=== PATIENT | female | born 1935 | race Caucasian/White ===

== ENCOUNTER 2016-12-21 12:09 | Emergency (ER) | payer MEDICARE, BC ==
[2016-12-21] MEDS ORDERED: NS 0.9% 1000 ML* 1,000 ML IV ONE (13:36)
[2016-12-21 14:02] LABS: Hematocrit 31 % (35-47); Hemoglobin 10.5 g/dl (12.0-16.0); Mean Corpuscular HGB Conc 34 g/dl (31-36); Mean Corpuscular Hemoglobin 32 pg (27-31); Mean Corpuscular Volume 94 fL (80-97); Mean Platelet Volume 10 um3 (7.4-10.4); Red Blood Count 3.32 10^6/ul (4.0-5.4); Red Cell Distribution Width 17 % (10.5-15); White Blood Count 6.6 10^3/ul (3.5-10.8)
[2016-12-21 14:18] LABS: ALT 69 U/L (7-52); Albumin 4.1 g/dL (3.2-5.2); Alkaline Phosphatase 53 U/L (34-104); BUN/Creatinine Ratio 23.2 (8-20); Blood Urea Nitrogen 23 mg/dL (6-24); CO2 Carbon Dioxide 27 mmol/L (22-32); Calcium 9.5 mg/dL (8.6-10.3); Chloride 108 mmol/L (101-111); EGFR African American 69.1 (>60); EGFR Non-African American 53.7 (>60); Globulin 2.6 g/dL (2-4); Glucose 79 mg/dL (70-100); Sodium 140 mmol/L (133-145); Total Protein 6.7 g/dL (6.4-8.9)
[2016-12-21] MEDS ORDERED: Iodixanol* (CONTRAST) 320 MG/ML 100 ML SDV IV ONE (14:25)
[2016-12-21 14:44] VITALS: BP 168/60
[2016-12-21 14:52] LABS: Anion Gap 5 mmol/L (2-11)
[2016-12-21 15:26] LABS: Erythrocyte Sed Rate 43 mm/Hr (0-40)
--- NOTE | 2016-12-21 15:40 | RAD ---
HISTORY: Headache, left-sided neck pain COMPARISONS: March 02, 2011 TECHNIQUE: Multiple contiguous axial CT scans were obtained of the head without intravenous contrast. FINDINGS: HEMORRHAGE/INFARCT: There is no hemorrhage or acute infarct. MASSES/SHIFT: There is no mass or shift. EXTRA-AXIAL SPACES: There are no extra-axial fluid collections. SULCI AND VENTRICLES: The sulci and ventricles are normal in size and position for the patient's stated age. CEREBRUM: There is hypoattenuation of the periventricular and subcortical white matter. BRAINSTEM: There are no focal parenchymal abnormalities. CEREBELLUM: There are no focal parenchymal abnormalities. VESSELS: The vessels are grossly normal. PARANASAL SINUSES: The paranasal sinuses are clear. ORBITS: The orbits are unremarkable. BONES AND SOFT TISSUE: No bone or soft tissue abnormalities are noted. OTHER: None IMPRESSION: NO ACUTE INTRACRANIAL PATHOLOGY. CHRONIC SMALL VESSEL ISCHEMIC CHANGE
--- NOTE | 2016-12-21 16:08 | RAD ---
HISTORY: Headache, left-sided neck pain COMPARISONS: MRA of the head dated March 23, 2005 TECHNIQUE: Multiple contiguous axial CT scans were obtained of the head and neck After the administration of nonionic intravenous contrast timed to the systemic arterial phase of contrast enhancement. Coronal and sagittal multiplanar reformations are submitted for review. Multiple 3-D maximum intensity projection reconstructions are also submitted for review. FINDINGS: CTA NECK: AORTIC ARCH: There is a normal three-vessel branching pattern of the aortic arch. There is no ostial or proximal stenosis of the cephalic great vessels. RIGHT VERTEBRAL ARTERY: The right vertebral artery terminates in the right posterior inferior cerebral artery LEFT VERTEBRAL ARTERY: The left vertebral artery is patent along its course, without stenosis. DOMINANCE: The left vertebral artery is dominant. RIGHT COMMON CAROTID ARTERY: The right common carotid artery is patent. The right carotid bifurcation occurs at C4-C5 RIGHT INTERNAL CAROTID ARTERY: There is atheromatous disease of the right carotid bifurcation, without right internal carotid artery stenosis by NASCET criteria. RIGHT EXTERNAL CAROTID ARTERY: The right external carotid artery is unremarkable. LEFT COMMON CAROTID ARTERY: The left common carotid artery is patent. The left carotid bifurcation occurs at C4-C5 LEFT INTERNAL CAROTID ARTERY: There is no left internal carotid artery stenosis by NASCET criteria. LEFT EXTERNAL CAROTID ARTERY: The left external carotid artery is unremarkable. VENOUS CIRCULATION: The venous system is unremarkable. SALIVARY GLANDS: The parotid glands, submandibular glands, sublingual glands are normal. NASAL CAVITY/NASOPHARYNX: The nasal cavity and nasopharynx are normal. ORAL CAVITY/OROPHARYNX: The oral cavity is obscured by streak artifact from dental amalgam. The visualized oral cavity and oropharynx are unremarkable. LARYNGEAL APPARATUS/HYPOPHARYNX: The laryngeal apparatus and hypopharynx are normal. UPPER AIRWAY/UPPER ESOPHAGUS: The visualized upper airway and esophagus are normal. LUNG APICES: The lung apices are clear. THYROID GLAND: The thyroid is heterogeneous with multiple nodules. LYMPH NODES: There is no lymphadenopathy by size criteria. BONES AND SOFT TISSUES: Degenerative changes noted of the spine CTA HEAD: INTRACRANIAL CIRCULATION: There is no aneurysm, vascular malformation, occlusion, or stenosis of the visualized intracranial circulation. The anterior communicating artery complex is clear. The posterior communicating arteries are diminutive, if present. VENOUS CIRCULATION: The venous system is unremarkable. PERFUSION: There is no obvious parenchymal perfusion deficit. HEMORRHAGE/INFARCT: There is no hemorrhage or acute infarct. MASSES/SHIFT: There is no mass or shift. EXTRA-AXIAL SPACES: There are no extra-axial fluid collections. SULCI AND VENTRICLES: The sulci and ventricles are normal in size and position for the patient's stated age. CEREBRUM: There is hypoattenuation of the periventricular and subcortical white matter. BRAINSTEM: There are no focal parenchymal abnormalities. CEREBELLUM: There are no focal parenchymal abnormalities. PARANASAL SINUSES: The paranasal sinuses are clear. ORBITS: The orbits are unremarkable. The superior orbital veins are normal and symmetric in size. BONES AND SOFT TISSUE: No bone or soft tissue abnormalities are noted. OTHER: There is no abnormal enhancement. IMPRESSION: 1. NO INTERNAL CAROTID ARTERY STENOSIS BY NASCET CRITERIA. THERE IS NO INTIMAL FLAP OR PSEUDOANEURYSM FORMATION TO SUGGEST CAROTID DISSECTION 2. NO ANEURYSM, VASCULAR MALFORMATION, OCCLUSION, OR STENOSIS OF THE VISUALIZED INTRACRANIAL CIRCULATION.. 3. THE THYROID IS HETEROGENEOUS WITH MULTIPLE NODULES. RECOMMEND CONSIDERATION OF CORRELATION WITH DEDICATED IMAGING OF THE THYROID IN THE NONACUTE SETTING. CPT II Codes: 3100F
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
== END 2016-12-21 17:13 | disposition home or self-care (01) ==
LOC: ED 12:09
DX: R51 Headache (principal); I25.119 Atherosclerotic heart disease of native coronary artery with unspecified angina pectoris; I10 Essential (primary) hypertension; Z86.718 Personal history of other venous thrombosis and embolism; Z88.1 Allergy status to other antibiotic agents; Z88.5 Allergy status to narcotic agent
CPT/HCPCS: 36415; 70450; 70496; 70498; 80053; 82375; 85025; 85652; 96360; 99282; Q9967

== ENCOUNTER 2017-07-06 10:06 | Emergency (ER) | payer MEDICARE, BC ==
[2017-07-06 10:32] VITALS: BP 116/67
--- NOTE | 2017-07-06 11:25 | UC ---
Migue Andrea Nikita, scribed for Timothy Douglass MD on 07/06/17 at 1048 . Complaint Female HPI - HPI Summary HPI Summary: This patient is an 82 year old F presenting to [facility] with a chief complaint of black tarry stool since a couple days ago. The patient rates the pain 0/10 in severity. Symptoms aggravated by nothing. Symptoms alleviated by nothing. Patient reports intermittent BECKFORD (1.5 weeks ago, taking Ibuprofen) and mouth sores (tends to bite herself when she is eating). Patient denies abdominal pain , CP, and SOB. The patient reports she is taking eliquis for afib. - History Of Current Complaint Stated Complaint: SWOLLEN FACE, DISCOLORED STOOL Time Seen by Provider: 07/06/17 10:17 Hx Obtained From: Patient Onset/Duration: Sudden Onset, Lasting Days, Still Present Timing: Constant, Lasting Days Severity Currently: None Pain Intensity: 0 Pain Scale Used: 0-10 Numeric Aggravating Factor(s): Nothing Alleviating Factor(s): Nothing - Allergies/Home Medications Allergies/Adverse Reactions: Allergies Allergy/AdvReac Type Severity Reaction Status Date / Time codeine Allergy Unknown Verified 07/06/17 10:24 Reaction Details erythromycin base Allergy Unknown Verified 07/06/17 10:24 [From Erythrocin] Reaction Details gabapentin [From Neurontin] Allergy Unknown Verified 07/06/17 10:24 Reaction Details Home Medications: Home Medications Diclofenac 1% GEL (NF) [Voltaren 1% GEL (NF)] 1 applic TOPICAL 07/06/17 [History ] Methotrexate TAB* 2.5 mg PO Q7D 07/06/17 [History Confirmed 07/06/17] Nadolol TAB* [Corgard TAB*] 40 mg PO DAILY 07/06/17 [History Confirmed 07/06/17] Potassium Chlor TAB* [Klor Con ER TAB*] 20 meq PO DAILY 07/06/17 [History Confirmed 07/06/17] Sertraline* [Zoloft*] 100 mg PO DAILY 07/06/17 [History Confirmed 07/06/17] Simvastatin (NF) [Zocor (NF)] 40 mg PO DAILY 07/06/17 [History Confirmed ] Triamcinolone 0.1% Oint (NF) [Triamcinolone Acetonide] 0 % 07/06/17 [History] PMH/Surg Hx/FS Hx/Imm Hx Cardiovascular History: Cardiac Disease, Hypertension, Atrial Fibrillation Neurological History: Other Other Neurological History: BECKFORD - Surgical History Surgical History: Yes Surgery Procedure, Year, and Place: CYST/TUMOR DRAINERD FROM RIGHT HIP X 25 YRS AGO - Family History Known Family History: Positive: Other - Negative autoimmune disease - Social History Alcohol Use: None Substance Use Type: None Smoking Status (MU): Never Smoked Tobacco - Immunization History Most Recent Influenza Vaccination: november 2012 Most Recent Tetanus Shot: 2011 Most Recent Pneumonia Vaccination: had in the past, not sure when Review of Systems Eyes: Other - mouth sores Respiratory: Other - deneis SOB Cardiovascular: Other - denies CP Gastrointestinal: Other - black tarry stool; denies abdominal pain Neurological: Headache - intermittent since 1.5 weeks ago All Other Systems Reviewed And Are Negative: Yes Physical Exam - Summary Physical Exam Summary: VITAL SIGNS: Reviewed. GENERAL: ~Patient is a well-developed and nourished FEMALE who is lying comfortable in the stretcher. ~Patient is not in any acute respiratory distress. HEAD AND FACE: Normocephalic EYES: PERRLA, EOMI x 2. sclera is pale. EARS: Hearing grossly intact. MOUTH: Oral mucosa is dry. small multiple sores. NECK: Supple, trachea is midline, no adenopathy, no JVD, no carotid bruit. CHEST: Symmetric, no tenderness at palpation LUNGS: Clear to auscultation bilaterally. No wheezing or crackles. CVS: Regular rate and rhythm, S1 and S2 present, no murmurs or gallops appreciated. ABDOMEN: Soft, non-tender. Bowel sounds are normal. No abdominal abnormal pulsations. EXTREMITIES: Full ROM in all major joints, no edema, no cyanosis or clubbing. NEURO: Alert and oriented x 3. No acute neurological deficits. Speech is normal and follows commands. SKIN: Dry and warm. Pale skin. Rectal: External hemorrhoids, no gross blood, no black stools. Triage Information Reviewed: Yes Vital Signs: Initial Vital Signs Temp 98.2 F 07/06/17 10:30 Pulse 75 07/06/17 10:30 Resp 16 07/06/17 10:30 BP 116/67 07/06/17 10:30 Pulse Ox 100 07/06/17 10:30 Vital Signs Reviewed: Yes Complaint Female Dx - Course Course Of Treatment: This patient is an 82 year old F presenting to [facility] with a chief complaint of black tarry stool since a couple days ago. The pt is hemodynamically stable, alert and oriented x3. I discussed all the findings and test results with the patient. Plan of care was discussed with the patient. Patient will be referred to the ED since patient is c/o black tarry stools and she has possitive occult blood. Vital signs stable. Declined ambulance transport. The patient decided to go to the ED by car with his son. All questions were answered to patient satisfaction. There were no further complaints or concerns. - Differential Dx/Diagnosis Provider Diagnoses: GI bleed secondary to Eloquis and NSAIDS Discharge - Sign-Out/Discharge Documenting (check all that apply): Discharge/Admit/Transfer - Discharge Plan Condition: Stable Disposition: HOME Patient Education Materials: Rectal Bleeding (ED) Referrals: David Elizabeth MD [Primary Care Provider] - Additional Instructions: Patient will be discharged to the ED. Declined ambulance transport - Billing Disposition and Condition Condition: STABLE Disposition: HOME The documentation as recorded by the Migue myers Nikita accurately reflects the service I personally performed and the decisions made by , Timothy Douglass MD.
== END 2017-07-06 10:55 | disposition home or self-care (01) ==
LOC: UCEAST 10:06
DX: K92.2 Gastrointestinal hemorrhage, unspecified (principal); K64.4 Residual hemorrhoidal skin tags; K13.79 Other lesions of oral mucosa; R51 Headache; I11.9 Hypertensive heart disease without heart failure; I48.91 Unspecified atrial fibrillation; Z79.01 Long term (current) use of anticoagulants; Z88.1 Allergy status to other antibiotic agents; Z88.5 Allergy status to narcotic agent; Z88.8 Allergy status to other drugs, medicaments and biological substances
CPT/HCPCS: 82270; 99212; G0463

== ENCOUNTER 2017-07-06 11:12 | Observation (INO) | payer MEDICARE, BC ==
[2017-07-06 12:02] LABS: Hematocrit 26 % (35-47); Mean Corpuscular HGB Conc 34 g/dl (31-36); Mean Corpuscular Hemoglobin 32 pg (27-31); Mean Corpuscular Volume 93 fL (80-97); Red Blood Count 2.82 10^6/ul (4.0-5.4); Red Cell Distribution Width 16 % (10.5-15); White Blood Count 2.4 10^3/ul (3.5-10.8)
[2017-07-06 12:04] LABS: INR 2.02 (0.77-1.02)
[2017-07-06 12:16] LABS: EGFR Non-African American 38.1 (>60)
[2017-07-06] MEDS ORDERED: Pantoprazole IV* 40 MG IV ONE (12:30)
[2017-07-06 12:34] LABS: ABS Basophils 0 10^3/ul (0-0.2); ABS Eosinophils 0.1 10^3/ul (0-0.6); ABS Lymphocytes 0.7 10^3/ul (1.0-4.8); ABS Monocytes 0 10^3/ul (0-0.8); ABS Neutrophils 1.7 10^3/ul (1.5-7.7); ABS Nucleated RBC 0 10^3/ul; Eosinophil % 3.3 % (0-6); Lymphocyte % 27.6 % (25-47); Mean Platelet Volume 9.7 um3 (7.4-10.4); Nucleated Red Blood Cells % 0.1; Platelet Count 73 10^3/ul (150-450)
[2017-07-06] MEDS: Pantoprazole IV* 80 MG in NS 0.9% 250 ML* 250 ML IV SCH ×2 (13:32→23:30)
--- NOTE | 2017-07-06 14:24 | ADMNOTE ---
Subjective Date of Service: 07/06/17 Interval History: ADMISSION HISTORY AND PHYSICAL EXAM: Allergies Allergy/AdvReac Type Severity Reaction Status Date / Time codeine Allergy Unknown Verified 07/06/17 10:24 Reaction Details erythromycin base Allergy Unknown Verified 07/06/17 10:24 [From Erythrocin] Reaction Details gabapentin [From Neurontin] Allergy Unknown Verified 07/06/17 10:24 Reaction Details Home Medications Medication Instructions Recorded Confirmed Type Furosemide TAB* [Lasix TAB*] 20 mg PO QAM 04/27/12 07/06/17 History Apixaban* [Eliquis(TAB)] 5 mg PO BID #60 tab 04/10/15 07/06/17 Rx Digoxin TAB* [Lanoxin TAB*] 0.125 mg PO DAILY 04/10/15 07/06/17 History amLODIPine TAB* [Norvasc TAB*] 10 mg PO DAILY 04/10/15 07/06/17 History Diclofenac 1% GEL (NF) [Voltaren 1 applic TOPICAL TID PRN 07/06/17 07/06/17 History 1% GEL (NF)] Hydrocortisone Butyrate [Locoid] 0.1 % TOPICAL BID 07/06/17 07/06/17 History Lisinopril TAB* [Prinivil TAB*] 40 mg PO DAILY 07/06/17 07/06/17 History Methotrexate TAB* 2.5 mg PO Q7D 07/06/17 07/06/17 History Nadolol TAB* [Corgard TAB*] 40 mg PO DAILY 07/06/17 07/06/17 History Potassium Chlor TAB* [Klor Con ER 20 meq PO DAILY 07/06/17 07/06/17 History TAB*] Sertraline* [Zoloft*] 100 mg PO DAILY 07/06/17 07/06/17 History Simvastatin (NF) [Zocor (NF)] 40 mg PO DAILY 07/06/17 07/06/17 History Triamcinolone DENTAL PASTE(NF) 1 applic PO TID 07/06/17 07/06/17 History HPI: The patient saw Dr. Hanley 07/03 for sores in her mouth. She had a blood test. She was told to stop taking MTX. She took it MTS, always takes it on Mondays. She has been taking ibuprofen for headache and sore mouth. Yesterday and today she had a black BM. No pain or emesis. Family History: Findings - Mother of pancreatic cancer. Both parents had heart disease. Social History: Findings - Lives with her , who is her SDM. No alcohol or tobacco use. Past Medical History: Findings - Dementia, progressive for about a year. Cholecystectomy, hysterectomy, colon resection for diverticulitis, multiple skin cancers. Review of Systems - Measurements Intake and Output: Intake and Output Last 24 Hours 07/04/17 07/05/17 07/06/17 07/07/17 06:59 06:59 06:59 06:59 Weight 155 lb - Review of Systems Dermatology: Positive: Skin Lesions, Cancer HEENT: Positive: Normal Eyes: Positive: Normal Thyroid: Positive: Normal Pulmonary: Positive: Normal Cardiology: Positive: Normal Gastroenterology: Positive: Melena Musculoskeletal: Positive: Arthritis Endocrinology: Positive: Normal Hematologic/Lymphatic: Positive: Anemia Neurology: Positive: Change in Memory Psychiatry: Positive: Normal Objective Active Medications: Pantoprazole Sodium 80 mg/ (Sodium Chloride) 250 mls @ 25 mls/hr IV Q10H ROSALVA Last Admin: 07/06/17 13:32 Dose: 25 mls/hr Vital Signs - 8 hr 07/06/17 07/06/17 07/06/17 11:12 11:33 11:34 Temperature 97.8 F Pulse Rate 68 69 69 Respiratory 16 16 Rate Blood Pressure 119/46 145/64 (mmHg) O2 Sat by Pulse 100 91 77 Oximetry 07/06/17 07/06/17 07/06/17 12:00 12:03 12:33 Temperature Pulse Rate 70 64 Respiratory 20 15 15 Rate Blood Pressure 124/56 114/90 (mmHg) O2 Sat by Pulse 93 92 Oximetry 07/06/17 07/06/17 13:00 13:03 Temperature Pulse Rate 64 69 Respiratory 12 23 Rate Blood Pressure 119/59 (mmHg) O2 Sat by Pulse 98 99 Oximetry Oxygen Devices in Use Now: None Appearance: Alert, partly up on ED stretcher. Neutral affect or perhaps apprehensive. Looks otherwise comfortable. Eyes: No Scleral Icterus Respiratory: Symmetrical Chest Expansion and Respiratory Effort, Clear to Auscultation, Clear to Percussion Cardiovascular: NL Sounds; No Murmurs; No JVD, RRR, No Edema, - Abdominal: NL Sounds; No Tenderness; No Distention, No Hepatosplenomegaly, - Extremities: No Edema, No Clubbing, Cyanosis, - Skin: No Rash or Ulcers, No Nodules or Sclerosis, - Neurological: NL Sensation - Knows her age and present month, not oriented to place. No tremor. Sparse speech, passive. Result Diagrams: 07/06/17 11:47 07/06/17 11:47 Assess/Plan/Problems-Billing Assessment: - Patient Problems (1) UGI bleed Current Visit: Yes Status: Acute Code(s): K92.2 - GASTROINTESTINAL HEMORRHAGE, UNSPECIFIED SNOMED Code(s): 43425145 Comment: Hx melena, high BUN/creat ratio. Possibly related to ibuprofen use. Hold apixaban. EGD in progress. Pt and son instructed to never use NSAID 's. ? PPI per results of EGD. (2) Pancytopenia Current Visit: Yes Status: Acute Code(s): D61.818 - OTHER PANCYTOPENIA SNOMED Code(s): 017262107 Comment: Likely due to MTX. CBC 07/07. (3) Dementia Current Visit: Yes Status: Acute Code(s): F03.90 - UNSPECIFIED DEMENTIA WITHOUT BEHAVIORAL DISTURBANCE SNOMED Code(s): 09094642 Comment: No behavior disturbance reported. Reduce sertraline dose, consider tapering to zero. (4) HTN (hypertension) Current Visit: Yes Status: Acute Code(s): I10 - ESSENTIAL (PRIMARY) HYPERTENSION SNOMED Code(s): 69976760 Comment: Hold lisinopril, amlodipine. Continue nadolol.
[2017-07-06] MEDS ORDERED: Midazolam* 1 MG/ML 10 ML VIAL (10 MG) ONE (14:28)
[2017-07-06] MEDS ORDERED: fentaNYL* 50 MCG/ML 2 ML VIAL (100 MCG VIAL) ONE (14:28)
[2017-07-06] MEDS ORDERED: Lidocaine 2% JELLY* 6 ML JELLY TOPICAL ONE (14:34)
[2017-07-06] MEDS ORDERED: Lidocaine 2% JELLY* 6 ML JELLY TOPICAL PRN (18:15)
[2017-07-06 19:09] LABS: ABS Basophils 0 10^3/ul (0-0.2); ABS Eosinophils 0.1 10^3/ul (0-0.6); ABS Lymphocytes 0.6 10^3/ul (1.0-4.8); ABS Monocytes 0 10^3/ul (0-0.8); ABS Neutrophils 1.1 10^3/ul (1.5-7.7); ABS Nucleated RBC 0 10^3/ul; Eosinophil % 4.6 % (0-6); Hematocrit 25 % (35-47); Hemoglobin 8.4 g/dl (12.0-16.0); Lymphocyte % 31.9 % (25-47); Mean Corpuscular HGB Conc 34 g/dl (31-36); Mean Corpuscular Hemoglobin 32 pg (27-31); Mean Corpuscular Volume 94 fL (80-97); Mean Platelet Volume 9.4 um3 (7.4-10.4); Nucleated Red Blood Cells % 0; Platelet Count 59 10^3/ul (150-450); Red Blood Count 2.64 10^6/ul (4.0-5.4); Red Cell Distribution Width 15 % (10.5-15); White Blood Count 1.8 10^3/ul (3.5-10.8)
--- NOTE | 2017-07-06 21:03 | CONS ---
CC: David Elizabeth MD * GASTROENTEROLOGY CONSULTATION: DATE OF CONSULT: 07/06/17 REFERRING PHYSICIAN: David Elizabeth MD HISTORY OF PRESENT ILLNESS: Thank you for asking me to see Ms. Patterson. As you know, she is a pleasant 82-year-old female who presented to urgent care today with complaint of black tarry stools over the past 2 days. She has been having according to her son, headache since Monday and has been taking Advil. The patient also has some mouth sores, which are unclear in etiology. The patient is on Eliquis for atrial fibrillation. She has no history of GI bleeding. She lives at home with her . She denies any nausea, vomiting, or abdominal pain. She has never had an ulcer. The patient has had no chest pain or shortness of breath. Her vital signs are stable. Her presenting hemoglobin is 8.3. There has been no stool output since arrival to the emergency room where she was transferred from urgent care. PAST MEDICAL HISTORY: Significant for: 1. Atrial fibrillation. 2. Hypertension. 3. Coronary artery disease. MEDICATIONS: At home include: 1. Methotrexate. 2. Nadolol. 3. Potassium. 4. Sertraline. 5. Simvastatin. 6. Ibuprofen. 7. Eliquis. ALLERGIES: To CODEINE, ERYTHROMYCIN, GABAPENTIN. FAMILY HISTORY: Noncontributory. SOCIAL HISTORY: The patient lives at home with her . There is no tobacco or alcohol abuse. REVIEW OF SYSTEMS: Ten-point review of systems is performed and is otherwise negative. PHYSICAL EXAM: Ms. Patterson is a well-appearing 82-year-old female. She is afebrile, heart rate is 70, blood pressure 119/59, O2 sat is 99% on room air. HEENT Exam: There is no scleral icterus. The patient does have multiple small mouth sores. Neck is supple. Heart is irregular rate and rhythm. Lungs are clear. Abdomen is soft. There is no tenderness. Bowel sounds are present. There is no distention. Skin is warm and dry. Neuro exam is grossly intact. Alert and oriented x3. LABORATORY DATA: Pertinent laboratory studies include a hemoglobin 9.0, hematocrit 26, MCV 93. INR 2.0. BUN 36, creatinine 1.3. Liver function tests are normal. IMPRESSION: Ms. Patterson presents with 2 days of black tarry stools, none today. There has been no nausea or vomiting. She is on Eliquis for history of atrial fibrillation. She has been taking Advil recently. Suspect upper gastrointestinal bleed. Vital signs stable. RECOMMENDATIONS: The patient will be brought up to endoscopy for urgent endoscopy. The patient has been commenced on IV pantoprazole drip 8 mg an hour. Further recommendations will be made based on results of endoscopy. [id number]/[facility] #: [id number] [facility]SIDE HOSPITALGretel
--- NOTE | 2017-07-07 06:06 | PRO ---
CC: Dr. David Elizabeth * GASTROENTEROLOGY PROCEDURE NOTE: DATE OF PROCEDURE: 07/06/17 - ROOM #[id number] REFERRING PHYSICIAN: Dr. David Elizabeth. PROCEDURE: EGD. PREOPERATIVE DIAGNOSES: Suspected upper GI bleed in this 82-year-old female who is on Eliquis for atrial fibrillation, who presented with black tarry stools over the past 2 days. She has been taking Advil recently for headaches. She has been commenced on a pantoprazole drip 8 mg per hour. There has been no stool output here in the emergency room. Admission hemoglobin is 9. POSTOPERATIVE DIAGNOSES: 1. Normal esophagus. 2. Mild erosive gastritis of the antrum with no signs of active bleeding, no old or new blood present within the stomach. 3. Multiple small ulcerations of the duodenal bulb with no stigmata of recent bleeding, no active bleeding, and no old blood noted. Photographs obtained. Normal descending duodenum. PROCEDURE MEDICATIONS: 1. Versed 2 mg IV. 2. Fentanyl 25 mcg IV. INSTRUMENT: GF-190 Olympus high-definition gastroscope. DESCRIPTION OF PROCEDURE: Informed consent was obtained prior to performing this procedure. The instrument was introduced into the mouth and passed through cervical esophagus under direct visualization. The instrument was then advanced down the esophagus. The esophagus was normal in its entirety. The scope was passed into the gastric cardia, fundus, body, and antrum. There were few small erosions within the antrum. No active bleeding noted. No old or new blood present within the stomach. The scope was passed through the pylorus and duodenal bulb and descending duodenum. Within the bulb, there were multiple superficial ulcers. No stigmata of recent bleeding. No active bleeding. No old blood present. No old blood or abnormality of the descending duodenum. The instrument was withdrawn from the patient. The patient tolerated the procedure well and there were no complications. RECOMMENDATIONS: I suspect the patient bled from one of these ulcers in the bulb. There is no stigmata of recent bleeding. No active bleeding. So, no therapy was performed. Continue IV pantoprazole drip at 8 mg per hour and clear liquid diet. Monitor hematocrit as the patient may with IV hydration. I would hold her Eliquis this evening and possibly tomorrow morning and see how her stool output is and follow up hematocrit. [id number]/[facility] #: [id number] [facility]
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
[2017-07-07] MEDS ORDERED: Nadolol TAB* 40 MG PO SCH (09:00)
[2017-07-07] MEDS ORDERED: Sertraline* 50 MG TAB PO SCH (09:00)
[2017-07-07] MEDS ORDERED: Digoxin TAB* 0.125 MG PO SCH (09:00)
[2017-07-07] MEDS: Pantoprazole IV* 80 MG in NS 0.9% 250 ML* 250 ML IV SCH (10:34)
[2017-07-07 11:56] VITALS: BP 120/55
--- NOTE | 2017-07-07 12:34 | PN ---
Progress Note - Progress Note Date of Service: 07/07/17 Note: G
--- NOTE | 2017-07-07 13:08 | PN ---
Subjective Date of Service: 07/07/17 Family History: Findings - Mother of pancreatic cancer. Both parents had heart disease. Social History: Findings - Lives with her , who is her SDM. No alcohol or tobacco use. Past Medical History: Findings - Dementia, progressive for about a year. Cholecystectomy, hysterectomy, colon resection for diverticulitis, multiple skin cancers. Objective Active Medications: Digoxin (Lanoxin Tab*) 0.125 mg PO DAILY ON LICENSE OF [facility] Last Admin: 07/07/17 10:03 Dose: 0.125 mg Pantoprazole Sodium 80 mg/ (Sodium Chloride) 250 mls @ 25 mls/hr IV Q10H ON LICENSE OF [facility] Last Admin: 07/07/17 10:34 Dose: 25 mls/hr Lidocaine HCl (Lidocaine 2% Jelly*) 1 applic TOPICAL ONCE PRN PRN Reason: BEDSIDE USE Last Admin: 07/07/17 10:09 Dose: 1 applic Nadolol (Corgard Tab*) 40 mg PO DAILY ON LICENSE OF [facility] Last Admin: 07/07/17 10:03 Dose: 40 mg Sertraline HCl (Zoloft*) 50 mg PO DAILY ON LICENSE OF [facility] Last Admin: 07/07/17 10:03 Dose: 50 mg Vital Signs - 8 hr 07/07/17 07/07/17 07/07/17 07:22 08:01 11:09 Temperature 98.3 F 98.4 F Pulse Rate 81 68 Respiratory 20 18 20 Rate Blood Pressure 129/53 120/55 (mmHg) O2 Sat by Pulse 95 100 Oximetry Oxygen Devices in Use Now: None Result Diagrams: 07/06/17 18:54 07/06/17 11:47 Additional Lab and Data: Lab Results 07/06/17 07/06/17 07/06/17 Range/Units 11:47 11:47 11:47 WBC 2.4 L (3.5-10.8) 10^3/ul RBC 2.82 L (4.0-5.4) 10^6/ul Hgb 9.0 L (12.0-16.0) g/dl Hct 26 L (35-47) % MCV 93 (80-97) fL MCH 32 H (27-31) pg MCHC 34 (31-36) g/dl RDW 16 H (10.5-15) % Plt Count Pending MPV Pending Neut % (Auto) Pending Lymph % (Auto) Pending [place] % (Auto) Pending Eos % (Auto) Pending Baso % (Auto) Pending Absolute Neuts (auto) Pending Absolute Lymphs (auto) Pending Absolute Monos (auto) Pending Absolute Eos (auto) Pending Absolute Basos (auto) Pending Absolute Nucleated RBC Pending Nucleated RBC % Pending INR (Anticoag Therapy) 2.02 H (0.77-1.02) APTT 33.2 (26.0-36.3) seconds Sodium 139 (139-145) mmol/L Potassium 4.0 (3.5-5.0) mmol/L Chloride 108 (101-111) mmol/L Carbon Dioxide 21 L (22-32) mmol/L Anion Gap 10 (2-11) mmol/L BUN 36 H (6-24) mg/dL Creatinine 1.33 H (0.51-0.95) mg/dL Est GFR ( Amer) 49.0 (>60) Est GFR (Non-Af Amer) 38.1 (>60) BUN/Creatinine Ratio 27.1 H (8-20) Glucose 97 (70-100) mg/dL Calcium 9.3 (8.6-10.3) mg/dL Total Bilirubin 0.80 (0.2-1.0) mg/dL AST 20 (13-39) U/L ALT 21 (7-52) U/L Alkaline Phosphatase 47 (34-104) U/L Troponin I 0.00 (<0.04) ng/mL Total Protein 6.5 (6.4-8.9) g/dL Albumin 3.8 (3.2-5.2) g/dL Globulin 2.7 (2-4) g/dL Albumin/Globulin Ratio 1.4 (1-3) Blood Type Antibody Screen 07/06/17 Range/Units 11:47 WBC (3.5-10.8) 10^3/ul RBC (4.0-5.4) 10^6/ul Hgb (12.0-16.0) g/dl Hct (35-47) % MCV (80-97) fL MCH (27-31) pg MCHC (31-36) g/dl RDW (10.5-15) % Plt Count MPV Neut % (Auto) Lymph % (Auto) [place] % (Auto) Eos % (Auto) Baso % (Auto) Absolute Neuts (auto) Absolute Lymphs (auto) Absolute Monos (auto) Absolute Eos (auto) Absolute Basos (auto) Absolute Nucleated RBC Nucleated RBC % INR (Anticoag Therapy) (0.77-1.02) APTT (26.0-36.3) seconds Sodium (139-145) mmol/L Potassium (3.5-5.0) mmol/L Chloride (101-111) mmol/L Carbon Dioxide (22-32) mmol/L Anion Gap (2-11) mmol/L BUN (6-24) mg/dL Creatinine (0.51-0.95) mg/dL Est GFR ( Amer) (>60) Est GFR (Non-Af Amer) (>60) BUN/Creatinine Ratio (8-20) Glucose (70-100) mg/dL Calcium (8.6-10.3) mg/dL Total Bilirubin (0.2-1.0) mg/dL AST (13-39) U/L ALT (7-52) U/L Alkaline Phosphatase (34-104) U/L Troponin I (<0.04) ng/mL Total Protein (6.4-8.9) g/dL Albumin (3.2-5.2) g/dL Globulin (2-4) g/dL Albumin/Globulin Ratio (1-3) Blood Type A Positive Antibody Screen Negative Assess/Plan/Problems-Billing Assessment: - Patient Problems (1) UGI bleed Current Visit: Yes Status: Acute Code(s): K92.2 - GASTROINTESTINAL HEMORRHAGE, UNSPECIFIED SNOMED Code(s): 21815967 Comment: Hx melena, high BUN/creat ratio. Possibly related to ibuprofen use. Hold apixaban. EGD in progress. Pt and son instructed to never use NSAID 's. ? PPI per results of EGD. (2) Pancytopenia Current Visit: Yes Status: Acute Code(s): D61.818 - OTHER PANCYTOPENIA SNOMED Code(s): 396899866 Comment: Likely due to MTX. CBC 07/07. (3) Dementia Current Visit: Yes Status: Acute Code(s): F03.90 - UNSPECIFIED DEMENTIA WITHOUT BEHAVIORAL DISTURBANCE SNOMED Code(s): 39227602 Comment: No behavior disturbance reported. Reduce sertraline dose, consider tapering to zero. (4) HTN (hypertension) Current Visit: Yes Status: Acute Code(s): I10 - ESSENTIAL (PRIMARY) HYPERTENSION SNOMED Code(s): 50053056 Comment: Hold lisinopril, amlodipine. Continue nadolol.
[2017-07-07] MEDS ORDERED: Omeprazole CAP* 20 MG PO SCH (13:30)
[2017-07-07] MEDS ORDERED: Folic Acid TAB* 1 MG PO SCH (14:00)
--- NOTE | 2017-07-08 06:41 | DS ---
CC: Dr. Hanley * DISCHARGE SUMMARY: DATE OF ADMISSION: 07/06/17 DATE OF DISCHARGE: 07/07/17 HISTORY OF PRESENT ILLNESS: This 82-year-old woman presented with sore mouth, headache, black bowel movement 2 days in a row. She was taking significant amounts of Advil on her 's recommendation for her headache. She had seen Dr. Hanley on 07/03/17 for sores in the mouth and was told not to stop her methotrexate. She had taken her methotrexate 7.5 mg weekly that day. The rest of history is detailed in the admission note. The patient underwent endoscopy. This showed mild erosive gastritis of the antrum with no signs of active bleeding. There was no old or new blood. The esophagus was normal. There were multiple small ulcerations of duodenal bulb with no active bleeding and no old blood noted. The patient did well in the hospital. She did not require any transfusions. She did not have any bowel movements in the hospital. Hematocrit fell from 26 to 25 overnight, her white count fell from 2.4 to 1.8, her platelets fell from 73 to 59. I note her creatinine was 1.33, which was, I think, slightly better than it was back in Dr. Hanley's office. BUN was 36 and the BUN-creatinine ratio was elevated at 27.1. I discussed the case on the phone with Dr. Cannon. He felt this was most likely methotrexate toxicity. The gastritis and duodenal ulcerations are likely related to her ibuprofen use. She should continue taking her folate with the methotrexate. Whether or not to reintroduce it at a lower dose in the future is a clinical question I will leave up to Dr. Hanley. I would recommend that she not take her Eliquis for a week or so. She will have a CBC on 07/10/17. Certainly, would not want to start the Apixaban until her hemoglobin and hematocrit are stable and her platelet count has risen perhaps to 100,000. This is also a judgment I will leave up to Dr. Hanley. I see no reason though why the Apixaban could not be restarted within the next couple of weeks if not sooner. FINAL DIAGNOSES: 1. Upper gastrointestinal bleed related to ibuprofen use with gastritis and small duodenal ulcerations. 2. Pancytopenia likely due to methotrexate. 3. Dementia. 4. Hypertension. 5. Undefined rheumatic disorder, on methotrexate in the past. DISCHARGE MEDICATIONS: 1. Folic acid 1 mg daily. 2. Omeprazole 20 mg b.i.d. 3. Sertraline 50 mg daily. 4. Furosemide 20 mg daily. 5. Digoxin 0.125 mg daily. 6. Simvastatin 40 mg daily. 7. Potassium chloride 20 mEq daily. 8. Nadolol 40 mg daily. 9. Diclofenac 1% gel t.i.d. p.r.n. 10. Lisinopril 40 mg daily. 11. Hydrocortisone 0.1% topical b.i.d. as directed. 12. Triamcinolone dental paste as directed. 1. Sertraline dose has been decreased from 100 to 50 mg daily. 2. Methotrexate has been discontinued. 3. Amlodipine has been discontinued. 4. Apixaban has also been temporarily discontinued. [id number]/[facility] #: [id number] [facility]
== END 2017-07-07 14:30 | disposition home or self-care (01) ==
LOC: ED 11:12 → INTOOBSV 13:23 → MEDTELE 13:23
PROVIDERS: ADMIT Internal Medicine; ATTEND Internal Medicine
PROC: 0DJ08ZZ Inspection of Upper Intestinal Tract, Via Natural or Artificial Opening Endoscopic (ICD-10-PCS; principal; 2017-07-06)
DX: K29.01 Acute gastritis with bleeding (principal); K26.9 Duodenal ulcer, unspecified as acute or chronic, without hemorrhage or perforation; D61.818 Other pancytopenia; F03.90 Unspecified dementia, unspecified severity, without behavioral disturbance, psychotic disturbance, mood disturbance, and anxiety; I10 Essential (primary) hypertension; I09.0 Rheumatic myocarditis; I48.91 Unspecified atrial fibrillation; I25.10 Atherosclerotic heart disease of native coronary artery without angina pectoris
CPT/HCPCS: 36415; 80053; 80162; 82270; 84484; 85025; 85060; 85610; 85730; 86850; 86900; 86901; 93005; 96374; 99156; 99157; 99212; 99284; A9270-GY; G0378; G0463; J2250; J3010

== ENCOUNTER 2017-07-09 18:25 | Inpatient (IN) | payer MEDICARE, BC ==
[2017-07-09] MEDS ORDERED: Iodixanol* (CONTRAST) 320 MG/ML 100 ML SDV IV ONE (19:10)
[2017-07-09 19:24] LABS: ABS Basophils 0 10^3/ul (0-0.2); ABS Eosinophils 0.1 10^3/ul (0-0.6); ABS Lymphocytes 0.4 10^3/ul (1.0-4.8); ABS Monocytes 0 10^3/ul (0-0.8); ABS Neutrophils 0.4 10^3/ul (1.5-7.7); ABS Nucleated RBC 0 10^3/ul; Eosinophil % 12.7 % (0-6); Hematocrit 23 % (35-47); Hemoglobin 8.1 g/dl (12.0-16.0); Lymphocyte % 42.9 % (25-47); Mean Corpuscular HGB Conc 35 g/dl (31-36); Mean Corpuscular Hemoglobin 32 pg (27-31); Mean Corpuscular Volume 93 fL (80-97); Mean Platelet Volume 10.4 um3 (7.4-10.4); Nucleated Red Blood Cells % 0.4; Platelet Count 26 10^3/ul (150-450); Red Blood Count 2.51 10^6/ul (4.0-5.4); Red Cell Distribution Width 15 % (10.5-15)
[2017-07-09 19:26] LABS: INR 1.17 (0.77-1.02)
[2017-07-09 19:38] LABS: EGFR Non-African American 44.2 (>60)
--- NOTE | 2017-07-09 19:54 | RAD ---
Indication: Abdominal pain. Contrast: Administered 88.0 ml of VISAPAQUE 320 mg/ml CT of the abdomen and pelvis was performed after IV contrast administration. Coronal and sagittal reconstructed images were obtained. Comparison is made to previous exam dated August 01, 2011. The lung bases demonstrate no pleural fluid, nodules or masses. Heart is of normal size without evidence of pericardial effusion. The liver is normal in size. No focal lesions or intrahepatic ductal dilatation is noted. The common duct is mildly enlarged may be due to postcholecystectomy state of the patient. This measures approximately 13 mm. Pancreas demonstrates no mass effect or ductal dictation. The spleen is normal in size. The spleen demonstrates low density lesion in the lower pole of the spleen measuring up to 15 mm. This has increased in size since previous exam. The pancreas demonstrates no mass or pancreatic ductal dilatation. No adrenal lesions are noted. The kidneys demonstrate several cortical cysts in the right kidney. Small nodule is noted in the upper pole of the right kidney which is unchanged since 2012. Cortical cyst in the right kidney anteriorly is slightly larger now measuring 13 mm. Small cortical cyst in the right kidney as well as in the posterior cortex of the right kidney is unchanged. The left kidney demonstrates suggestion of a solid nodule in the lateral cortex of left kidney measuring 13 mm. There is a cyst in the lower pole of the right kidney measuring 20 mm. These are new since previous exam. The possibility of a small solid renal mass in left kidney is not excluded. Atherosclerotic aorta is noted. No aneurysmal dilatation is noted. No dilated loops of bowel are noted. There is diverticulosis without definite evidence of diverticulitis of the sigmoid colon. Small bowel demonstrates moderate distention in a nonspecific pattern. No free fluid is identified in the pelvis. Patient status post hysterectomy. The appendix is not definitively identified. IMPRESSION: No abnormal masses or fluid collection is noted with diverticulosis of the colon without definite evidence of diverticulitis. Cortical cysts are noted in both kidneys however there appears to be an exophytic 13 mm solid appearing nodule arising from the lateral cortex of left kidney. Renal neoplasm is not excluded. Follow-up exam is suggested. Small cortical cysts are noted. Nonspecific distention of small bowel is present. Patient is status post cholecystectomy.
--- NOTE | 2017-07-09 20:08 | RAD ---
Indication: Right upper quadrant pain. 2 views of the chest demonstrates no mediastinal shift. Heart is of normal size and configuration. Lung luong demonstrate no pleural fluid, pneumonia or pneumothorax. IMPRESSION: No active cardiopulmonary disease is noted.
[2017-07-09] MEDS ORDERED: Piperacillin/Tazobac ADVAN(*) 3.375 GM in NS 0.9% 100 ML* 100 ML IVPB ONE (20:20)
[2017-07-09] MEDS ORDERED: Potassium Chloride LIQUID* 20 MEQ PACKET PO ONE (20:36)
[2017-07-09] MEDS ORDERED: Magnesium Sulfate 2 GM IV* 2 GM/50 ML BAG IVPB ONE (20:36)
[2017-07-09] MEDS: Omeprazole CAP* 20 MG PO SCH (22:50)
[2017-07-09] MEDS: Lidocaine 2% VISCOUS* 15 ML UDC PO PRN (23:03)
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
--- NOTE | 2017-07-10 00:14 | HP ---
HISTORY AND PHYSICAL: DATE OF ADMISSION: 07/09/17 ADMITTING PROVIDER: Asher Ayala MD. PRIMARY CARE PROVIDER: Dr. Hanley. OUTPATIENT TROUBLE TRACER: Leida Ness NP CHIEF COMPLAINT: Throat and cheek pain; inability to swallow food; continued dark tarry bowel movements. HISTORY OF PRESENT ILLNESS: Viola Patterson is a 82-year-old female with a past medical history of hypertension, dementia, atrial fibrillation, skin cancer, who for the last 10 days has not been able to tolerate any solid food intake. She was recently admitted 07/06/17 to 07/07/17 with these complaints, had upper endoscopy with Dr. Kovacs, was found to have some mild erosive gastritis. No active bleeding. She had pancytopenia at that time. She was discharged with recommendation to stop her Eliquis. Hemoglobin at that time had been 8.4 and hematocrit 25 on discharge, with platelets of 59,000, white blood cells of 1.8 and ANC of 11,000. She returns with similar complaints, still unable to tolerate p.o. intake. She was noted to have a fever above 101 temporally and worsening pancytopenia on ED labs with white count 1.0, ANC of 400, hemoglobin 8.1, hematocrit 23, platelets of 26,000. She was referred to hospitalist service for pancytopenia and neutropenic fever. Of note, she has been on methotrexate for about 6 months for a rheumatological disorder she cannot otherwise specify (ADDENDUM: Per Leida Ness's outpatient notes this is for Rheumatoid Arthritis). 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 She attests to some right hip stiffness, but cannot otherwise characterize her rheumatological disorder. She denies any sensation of fevers, chills, shortness of breath, chest pain, cough, difficulty with urination or pain with urination. She does still have some black tarry bowel movements, her last one was this morning. She denies any lightheadedness or dizziness. Her main complaint is inability to tolerate p.o. intake. She thinks she has bit her inner cheeks, has sores on both sides that are painful. She was given some triamcinolone dental paste by Dr. Hanley, but there was some mix-up at the pharmacy. It is not clear that she has been actually taking that. PAST MEDICAL HISTORY: Hypertension, dementia, rheumatological disorder that is not known at this time(ADDENDUM: Per Leida Ness's outpatient notes this is for Rheumatoid Arthritis), atrial fibrillation, skin cancer?, basal cell cancer ? for which she was scheduled to see a support specialist who she cannot remember the name, to have back excisions in the coming weeks. PAST SURGICAL HISTORY: Cholecystectomy, bowel resection for diverticulitis, hysterectomy. HOME MEDICATIONS: Include: 1. Simvastatin 40 mg p.o. q.h.s. 2. Lisinopril 20 mg p.o. b.i.d. 3. Triamcinolone dental paste p.o. t.i.d. 4. Sertraline 50 mg daily. 5. Potassium chloride 20 mEq p.o. daily (has run out). 6. Omeprazole 20 mg p.o. b.i.d. (relatively new on last discharge) 7. Nadolol 40 mg p.o. daily (has run out). 8. Hydrocortisone butyrate 0.1% topical b.i.d. 9. Lasix 20 mg p.o. q.a.m. (has run out). 10. Folic acid 1 mg p.o. daily. 11. Digoxin 0.125 mg p.o. daily. 12. Voltaren 1% topical t.i.d. p.r.n. previously had been on methotrexate 7.5mg weekly, last 07/03. ALLERGIES: CODEINE, ERYTHROMYCIN, GABAPENTIN. FAMILY HISTORY: She cannot recall. Mother of a condition that starts with the letter T. SOCIAL HISTORY: The patient lives with her in [place], [place]. Lita Patterson is his name. She is accompanied by her son and medical proxy, Oumar Patterson. She wishes to be a full code. 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 Never a smoker. No other drug use. REVIEW OF SYSTEMS: A complete 14-point review of systems negative except as per HPI. She is noted to be a very poor historian, though oriented to time, but not place. PHYSICAL EXAMINATION GENERAL APPEARANCE: No acute distress, sitting in the hospital bed. VITAL SIGNS: Temperature initially 99.3, next 101.0. Blood pressure 110/66, oxygen sat 98%, pulse rate 69, respiratory rate 20. HEENT: Normocephalic, atraumatic. Pupils are equal, round and reactive to light. Extraocular motions intact. No scleral icterus. Oropharynx with lesions in the bilateral cheeks with slight erythema surrounding, also slight erythema in the posterior oropharynx. Some tenderness to palpation of the neck. NECK: Supple. RESPIRATORY: Clear to auscultation bilaterally with no wheezing, rales, or rhonchi. CARDIOVASCULAR: Regular rate and rhythm. No murmurs, rubs or gallops. ABDOMEN: Soft, slightly tender in the left lower quadrant. No rebound or guarding. EXTREMITIES: Warm and well perfused. No peripheral edema. NEUROLOGIC: Cranial nerves II through XII intact. Hip flexion, dorsi and plantarflexion 5/5 bilaterally. Deputy County Clerk strength 5/5. Sensation is intact. The patient is oriented to year and situation, but has trouble describing where she is and she is in general a very poor historian. LABORATORY DATA: White count 1.0, hemoglobin 8.1, hematocrit 23, platelets 26, 000, eosinophils 12.7, absolute neutrophil 400. INR 1.17. Sodium 138, potassium 3.4, chloride 108, carbon dioxide 21, BUN 27, creatinine 1.17, glucose 142, lactic acid 1.1. Magnesium 1.8, total bili 0.8, AST 21, ALT 20, alk phos 41. Troponin 0.01. CRP 126. Total protein 5.9. Albumin 3.3, amylase 33, lipase 35. IMAGING: Chest x-ray with no significant cardiopulmonary disease. CT abdomen and pelvis with IV contrast demonstrated no abnormal masses or fluid collections. There is diverticulosis without definitive evidence of diverticulitis. There are cortical cysts noted in both kidneys with exophytic 13 mm solid appearing nodule arising from the lateral cortex of the left kidney. Renal neoplasm is not excluded. Followup exam is suggested. Small cortical cysts are noted. Nonspecific distention of the small bowel is present. EKG demonstrates normal sinus rhythm; Q waves in 3; ST depressions in V3, V4, V5 , V6 similar to appearance of March 2015, although more prominent in V3. These are 1 mm. No T wave inversions. Normal axis. QTC 410. ASSESSMENT AND PLAN: Viola Patterson is an 82-year-old female with recent dysphagia for 10 days to solids in the setting of developing pancytopenias in the setting of methotrexate use for what she attests is at least the last 6 months for undetermined rheumatological condition(-->Rheumatoid Arthritis). Her Eliquis has been stopped 3 days ago on prior discharge. She is going to be placed on neutropenic precautions given her fever, with starting empiric antibiotics, followup blood cultures, need to cover for Pseudomonas. She has getting 1 dose of Zosyn in the ED and will be switched to cefepime 2 g q.12 hours for renal function. Follow up with urinalysis and urine culture. No evidence of infection on her chest x-ray or CT abdomen and pelvis. Another concern is that she is developing a mucositis in the setting of these pancytopenias, would favor getting oncology consult in the morning. We will get CBCs daily. We are repleting her electrolytes to get potassium above 4, magnesium above 2 in the setting of atrial fibrillation. We will continue digoxin, check a level in the morning. We will continue her beta jorge l or switch to metoprolol if we do not have in formulary (nadolol). She can eat a full liquid diet for now. I will trial her on lidocaine swish and spit every 4 hours. Consideration for Magic Mouthwash if this fails. I will give her 1 L of LR overnight, 100 cc an hour for 10 hours and then stop. She is going to be placed on neutropenic precautions. Continue her sertraline. She notably has not been having access to all of her medications as an outpatient per son Oumar' s report and he says that it is very possible that she could have taken more than prescribed amount of methotrexate at some point given her dementia, though she denies this. We will continue her folic acid, hold her Lasix 20 mg daily. She is a full code. She is being admitted to inpatient status. Medical surrogate is her son, Oumar Patterson. [id number]/[facility] #: [id number] MTDD
[2017-07-10] MEDS: Cefepime 2 GM in Dextrose(*) 2 GM/50 ML BAG IV SCH ×2 (04:22→16:04)
[2017-07-10 06:35] LABS: Hematocrit 20 % (35-47); Mean Corpuscular HGB Conc 36 g/dl (31-36); Mean Corpuscular Hemoglobin 32 pg (27-31); Mean Corpuscular Volume 91 fL (80-97); Mean Platelet Volume 9.2 um3 (7.4-10.4); Platelet Count 20 10^3/ul (150-450); Red Blood Count 2.18 10^6/ul (4.0-5.4); Red Cell Distribution Width 15 % (10.5-15); White Blood Count 0.6 10^3/ul (3.5-10.8)
[2017-07-10 06:46] LABS: EGFR Non-African American 50.6 (>60)
[2017-07-10] MEDS: Lidocaine 2% VISCOUS* 15 ML UDC PO PRN ×2 (06:47→20:28)
[2017-07-10 07:17] LABS: ABS Basophils 0 10^3/ul (0-0.2); ABS Eosinophils 0.1 10^3/ul (0-0.6); ABS Lymphocytes 0.3 10^3/ul (1.0-4.8); ABS Monocytes 0 10^3/ul (0-0.8); ABS Neutrophils 0.2 10^3/ul (1.5-7.7); ABS Nucleated RBC 0 10^3/ul; Eosinophil % 17.9 % (0-6); Lymphocyte % 48.8 % (25-47); Nucleated Red Blood Cells % 0
--- NOTE | 2017-07-10 07:48 | PN ---
Subjective Date of Service: 07/10/17 Interval History: No new c/o. She denies hunger, ? unsure if she has pain, ? oral pain. No BM since admission. Objective Active Medications: Atorvastatin Calcium (Lipitor*) 20 mg PO 1700 [facility] Digoxin (Lanoxin Tab*) 0.125 mg PO DAILY [facility] Folic Acid (Folvite Tab*) 1 mg PO DAILY [facility] Cefepime HCl (Maxipime 2 Gm In Dextrose Duplex (*)) 2 gm in 50 mls @ 100 mls/ hr IV Q12H [facility] Last Admin: 07/10/17 04:22 Dose: 100 mls/hr Lidocaine (Xylocaine 2% Viscous*) 15 ml PO Q4H PRN PRN Reason: PAIN Last Admin: 07/10/17 06:47 Dose: 15 ml Nadolol (Corgard Tab*) 40 mg PO DAILY [facility] Omeprazole (Prilosec Cap*) 20 mg PO BID [facility] Last Admin: 07/09/17 22:50 Dose: 20 mg Sertraline HCl (Zoloft*) 50 mg PO DAILY [facility] [place] Vital Signs - 8 hr 07/10/17 03:31 Temperature 99.4 F Pulse Rate 72 Respiratory 18 Rate Blood Pressure 153/59 (mmHg) O2 Sat by Pulse 98 Oximetry Oxygen Devices in Use Now: None Appearance: Alert, partly up in bed. Neutral affect. Looks comfortable. Result Diagrams: 07/10/17 05:58 07/10/17 05:58 Additional Lab and Data: Lab Results 07/09/17 07/09/17 07/09/17 Range/Units 19:03 19:03 19:03 WBC 1.0 L (3.5-10.8) 10^3/ul RBC 2.51 L (4.0-5.4) 10^6/ul Hgb 8.1 L (12.0-16.0) g/dl Hct 23 L (35-47) % MCV 93 (80-97) fL MCH 32 H (27-31) pg MCHC 35 (31-36) g/dl RDW 15 (10.5-15) % Plt Count 26 L D (150-450) 10^3/ul MPV 10.4 (7.4-10.4) um3 Neut % (Auto) 43.2 (38-83) % Lymph % (Auto) 42.9 (25-47) % [place] % (Auto) 0.8 (0-7) % Eos % (Auto) 12.7 H (0-6) % Baso % (Auto) 0.4 (0-2) % Absolute Neuts (auto) 0.4 L* (1.5-7.7) 10^3/ul Absolute Lymphs (auto) 0.4 L (1.0-4.8) 10^3/ul Absolute Monos (auto) 0 (0-0.8) 10^3/ul Absolute Eos (auto) 0.1 (0-0.6) 10^3/ul Absolute Basos (auto) 0 (0-0.2) 10^3/ul Absolute Nucleated RBC 0 10^3/ul Nucleated RBC % 0.4 Hem Pathologist Commnt Pending INR (Anticoag Therapy) 1.17 H (0.77-1.02) APTT 25.3 L (26.0-36.3) seconds Sodium 138 L (139-145) mmol/L Potassium 3.4 L (3.5-5.0) mmol/L Chloride 108 (101-111) mmol/L Carbon Dioxide 21 L (22-32) mmol/L Anion Gap 9 (2-11) mmol/L BUN 27 H (6-24) mg/dL Creatinine 1.17 H (0.51-0.95) mg/dL Est GFR ( Amer) 56.8 (>60) Est GFR (Non-Af Amer) 44.2 (>60) BUN/Creatinine Ratio 23.1 H (8-20) Glucose 142 H (70-100) mg/dL Lactic Acid (0.5-2.0) mmol/L Calcium 8.3 L (8.6-10.3) mg/dL Magnesium 1.8 L (1.9-2.7) mg/dL Total Bilirubin 0.80 (0.2-1.0) mg/dL AST 21 (13-39) U/L ALT 20 (7-52) U/L Alkaline Phosphatase 41 (34-104) U/L Total Creatine Kinase 76 (10-223) U/L Troponin I 0.01 (<0.04) ng/mL C-Reactive Protein 126.41 H (< 5.00) mg/L Total Protein 5.9 L (6.4-8.9) g/dL Albumin 3.3 (3.2-5.2) g/dL Globulin 2.6 (2-4) g/dL Albumin/Globulin Ratio 1.3 (1-3) Amylase 33 (29-103) U/L Lipase 35 (11.0-82.0) U/L Blood Type Antibody Screen 07/09/17 07/09/17 Range/Units 19:03 19:06 WBC (3.5-10.8) 10^3/ul RBC (4.0-5.4) 10^6/ul Hgb (12.0-16.0) g/dl Hct (35-47) % MCV (80-97) fL MCH (27-31) pg MCHC (31-36) g/dl RDW (10.5-15) % Plt Count (150-450) 10^3/ul MPV (7.4-10.4) um3 Neut % (Auto) (38-83) % Lymph % (Auto) (25-47) % [place] % (Auto) (0-7) % Eos % (Auto) (0-6) % Baso % (Auto) (0-2) % Absolute Neuts (auto) (1.5-7.7) 10^3/ul Absolute Lymphs (auto) (1.0-4.8) 10^3/ul Absolute Monos (auto) (0-0.8) 10^3/ul Absolute Eos (auto) (0-0.6) 10^3/ul Absolute Basos (auto) (0-0.2) 10^3/ul Absolute Nucleated RBC 10^3/ul Nucleated RBC % Hem Pathologist Commnt INR (Anticoag Therapy) (0.77-1.02) APTT (26.0-36.3) seconds Sodium (139-145) mmol/L Potassium (3.5-5.0) mmol/L Chloride (101-111) mmol/L Carbon Dioxide (22-32) mmol/L Anion Gap (2-11) mmol/L BUN (6-24) mg/dL Creatinine (0.51-0.95) mg/dL Est GFR ( Amer) (>60) Est GFR (Non-Af Amer) (>60) BUN/Creatinine Ratio (8-20) Glucose (70-100) mg/dL Lactic Acid 1.1 (0.5-2.0) mmol/L Calcium (8.6-10.3) mg/dL Magnesium (1.9-2.7) mg/dL Total Bilirubin (0.2-1.0) mg/dL AST (13-39) U/L ALT (7-52) U/L Alkaline Phosphatase (34-104) U/L Total Creatine Kinase (10-223) U/L Troponin I (<0.04) ng/mL C-Reactive Protein (< 5.00) mg/L Total Protein (6.4-8.9) g/dL Albumin (3.2-5.2) g/dL Globulin (2-4) g/dL Albumin/Globulin Ratio (1-3) Amylase (29-103) U/L Lipase (11.0-82.0) U/L Blood Type A Positive Antibody Screen Pending Microbiology and Other Data: Microbiology 07/09/17 21:41 Influenza Types A,B Antigen (SUBHASH) - Final Nasopharyngeal Specimen received for Influenza A/B Molecular testing Assess/Plan/Problems-Billing Assessment: - Patient Problems (1) Atrial fibrillation Current Visit: Yes Status: Acute Code(s): I48.91 - UNSPECIFIED ATRIAL FIBRILLATION SNOMED Code(s): 04267403 Comment: PAF, Apixaban on hold. Continue nadolol, digoxin. Dig level 0.7 . (2) Pancytopenia Current Visit: No Status: Acute Code(s): D61.818 - OTHER PANCYTOPENIA SNOMED Code(s): 387138817 Comment: Likely due to MTX. CBC 07/11. Dr. Dunlap to consult. Continue cefepime for neutropenic fever. (3) Dysphagia Current Visit: Yes Status: Acute Code(s): R13.10 - DYSPHAGIA, UNSPECIFIED SNOMED Code(s): 56333267 Comment: Add sucralfate. Ensure ordered. Follow BMP, I&O's. (4) Dementia Current Visit: No Status: Acute Code(s): F03.90 - UNSPECIFIED DEMENTIA WITHOUT BEHAVIORAL DISTURBANCE SNOMED Code(s): 54978881 Comment: No behavior disturbance reported. Reduce sertraline dose 07/10 to 25 mg, consider d/c in near future. (5) HTN (hypertension) Current Visit: No Status: Acute Code(s): I10 - ESSENTIAL (PRIMARY) HYPERTENSION SNOMED Code(s): 02179763 Comment: Hold lisinopril, amlodipine. Continue nadolol.
[2017-07-10] MEDS ORDERED: Sertraline* 50 MG TAB PO SCH (09:00)
[2017-07-10] MEDS: Sucralfate SUSP 1 GM/10 ml 10 ML UDC PO SCH ×4 (09:30→20:27)
[2017-07-10] MEDS: Nadolol TAB* 40 MG PO SCH (09:30)
[2017-07-10] MEDS: Digoxin TAB* 0.125 MG PO SCH (09:31)
[2017-07-10] MEDS: Sertraline* 25 MG TAB PO SCH (09:32)
[2017-07-10] MEDS: Omeprazole CAP* 20 MG PO SCH ×2 (09:32→20:23)
[2017-07-10] MEDS: Folic Acid TAB* 1 MG PO SCH (09:32)
[2017-07-10] MEDS ORDERED: Loperamide CAP* 2 MG PO PRN (10:19)
[2017-07-10] MEDS: FILGRASTIM-SNDZ* 300 MCG/0.5 ML SYRINGE SUBCUT SCH (12:24)
[2017-07-10] MEDS: metroNIDAZOLE TAB* 250 MG PO SCH ×3 (12:25→20:24)
--- NOTE | 2017-07-10 14:16 | CONS ---
CONSULTATION REPORT: DATE OF CONSULT: 07/10/17 REFERRING PHYSICIAN: Hospitalist group. PRIMARY CARE PHYSICIAN: Dr. Hanley. PILOT CAPTAIN: Leida Hernandez NP. REASON FOR CONSULT: Pancytopenia, neutropenic fever. IDENTIFICATION: An 82-year-old female with longstanding rheumatoid arthritis, treated with methotrexate. HISTORY OF PRESENT ILLNESS: History is largely from the and her son. Ms. Patterson is pleasant, but has memory difficulty. She has been seen for rheumatoid arthritis since 2010. She has been on methotrexate since that time. Over the past several years, she has oscillated between 7.5 and 10 mg weekly with the last dose change being on 04/16/17 to 7.5 mg weekly. She generally tolerated it reasonably well. She started feeling poorly approximately 1 month ago. reports she went downhill pretty quickly. Started with weakness and decreasing appetite. Over the past 1-1/2 to 2 weeks, she has had difficulty walking. She developed diarrhea several weeks ago and she was admitted to the hospital last week with potential GI bleed. She had an EGD that was negative on 07/06/17 and was able to go home after that. On that admission, she was noted to have a modest leukopenia with a white count of 2.4, then 1.8 and a neutrophil count of 1.1. She had seen Dr. Hanley just prior to that who had already instructed to hold her methotrexate. The last dose of methotrexate was taken on 07/03/17. She went home over the weekend, but continued to have diarrhea and feel weak. Last night, she developed a fever and presented to the emergency room. She has had a temperature of 100.1. Repeat blood count shows a white count of 0.6 and an ANC of 200. She also has a drop in her hemoglobin from baseline of 10 to 11 down to 8.4 last week and 7 today and a decrease in platelets from baseline of 183 to 73 last week and 26, and 20 today. She has an MCV of 91, which is stable and MPV of 9. Her other blood counts are relatively stable and she has an albumin of 3.3, normal LFTs, and a creatinine of 1.04 indicating minor renal insufficiency. No skin rashes. No shortness of breath, no chest pain. She is incontinent, but does not report specific urinary symptoms. PAST MEDICAL HISTORY: 1. Rheumatoid arthritis. Followed since 2010 and managed by Leida Hernandez. Generally has been stable. 2. Dementia. 3. Hypertension. 4. Chronic renal insufficiency. 5. Superficial skin cancer. 6. Diverticulitis. 7. Atrial fibrillation. PAST SURGICAL HISTORY: Cholecystectomy, bowel resection for diverticulitis, and hysterectomy. CURRENT MEDICATIONS: She is gettin. Cefepime 2 g IV q. 12. 2. Digoxin 0.125. 3. Folic acid 1 mg a day. 4. Imodium 2 mg q. 3 p.r.n. 5. Nadolol 40 mg daily. ALLERGIES: CODEINE, ERYTHROMYCIN, GABAPENTIN. FAMILY HISTORY: Unable to obtain at this time. SOCIAL HISTORY: She lives with her . He is her primary support. Her son and his live very close to them and he helps out as well. 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 She never smoked and does not drink alcohol. REVIEW OF SYSTEMS: General: Fatigue, weakness, fevers at home. HEENT: No throat pain, mouth pain, difficulty swallowing. No sinus symptoms. No change in hearing or vision. Pulmonary: Negative. Cardiac: History of atrial fibrillation. No complaints. GI: Perpetual diarrhea and decreased appetite. Not having abdominal pain. : She says is negative. Musculoskeletal: Chronic arthritis, but joint pain has been controlled. Skin: No rashes. No bruising. Neurologic: She has dementia, but she is responsive to questions. Generalized weakness. PHYSICAL EXAM: Temperature 99.7 with T-max since admission of 101, pulse 65, respirations 16, BP 117/65, O2 sat 96%. HEENT: Mucosa moist. No lesions. Conjunctivae pale. No cervical or supraclavicular lymphadenopathy. Lungs are clear to auscultation. Heart appears regular on exam right now. Slight systolic murmur. S1, S2. No rubs or gallops. Abdomen: No splenomegaly. Nontender, nondistended. Good bowel sounds. Nodes: No peripheral lymphadenopathy. Extremities: Warm to the touch and good pulses. No clubbing, cyanosis, or edema. Neurologic: Conversive. Grossly nonfocal. Exam otherwise deferred. Lying in bed. DIAGNOSTIC STUDIES/LAB DATA: CBC is as noted above. Labs as noted above, otherwise unremarkable. Normal coagulation studies. She had a CT scan done on 07/09 that shows no splenomegaly, no lymphadenopathy, essentially normal. ASSESSMENT/PLAN: An 82-year-old female with a longstanding history of rheumatoid arthritis, who has been on methotrexate since 2010. She has had a rapid decrease in blood counts over the past week associated with diarrhea. Differential diagnosis includes methotrexate toxicity, though I am not sure what triggered the precipitous change, B12 deficiency, dysplasia or immunologic disease associated with lymphoma are possible, could have primary infection and consumption of platelets and white cells with decreased marrow capacity to respond because of methotrexate. 1. I agree with cefepime.Consider sending additional stool studies. 2. Given severity of neutropenia and methotrexate to stop, we will give her a trial of Neupogen 300 mcg subcu daily. 3. Send serum protein electrophoresis, LDH, B12 and uric acid now. We will review manual blood film. 4. If she has a normal B12, we will likely plan bone marrow biopsy 5. Reasonable to give 1 unit of packed cells, transfuse platelets for a platelet count under 10 in the absence of bleeding. [id number]/[facility] #: [id number] [facility]
[2017-07-10] MEDS: Atorvastatin* 20 MG TAB PO SCH (16:04)
[2017-07-11] MEDS: Cefepime 2 GM in Dextrose(*) 2 GM/50 ML BAG IV SCH ×2 (03:47→16:41)
[2017-07-11 07:24] LABS: Hematocrit 20 % (35-47); Mean Corpuscular HGB Conc 36 g/dl (31-36); Mean Corpuscular Hemoglobin 33 pg (27-31); Mean Corpuscular Volume 92 fL (80-97); Mean Platelet Volume 10.6 um3 (7.4-10.4); Platelet Count 24 10^3/ul (150-450); Red Blood Count 2.16 10^6/ul (4.0-5.4); Red Cell Distribution Width 15 % (10.5-15); White Blood Count 1.1 10^3/ul (3.5-10.8)
[2017-07-11 07:54] LABS: ABS Basophils 0 10^3/ul (0-0.2); ABS Eosinophils 0.2 10^3/ul (0-0.6); ABS Lymphocytes 0.5 10^3/ul (1.0-4.8); ABS Monocytes 0 10^3/ul (0-0.8); ABS Neutrophils 0.4 10^3/ul (1.5-7.7)
[2017-07-11 08:09] LABS: Monocytes % 1 % (0-7)
[2017-07-11] MEDS: FILGRASTIM-SNDZ* 300 MCG/0.5 ML SYRINGE SUBCUT SCH (09:19)
[2017-07-11] MEDS: Folic Acid TAB* 1 MG PO SCH (09:23)
[2017-07-11] MEDS: metroNIDAZOLE TAB* 250 MG PO SCH ×3 (09:23→20:08)
[2017-07-11] MEDS: Omeprazole CAP* 20 MG PO SCH ×2 (09:23→20:07)
[2017-07-11] MEDS: Sertraline* 25 MG TAB PO SCH (09:23)
[2017-07-11] MEDS: Sucralfate SUSP 1 GM/10 ml 10 ML UDC PO SCH ×4 (09:23→20:12)
[2017-07-11] MEDS: Nadolol TAB* 40 MG PO SCH (09:24)
[2017-07-11] MEDS: Digoxin TAB* 0.125 MG PO SCH (09:24)
[2017-07-11] MEDS: Potassium Chlor TAB* 10 MEQ TAB.ER PO SCH ×3 (10:56→20:08)
--- NOTE | 2017-07-11 11:41 | PN ---
Progress Note - Progress Note Date of Service: 07/11/17 SOAP: Subjective: []FU consultation for febrile neutropenia in setting of methotrexate. Work-up thus far negative with normal B12, slight improvement in counts since yesterday. Pt. remains very confused and tearful worried that she was in an accident. Unable to discuss current condition and unaware of situation. Denies pain. Medications: Atorvastatin Calcium (Lipitor*) 20 mg PO 1700 [facility] Last Admin: 07/10/17 16:04 Dose: 20 mg Digoxin (Lanoxin Tab*) 0.125 mg PO DAILY [facility] Last Admin: 07/11/17 09:24 Dose: Not Given Filgrastim-Sndz (Zarxio*) 300 mcg SUBCUT DAILY [facility] Stop: 07/15/17 23:59 Last Admin: 07/11/17 09:19 Dose: 300 mcg Folic Acid (Folvite Tab*) 1 mg PO DAILY [facility] Last Admin: 07/11/17 09:23 Dose: 1 mg Cefepime HCl (Maxipime 2 Gm In Dextrose Duplex (*)) 2 gm in 50 mls @ 100 mls/ hr IV Q12H [facility] Last Admin: 07/11/17 03:47 Dose: 100 mls/hr Lidocaine (Xylocaine 2% Viscous*) 15 ml PO Q4H PRN PRN Reason: PAIN Last Admin: 07/10/17 20:28 Dose: 15 ml Loperamide HCl (Imodium Cap*) 2 mg PO Q3H PRN PRN Reason: LOOSE STOOLS Last Admin: 07/10/17 10:55 Dose: 2 mg Metronidazole (Flagyl Tab*) 500 mg PO TID [facility] Last Admin: 07/11/17 09:23 Dose: 500 mg Nadolol (Corgard Tab*) 40 mg PO DAILY [facility] Last Admin: 07/11/17 09:24 Dose: Not Given Omeprazole (Prilosec Cap*) 20 mg PO BID [facility] Last Admin: 07/11/17 09:23 Dose: 20 mg Potassium Chloride (Klor Con Er Tab*) 10 meq PO TID [facility] Last Admin: 07/11/17 10:56 Dose: 10 meq Sertraline HCl (Zoloft*) 25 mg PO DAILY [facility] Last Admin: 07/11/17 09:23 Dose: 25 mg Sucralfate (Sucralfate Susp) 1 gm PO QID [facility] Last Admin: 07/11/17 09:23 Dose: 1 gm Objective: [] Vital Signs Temp Pulse Resp BP Pulse Ox 98.3 F 56 18 114/46 95 07/11/17 07:33 07/11/17 09:24 07/11/17 10:25 07/11/17 07:33 07/11/17 07:33 Alert, demented. Able to state name and year, however unable to state birthday or situation. Knows where she is. HRR, S1S2 LS clear +BS, abd. soft and mildly tender to epigastric region Laboratory Results - last 24 hr 07/09/17 07/11/17 07/11/17 19:03 07:09 07:09 WBC 1.1 L RBC 2.16 L Hgb 7.0 L Hct 20 L MCV 92 MCH 33 H MCHC 36 RDW 15 Plt Count 24 L MPV 10.6 H Neut % (Auto) Not Reportable Lymph % (Auto) Not Reportable [place] % (Auto) Not Reportable Eos % (Auto) Not Reportable Baso % (Auto) Not Reportable Absolute Neuts (auto) 0.4 L* Absolute Lymphs (auto) 0.5 L Absolute Monos (auto) 0 Absolute Eos (auto) 0.2 Absolute Basos (auto) 0 Absolute Nucleated RBC Not Reportable Neutrophils % 28 L Lymphocytes % 47 Monocytes % 1 Eosinophils % 24 H Basophils % 0 Nucleated RBC % Not Reportable Abs Neuts (Manual) 0.3 L* Abs Lymphs (Manual) 0.5 L Abs Monocytes (Manual) 0 Absolute Eos (Manual) 0.3 Abs Basophils (Manual) 0 Normal RBC Morphology Not Reportable Anisocytosis 1+ Hem Pathologist Commnt Sodium 139 Potassium 3.4 L Chloride 110 Carbon Dioxide 22 Anion Gap 7 BUN 23 Creatinine 1.07 H Est GFR ( Amer) 63.0 Est GFR (Non-Af Amer) 49.0 BUN/Creatinine Ratio 21.5 H Glucose 98 Calcium 8.1 L Magnesium 2.1 Assessment: []Pleasantly demented 82 yo female with panctyopenia in setting of methotrexate and question if she took inappropriate dose. Consideration for bone marrow biopsy, however she is unable to consent. Discussed with attending hospitalist and slight improvement in counts over last 24 hours, therefore we will hold off on this for now. Plan: []As per hospitalist, hem/onc to cont. to follow and will re-eval. bone marrow biopsy over next several days Reviewed with attending, Dr. Grier
--- NOTE | 2017-07-11 14:24 | PN ---
Subjective Date of Service: 07/11/17 Interval History: C/O sore mouth, diarrhea. Objective Active Medications: Atorvastatin Calcium (Lipitor*) 20 mg PO 1700 [facility] Last Admin: 07/10/17 16:04 Dose: 20 mg Digoxin (Lanoxin Tab*) 0.125 mg PO DAILY [facility] Last Admin: 07/11/17 09:24 Dose: Not Given Filgrastim-Sndz (Zarxio*) 300 mcg SUBCUT DAILY [facility] Stop: 07/15/17 23:59 Last Admin: 07/11/17 09:19 Dose: 300 mcg Folic Acid (Folvite Tab*) 1 mg PO DAILY [facility] Last Admin: 07/11/17 09:23 Dose: 1 mg Cefepime HCl (Maxipime 2 Gm In Dextrose Duplex (*)) 2 gm in 50 mls @ 100 mls/ hr IV Q12H [facility] Last Admin: 07/11/17 03:47 Dose: 100 mls/hr Lidocaine (Xylocaine 2% Viscous*) 15 ml PO Q4H PRN PRN Reason: PAIN Last Admin: 07/10/17 20:28 Dose: 15 ml Loperamide HCl (Imodium Cap*) 2 mg PO Q3H PRN PRN Reason: LOOSE STOOLS Last Admin: 07/10/17 10:55 Dose: 2 mg Metronidazole (Flagyl Tab*) 500 mg PO TID [facility] Last Admin: 07/11/17 09:23 Dose: 500 mg Multi-Ingredient Mouthwash/Gargle (Magic M W2 Kamlesh/Maal/Nyst/Lido*) 5 ml SWISH SPIT QID [facility] Nadolol (Corgard Tab*) 40 mg PO DAILY [facility] Last Admin: 07/11/17 09:24 Dose: Not Given Omeprazole (Prilosec Cap*) 20 mg PO BID [facility] Last Admin: 07/11/17 09:23 Dose: 20 mg Potassium Chloride (Klor Con Er Tab*) 10 meq PO TID [facility] Last Admin: 07/11/17 10:56 Dose: 10 meq Sertraline HCl (Zoloft*) 25 mg PO DAILY [facility] Last Admin: 07/11/17 09:23 Dose: 25 mg Sucralfate (Sucralfate Susp) 1 gm PO QID [facility] Last Admin: 07/11/17 09:23 Dose: 1 gm Vital Signs - 8 hr 07/11/17 07/11/17 07/11/17 07:33 09:24 10:25 Temperature 98.3 F Pulse Rate 54 56 Respiratory 16 18 Rate Blood Pressure 114/46 (mmHg) O2 Sat by Pulse 95 Oximetry Oxygen Devices in Use Now: None Appearance: Alert, somewhat discouraged. Up in bed. Looks comfortabole. Result Diagrams: 07/11/17 07:09 07/11/17 07:09 Additional Lab and Data: Lab Results 07/09/17 07/09/17 07/09/17 Range/Units 19:03 19:03 19:03 WBC 1.0 L (3.5-10.8) 10^3/ul RBC 2.51 L (4.0-5.4) 10^6/ul Hgb 8.1 L (12.0-16.0) g/dl Hct 23 L (35-47) % MCV 93 (80-97) fL MCH 32 H (27-31) pg MCHC 35 (31-36) g/dl RDW 15 (10.5-15) % Plt Count 26 L D (150-450) 10^3/ul MPV 10.4 (7.4-10.4) um3 Neut % (Auto) 43.2 (38-83) % Lymph % (Auto) 42.9 (25-47) % Long % (Auto) 0.8 (0-7) % Eos % (Auto) 12.7 H (0-6) % Baso % (Auto) 0.4 (0-2) % Absolute Neuts (auto) 0.4 L* (1.5-7.7) 10^3/ul Absolute Lymphs (auto) 0.4 L (1.0-4.8) 10^3/ul Absolute Monos (auto) 0 (0-0.8) 10^3/ul Absolute Eos (auto) 0.1 (0-0.6) 10^3/ul Absolute Basos (auto) 0 (0-0.2) 10^3/ul Absolute Nucleated RBC 0 10^3/ul Nucleated RBC % 0.4 Hem Pathologist Commnt Pending INR (Anticoag Therapy) 1.17 H (0.77-1.02) APTT 25.3 L (26.0-36.3) seconds Sodium 138 L (139-145) mmol/L Potassium 3.4 L (3.5-5.0) mmol/L Chloride 108 (101-111) mmol/L Carbon Dioxide 21 L (22-32) mmol/L Anion Gap 9 (2-11) mmol/L BUN 27 H (6-24) mg/dL Creatinine 1.17 H (0.51-0.95) mg/dL Est GFR ( Amer) 56.8 (>60) Est GFR (Non-Af Amer) 44.2 (>60) BUN/Creatinine Ratio 23.1 H (8-20) Glucose 142 H (70-100) mg/dL Lactic Acid (0.5-2.0) mmol/L Calcium 8.3 L (8.6-10.3) mg/dL Magnesium 1.8 L (1.9-2.7) mg/dL Total Bilirubin 0.80 (0.2-1.0) mg/dL AST 21 (13-39) U/L ALT 20 (7-52) U/L Alkaline Phosphatase 41 (34-104) U/L Total Creatine Kinase 76 (10-223) U/L Troponin I 0.01 (<0.04) ng/mL C-Reactive Protein 126.41 H (< 5.00) mg/L Total Protein 5.9 L (6.4-8.9) g/dL Albumin 3.3 (3.2-5.2) g/dL Globulin 2.6 (2-4) g/dL Albumin/Globulin Ratio 1.3 (1-3) Amylase 33 (29-103) U/L Lipase 35 (11.0-82.0) U/L Blood Type Antibody Screen 07/09/17 07/09/17 Range/Units 19:03 19:06 WBC (3.5-10.8) 10^3/ul RBC (4.0-5.4) 10^6/ul Hgb (12.0-16.0) g/dl Hct (35-47) % MCV (80-97) fL MCH (27-31) pg MCHC (31-36) g/dl RDW (10.5-15) % Plt Count (150-450) 10^3/ul MPV (7.4-10.4) um3 Neut % (Auto) (38-83) % Lymph % (Auto) (25-47) % Long % (Auto) (0-7) % Eos % (Auto) (0-6) % Baso % (Auto) (0-2) % Absolute Neuts (auto) (1.5-7.7) 10^3/ul Absolute Lymphs (auto) (1.0-4.8) 10^3/ul Absolute Monos (auto) (0-0.8) 10^3/ul Absolute Eos (auto) (0-0.6) 10^3/ul Absolute Basos (auto) (0-0.2) 10^3/ul Absolute Nucleated RBC 10^3/ul Nucleated RBC % Hem Pathologist Commnt INR (Anticoag Therapy) (0.77-1.02) APTT (26.0-36.3) seconds Sodium (139-145) mmol/L Potassium (3.5-5.0) mmol/L Chloride (101-111) mmol/L Carbon Dioxide (22-32) mmol/L Anion Gap (2-11) mmol/L BUN (6-24) mg/dL Creatinine (0.51-0.95) mg/dL Est GFR ( Amer) (>60) Est GFR (Non-Af Amer) (>60) BUN/Creatinine Ratio (8-20) Glucose (70-100) mg/dL Lactic Acid 1.1 (0.5-2.0) mmol/L Calcium (8.6-10.3) mg/dL Magnesium (1.9-2.7) mg/dL Total Bilirubin (0.2-1.0) mg/dL AST (13-39) U/L ALT (7-52) U/L Alkaline Phosphatase (34-104) U/L Total Creatine Kinase (10-223) U/L Troponin I (<0.04) ng/mL C-Reactive Protein (< 5.00) mg/L Total Protein (6.4-8.9) g/dL Albumin (3.2-5.2) g/dL Globulin (2-4) g/dL Albumin/Globulin Ratio (1-3) Amylase (29-103) U/L Lipase (11.0-82.0) U/L Blood Type A Positive Antibody Screen Pending Microbiology and Other Data: Microbiology 07/09/17 21:41 Influenza Types A,B Antigen (SUBHASH) - Final Nasopharyngeal Specimen received for Influenza A/B Molecular testing Assess/Plan/Problems-Billing Assessment: - Patient Problems (1) Atrial fibrillation Current Visit: Yes Status: Acute Code(s): I48.91 - UNSPECIFIED ATRIAL FIBRILLATION SNOMED Code(s): 93984694 Comment: PAF, Apixaban on hold. Continue nadolol, digoxin. Dig level 0.7 . (2) Pancytopenia Current Visit: No Status: Acute Code(s): D61.818 - OTHER PANCYTOPENIA SNOMED Code(s): 435734468 Comment: Likely due to MTX. Platelets and WBC both higher on 07/11. Continue cefepime for neutropenic fever while ANC <1000. (3) Dysphagia Current Visit: Yes Status: Acute Code(s): R13.10 - DYSPHAGIA, UNSPECIFIED SNOMED Code(s): 07271711 Comment: Add sucralfate. Ensure ordered. Follow BMP, I&O's. BUN 23 on 07/11 , recorded 110 ml po 07/10. BMP 07/12. (4) Dementia Current Visit: No Status: Acute Code(s): F03.90 - UNSPECIFIED DEMENTIA WITHOUT BEHAVIORAL DISTURBANCE SNOMED Code(s): 80258587 Comment: No behavior disturbance reported. Reduce sertraline dose 07/10 to 25 mg, last dose 07/12. (5) HTN (hypertension) Current Visit: No Status: Acute Code(s): I10 - ESSENTIAL (PRIMARY) HYPERTENSION SNOMED Code(s): 22283728 Comment: Hold lisinopril, amlodipine. Continue nadolol.
[2017-07-11] MEDS: D5W 1/2 NS KCl 20 Meq 1000 ML* 1,000 ML IV SCH (14:56)
[2017-07-11] MEDS: Atorvastatin* 20 MG TAB PO SCH (16:40)
[2017-07-11] MEDS: Magic M W2 Ben/Maal/Nyst/Lido* 240 ML MOUTHWASH (alt formulation) SWISH SPIT SCH ×2 (16:42→20:13)
[2017-07-11] MEDS: Lidocaine 2% VISCOUS* 15 ML UDC PO PRN (22:24)
[2017-07-12] MEDS: Cefepime 2 GM in Dextrose(*) 2 GM/50 ML BAG IV SCH ×2 (03:42→16:05)
[2017-07-12 06:07] LABS: Hematocrit 19 % (35-47); Hemoglobin 6.8 g/dl (12.0-16.0); Mean Corpuscular HGB Conc 35 g/dl (31-36); Mean Corpuscular Hemoglobin 32 pg (27-31); Mean Corpuscular Volume 92 fL (80-97); Mean Platelet Volume 11.2 um3 (7.4-10.4); Platelet Count 31 10^3/ul (150-450); Red Blood Count 2.09 10^6/ul (4.0-5.4); Red Cell Distribution Width 15 % (10.5-15); White Blood Count 1.4 10^3/ul (3.5-10.8)
[2017-07-12 06:08] LABS: ABS Basophils 0 10^3/ul (0-0.2); ABS Eosinophils 0.2 10^3/ul (0-0.6); ABS Lymphocytes 0.6 10^3/ul (1.0-4.8); ABS Monocytes 0.1 10^3/ul (0-0.8); ABS Nucleated RBC 0 10^3/ul; Eosinophil % 14.8 % (0-6); Nucleated Red Blood Cells % 0.2
[2017-07-12 06:10] LABS: ABS Neutrophils 0.5 10^3/ul (1.5-7.7)
[2017-07-12 06:18] LABS: EGFR Non-African American 53.6 (>60)
[2017-07-12 06:40] LABS: Monocytes % 4 % (0-7)
[2017-07-12] MEDS: D5W 1/2 NS KCl 20 Meq 1000 ML* 1,000 ML IV SCH ×2 (08:27→14:21)
[2017-07-12] MEDS: Folic Acid TAB* 1 MG PO SCH (08:28)
[2017-07-12] MEDS: FILGRASTIM-SNDZ* 300 MCG/0.5 ML SYRINGE SUBCUT SCH (08:28)
[2017-07-12] MEDS: Sertraline* 25 MG TAB PO SCH (08:28)
[2017-07-12] MEDS: Omeprazole CAP* 20 MG PO SCH ×2 (08:28→21:43)
[2017-07-12] MEDS: Sucralfate SUSP 1 GM/10 ml 10 ML UDC PO SCH ×4 (08:28→21:43)
[2017-07-12] MEDS: Potassium Chlor TAB* 10 MEQ TAB.ER PO SCH ×2 (08:28→21:40)
[2017-07-12] MEDS: metroNIDAZOLE TAB* 250 MG PO SCH ×3 (08:28→21:42)
[2017-07-12] MEDS: Magic M W2 Ben/Maal/Nyst/Lido* 240 ML MOUTHWASH (alt formulation) SWISH SPIT SCH ×4 (08:28→21:41)
[2017-07-12] MEDS: Digoxin TAB* 0.125 MG PO SCH (08:30)
[2017-07-12] MEDS: Nadolol TAB* 40 MG PO SCH (08:30)
--- NOTE | 2017-07-12 10:07 | PN ---
Subjective Date of Service: 07/12/17 Interval History: Mouth less sore, starting to eat. She requested a muffin for breakfast, did not wnat th ecream of rice on her trya. She reports only 1 BM so far today. Objective Active Medications: Atorvastatin Calcium (Lipitor*) 20 mg PO 1700 [facility] Last Admin: 07/11/17 16:40 Dose: 20 mg Filgrastim-Sndz (Zarxio*) 300 mcg SUBCUT DAILY [facility] Stop: 07/15/17 23:59 Last Admin: 07/12/17 08:28 Dose: 300 mcg Folic Acid (Folvite Tab*) 1 mg PO DAILY [facility] Last Admin: 07/12/17 08:28 Dose: 1 mg Cefepime HCl (Maxipime 2 Gm In Dextrose Duplex (*)) 2 gm in 50 mls @ 100 mls/ hr IV Q12H [facility] Last Admin: 07/12/17 03:42 Dose: 100 mls/hr Lidocaine (Xylocaine 2% Viscous*) 15 ml PO Q4H PRN PRN Reason: PAIN Last Admin: 07/11/17 22:24 Dose: 15 ml Loperamide HCl (Imodium Cap*) 2 mg PO Q3H PRN PRN Reason: LOOSE STOOLS Last Admin: 07/10/17 10:55 Dose: 2 mg Metronidazole (Flagyl Tab*) 500 mg PO TID [facility] Last Admin: 07/12/17 08:28 Dose: 500 mg Multi-Ingredient Mouthwash/Gargle (Magic M W2 Kamlesh/Maal/Nyst/Lido*) 5 ml SWISH SPIT QID [facility] Last Admin: 07/12/17 08:28 Dose: 5 ml Omeprazole (Prilosec Cap*) 20 mg PO BID [facility] Last Admin: 07/12/17 08:28 Dose: 20 mg Sertraline HCl (Zoloft*) 25 mg PO DAILY [facility] Stop: 07/12/17 23:00 Last Admin: 07/12/17 08:28 Dose: 25 mg Sucralfate (Sucralfate Susp) 1 gm PO QID [facility] Last Admin: 07/12/17 08:28 Dose: 1 gm Vital Signs - 8 hr 07/12/17 07/12/17 07/12/17 02:38 07:24 08:30 Temperature 98.1 F 98.9 F Pulse Rate 63 58 57 Respiratory 18 16 Rate Blood Pressure 118/42 119/49 (mmHg) O2 Sat by Pulse 94 98 Oximetry 07/12/17 09:25 Temperature Pulse Rate Respiratory 16 Rate Blood Pressure (mmHg) O2 Sat by Pulse Oximetry Oxygen Devices in Use Now: None Appearance: Alert, sitting up in bed. Flat affect. Looks comfortable. Eyes: No Scleral Icterus Respiratory: Symmetrical Chest Expansion and Respiratory Effort, Clear to Auscultation, Clear to Percussion Cardiovascular: NL Sounds; No Murmurs; No JVD, RRR, No Edema, - Extremities: No Edema, No Clubbing, Cyanosis, - Skin: No Nodules or Sclerosis, - - many seborrheic keratoses on trunk Neurological: NL Sensation - Passive but cooperative. Diminished memory. Result Diagrams: 07/12/17 05:27 07/12/17 05:27 Additional Lab and Data: Lab Results 07/09/17 07/09/17 07/09/17 Range/Units 19:03 19:03 19:03 WBC 1.0 L (3.5-10.8) 10^3/ul RBC 2.51 L (4.0-5.4) 10^6/ul Hgb 8.1 L (12.0-16.0) g/dl Hct 23 L (35-47) % MCV 93 (80-97) fL MCH 32 H (27-31) pg MCHC 35 (31-36) g/dl RDW 15 (10.5-15) % Plt Count 26 L D (150-450) 10^3/ul MPV 10.4 (7.4-10.4) um3 Neut % (Auto) 43.2 (38-83) % Lymph % (Auto) 42.9 (25-47) % [place] % (Auto) 0.8 (0-7) % Eos % (Auto) 12.7 H (0-6) % Baso % (Auto) 0.4 (0-2) % Absolute Neuts (auto) 0.4 L* (1.5-7.7) 10^3/ul Absolute Lymphs (auto) 0.4 L (1.0-4.8) 10^3/ul Absolute Monos (auto) 0 (0-0.8) 10^3/ul Absolute Eos (auto) 0.1 (0-0.6) 10^3/ul Absolute Basos (auto) 0 (0-0.2) 10^3/ul Absolute Nucleated RBC 0 10^3/ul Nucleated RBC % 0.4 Hem Pathologist Commnt Pending INR (Anticoag Therapy) 1.17 H (0.77-1.02) APTT 25.3 L (26.0-36.3) seconds Sodium 138 L (139-145) mmol/L Potassium 3.4 L (3.5-5.0) mmol/L Chloride 108 (101-111) mmol/L Carbon Dioxide 21 L (22-32) mmol/L Anion Gap 9 (2-11) mmol/L BUN 27 H (6-24) mg/dL Creatinine 1.17 H (0.51-0.95) mg/dL Est GFR ( Amer) 56.8 (>60) Est GFR (Non-Af Amer) 44.2 (>60) BUN/Creatinine Ratio 23.1 H (8-20) Glucose 142 H (70-100) mg/dL Lactic Acid (0.5-2.0) mmol/L Calcium 8.3 L (8.6-10.3) mg/dL Magnesium 1.8 L (1.9-2.7) mg/dL Total Bilirubin 0.80 (0.2-1.0) mg/dL AST 21 (13-39) U/L ALT 20 (7-52) U/L Alkaline Phosphatase 41 (34-104) U/L Total Creatine Kinase 76 (10-223) U/L Troponin I 0.01 (<0.04) ng/mL C-Reactive Protein 126.41 H (< 5.00) mg/L Total Protein 5.9 L (6.4-8.9) g/dL Albumin 3.3 (3.2-5.2) g/dL Globulin 2.6 (2-4) g/dL Albumin/Globulin Ratio 1.3 (1-3) Amylase 33 (29-103) U/L Lipase 35 (11.0-82.0) U/L Blood Type Antibody Screen 07/09/17 07/09/17 Range/Units 19:03 19:06 WBC (3.5-10.8) 10^3/ul RBC (4.0-5.4) 10^6/ul Hgb (12.0-16.0) g/dl Hct (35-47) % MCV (80-97) fL MCH (27-31) pg MCHC (31-36) g/dl RDW (10.5-15) % Plt Count (150-450) 10^3/ul MPV (7.4-10.4) um3 Neut % (Auto) (38-83) % Lymph % (Auto) (25-47) % [place] % (Auto) (0-7) % Eos % (Auto) (0-6) % Baso % (Auto) (0-2) % Absolute Neuts (auto) (1.5-7.7) 10^3/ul Absolute Lymphs (auto) (1.0-4.8) 10^3/ul Absolute Monos (auto) (0-0.8) 10^3/ul Absolute Eos (auto) (0-0.6) 10^3/ul Absolute Basos (auto) (0-0.2) 10^3/ul Absolute Nucleated RBC 10^3/ul Nucleated RBC % Hem Pathologist Commnt INR (Anticoag Therapy) (0.77-1.02) APTT (26.0-36.3) seconds Sodium (139-145) mmol/L Potassium (3.5-5.0) mmol/L Chloride (101-111) mmol/L Carbon Dioxide (22-32) mmol/L Anion Gap (2-11) mmol/L BUN (6-24) mg/dL Creatinine (0.51-0.95) mg/dL Est GFR ( Amer) (>60) Est GFR (Non-Af Amer) (>60) BUN/Creatinine Ratio (8-20) Glucose (70-100) mg/dL Lactic Acid 1.1 (0.5-2.0) mmol/L Calcium (8.6-10.3) mg/dL Magnesium (1.9-2.7) mg/dL Total Bilirubin (0.2-1.0) mg/dL AST (13-39) U/L ALT (7-52) U/L Alkaline Phosphatase (34-104) U/L Total Creatine Kinase (10-223) U/L Troponin I (<0.04) ng/mL C-Reactive Protein (< 5.00) mg/L Total Protein (6.4-8.9) g/dL Albumin (3.2-5.2) g/dL Globulin (2-4) g/dL Albumin/Globulin Ratio (1-3) Amylase (29-103) U/L Lipase (11.0-82.0) U/L Blood Type A Positive Antibody Screen Pending Microbiology and Other Data: Microbiology 07/09/17 21:41 Influenza Types A,B Antigen (SUBHASH) - Final Nasopharyngeal Specimen received for Influenza A/B Molecular testing Assess/Plan/Problems-Billing Assessment: - Patient Problems (1) Atrial fibrillation Current Visit: Yes Status: Acute Code(s): I48.91 - UNSPECIFIED ATRIAL FIBRILLATION SNOMED Code(s): 77937611 Comment: PAF, Apixaban on hold. D/C nadolol, digoxin as HR in 50's & 60's 48 hrs after last dose nadolol. In NSR since admission. (2) Pancytopenia Current Visit: No Status: Acute Code(s): D61.818 - OTHER PANCYTOPENIA SNOMED Code(s): 884711472 Comment: Likely due to MTX. I suspect the patient took multiple doses of her MTX due to her dementia. Her told me he gives her all her meds except the MTX. Every Monday he tells her to take her MTX and she takes her MTX directly from the prescription bottle. Platelets and WBC both higher on 07/12. Continue cefepime for neutropenic fever while ANC <1000. (3) Dysphagia Current Visit: Yes Status: Acute Code(s): R13.10 - DYSPHAGIA, UNSPECIFIED SNOMED Code(s): 40686493 Comment: Continue sucralfate. Oral intake improved by 07/11. Reduce IV to 50 ml/hr 07/12. Strict I&O's ordered. (4) Dementia Current Visit: No Status: Acute Code(s): F03.90 - UNSPECIFIED DEMENTIA WITHOUT BEHAVIORAL DISTURBANCE SNOMED Code(s): 30333196 Comment: No behavior disturbance reported. Sertraline tapered off, last dose 07/12. PT, OT ordered to help determine level of care. (5) HTN (hypertension) Current Visit: No Status: Acute Code(s): I10 - ESSENTIAL (PRIMARY) HYPERTENSION SNOMED Code(s): 38482635 Comment: Hold lisinopril, amlodipine. Nadolol d/c'd 07/12, was not given either.
[2017-07-12] MEDS: Acetaminophen TAB* 325 MG PO PRN ×2 (16:04→21:42)
[2017-07-12] MEDS: Atorvastatin* 20 MG TAB PO SCH (16:05)
[2017-07-12] MEDS: Lidocaine 2% VISCOUS* 15 ML UDC PO PRN (21:36)
[2017-07-13] MEDS: Cefepime 2 GM in Dextrose(*) 2 GM/50 ML BAG IV SCH ×2 (04:00→16:40)
[2017-07-13] MEDS: Acetaminophen TAB* 325 MG PO PRN ×2 (05:09→14:43)
[2017-07-13 06:18] LABS: ABS Basophils 0 10^3/ul (0-0.2); ABS Eosinophils 0.3 10^3/ul (0-0.6); ABS Lymphocytes 0.9 10^3/ul (1.0-4.8); ABS Monocytes 0.3 10^3/ul (0-0.8); ABS Neutrophils 1.7 10^3/ul (1.5-7.7); ABS Nucleated RBC 0 10^3/ul; Hematocrit 24 % (35-47); Hemoglobin 8.3 g/dl (12.0-16.0); Mean Corpuscular HGB Conc 35 g/dl (31-36); Mean Corpuscular Hemoglobin 32 pg (27-31); Mean Corpuscular Volume 91 fL (80-97); Mean Platelet Volume 11.4 um3 (7.4-10.4); Platelet Count 48 10^3/ul (150-450); Red Blood Count 2.61 10^6/ul (4.0-5.4); Red Cell Distribution Width 15 % (10.5-15); White Blood Count 3.2 10^3/ul (3.5-10.8)
[2017-07-13 06:58] LABS: Monocytes % 5 % (0-7)
[2017-07-13] MEDS: Lidocaine 2% VISCOUS* 15 ML UDC PO PRN ×3 (10:30→21:03)
[2017-07-13] MEDS: Magic M W2 Ben/Maal/Nyst/Lido* 240 ML MOUTHWASH (alt formulation) SWISH SPIT SCH ×4 (10:32→22:50)
[2017-07-13] MEDS: D5W 1/2 NS KCl 20 Meq 1000 ML* 1,000 ML IV SCH (10:33)
[2017-07-13] MEDS: Sucralfate SUSP 1 GM/10 ml 10 ML UDC PO SCH ×4 (10:41→22:50)
[2017-07-13] MEDS: FILGRASTIM-SNDZ* 300 MCG/0.5 ML SYRINGE SUBCUT SCH (10:42)
[2017-07-13] MEDS: Omeprazole CAP* 20 MG PO SCH ×3 (10:42→21:50)
[2017-07-13] MEDS: Potassium Chlor TAB* 10 MEQ TAB.ER PO SCH ×3 (10:42→21:51)
[2017-07-13] MEDS: metroNIDAZOLE TAB* 250 MG PO SCH ×4 (10:42→21:47)
[2017-07-13] MEDS: Folic Acid TAB* 1 MG PO SCH ×2 (10:42→10:57)
--- NOTE | 2017-07-13 17:16 | PN ---
Hospitalist Progress Note Date of Service: 07/13/17 Pt seen and examined. Meds and labs reviewed. Pt mentioned that she is depressed and wanted to commit suicide. Unclear plan. ROS: SI, depressed; mentions that he cant swallow. Denied BECKFORD/dizziness, F/C, N/V, CP, SOB, increased cough, sputum production, abd pain, diarrhea, constipation, dysuria, myalgias, arthralgias, throat pain, and new skin lesions. The rest of the 14 point ROS are unremarkable. PHYSICAL EXAM: GEN APPEARANCE: Awake, not in acute distress HEENT: NC/AT, PERRLA, moist oral mucosa, (-) throat erythema NECK: Soft, supple, (-) cervical LAD, (-)JVD HEART: S1S2 WNL, RRR, No MRG CHEST: CTA, BL, GAE, No W/R/R ABD: Soft, ND/NT, NABS 4x Q EXT: No C/C/E SKIN: Warm to touch PSYCH: No active psychosis, hallucinations, SI(+), pt was crying and depressed ASSESSMENT AND PLAN: #Suicidal ideation: -Pt is a poor historian in regards to plan -Pt placed with 1:1 sitter until pt can be evaluated by psych -Left a message with Dr. Lee #Pancytopenia: -Likely due to MTX -Spoke with Dr. Cannon who mentions that if ANC is stable or continues to increase may D/C in especially >500 #C. diff: -Continue Flagyl D#05/10 #Atrial fibrillation -PAF, Apixaban on hold. #Dysphagia: -Continue sucralfate, omeprazole, and lidocaine solutions -Continue watchful waiting #Dementia -No behavior disturbance reported. Reduce sertraline dose 07/10 to 25 mg, last dose 07/12. #HTN (hypertension) -Hold lisinopril, amlodipine. Continue nadolol. #DVT prophylaxis: -Not needed given low platelet count due to pancytopenia #Dispo: -Will await for psych evaluation
--- NOTE | 2017-07-13 17:50 | CONSULT ---
Identification - Patient Identification Reason for Psychiatric Consultation: Suicidal Ideation -: Patient is a 82 year old, F admitted on 07/09/17. - MHU Identification Employment Status: retired Hx Psychiatric Hospitalization: No Prior Psychiatric Diagnosis: unknown Arrived to Hospital Via: Ambulatory History - Objective HPI: History of present illness: Patient is 82 yo woman with unknown past psychiatric history. I attempted to reach family for history but was unsucessful. Patient lives with her in [place]. Patient has medical history of duodenal ulcers, methotrexate induced pancytopenia, RA, major neurocognitive disorder (dementia), Afib, DVT,HN, basal cell carcinoma. I did a review of record with pharmacist. Patient admitted to hospital from 07/06 to 07/07/17 for upper GI bleed. Home medications listed on admission included Zoloft 100 mg daily. Patient was discharged on 50 mg daily. Patient returned on 07/09/17 and Zoloft further reduced to 25 mg daily. It is unclear what the indication is for the taper. Nursing notes do not indicate any mental status changes until yesterday when patient was reportedly tearful. This AM Patient was tearful at time Dr. Kim was evaluating her. family also present during this time. patient was asked if she felt suicidal and she indicated yes. She was subsequently placed on constant observaton for suicidal precautions. PMH: duodenal ulcers, pancytopenia likely due to methotrexate taken for rheumatoid arthritis, basal cell skin cancer, A-fib, DVT, HTN, dementia and cholecystectomy. PPH: History of Dementia otherwise history unknown currently on Zoloft for unknown indication Current Medication: (Lipitor*) 20 mg PO 1700 [facility] Digoxin 0.125 mg PO DAILY [facility] Filgrastim-Sndz (Zarxio*) 300 mcg SUBCUT DAILY [facility] Folic Acid (Folvite Tab*) 1 mg PO DAILY [facility] Cefepime HCl Lidocaine (Xylocaine 2% Viscous*) 15 ml PO Q4H PRN Loperamide HCl (Imodium Cap*) 2 mg PO Q3H PRN Multi-Ingredient Mouthwash/Gargle Nadolol (Corgard Tab*) 40 mg PO DAILY [facility] Omeprazole (Prilosec Cap*) 20 mg PO BID [facility] Potassium Chloride (Klor Con Er Tab*) 10 meq PO TID [facility] Sertraline HCl (Zoloft*) 25 mg PO DAILY [facility] Sucralfate (Sucralfate Susp) 1 gm PO QID [facility] Social/Family lives with in [place]. patient worked 35 years for [employer]. 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 She has one son who is very involved in her care Mental Status Exam patient was seated on edge of bed. She greeted me Patient was alert, sustained adequate attention span during the interview. She made good eye contact. Her attention did not wax and wane. There was no evidence of psychomotor agitation or slowing. mood is clearly dysphoric. Patient was tearful intermittently throughout the interview. affect congruent with mood. Thought process: intermittently confusional but able to recover when given verbal cues. Thought content: no evidence of psychotic symptoms. patient denied having thoughts of wanting to harm self. when asked why she was sad, she related that she had been thinking about her brother who 2 years ago. patient shared that she does wish to return home to . enjoys her dog. likes spending time with son. unaware of why she is so tearful and sad recently. Cogntive: patient was oriented to place and person only. memory: registration 0/0 therefore STM not testable shelter memory fair. unable to remember her date of but able to name all family members expressive language impaired: word finding difficulty receptive language: intact insight/judgment impaired patient appears to have no gross neurological deficits Vital Signs: Temp Pulse Resp BP Pulse Ox 98.2 F 73 14 144/50 94 07/13/17 15:25 07/13/17 15:25 07/13/17 15:25 07/13/17 15:25 07/13/17 15:25 LABS: reviewed Imaging: no Head CT/MRI noted in chart Impression: 82 yo woman with history of dementia who appears to have been taking zoloft 100 mg for unclear indication (?depression, anxiety). Over the past week zoloft has been rapidly tapered to 25 mg. Past two days patient is tearful, dysphoric, preoccupied with of family members (mother, brother). This morning patient indicated suicidal ideation to hospitalist who placed her on constant observation. Rapid discontinuation of any SSRI can produce a discontinuation syndrome. Patient's abrupt onset of dysphoria, crying, and preoccupation with of family members is unusual and likely related to the taper. Plan: unclear of indication for taper. Would increase patient back to 50 mg for now to see if depressive symptoms improve or remit completely If Zoloft is contraindicated with comorbid medical problems, would replace with remeron while cross tapering zoloft down. I have spoken with hositalist. for now I will return patient to 50 mg. please contact me with indication for zoloft discontinuatio and I Will gladly write a schedule for replacing zoloft with remeron. the latter has been used with success in medically ill patients and generally causes minimal adverse effects and does not require adjustments for renal or hepatic disease CO can be discontinued. patient is not a danger to herself at this time. I will see patient daily on CL service. I will try again to reach son in AM Lab Results: Laboratory Tests 07/09/17 07/09/17 07/10/17 21:54 23:43 05:58 WBC 0.6 L RBC 2.18 L Hgb 7.0 L Hct 20 L MCV 91 MCH 32 H MCHC 36 RDW 15 Plt Count 20 L MPV 9.2 Neut % (Auto) 32.8 L Lymph % (Auto) 48.8 H [place] % (Auto) 0.5 Eos % (Auto) 17.9 H Baso % (Auto) 0 Absolute Neuts (auto) 0.2 L* Absolute Lymphs (auto) 0.3 L Absolute Monos (auto) 0 Absolute Eos (auto) 0.1 Absolute Basos (auto) 0 Absolute Nucleated RBC 0 Immature Gran % Neutrophils % Band Neutrophils % Lymphocytes % Reactive Lymphs % Monocytes % Eosinophils % Basophils % Nucleated RBC % 0 Abs Neuts (Manual) Abs Lymphs (Manual) Abs Monocytes (Manual) Absolute Eos (Manual) Abs Basophils (Manual) Nucleated RBCs/100 WBC Dohle Bodies Large Platelets Giant Platelets Normal RBC Morphology Polychromasia Anisocytosis Hem Pathologist Commnt Sodium Potassium Chloride Carbon Dioxide Anion Gap BUN Creatinine Est GFR ( Amer) Est GFR (Non-Af Amer) BUN/Creatinine Ratio Glucose Lactic Acid 1.1 Calcium Magnesium Vitamin B12 Digoxin Influenza A (Rapid) Negative Influenza B (Rapid) Negative 07/10/17 07/11/17 07/11/17 05:58 07:09 07:09 WBC 1.1 L RBC 2.16 L Hgb 7.0 L Hct 20 L MCV 92 MCH 33 H MCHC 36 RDW 15 Plt Count 24 L MPV 10.6 H Neut % (Auto) Not Reportable Lymph % (Auto) Not Reportable [place] % (Auto) Not Reportable Eos % (Auto) Not Reportable Baso % (Auto) Not Reportable Absolute Neuts (auto) 0.4 L* Absolute Lymphs (auto) 0.5 L Absolute Monos (auto) 0 Absolute Eos (auto) 0.2 Absolute Basos (auto) 0 Absolute Nucleated RBC Not Reportable Immature Gran % Neutrophils % 28 L Band Neutrophils % Lymphocytes % 47 Reactive Lymphs % Monocytes % 1 Eosinophils % 24 H Basophils % 0 Nucleated RBC % Not Reportable Abs Neuts (Manual) 0.3 L* Abs Lymphs (Manual) 0.5 L Abs Monocytes (Manual) 0 Absolute Eos (Manual) 0.3 Abs Basophils (Manual) 0 Nucleated RBCs/100 WBC Dohle Bodies Large Platelets Giant Platelets Normal RBC Morphology Not Reportable Polychromasia Anisocytosis 1+ Hem Pathologist Commnt Sodium 138 L 139 Potassium 3.3 L 3.4 L Chloride 111 110 Carbon Dioxide 21 L 22 Anion Gap 6 7 BUN 24 23 Creatinine 1.04 H 1.07 H Est GFR ( Amer) 65.1 63.0 Est GFR (Non-Af Amer) 50.6 49.0 BUN/Creatinine Ratio 23.1 H 21.5 H Glucose 127 H 98 Lactic Acid Calcium 7.9 L 8.1 L Magnesium 2.2 2.1 Vitamin B12 303 Digoxin 0.7 L Influenza A (Rapid) Influenza B (Rapid) 07/12/17 07/12/17 07/13/17 05:27 05:27 05:48 WBC 1.4 L 3.2 L RBC 2.09 L 2.61 L Hgb 6.8 L 8.3 L Hct 19 L 24 L MCV 92 91 MCH 32 H 32 H MCHC 35 35 RDW 15 15 Plt Count 31 L 48 L D MPV 11.2 H 11.4 H Neut % (Auto) 34.7 L Not Reportable Lymph % (Auto) 44.0 Not Reportable [place] % (Auto) 6.4 Not Reportable Eos % (Auto) 14.8 H Not Reportable Baso % (Auto) 0.1 Not Reportable Absolute Neuts (auto) 0.5 L* 1.7 Absolute Lymphs (auto) 0.6 L 0.9 L Absolute Monos (auto) 0.1 0.3 Absolute Eos (auto) 0.2 0.3 Absolute Basos (auto) 0 0 Absolute Nucleated RBC 0 0 Immature Gran % 2 5 Neutrophils % 26 L 37 L Band Neutrophils % 2 5 Lymphocytes % 56 H 44 Reactive Lymphs % 1 Monocytes % 4 5 Eosinophils % 10 H 9 H Basophils % 1 0 Nucleated RBC % 0.2 Not Reportable Abs Neuts (Manual) 0.4 L* 1.2 L Abs Lymphs (Manual) 0.8 L 1.4 Abs Monocytes (Manual) 0.1 0.2 Absolute Eos (Manual) 0.1 0.3 Abs Basophils (Manual) 0 0 Nucleated RBCs/100 WBC 0 Dohle Bodies Present Large Platelets Present Giant Platelets Present Normal RBC Morphology Normal Not Reportable Polychromasia 1+ Anisocytosis Hem Pathologist Commnt Sodium 139 Potassium 3.6 Chloride 115 H Carbon Dioxide 20 L Anion Gap 4 BUN 22 Creatinine 0.99 H Est GFR ( Amer) 68.9 Est GFR (Non-Af Amer) 53.6 BUN/Creatinine Ratio 22.2 H Glucose 103 H Lactic Acid Calcium 8.0 L Magnesium Vitamin B12 Digoxin Influenza A (Rapid) Influenza B (Rapid) Plan - Treatment Plan Medications: Current Medications Acetaminophen (Tylenol Tab*) 650 mg PO Q4H PRN PRN Reason: PAIN Last Admin: 07/13/17 14:43 Dose: 650 mg Atorvastatin Calcium (Lipitor*) 20 mg PO 1700 [facility] Last Admin: 07/12/17 16:05 Dose: 20 mg Filgrastim-Sndz (Zarxio*) 300 mcg SUBCUT DAILY [facility] Stop: 07/15/17 23:59 Last Admin: 07/13/17 10:42 Dose: 300 mcg Folic Acid (Folvite Tab*) 1 mg PO DAILY [facility] Last Admin: 07/13/17 10:57 Dose: Not Given Cefepime HCl (Maxipime 2 Gm In Dextrose Duplex (*)) 2 gm in 50 mls @ 100 mls/ hr IV Q12H [facility] Last Admin: 07/13/17 16:40 Dose: 100 mls/hr Potassium Chloride/Dextrose (D5w 1/2 Ns Kcl 20 Meq 1000 Ml*) 1,000 mls @ 50 mls /hr IV PER RATE [facility] Last Admin: 07/13/17 10:33 Dose: 50 mls/hr Lidocaine (Xylocaine 2% Viscous*) 15 ml PO Q4H PRN PRN Reason: PAIN Last Admin: 07/13/17 14:29 Dose: 15 ml Loperamide HCl (Imodium Cap*) 2 mg PO Q3H PRN PRN Reason: LOOSE STOOLS Last Admin: 07/10/17 10:55 Dose: 2 mg Metronidazole (Flagyl Tab*) 500 mg PO TID [facility] Last Admin: 07/13/17 14:35 Dose: 500 mg Multi-Ingredient Mouthwash/Gargle (Magic M W2 Kamlesh/Maal/Nyst/Lido*) 5 ml SWISH SPIT QID [facility] Last Admin: 07/13/17 14:32 Dose: 5 ml Omeprazole (Prilosec Cap*) 20 mg PO BID [facility] Last Admin: 07/13/17 10:57 Dose: Not Given Potassium Chloride (Klor Con Er Tab*) 10 meq PO BID [facility] Last Admin: 07/13/17 10:57 Dose: Not Given Sucralfate (Sucralfate Susp) 1 gm PO QID [facility] Last Admin: 07/13/17 14:30 Dose: 1 gm
[2017-07-13] MEDS: Atorvastatin* 20 MG TAB PO SCH (17:51)
[2017-07-13] MEDS: Sertraline* 50 MG TAB PO SCH (21:44)
[2017-07-14] MEDS: Cefepime 2 GM in Dextrose(*) 2 GM/50 ML BAG IV SCH (03:52)
[2017-07-14 07:00] LABS: Hematocrit 23 % (35-47); Hemoglobin 8.1 g/dl (12.0-16.0); Mean Corpuscular HGB Conc 36 g/dl (31-36); Mean Corpuscular Hemoglobin 32 pg (27-31); Mean Corpuscular Volume 90 fL (80-97); Mean Platelet Volume 10.8 um3 (7.4-10.4); Platelet Count 71 10^3/ul (150-450); Red Blood Count 2.54 10^6/ul (4.0-5.4); Red Cell Distribution Width 15 % (10.5-15); White Blood Count 10.5 10^3/ul (3.5-10.8)
[2017-07-14 07:04] LABS: EGFR Non-African American 60.6 (>60)
[2017-07-14] MEDS ORDERED: Magnesium Sulfate 2 GM IV* 2 GM/50 ML BAG IVPB ONE (07:41)
[2017-07-14 08:16] LABS: ABS Basophils 0.1 10^3/ul (0-0.2); ABS Eosinophils 0.4 10^3/ul (0-0.6); ABS Lymphocytes 1.2 10^3/ul (1.0-4.8); ABS Monocytes 0.1 10^3/ul (0-0.8); ABS Neutrophils 8.7 10^3/ul (1.5-7.7); ABS Nucleated RBC 0 10^3/ul; Nucleated Red Blood Cells % 0.1
[2017-07-14 08:21] LABS: Monocytes % 4 % (0-7)
[2017-07-14] MEDS: Folic Acid TAB* 1 MG PO SCH (10:52)
[2017-07-14] MEDS: Potassium Chlor TAB* 10 MEQ TAB.ER PO SCH ×2 (10:52→21:17)
[2017-07-14] MEDS: metroNIDAZOLE TAB* 250 MG PO SCH ×3 (10:52→21:17)
[2017-07-14] MEDS: Omeprazole CAP* 20 MG PO SCH ×2 (10:52→21:17)
[2017-07-14] MEDS: Magic M W2 Ben/Maal/Nyst/Lido* 240 ML MOUTHWASH (alt formulation) SWISH SPIT SCH ×4 (10:52→21:17)
[2017-07-14] MEDS: Lactobacillus Acidophilus* 1 TAB PO SCH ×2 (10:52→10:53)
[2017-07-14] MEDS: Sucralfate SUSP 1 GM/10 ml 10 ML UDC PO SCH ×4 (10:53→21:17)
[2017-07-14] MEDS: D5W 1/2 NS KCl 20 Meq 1000 ML* 1,000 ML IV SCH (10:55)
--- NOTE | 2017-07-14 15:52 | PN ---
Hospitalist Progress Note Date of Service: 07/14/17 Pt seen and examined. Meds and labs reviewed. ROS: Denied BEC[place]/dizziness, F/C, N/V, CP, SOB, increased cough, sputum production , abd pain, diarrhea, constipation, dysuria, myalgias, arthralgias, throat pain , and new skin lesions. The rest of the 14 point ROS are unremarkable. PHYSICAL EXAM: GEN APPEARANCE: Awake, not in acute distress HEENT: NC/AT, PERRLA, moist oral mucosa, (-) throat erythema NECK: Soft, supple, (-) cervical LAD, (-)JVD HEART: S1S2 WNL, RRR, No MRG CHEST: CTA, BL, GAE, No W/R/R ABD: Soft, ND/NT, NABS 4x Q EXT: No C/C/E SKIN: Warm to touch PSYCH: No active psychosis, hallucinations, Still slightly depressed, (-) SI/HI ASSESSMENT AND PLAN: #Depression: -Appreciate Dr. Hernandez input; per family, pts outpatient psychiatrist tapered her Zoloft in half due to mouth ulcerations??? But was never taken off -Pt now back on low dose Zoloft -1:1 D/C'd per psych evaluation #Pancytopenia, improved; neutropenia resolved: -Likely due to MTX -Spoke with Dr. Cannon who mentions that if ANC is stable or continues to increase may D/C in especially >500 -Both Cefepime and Filgastrim D/Cd #C. diff: -Continue Flagyl D#06/10 #Atrial fibrillation -PAF, Apixaban on hold. #Dysphagia: -Continue sucralfate, omeprazole, and lidocaine solutions -Will now advance diet to GI soft #Dementia -No behavior disturbance reported. Reduce sertraline dose 07/10 to 25 mg, last dose 07/12. #HTN (hypertension) -Hold lisinopril, amlodipine. Continue nadolol. #DVT prophylaxis: -Not needed given low platelet count due to pancytopenia #Dispo: -Appreciate psych eval -To observe O/N given familys concern about dysphagiawill observe overnight with GI soft diet to see if pt is able to tolerate -For D/C to home with services in AM if no other issues
[2017-07-14] MEDS: Atorvastatin* 20 MG TAB PO SCH (16:21)
[2017-07-14] MEDS: Sertraline* 50 MG TAB PO SCH (21:18)
[2017-07-15 07:26] LABS: Hematocrit 23 % (35-47); Hemoglobin 7.9 g/dl (12.0-16.0); Mean Corpuscular HGB Conc 35 g/dl (31-36); Mean Corpuscular Hemoglobin 31 pg (27-31); Mean Corpuscular Volume 91 fL (80-97); Mean Platelet Volume 11.4 um3 (7.4-10.4); Platelet Count 95 10^3/ul (150-450); Red Blood Count 2.52 10^6/ul (4.0-5.4); Red Cell Distribution Width 16 % (10.5-15); White Blood Count 17.5 10^3/ul (3.5-10.8)
[2017-07-15 07:53] LABS: ABS Basophils 0.1 10^3/ul (0-0.2); ABS Eosinophils 0.5 10^3/ul (0-0.6); ABS Lymphocytes 1.8 10^3/ul (1.0-4.8); ABS Neutrophils 14.2 10^3/ul (1.5-7.7)
[2017-07-15 08:05] LABS: Monocytes % 5 % (0-7)
[2017-07-15] MEDS: metroNIDAZOLE TAB* 250 MG PO SCH (08:18)
[2017-07-15] MEDS: Lactobacillus Acidophilus* 1 TAB PO SCH (08:18)
[2017-07-15] MEDS: Folic Acid TAB* 1 MG PO SCH (08:18)
[2017-07-15] MEDS: Magic M W2 Ben/Maal/Nyst/Lido* 240 ML MOUTHWASH (alt formulation) SWISH SPIT SCH (08:18)
[2017-07-15] MEDS: Omeprazole CAP* 20 MG PO SCH (08:18)
[2017-07-15] MEDS: Sucralfate SUSP 1 GM/10 ml 10 ML UDC PO SCH (08:18)
[2017-07-15] MEDS: Potassium Chlor TAB* 10 MEQ TAB.ER PO SCH (08:19)
[2017-07-15] MEDS: D5W 1/2 NS KCl 20 Meq 1000 ML* 1,000 ML IV SCH (08:19)
[2017-07-15 11:35] VITALS: BP 139/64
--- NOTE | 2017-07-15 23:33 | DS ---
DISCHARGE SUMMARY: DATE OF ADMISSION: 07/09/17 DATE OF DISCHARGE: 07/15/17 DISCHARGE DIAGNOSES: 1. Pancytopenia, improved; neutropenia, resolved likely secondary to methotrexate use. 2. Depression without any suicidal ideation and plan, although she did express some suicidal thoughts; the patient evaluated by Dr. Tian of Psychiatry. 3. Clostridium difficile. 4. History of atrial fibrillation. 5. Dysphagia, likely due to odynophagia due to known mucosal ulcers in her mouth. 6. History of dementia. 7. History of hypertension. DISCHARGE MEDICATIONS: 1. Diclofenac 1% gel apply topically t.i.d. 2. Digoxin 0.125 mg p.o. daily. 3. Folic acid 1 mg p.o. daily. 4. Lasix 20 mg p.o. q.a.m. 5. Hydrocortisone 0.1% topical b.i.d. 6. Lactobacillus acidophilus 1 tab p.o. daily. 7. Lidocaine 2% viscous solution 15 mL p.o. q.4 hours p.r.n. 8. Magic MW2 5 mL swish and spit 4 times daily for 14 days. 9. Flagyl 500 mg p.o. t.i.d. for 9 more days. 10. Nadolol 40 mg p.o. daily. 11. Omeprazole 20 mg p.o. daily. 12. Potassium 20 mEq p.o. daily. 13. Sertraline 50 mg p.o. daily. 14. Simvastatin 40 mg p.o. daily. 15. Sucralfate 1 g per 10 mL solution, give 1 g p.o. q.6 hours. 16. Triamcinolone dental paste 1 application p.o. t.i.d. HISTORY OF PRESENT ILLNESS/HOSPITAL COURSE: The patient is an 82-year-old lady with history of hypertension, dementia, atrial fibrillation and skin cancer, who has been having some odynophagia. She was recently admitted on 07/06/17 to 07/07/17 with similar complaints and had an upper endoscopy/EGD with Dr. Kovacs. She was found to have some mild erosive gastritis without any active bleeding. She was also noted to have pancytopenia at that time. She was discharged with the recommendation to stop her Eliquis. Hemoglobin at that time had been 8.4 and hematocrit of 25 on discharge with platelets around 59, 000. She was noted to have fever of 101 degrees with worsening pancytopenia, which was thought to be due to methotrexate use for about 6 months for rheumatoid arthritis. She once again was readmitted to our facility on due to her complaints of throat, cheek pain and inability to swallow her food due to pain and also complained of dark tarry bowel movements. She was found to have worsening pancytopenia and was placed on neutropenic precautions and was placed on cefepime and filgrastim. Dr. Cannon had seen the patient on , who as thinks that this is likely due to his methotrexate exposure and he recommended that when the ANC was at least greater than 500 and/or stable, for Neupogen to be discontinued a few days back, which was done. Cefepime was also discontinued. During her hospital course, with exposure to broad-spectrum antibiotics, she was also diagnosed with C. diff diarrhea and was placed on Flagyl, currently at day 5 of 14. The patient has been prescribed Flagyl as well as probiotics on discharge. Her diet was then advanced to GI soft prior to discharge and we will defer with subsequent reevaluations by the patient's PCP in further advancing diet consistency as an outpatient. She has tolerated her recently advanced diet regimen. During her hospital course, she also was found to be crying at one point likely due to the recent discontinuation of her Zoloft and recent gradual decreasing as an outpatient. Therefore, she was initially placed with a one- to-one sitter, which was then subsequently discontinued by Psychiatry after evaluation and mentioned that she is currently not a danger to herself nor others. Of note, the patient's family mentions that the reason the Zoloft was decreased by her outpatient psychiatrist was somehow related to the mucosal lesions, although the family is not very clear on the exact reasoning. Her one- to- one was discontinued by psychiatry department after her evaluation. She is to follow up with them for outpatient followup. OTHER INSTRUCTIONS TO THE PATIENT: Follow up with Dr. Cannon, her oncologist and to call [phone] to schedule a F/U appointment. Follow up with your PCP within 3 days post discharge, to take her own medications as prescribed and the patient was advised strongly not to take methotrexate again. REVIEW OF SYSTEMS: The patient denied any recent headaches, dizziness, fevers, chills, nausea, vomiting, chest pain, shortness of breath, diarrhea, constipation, pain and/or increased frequency on urination, myalgias or arthralgias, throat pain, or new skin lesions. The rest of the 14-point review of systems is otherwise unremarkable. TIME SPENT: The total time spent evaluating the patient, reviewing pertinent data, and appropriate documentation is greater than 30 minutes. [id number]/CPS #: [id number] MTDD
== END 2017-07-15 12:17 | disposition home or self-care (01) | DRG 809 ==
LOC: ED 18:25 → MED 21:21
PROVIDERS: ADMIT Internal Medicine; ATTEND Student in an Organized Health Care Education/Training Program
PROC: 30233N1 Transfusion of Nonautologous Red Blood Cells into Peripheral Vein, Percutaneous Approach (ICD-10-PCS; principal; 2017-07-12)
DX: D61.811 Other drug-induced pancytopenia (principal); A04.72 Enterocolitis due to Clostridium difficile, not specified as recurrent; R45.851 Suicidal ideations; T45.1X5A Adverse effect of antineoplastic and immunosuppressive drugs, initial encounter; C44.91 Basal cell carcinoma of skin, unspecified; Y92.009 Unspecified place in unspecified non-institutional (private) residence as the place of occurrence of the external cause; F03.90 Unspecified dementia, unspecified severity, without behavioral disturbance, psychotic disturbance, mood disturbance, and anxiety; N28.1 Cyst of kidney, acquired; I10 Essential (primary) hypertension; I48.91 Unspecified atrial fibrillation; R13.11 Dysphagia, oral phase; M06.9 Rheumatoid arthritis, unspecified; R50.81 Fever presenting with conditions classified elsewhere; F32.9 Major depressive disorder, single episode, unspecified; Z79.899 Other long term (current) drug therapy; Z88.1 Allergy status to other antibiotic agents; Z88.5 Allergy status to narcotic agent; Z88.8 Allergy status to other drugs, medicaments and biological substances
CPT/HCPCS: 36415; 71046; 74177; 80048; 80053; 80162; 82150; 82270; 82550; 82607; 82784; 83605; 83690; 83735; 84155; 84165; 84484; 85025; 85060; 85610; 85730; 86140; 86850; 86900; 86901; 86922; 87040; 87493; 87502; 93005; 99223; 99231; 99284; A9270-GY; G8978-GP-CI; G8979-GP-CI; G8980-GP-CI; G8987-GO-CJ; G8988-GO-CI; G8989-GO-CI; J0692; J2543; J3475; P9040; Q5101; Q9967

== ENCOUNTER 2017-09-26 14:45 | Emergency (ER) | payer BC, MEDICARE ==
[2017-09-26 15:20] VITALS: BP 133/71
--- NOTE | 2017-09-26 15:50 | UC ---
Abdominal Pain Female HPI - HPI Summary HPI Summary: 82 yo female with progressiviely worsening left side abd pain x 1 week pain currently 10/10 unable to sleep due to pain pain worse with movement hx diverticulitis hx PUD hx C. diff no fever chills recentl diarrhea now constipated - History of Current Complaint Chief Complaint: UCAbdominalPain Stated Complaint: ABD PAIN Time Seen by Provider: 09/26/17 15:17 Hx Obtained From: Patient Onset/Duration: Gradual Onset, Lasting Days - 7 Timing: Constant Severity Initially: Mild Severity Currently: Severe Pain Intensity: 10 Pain Scale Used: 0-10 Numeric Location: Discrete At: LUQ, Discrete At: LLQ Radiates: Yes Radiates to: Chest - LEFT LOWER Character: Aching, Colicy Aggravating Factor(s): Movement, Deep Breaths Alleviating Factor(s): Nothing Associated Signs and Symptoms: Positive: Negative Allergies/Adverse Reactions: Allergies Allergy/AdvReac Type Severity Reaction Status Date / Time codeine Allergy Unknown Verified 09/26/17 15:26 Reaction Details erythromycin base Allergy Unknown Verified 09/26/17 15:26 [From Erythrocin] Reaction Details gabapentin [From Neurontin] Allergy Unknown Verified 09/26/17 15:26 Reaction Details PMH/Surg Hx/FS Hx/Imm Hx Previously Healthy: No - RA Cardiovascular History: Hypertension GI/ History: Ulcer, Diverticulitis - Surgical History Surgical History: Yes Surgery Procedure, Year, and Place: CYST/TUMOR DRAINERD FROM RIGHT HIP X 25 YRS AGO. hysteretomy @ 29 yrs - Family History Known Family History: Positive: Other - Negative autoimmune disease Negative: Respiratory Disease - Social History Alcohol Use: None Substance Use Type: None Smoking Status (MU): Never Smoked Tobacco - Immunization History Most Recent Influenza Vaccination: 2018 Most Recent Tetanus Shot: 2012 Most Recent Pneumonia Vaccination: had in the past, not sure when Review of Systems Constitutional: Fatigue Skin: Negative Eyes: Negative ENT: Negative Respiratory: Negative Cardiovascular: Negative Gastrointestinal: Abdominal Pain Genitourinary: Negative Motor: Negative Neurovascular: Negative Musculoskeletal: Negative Neurological: Negative Psychological: Negative Is Patient Immunocompromised?: No All Other Systems Reviewed And Are Negative: Yes Physical Exam Triage Information Reviewed: Yes Appearance: Well-Nourished, Ill-Appearing Vital Signs: Initial Vital Signs Temp 98.3 F 09/26/17 15:12 Pulse 61 09/26/17 15:12 Resp 20 09/26/17 15:12 BP 133/71 09/26/17 15:12 Pulse Ox 99 09/26/17 15:12 Vital Signs Reviewed: Yes Eyes: Positive: Conjunctiva Clear ENT: Positive: Hearing grossly normal. Negative: Nasal congestion, Nasal drainage, Trismus, Muffled voice Neck: Positive: Supple, Nontender Respiratory: Positive: Lungs clear, Normal breath sounds, No respiratory distress Cardiovascular: Positive: RRR, No Murmur Abdomen Description: Positive: Guarding, Other: - LLQ>LUQ tenderness. Negative : Nontender, CVA Tenderness (R), CVA Tenderness (L), Distended Musculoskeletal: Positive: ROM Intact, No Edema Neurological Exam: Normal Neurological: Positive: Alert Psychological Exam: Normal Skin Exam: Normal Abd Pain Female Course/Dx - Course Course Of Treatment: advise transfer to ER. she and son declined EMS. \. I informed Dr. Douglass of transfer - Differential Dx/Diagnosis Provider Diagnoses: acute abdominal pain Discharge - Sign-Out/Discharge Documenting (check all that apply): Patient Departure - Discharge Plan Condition: Guarded Disposition: TRANS HIGHER LVL OF CARE FAC Referrals: Susan Hanley MD [Primary Care Provider] - Additional Instructions: TO the ER straight from here Don't eat or drink I spoke to Dr. Douglass - Billing Disposition and Condition Condition: GUARDED Disposition: Trans Higher Lvl of Care Fac
== END 2017-09-26 15:45 | disposition short-term general hospital (02) ==
LOC: UCEAST 14:45
DX: R10.12 Left upper quadrant pain (principal); R10.32 Left lower quadrant pain; I10 Essential (primary) hypertension; Z88.5 Allergy status to narcotic agent; Z88.1 Allergy status to other antibiotic agents; Z88.8 Allergy status to other drugs, medicaments and biological substances
CPT/HCPCS: 99212; G0463

== ENCOUNTER → 2017-09-26 16:12 | Emergency (ER) | payer MEDICARE, BC ==
[~2017-09-26 16:12] MED LIST: Acetaminophen TAB* 325 MG PO ONE; Ciprofloxacin TAB* 500 MG PO ONE; Iodixanol* (CONTRAST) 320 MG/ML 100 ML SDV IV ONE; NS 0.9% 500 ML* 500 ML IV ONE; metroNIDAZOLE TAB* 250 MG PO ONE
[2017-09-26 19:13] LABS: ABS Basophils 0.1 10^3/ul (0-0.2); ABS Eosinophils 0.9 10^3/ul (0-0.6); ABS Lymphocytes 2.2 10^3/ul (1.0-4.8); ABS Monocytes 0.9 10^3/ul (0-0.8); ABS Neutrophils 6.8 10^3/ul (1.5-7.7); ABS Nucleated RBC 0 10^3/ul; Eosinophil % 8.3 % (0-6); Hematocrit 35 % (35-47); Hemoglobin 12.1 g/dl (12.0-16.0); Lymphocyte % 19.8 % (25-47); Mean Corpuscular HGB Conc 34 g/dl (31-36); Mean Corpuscular Hemoglobin 33 pg (27-31); Mean Corpuscular Volume 96 fL (80-97); Nucleated Red Blood Cells % 0; Platelet Count 165 10^3/ul (150-450); Red Blood Count 3.69 10^6/ul (4.00-5.40); Red Cell Distribution Width 14 % (10.5-15); White Blood Count 10.9 10^3/ul (3.5-10.8)
[2017-09-26 19:32] LABS: EGFR Non-African American 55.5 (>60)
[2017-09-26 21:59] LABS: Urine Appearance Clear; Urine Blood 2+ (Negative); Urine Color Yellow; Urine Ketones Negative (Negative); Urine Protein Negative (Negative); Urine Red Blood Cell Trace(0-2/hpf) (Absent); Urine Specific Gravity 1.015 (1.010-1.030); Urine Urobilinogen Negative (Negative); Urine White Blood Cell 2+(11-20/hpf) (Absent)
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
[2017-09-26 22:38] VITALS: BP 171/84
--- NOTE | 2017-09-27 07:33 | RAD ---
INDICATION: Left lower quadrant abdominal pain. COMPARISON: Comparison is made with a prior CT of the abdomen and pelvis from July 09, 2017. Correlation is also made with a CT of the abdomen and pelvis from August 01, 2011. TECHNIQUE: A CT scan of the abdomen and pelvis was performed with intravenous and without oral contrast following intravenous injection of 88 ml of Visipaque 320 nonionic contrast. Contiguous axial sections were obtained from the lung bases through the symphysis pubis. Images were reconstructed in the coronal and sagittal planes. FINDINGS: The lung bases are clear. No pleural effusion is present. The liver is normal in size without significant focal abnormality. The patient is status post cholecystectomy. There is extrahepatic ductal distention which appears unchanged from the prior exam likely representing postcholecystectomy changes. The pancreas appears to be within normal limit. There is a 1.5 hypodense lesion present in the anterior inferior aspect of the spleen which appears unchanged from the prior study. The adrenal glands appear to be within normal limits. The kidneys appear slightly small in size and lobulated in appearance. No hydronephrosis or renal calculi are seen. There appear to be several cysts. In addition there are other lesions measuring greater than fluid density including an exophytic complex cystic and solid lesion arising from the lateral aspect of the left kidney measuring 1.5 cm in size and a second exophytic solid-appearing lesion arising from the posterior inferior aspect of the right kidney measuring 1.6 cm in size. This appears slightly more prominent than on the prior study and new from the study from 2011. The lesion in the left kidney is unchanged from the prior study although new from the study from 2011. No bladder wall thickening is seen. There are other indeterminate lesions The aorta is normal in caliber with moderate calcific plaque present. No significant enlarged retroperitoneal lymph nodes are seen. The stomach, small and large bowel appear nondistended. The appendix is not well visualized. There are diverticuli scattered throughout the colon which are moderate in degree in the transverse colon and mild to moderate degree in the descending and sigmoid colon. There is focal wall thickening and surrounding interstitial stranding in the distal portion of the transverse colon which is nonspecific although most consistent with diverticulitis. No abscess is seen. The patient is status post hysterectomy. No free intraperitoneal air or fluid is seen. No significant focal osseous abnormality is seen. IMPRESSION: 1. FINDINGS CONSISTENT WITH ACUTE DIVERTICULITIS ARISING FROM THE DISTAL TRANSVERSE COLON. 2. MULTIPLE RENAL LESIONS INCLUDING A SOLID RIGHT RENAL LESION AND COMPLEX CYSTIC AND SOLID LEFT RENAL LESION LESION RAISING THE POSSIBILITY OF RENAL CELL CARCINOMA. RECOMMEND A CONTRAST-ENHANCED THREE-PHASE CT OF THE KIDNEYS FOR FURTHER EVALUATION.
--- NOTE | 2017-09-29 12:11 | PN ---
Progress Note - Progress Note Date of Service: 10/27/17 Note: Pt. was seen in ED 09/26 and diagnosed with diverticulitis. She was placed on cipro and flagyl. Urine culture today is coming back growing >100,000 that is resistant to cipro. Feel it is best to switch pt. to augmentin which is susceptible to cover UTI and diverticulitis. I called and spoke with pt. regarding results. She asked me to call her son, Oumar, to discuss findings and antibx since she has dementia and he takes care of her medications. I called and spoke with pt.'s son Oumar at 1130. Advised to have pt. continue flagyl, dc cipro and start augmentin today. He notes that pt. has an apt. with PCP next week.
== END | disposition home or self-care (01) ==
LOC: ED 16:12
DX: K57.32 Diverticulitis of large intestine without perforation or abscess without bleeding (principal); N28.9 Disorder of kidney and ureter, unspecified; R00.1 Bradycardia, unspecified; Z85.828 Personal history of other malignant neoplasm of skin; Z88.1 Allergy status to other antibiotic agents; Z88.5 Allergy status to narcotic agent
CPT/HCPCS: 36415; 74177; 80053; 81003; 81015; 83605; 83690; 85025; 86140; 87077; 87086; 87186; 93005; 96360; 99284; A9270-GY; Q9967

== ENCOUNTER 2018-11-26 16:01 | Emergency (ER) | payer MEDICARE, BC ==
--- OUTSIDE RECORDS SUMMARY | 2018-11-26 17:45 | XMS REPORT | Summary of Care ---
:1935 Author Organization [facility] Address [address] [place] [address] Care Team Providers Name Role Phone Susan Hanley Primary Care Provider Reason for Visit Reason Comments Fall fell off a raised flower bed hit back of head 10 - 14 days ago; developed a headache predominatly on left side approx 3 days later and continues; not able to sleep well since. Encounter Details Date Type Department Care Team Description 11/26/2018 Office Visit [facility] Abner Collado DO New onset headache (Primary Dx); Practice [address] Uncontrolled hypertension [address] [place] [address] [place] [address] [phone] Allergies Active Allergy Reactions Severity Noted Date Comments Codeine GI Reaction 03/13/2007 Erythromycin GI Reaction 03/13/2007 Alc-Gabapentin GI Reaction 12/05/2008 documented as of this encounter (statuses as of 11/26/2018) Medications Medication Sig Dispensed Refills Start Date End Date Status Diclofenac Sodium 1 % Place 1 g onto 100 g 0 12/14/2016 Active Transdermal skin THREE TIMES GelIndications: Neck DAILY NEEDED strain, initial (muscle pain). encounter triamcinolone (KENALOG) 1 Appl by Dental 1 Tube 2 07/03/2017 Active 0.1 % Mouth/Throat route THREE PasteIndications: Mouth TIMES DAILY sores NEEDED (mouth / lip sore). OMEPRAZOLE PO Take 20 mg by 0 Active mouth TWICE DAILY. foliC acid 1 MG Oral Tab Take 1 mg by 0 Active mouth DAILY. metoprolol succinate Take 1 Tab by 90 Tab 3 03/02/2018 Active (TOPROL XL) 25 MG Oral mouth DAILY. TABLET SR 24 HRIndications: Hypertension, unspecified type triamcinolone (KENALOG) Apply to back 30 g 1 05/01/2018 Active 0.1 % Apply externally twice daily OintmentIndications: Inflamed seborrheic keratosis potassium chloride TAKE ONE TABLET 90 Tab 1 05/10/2018 Active (K-DUR) 20 MEQ Oral Tab BY MOUTH EVERY CRIndications: Essential DAY hypertension sertraline (ZOLOFT) 50 TAKE ONE TABLET 90 Tab 3 07/24/2018 Active MG Oral TabIndications: BY MOUTH EVERY Depression, unspecified DAY depression type [place]-3 Fatty Acids Take by mouth 0 Active (FISH OIL ULTRA PO) DAILY. 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 Memory change 04/11/2017 Overview: Clock face - ~ 60% - Remembered 2/3 things 06/14 - Clock face 80% / MINIMENTAL STATUS EXAM 26 Depression with anxiety 04/24/2015 Giant cell arteritis 02/11/2013 Overview: Rheumatology Dr Matthews/Leida Ness TILE ME[employer]IC [facility] Methotrexate treatment Osteoporosis 02/11/2013 Overview: Bone density scan 2011 osteopenia Abnormal ECG 01/10/2013 Overview: ST segment changes in past chemical nuclear stress test negative myocardial infarction or ischemia 01/09 Fatty liver 03/24/2010 History of deep vein thrombosis 07/03/2008 Overview: L arm PAF (paroxysmal atrial fibrillation) 02/26/2007 Hyperlipidemia Hypertension Mitral regurgitation Overview: mild documented as of this encounter (statuses as of 11/26/2018) Resolved Problems Problem Noted Date Resolved Date Hip pain, right 08/23/2013 10/10/2015 BMI 29.0-29.9,adult 08/18/2010 08/22/2012 Mitral valve disorders(424.0) 02/26/2007 02/11/2013 Diverticulosis of colon (without mention of hemorrhage) 10/27/2005 10/10/2015 Degeneration of lumbar or lumbosacral intervertebral disc 10/27/20052012 Unspecified cardiovascular disease 10/27/2005 08/18/2010 documented as of this encounter (statuses as of 11/26/2018) Immunizations Name Administration Dates Next Due Depo Medrol (80mg) 10/04/2013, 08/23/2013 H1N1 Injectable Adult 03/02/2009 Influenza (IM) Preservative Free 12/02/2013, 11/16/2012, 11/18/2011, 12/30/2010, 11/26/2009, 11/21/2008, 12/20/2007 Influenza Vaccine High Dose 11/28/2017, 11/11/2015, 11/25/2014 Influenza Vaccine Whole 12/19/2005, 12/29/2004, 12/15/2003, 02/08/2001 PNEUMOCOCCAL POLYSACCHARIDE VACCINE 06/22/2010, 02/08/2001 Pneumococcal Conjugate(13 Valent) 05/01/2018 TDAP Vaccine 08/28/2009 documented as of this encounter Social History Tobacco Use Types Packs/Day Years Used Date Never Smoker Smokeless Tobacco: Never Used Alcohol Use Drinks/Week oz/Week Comments Yes 1 Glasses of wine 1.0 ocass Sex Assigned at Date Recorded Not on file Job Start Date Occupation Industry Not on file Not on file Not on file Travel History Travel Start Travel End No recent travel history available. documented as of this encounter Last Filed Vital Signs Vital Sign Reading Time Taken Comments Blood Pressure 220/80 11/26/2018 3:30 PM EDT Pulse 62 11/26/2018 3:03 PM EDT Temperature - - Respiratory Rate - - Oxygen Saturation 96% 11/26/2018 3:03 PM EDT Inhaled Oxygen Concentration - - Weight 83 kg (182 lb 14.4 oz) 11/26/2018 3:03 PM EDT Height 160 cm (5' 3") 11/26/2018 3:03 PM EDT Body Mass Index 32.4 11/26/2018 3:03 PM EDT documented in this encounter Progress Notes Abner Collado, DO - 11/26/2018 3:00 PM EDT PATIENT: Viola Patterson : 1935 DATE OF SERVICE: 11/26/2018 CHIEF COMPLAINT: Chief Complaint Patient presents with Fall fell off a raised flower bed hit back of head 10 - 14 days ago; developed a headache predominatly on left side approx 3 days later and continues; not able to sleep well since. Subjective HISTORY OF PRESENT ILLNESS: Viola Patterson is a 83-y.o. female. HPI Here with adult son who is driving her today 10+ days ago pulling weeds fell backwards without prodrome symptoms. Few days later starting having headaches left face, left zoroastrianism and top of head Everyday and waking her up from sleep Compliant with her hypertension medications but still uncontrolled today No nausea, vomiting No speech issues No numbness, tingling No one sided muscle weakness Takes no blood thinners or nsaids or aspirin Took tylenol and it didn't help Feels nearly the worst headache of her life Past Medical History: Diagnosis Date Atrial fibrillation (HCC) 02/26/2007 paroxysmal BCC (basal cell carcinoma of skin) L supraclavicular area DVT (deep venous thrombosis) (HCC) 07/03/2008 L arm Fatty liver Hyperlipidemia Hypertension LUMB/LUMBOSAC DISC DEGEN 10/27/2005 Mitral regurgitation mild Obesity PMR (polymyalgia rheumatica) (HCC) Postmenopausal Skin cancer Status post cardiac catheterization 2000 - NL Tubular adenoma nos Colon, 2008 Viral hepatitis Family History Problem Relation Age of Onset Cancer Mother pancreatic cancer Heart Mother Cancer Father prostate can Heart Brother Current Outpatient Medications Medication Sig Diclofenac Sodium 1 % Transdermal Gel Place 1 g onto skin THREE TIMES DAILY NEEDED (musclepain). foliC acid 1 MG Oral Tab Take 1 mg by mouth DAILY. furosemide (LASIX) 20 MG Oral Tab TAKE ONE TABLET BY MOUTH EVERY DAY metoprolol succinate (TOPROL XL) 25 MG Oral TABLET SR 24 HR Take 1 Tab by mouth DAILY. [place]-3 Fatty Acids (FISH OIL ULTRA PO) Take by mouth DAILY. OMEPRAZOLE PO Take 20 mg by mouth TWICE DAILY. potassium chloride (K-DUR) 20 MEQ Oral Tab CR TAKE ONE TABLET BY MOUTH EVERY DAY sertraline (ZOLOFT) 50 MG Oral Tab TAKE ONE TABLET BY MOUTH EVERY DAY simvastatin (ZOCOR) 20 MG Oral Tab TAKE ONE TABLET BY MOUTH AT BEDTIME triamcinolone (KENALOG) 0.1 % Apply externally Ointment Apply to back twice daily triamcinolone (KENALOG) 0.1 % Mouth/Throat Paste 1 Appl by Dental route THREE TIMES DAILY NEEDED (mouth / lip sore). No current facility-administered medications for this visit. Allergies Allergen Reactions Codeine GI Reaction Erythromycin GI Reaction Neurontin [Alc-Gabapentin] GI Reaction Social History Socioeconomic History Marital status: Spouse name: Not on file Number of children: Not on file Years of education: Not on file Highest education level: Not on file Occupational History Not on file Social Needs Financial resource strain: Not on file Food insecurity: Worry: Not on file Inability: Not on file Transportation needs: Medical: Not on file Non-medical: Not on file Tobacco Use Smoking status: Never Smoker Smokeless tobacco: Never Used Substance and Sexual Activity Alcohol use: Yes Alcohol/week: 1.0 standard drinks Types: 1 Glasses of wine per week Comment: ocass Drug use: No Sexual activity: Never Lifestyle Physical activity: Days per week: Not on file Minutes per session: Not on file Stress: Not on file Relationships Social connections: Talks on phone: Not on file Gets together: Not on file Attends jewish service: Not on file Active member of club or organization: Not on file Attends meetings of clubs or organizations: Not on file Relationship status: Not on file Intimate partner violence: Fear of current or ex partner: Not on file Emotionally abused: Not on file Physically abused: Not on file Forced sexual activity: Not on file Other Topics Concern Back Care Not Asked Bike Helmet Not Asked Blood Transfusions Not Asked Caffeine Concern Not Asked Exercise Yes Comment: walks daily Hobby Hazards Not Asked International Travel Not Asked Service Not Asked Occupational Exposure Not Asked Seat Belt Not Asked Self-Exams Not Asked Sleep Concern Not Asked Special Diet No Stress Concern Yes Comment: sick spouse Weight Concern No Social History Narrative Retired and lives with [facility] REVIEW OF SYSTEMS: Review of Systems Constitutional: Negative for fever. Cardiovascular: Negative for chest pain. Gastrointestinal: Negative for abdominal pain. Objective PHYSICAL EXAM: VITALS: BP (!) 220/80 | Pulse 62 | Ht 5' 3" (1.6 m) | Wt 182 lb 14.4 oz (83 kg) | SpO2 96% | BMI 32.40 kg/m Body mass index is 32.4 kg/m. Physical Exam Constitutional: Appearance: She is not diaphoretic. HENT: Head: Normocephalic. Neck: Musculoskeletal: Normal range of motion and neck supple. Cardiovascular: Rate and Rhythm: Normal rate and regular rhythm. Pulmonary: Effort: Pulmonary effort is normal. Breath sounds: Normal breath sounds. Neurological: Mental Status: She is alert. Comments: CN 3-12 intact Upper and lower extremities strength intact and symmetric Cerebellum exams: Finger to nose, rapid hand alternating negative Gait: stable ASSESSMENT / IMPRESSION: ICD-9-CM ICD-10-CM 1. New onset headache 784.0 R51 2. Uncontrolled hypertension 401.9 I10 Plan I worry about subdural hematoma or other intracranial process. Need CT head stat. If Ct negative maybe uncontrolled HTN driving the headaches but need CT stat. She agreed to go [place] [facility]. Son will take Will inform [place] [facility] provider Author: Abner Collado DO 11/26/2018 15:33 documented in this encounter Plan of Treatment Date Type Specialty Care Team Description 12/04/2018 Office Visit Internal Medicine Susan Hanley MD [address] [id number] [phone] Health Maintenance Due Date Last Done Comments ZOSTER IMMUNIZATION SERIES 02/22/1984 (1 of 2) MEDICARE ANNUAL WELLNESS 11/29/2012 11/30/2011 VISIT INFLUENZA VACCINE (#1) 2018 11/28/2017, 11/11/2015, 11/25/2014, Additional history exists DEPRESSION SCREENING 12/20/2018 12/20/2017 FALL RISK ASSESSMENT 12/20/2018 12/20/2017, 12/20/2017 COLONOSCOPY SCREENING 08/09/2020 08/10/2015 (Postponed), 09/10/2010, 09/10/2010, Additional history exists PNEUMOCOCCAL 65+YRS Completed 05/01/2018, 06/22/2010, 02/08/2001 HPV IMMUNIZATION SERIES Aged Out No longer eligible based on patient's age to complete this topic MENINGOCOCCAL VACCINE IMM Aged Out No longer eligible based on patient's age to complete this topic documented as of this encounter Goals Goal Patient Goal Associated Recent Patient-Stated? Author Type Problems Progress Blood Pressure Blood Pressure 220/80 No [place], < 150/90 (11/26/2018 Ana, 3:30 PM EDT) KAYCE Note: This is an individualized treatment (blood pressure) goal for Viola Patterson: Displayed above (on the left) is your goal for blood pressure control. Your most recent blood pressure is also shown above, on the right. You should try to achieve blood pressures that are lower than your goal listed above (on the left). Depression screen (PHQ-9) total score < 5 Depression No Susan Hanley MD Note: This is an individualized treatment (depression) goal for Viola Patterson: Displayed above is your goal for a depression screening (PHQ-9) score that would indicate good control of your depression. Weight loss vs. 18 mo Lifestyle 2.1 (11/26/2018 3:03 PM EDT) No Susan Hanley MD max (lbs) >= 10 Note: This is an individualized lifestyle goal for Viola Patterson: Your body mass index (BMI) is more than 30. You should lose weight. A reasonable starting goal is to lose 10 pounds. Displayed above is how many pounds you have lost thus far towards your 10 pound weight loss goal. Keep a regular sleep schedule Lifestyle No Susan Hanley MD Note: This is an individualized lifestyle goal for Viola Patterson: Please maintain a regular sleep schedule. This may help with some symptoms of depression. Take all prescribed medications as Self-management Ana Locke PA-C directed Note: This is an individualized self-management goal for Viola Patterson: Please take all prescribed medications as directed. 1. Do not skip doses. If you cannot afford your medications, talk with your doctor. 2. Use a pill reminder system such as a pill box if needed. Your pharmacist can help you with this. 3. Contact your Pharmacy 5 days before your medication runs out. If you cannot take your medications for any reasons, talk with your doctor. 4. Please bring all of your medication bottles and inhalers (or a list of all your medications/inhalers) with you to every visit. Potential barriers to meeting all of your care plan goals will continue to be addressed on an ongoing basis. documented as of this encounter Results Not on filedocumented in this encounter Visit Diagnoses Diagnosis New onset headache - Primary Headache Uncontrolled hypertension Unspecified essential hypertension documented in this encounter Insurance Payer Benefit Plan / Subscriber ID Effective Dates Phone Address Type Group AETNA MEDICARE AETNA MEDICARE xxxxxxxx 2017-Presen Aetna ADVANTAGE ADVANTAGE t BCBS NATIONAL BCBS NATIONAL xxxxxxxxxxxx 2010-Presen Blue t Cross/Blue Shield Guarantor Name Account Type Relation to Date of Phone Billing Patient Address Viola Patterson Personal/Family 1935 [phone] [address] [phone] [place], [place] (Work) [address] documented as of this encounter
[2018-11-26] MEDS ORDERED: Acetaminophen TAB* 325 MG PO ONE (20:09)
[2018-11-26] MEDS ORDERED: hydrALAZINE IV* 20 MG/ML VIAL IV SLOW PU ONE (20:23)
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
[2018-11-26] MEDS ORDERED: hydrALAZINE TAB* 25 MG PO ONE (21:50)
[2018-11-26 22:26] LABS: Albumin 4.2 g/dL (3.2-5.2); Calcium 9.4 mg/dL (8.6-10.3); Potassium 4.4 mmol/L (3.5-5.0); Total Bilirubin 0.6 mg/dL (0.2-1.0)
[2018-11-26 22:29] LABS: ABS Basophils 0.1 10^3/ul (0-0.2); ABS Eosinophils 0.4 10^3/ul (0-0.6); ABS Lymphocytes 1.6 10^3/ul (1.0-4.8); ABS Monocytes 0.6 10^3/ul (0-0.8); ABS Neutrophils 4.5 10^3/ul (1.5-7.7); Eosinophil % 5.3 %; Hematocrit 41 % (35-47); Hemoglobin 13.5 g/dL (12.0-16.0); Mean Corpuscular HGB Conc 33 g/dL (31-36); Mean Corpuscular Hemoglobin 30 pg (27-31); Mean Corpuscular Volume 92 fL (80-97); Mean Platelet Volume 9.9 fL (7.4-10.4); Nucleated Red Blood Cells % 0.1; Platelet Count 160 10^3/uL (150-450); Red Blood Count 4.44 10^6 /uL (3.70-4.87); Red Cell Distribution Width 14 % (10-15); White Blood Count 7.1 10^3/uL (3.5-10.8)
[2018-11-26 22:32] LABS: Albumin/Globulin Ratio 1.3 (1-3); BUN/Creatinine Ratio 24.1 (8-20); EGFR African American 58.5 (>60); EGFR Non-African American 48.3 (>60); Globulin 3.3 g/dL (2-4); Total Protein 7.5 g/dL (6.4-8.9)
[2018-11-26 23:32] VITALS: BP 149/69
== END 2018-11-26 23:32 | disposition home or self-care (01) ==
LOC: ED 16:01
DX: I10 Essential (primary) hypertension (principal); R51 Headache; Z79.899 Other long term (current) drug therapy; I25.119 Atherosclerotic heart disease of native coronary artery with unspecified angina pectoris; I48.91 Unspecified atrial fibrillation; Z86.718 Personal history of other venous thrombosis and embolism; Z85.828 Personal history of other malignant neoplasm of skin
CPT/HCPCS: 36415; 70450; 80053; 85025; 93005; 96365; 99284; A9270-GY; J0360

== ENCOUNTER 2018-11-30 23:06 | Emergency (ER) | payer MEDICARE, BC ==
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
--- OUTSIDE RECORDS SUMMARY | 2018-11-30 23:33 | XMS REPORT | Summary of Care ---
:1935 Author Organization [facility] Address [address] [place] [address] Care Team Providers Name Role Phone Susan Hanley Primary Care Provider Reason for Visit Reason Comments Hospital Follow Up had a fall 2 weeks ago. this week saw Dr Collado d/t headache , to ER d/t high BP. Still running high Encounter Details Date Type Department Care Team Description 11/29/2018 Office Visit [place] [facility] Susan Hanley MD Hypertension, uncontrolled (Primary Dx); Medicine [id number] Fall, subsequent encounter; [address] [place] [address] Nonintractable headache, unspecified chronicity pattern, [place] [address] [phone] Allergies Active Allergy Reactions Severity Noted Date Comments Codeine GI Reaction 03/13/2007 Erythromycin GI Reaction 03/13/2007 Alc-Gabapentin GI Reaction 12/05/2008 documented as of this encounter (statuses as of 11/29/2018) Medications Medication Sig Dispensed Refills Start Date End Date Status Diclofenac Sodium [address] 1 g 100 g 0 12/14/2016 Active % Transdermal onto skin GelIndications: Neck THREE TIMES strain, initial DAILY encounter NEEDED (muscle pain). triamcinolone 1 Appl by 1 Tube 2 07/03/2017 Active (KENALOG) 0.1 % Dental route Mouth/Throat THREE TIMES PasteIndications: DAILY Mouth sores NEEDED (mouth / lip sore). foliC acid 1 MG Oral Take 1 mg by 0 Active Tab mouth DAILY. metoprolol succinate Take 1 Tab by 90 Tab 3 03/02/2018 Active (TOPROL XL) 25 MG mouth DAILY. Oral TABLET SR 24 HRIndications: Hypertension, unspecified type triamcinolone Apply to back 30 g 1 05/01/2018 Active (KENALOG) 0.1 % twice daily Apply externally OintmentIndications: Inflamed seborrheic keratosis potassium chloride TAKE ONE 90 Tab 1 05/10/2018 Active (K-DUR) 20 MEQ Oral TABLET BY Tab CRIndications: MOUTH EVERY Essential DAY hypertension sertraline (ZOLOFT) TAKE ONE 90 Tab 3 07/24/2018 Active 50 MG Oral TABLET BY TabIndications: MOUTH EVERY Depression, DAY unspecified depression type Garland-3 Fatty Acids Take by 0 Active (FISH OIL ULTRA PO) mouth DAILY. simvastatin (ZOCOR) TAKE ONE 90 Tab 3 09/12/2018 Active 20 MG Oral TABLET BY TabIndications: MOUTH AT Mixed hyperlipidemia BEDTIME furosemide (LASIX) TAKE ONE 90 Tab 1 10/24/2018 Active 20 MG Oral TABLET BY TabIndications: MOUTH EVERY Essential DAY hypertension OMEPRAZOLE PO Take 20 mg by 0 11/29/2018 Discontinued mouth TWICE DAILY. 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 Memory change 04/11/2017 Overview: Clock face - ~ 60% - Remembered 2/3 things /18 - Clock face 80% / MINIMENTAL STATUS EXAM 26 Depression with anxiety 04/24/2015 Giant cell arteritis 02/11/2013 Overview: Rheumatology Dr Matthews/Leida Ness CORRECTION[facility] MEDICINE PHYSICIAN [facility] Methotrexate treatment Osteoporosis 02/11/2013 Overview: Bone density scan 2012 osteopenia Abnormal ECG 01/10/2013 Overview: ST segment changes in past chemical nuclear stress test negative myocardial infarction or ischemia [facility] 01/09 Fatty liver 03/24/2010 History of deep vein thrombosis 07/03/2008 Overview: L arm PAF (paroxysmal atrial fibrillation) 02/26/2007 Hyperlipidemia Hypertension Mitral regurgitation Overview: mild documented as of this encounter (statuses as of 11/29/2018) Resolved Problems Problem Noted Date Resolved Date Hip pain, right 08/23/2013 10/10/2015 BMI 29.0-29.9,adult 08/18/2010 08/22/2012 Mitral valve disorders(424.0) 02/26/2007 02/11/2013 Diverticulosis of colon (without mention of hemorrhage) 10/27/2005 10/10/2015 Degeneration of lumbar or lumbosacral intervertebral disc 10/27/20052012 Unspecified cardiovascular disease 10/27/2005 08/18/2010 documented as of this encounter (statuses as of 11/29/2018) Immunizations Name Administration Dates Next Due Depo [...] Sign Reading Time Taken Comments Blood Pressure 126/65 11/29/2018 10:26 AM EDT Pulse 92 11/29/2018 10:23 AM EDT Temperature - - Respiratory Rate - - Oxygen Saturation 94% 11/29/2018 10:23 AM EDT Inhaled Oxygen Concentration - - Weight 82.1 kg (181 lb) 11/29/2018 10:23 AM EDT Height 160 cm (5' 3") 11/29/2018 10:23 AM EDT Body Mass Index 32.06 11/29/2018 10:23 AM EDT documented in this encounter Patient Instructions Patient InstructionsSusan Hanley MD - 11/29/2018 10:00 AM EDTPlan Bring home cuff in I- Check blood pressure 3x week k- When feeling ok / quiet - If face /neck hurting - Cool / warm scott - alernate - Actetamonphen - Follow up 2-3 weeks - 11: 21 AM EDT documented in this encounter Progress Notes Susan Hanley MD - 11/29/2018 10:00 AM EDT NAME:Viola Patterson 1935: 1935 ENC Date: 11/29/2018 CC: Chief Complaint Patient presents with Hospital Follow Up had a fall 2 weeks ago. this week saw Dr Collado d/t headache, to ER d/t high BP. Still running high Viola Patterson is a 83-y.o. female Fell back in her garden- hit her head mid 11/15 - developed headache 3 days later Presented to Dr. Collado 11/26 Sent to ER for urgent evualuation - 2. Seen in ER with elevated blood pressure 240/ - ct scan did not show any path Was treated with hydralazine - blood pressure brought down to 180 Was discharged to outpt care without new BMP ok with creatinine 1.0 / potassium 4.4. 3.. has an ache on the left side of the face Blood pressure last pm was 212/ - But feeling better overall Current Outpatient Medications Medication Sig Diclofenac Sodium 1 % Transdermal Gel Place 1 g onto skin THREE TIMES DAILY NEEDED (musclepain). foliC acid 1 MG Oral Tab Take 1 mg by mouth DAILY. furosemide (LASIX) 20 MG Oral Tab TAKE ONE TABLET BY MOUTH EVERY DAY metoprolol succinate (TOPROL XL) 25 MG Oral TABLET SR 24 HR Take 1 Tab by mouth DAILY. Garland-3 Fatty Acids (FISH OIL ULTRA PO) Take by mouth DAILY. potassium chloride (K-DUR) 20 MEQ Oral [...] No current facility-administered medications for this visit. Patient Active Problem List Diagnosis Date Noted Rheumatoid arteritis (HCC) 04/11/2017 Memory change 04/11/2017 Clock face - ~ 60% - Remembered 2/3 things 06/14 - Clock face 80% / MINIMENTAL STATUS EXAM 26 Depression with anxiety 04/24/2015 Giant cell arteritis (HCC) 02/11/[address] Matthews/Leida Ness CORRECTIONAL MEDICINE PHYSICIAN [facility] Methotrexate treatment Osteoporosis 02/11/2013 Bone density scan 2011 osteopenia Abnormal ECG 01/10/2013 ST segment changes in past chemical nuclear stress test [facility] Fatty liver 03/24/2010 History of deep vein thrombosis 07/03/2008 L arm Hyperlipidemia Hypertension Mitral regurgitation mild PAF (paroxysmal atrial fibrillation) ([facility]) 02/26/2007 Family History Problem Relation Age of Onset Cancer Mother pancreatic cancer Heart Mother Cancer Father prostate can Heart Brother No cardiopulmonary symptoms No upper or lower GI complaints No urinary tract symptoms. No bruising/ bleeding. No neurological complaints . No insomnia.+ . Social History Tobacco Use Smoking status: Never Smoker Smokeless tobacco: Never Used Substance Use Topics Alcohol use: Yes Alcohol/week: 1.0 standard drinks Types: 1 Glasses of wine per week Comment: ocass Drug use: No OBJECTIVE: BP 126/65 | Pulse 92 | Ht 5' 3" (1.6 m) | Wt 181 lb (82.1 kg) | SpO2 94% | BMI 32.06 kg/m . Heent Skin lesions on the nose- Probable cancers- Patient aware Lungs Clear CV rrr Abd soft, nontender, no organomegaly Ext no edema; Neuro: intellect intact ; motor including gait unremarkable A/P ICD-9-CM ICD-10-CM 1. Hypertension, uncontrolled 401.9 I10 2. Fall, subsequent encounter V58.89 W19.XXXD E888.9 3. Nonintractable headache, unspecified chronicity pattern, unspecified headache type 784.0 R51 There are no Patient Instructions on file for this visit. AUTHOR: Susan Hanley MD 11:20 11/29/2018 documented in this encounter Plan of Treatment Date Type Specialty Care Team Description 12/04/2018 Office Visit Internal Medicine Susan Hanley MD [address] [place] [address] [phone] Health Maintenance Due Date Last Done Comments [...] Type Problems Progress Blood Pressure Blood Pressure 126/65 No Margarito, < 150/90 (11/29/2018 Ana, 10:26 AM EDT) KAYCE Note: This is an individualized treatment (blood pressure) goal for Viola LangeMyriammikael: Displayed above (on the left) is your [...] your depression. Weight loss vs. 18 mo max Lifestyle 4 (11/29/2018 10:23 AM EDT) No Susan Hanley MD (lbs) >= 10 Note: This is an [...] depression. Take all prescribed medications as Self-management No Ana Pimentel PA-C directed Note: This is an individualized [...] filedocumented in this encounter Visit Diagnoses Diagnosis Hypertension, uncontrolled - Primary Unspecified essential hypertension Fall, subsequent encounter Nonintractable headache, unspecified chronicity pattern, unspecified headache type documented in this encounter Insurance Payer Benefit Plan / Subscriber ID Effective Dates Phone Address Type Group AETNA MEDICARE AETNA MEDICARE xxxxxxxx 2017-Pres [employer] ADVANTAGE ADVANTAGE t [facility] xxxxxxxxxxxx 2010-[facility] Blue t Cross/Blue Shield Guarantor Name Account Type Relation to Date of Phone Billing Patient Address Viola Patterson Personal/Family 1935 [address] [phone] [place], [place] ([place]) [id number] documented as of this encounter
[2018-11-30 23:50] LABS: ABS Basophils 0.1 10^3/ul (0-0.2); ABS Eosinophils 0.4 10^3/ul (0-0.6); ABS Lymphocytes 1.6 10^3/ul (1.0-4.8); ABS Monocytes 0.6 10^3/ul (0-0.8); ABS Neutrophils 4.6 10^3/ul (1.5-7.7); Eosinophil % 5.3 %; Hematocrit 36 % (35-47); Lymphocyte % 21.5 %; Mean Corpuscular HGB Conc 33 g/dL (31-36); Mean Corpuscular Hemoglobin 31 pg (27-31); Mean Corpuscular Volume 91 fL (80-97); Mean Platelet Volume 9.8 fL (7.4-10.4); Nucleated Red Blood Cells % 0.1; Platelet Count 164 10^3/uL (150-450); Red Blood Count 3.94 10^6 /uL (3.70-4.87); Red Cell Distribution Width 14 % (10-15); White Blood Count 7.3 10^3/uL (3.5-10.8)
[2018-11-30 23:59] LABS: BUN/Creatinine Ratio 26.2 (8-20); Calcium 9.4 mg/dL (8.6-10.3); EGFR African American 59.1 (>60); EGFR Non-African American 48.9 (>60); Potassium 4.4 mmol/L (3.5-5.0)
[2018-12-01] MEDS ORDERED: Acetaminophen TAB* 325 MG PO ONE (01:10)
[2018-12-01 03:10] VITALS: BP 169/75
== END 2018-12-01 03:09 | disposition home or self-care (01) ==
LOC: ED 23:06
DX: R51 Headache (principal); G31.9 Degenerative disease of nervous system, unspecified; I25.119 Atherosclerotic heart disease of native coronary artery with unspecified angina pectoris; I10 Essential (primary) hypertension; I34.0 Nonrheumatic mitral (valve) insufficiency; M31.5 Giant cell arteritis with polymyalgia rheumatica; Z88.1 Allergy status to other antibiotic agents; Z88.5 Allergy status to narcotic agent; Z88.8 Allergy status to other drugs, medicaments and biological substances
CPT/HCPCS: 36415; 70450; 80048; 85025; 93005; 99282; A9270-GY

== ENCOUNTER 2019-01-03 11:38 | Observation (INO) | payer MEDICARE, BC ==
--- OUTSIDE RECORDS SUMMARY | 2019-01-03 11:56 | XMS REPORT | Summary of Care ---
:1935 Author Organization [facility] Address [address] [place] [address] Care Team Providers Name Role Phone Susan Hanley Primary Care Provider Reason for Referral Medication Prior Authorization (Routine) Status Reason Specialty Diagnoses / Procedures Referred By Contact Referred To Contact Closed Diagnoses Nonintractable headache, unspecified chronicity pattern, unspecified headache type Susan Hanley MD [address] [place] [address] MRI/CAT/PET Scan (Routine) Status Reason Specialty Diagnoses / Referred By Referred To Procedures Contact Contact Pending Review Diagnoses Nonintractable headache, unspecified chronicity pattern, unspecified headache type Susan Hanley MD Procedures MR BRAIN WO CONTRAST [address] [place] [address] Reason for Visit Reason Comments Headache on going since fall 3 weeks ago. Increase pain left cheondoism area. Still with soreness in back of head where she hit it when she fell. Light sensative. Pain is restricting her activities. Altered Mental Status son is noting increase confusion since the fall. Encounter Details Date Type Department Care Team Description 12/10/2018 Office Visit [facility] Susan Hanley MD Nonintractable headache, unspecified chronicity pattern, unspecified headache type (Primary Dx); Medicine [address] [facility] MIGUEL Cerumen debris on tympanic membrane, unspecified laterality [address] [place] [address] [place] [address] [phone] Allergies Active Allergy Reactions Severity Noted Date Comments Codeine GI Reaction 03/13/2007 Erythromycin GI Reaction 03/13/2007 Alc-Gabapentin GI Reaction 12/05/2008 documented as of this encounter (statuses as of 12/10/2018) Medications Medication Sig Dispensed Refills Start Date End Date Status Diclofenac Sodium 1 % Place 1 g onto 100 g 0 12/14/2016 Active Transdermal skin THREE TIMES GelIndications: Neck DAILY NEEDED strain, initial (muscle pain). encounter triamcinolone (KENALOG) 1 Appl by Dental 1 Tube 2 07/03/2017 Active 0.1 % Mouth/Throat route THREE PasteIndications: Mouth TIMES DAILY sores NEEDED (mouth / lip sore). foliC acid 1 MG Oral Tab Take [...] MOUTH EVERY Depression, unspecified DAY depression type [place]-3 Fatty Acids Take by mouth 0 Active (FISH OIL ULTRA PO) DAILY. simvastatin (ZOCOR) 20 TAKE ONE TABLET 90 Tab 3 09/12/2018 Active MG Oral TabIndications: BY MOUTH AT Mixed hyperlipidemia BEDTIME furosemide (LASIX) 20 MG TAKE ONE TABLET 90 Tab 1 10/24/2018 Active Oral TabIndications: BY MOUTH EVERY Essential hypertension DAY tramadol (ULTRAM) 50 MG Take 1 Tab by 30 Tab 3 12/10/2018 Active Oral TabIndications: mouth EVERY SIX Nonintractable headache, HOURS NEEDED unspecified chronicity (face pain). Max pattern, unspecified Daily Amount: 4 headache type Tabs. amitriptyline (ELAVIL, Take 1 Tab by 60 Tab 1 12/10/2018 Active ENDEP) 25 MG Oral mouth EVERY TabIndications: BEDTIME. 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 Memory change 04/11/2017 Overview: Clock face - ~ 60% - Remembered 2/3 things /18 - Clock face 80% / MINIMENTAL STATUS EXAM 26 Depression with anxiety 04/24/2015 Giant cell arteritis 02/11/2013 Overview: Rheumatology Dr Matthews/Leida Ness [employer] [facility] Methotrexate treatment Osteoporosis 02/11/2013 Overview: Bone density scan 2011 osteopenia Abnormal ECG 01/10/2013 Overview: ST segment changes in past chemical nuclear stress test negative myocardial infarction or ischemia [facility] 01/09 Fatty liver 03/24/2010 History of deep vein thrombosis 07/03/2008 Overview: L arm PAF (paroxysmal atrial fibrillation) 02/26/2007 Hyperlipidemia Hypertension Mitral regurgitation Overview: mild documented as of this encounter (statuses as of 12/10/2018) Resolved Problems Problem Noted Date Resolved Date Hip pain, right 08/23/2013 10/10/2015 BMI 29.0-29.9,adult 08/18/2010 08/22/2012 Mitral valve disorders(424.0) 02/26/2007 02/11/2013 Diverticulosis of colon (without mention of hemorrhage) 10/27/2005 10/10/2015 Degeneration of lumbar or lumbosacral intervertebral disc 10/27/20052012 Unspecified cardiovascular disease 10/27/2005 08/18/2010 documented as of this encounter (statuses as of 12/10/2018) Immunizations Name Administration Dates Next Due Depo [...] Sign Reading Time Taken Comments Blood Pressure 149/69 12/10/2018 4:08 PM EDT Pulse 74 12/10/2018 4:03 PM EDT Temperature - - Respiratory Rate - - Oxygen Saturation 95% 12/10/2018 4:03 PM EDT Inhaled Oxygen Concentration - - Weight 81.6 kg (180 lb) 12/10/2018 4:03 PM EDT Height 160 cm (5' 3") 12/10/2018 4:03 PM EDT Body Mass Index 31.89 12/10/2018 4:03 PM EDT documented in this encounter Patient Instructions Patient InstructionsCrepetSusan MD - 12/10/2018 4:00 PM EDTPost Concussion Syndrome WHAT YOU NEED TO KNOW: Post-concussion syndrome (PCS) is a group of symptoms that affect your nerves, thinking, and behavior. PCS develops shortly after a concussion and can last for weeks to months. DISCHARGE INSTRUCTIONS: Call 911 or have someone else call for any of the following: You have a seizure. You have trouble breathing. You are not responding or you cannot be woken. Return to the emergency department if: You have a sudden headache that seems different or much worse than your usual headaches. You cannot stop vomiting. You have sudden changes in your vision. Contact your healthcare provider if: You have nausea or are vomiting. You have trouble concentrating. You have difficulty speaking or thinking. Your symptoms get worse. You have questions or concerns about your condition or care. Medicines: You may need any of the following: Acetaminophen decreases pain. It is available without a doctor's order. Ask how much to take and how often to take it. Follow directions. Acetaminophen can cause liver damage if not taken correctly. NSAIDs, such as ibuprofen, help decrease swelling, pain, and fever. This medicine is availablewithout a doctor's order. Follow directions. NSAIDs can cause stomach bleeding or kidney problems ifnot taken correctly. If you take blood thinner medicine, always ask if NSAIDs are safe for you. Antidepressants may be given for depression or sleep problems. Migraine medicines may be given for migraine headaches. NSAIDs , such as ibuprofen, help decrease swelling, pain, and fever. This medicine is availablewith or without a doctor's order. NSAIDs can cause stomach bleeding or kidney problems in certain people. If you take blood thinner medicine, always ask if NSAIDs are safe for you. Always read the medicine label and follow directions. Do not give these medicines to children under 6 months of age without direction from your child's healthcare provider. Follow up with your healthcare provider as directed: Your healthcare provider may refer you to psychiatrist, a neurologist, or a substance abuse counselor. Write down your questions so you remember toask them during your visits. Prevent PCS: Make your home safe. Home safety measures can help prevent head injuries that could lead to a concussion. Install handrails for every staircase. Put soft bumpers on furniture edges and corners. Secure furniture, such as dressers and book cases so they do not fall over. Always wear a seatbelt in the car. This helps decrease your risk for a head injury if you are in a car accident. Wear protective sports equipment that fits properly. Helmets help decrease your risk for a serious brain injury. Talk to your healthcare provider about other ways that you can decrease your risk for a concussion if you play sports. Manage your symptoms: Rest from physical and mental activities as directed. Mental activities need you to think, concentrate, and pay attention. Rest will help you recover from your concussion. Ask your healthcare provider when you can return to school and other daily activities. Go to therapy as directed. A cognitive behavioral therapist teaches you skills to help with any thinking and behavior problems you may have. An occupational therapist teaches your skills to help with daily activities. Do not participate in sports or physical activities until your healthcare provider says it is okay. These activities could make your symptoms worse or lead to another concussion. Your healthcare provider will tell you when it is okay to return to sports or physical activities. 2016 [employer]. Information is for End User's use only and may not be sold, redistributed or otherwise used for commercial purposes. All illustrations and images included in CareNotes are the copyrighted property of [employer]. or [employer]. The above information is an educational resource coordinator only. It is not intended as medical advice for individual conditions or treatments. Talk to your doctor, nurse or pharmacist before following any medical regimen to see if it is safe and effective for you. Pain over the left cheondoism puzzling since patient reputedly hit on the back of her head - Localized pain over the left cheondoism should not be a results of the injury to the head or the brain I- Patient denies any eye changes or jaw claudication Plan Combine actetamonphen with ultram - Cool / warm scott - Start amitryptline at night- For chronic pain documented in this encounter Progress Notes Susan Hanley MD - 12/10/2018 4:00 PM EDT NAME:Viola Patterson 1935: 1935 ENC Date: 12/10/2018 CC: Chief Complaint Patient presents with Headache on going since fall 3 weeks ago. Increase pain left cheondoism area. Still with soreness in back of head where she hit it when she fell. Light sensative. Pain is restricting her activities. Altered Mental Status son is noting increase confusion since the fall. Viola Patterson is a 83-y.o. female history from last visit : Fell back in her garden- hit her [...] ok with creatinine 1.0 / potassium 4.4. Went in again by ambulance - repeat ct scan done without finding ( 10 days ago- ) Today - still complaining of Pain on the left side of the face- interfere with sleep Light sensitive - Eyeball hurts - Hurting on the left side of the face- 3.. has an ache on the left side of the face -painful when she pushes on the cheondoism - feels like making a noise - Has only tried Actetamonphen / vicks - Current Outpatient Medications Medication Sig amitriptyline (ELAVIL, ENDEP) 25 MG Oral Tab Take 1 Tab by mouth EVERY BEDTIME. Diclofenac Sodium 1 % Transdermal Gel Place 1 g onto skin THREE TIMES DAILY NEEDED (musclepain). foliC acid 1 MG Oral Tab Take 1 mg by mouth DAILY. furosemide (LASIX) 20 MG Oral Tab TAKE ONE TABLET BY MOUTH EVERY DAY metoprolol succinate (TOPROL XL) 25 MG Oral TABLET SR 24 HR Take 1 Tab by mouth DAILY. [place]-3 Fatty Acids (FISH OIL ULTRA PO) Take by mouth DAILY. potassium chloride (K-DUR) 20 MEQ Oral Tab CR TAKE ONE TABLET BY MOUTH EVERY DAY sertraline (ZOLOFT) 50 MG Oral Tab TAKE ONE TABLET BY MOUTH EVERY DAY simvastatin (ZOCOR) 20 MG Oral Tab TAKE ONE TABLET BY MOUTH AT BEDTIME tramadol (ULTRAM) 50 MG Oral Tab Take 1 Tab by mouth EVERY SIX HOURS NEEDED (face pain). Max Daily Amount: 4 Tabs. triamcinolone (KENALOG) 0.1 % Apply externally Ointment [...] arteritis (HCC) 02/11/[address] Matthews/Leida Ness [employer] [facility] Methotrexate treatment Osteoporosis 02/11/2013 Bone density scan 2012 osteopenia Abnormal ECG 01/10/2013 ST segment changes in past chemical nuclear stress [facility] Fatty liver 03/24/2010 History of deep vein thrombosis 07/03/2008 L arm Hyperlipidemia Hypertension Mitral regurgitation mild PAF (paroxysmal atrial fibrillation) ([facility]) 02/26/2007 Family History Problem Relation Age [...] Comment: ocass Drug use: No OBJECTIVE: BP 149/69 | Pulse 74 | Ht 5' 3" (1.6 m) | Wt 180 lb (81.6 kg) | SpO2 95% | BMI 31.89 kg/m . Heent neg Neck no JVD, thyromegaly or bruit Lungs Clear CV rrr Abd soft, nontender, no organomegaly Ext no edema; no lesions; pulses intact Neuro: intellect intact ; motor including gait unremarkable A/P ICD-9-CM ICD-10-CM 1. Nonintractable headache, unspecified chronicity pattern, unspecified headache type 784.0 R51 MR BRAIN WO CONTRAST tramadol (ULTRAM) 50 MG Oral Tab amitriptyline (ELAVIL, ENDEP) 25 MG Oral Tab 2. Cerumen debris on tympanic membrane, unspecified laterality 380.4 H61.20 Patient Instructions Post Concussion Syndrome WHAT YOU NEED TO KNOW: Post-concussion syndrome (PCS) is a group of symptoms that affect your nerves, thinking, and behavior. PCS develops shortly after a concussion and can last for weeks to months. DISCHARGE INSTRUCTIONS: Call 911 or have someone else call for any of the following: You have a seizure. You have trouble breathing. You are not responding or you cannot be woken. Return to the emergency department if: You have a sudden headache that seems different or much worse than your usual headaches. You cannot stop vomiting. You have sudden changes in your vision. Contact your healthcare provider if: You have nausea or are vomiting. You have trouble concentrating. You have difficulty speaking or thinking. Your symptoms get worse. You have questions or concerns about your condition or care. Medicines: You may need any of the following: Acetaminophen decreases pain. It is available without a doctor's order. Ask how much to take and how often to take it. Follow directions. Acetaminophen can cause liver damage if not taken correctly. NSAIDs, such as ibuprofen, help decrease swelling, pain, and fever. This medicine is availablewithout a doctor's order. Follow directions. NSAIDs can cause stomach bleeding or kidney problems ifnot taken correctly. If you take blood thinner medicine, always ask if NSAIDs are safe for you. Antidepressants may be given for depression or sleep problems. Migraine medicines may be given for migraine headaches. NSAIDs , such as ibuprofen, help decrease swelling, pain, and fever. This medicine is availablewith or without a doctor's order. NSAIDs can cause stomach bleeding or kidney problems in certain people. If you take blood thinner medicine, always ask if NSAIDs are safe for you. Always read the medicine label and follow directions. Do not give these medicines to children under 6 months of age without direction from your child's healthcare provider. Follow up with your healthcare provider as directed: Your healthcare provider may refer you to psychiatrist, a neurologist, or a substance abuse counselor. Write down your questions so you remember toask them during your visits. Prevent PCS: Make your home safe. Home safety measures can help prevent head injuries that could lead to a concussion. Install handrails for every staircase. Put soft bumpers on furniture edges and corners. Secure furniture, such as dressers and book cases so they do not fall over. Always wear a seatbelt in the car. This helps decrease your risk for a head injury if you are in a car accident. Wear protective sports equipment that fits properly. Helmets help decrease your risk for a serious brain injury. Talk to your healthcare provider about other ways that you can decrease your risk for a concussion if you play sports. Manage your symptoms: Rest from physical and mental activities as directed. Mental activities need you to think, concentrate, and pay attention. Rest will help you recover from your concussion. Ask your healthcare provider when you can return to school and other daily activities. Go to therapy as directed. A cognitive behavioral therapist teaches you skills to help with any thinking and behavior problems you may have. An occupational therapist teaches your skills to help with daily activities. Do not participate in sports or physical activities until your healthcare provider says it is okay. These activities could make your symptoms worse or lead to another concussion. Your healthcare provider will tell you when it is okay to return to sports or physical activities. 2016 [employer]. Information is for End User's use only and may not be sold, redistributed or otherwise used for commercial purposes. All illustrations and images included in CareNotes are the copyrighted property of [employer] or [employer]. The above information is an educational resource coordinator only. It is not intended as medical advice for individual conditions or treatments. Talk to your doctor, nurse or pharmacist before following any medical regimen to see if it is safe and effective for you. Pain over the left cheondoism puzzling since patient reputedly hit on the back of her head - Localized pain over the left cheondoism should not be a results of the injury to the head or the brain I- Patient denies any eye changes or jaw claudication Plan Combine actetamonphen with ultram - Cool / warm scott - Start amitryptline at night- For chronic pain AUTHOR: Susan Hanley MD 17:06 12/10/2018 documented in this encounter Plan of Treatment Date Type Specialty Care Team Description 12/17/2018 Office Visit Internal Medicine Susan Hanley MD [address] [place] [address] [phone] Name Type Priority Associated Diagnoses Order Schedule MR BRAIN WO CONTRAST Imaging Routine Nonintractable Expected: headache, unspecified 12/10/2018, chronicity pattern, Expires: unspecified headache 12/10/2019 type REMOVAL OF CERUMEN Procedures Routine Cerumen debris on Ordered: REQUIRING INSTRUMENTATION tympanic membrane, 12/10/2018 unspecified laterality Health Maintenance Due Date Last Done Comments [...] Type Problems Progress Blood Pressure Blood Pressure 149/69 No Margarito, < 150/90 (12/10/2018 Ana, 4:08 PM EDT) KAYCE Note: This is an [...] Weight loss vs. 18 mo max Lifestyle 5 (12/10/2018 4:03 PM EDT) No Susan Hanley MD (lbs) >= [...] filedocumented in this encounter Visit Diagnoses Diagnosis Nonintractable headache, unspecified chronicity pattern, unspecified headache type - Primary Cerumen debris on tympanic membrane, unspecified laterality documented in this encounter Insurance Payer Benefit Plan / Subscriber ID Effective Dates Phone Address Type Group AETNA MEDICARE AETNA MEDICARE xxxxxxxx 2017-[facility] xxxxxxxxxxxx 2010-[facility] Blue t Cross/Blue Shield Guarantor Name Account Type Relation to Date of Phone Billing Patient Address Viola Patterson Personal/Family 1935 [address] [phone] [place], [place] ([place]) [id number] documented as of this encounter
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
[2019-01-03 12:23] LABS: ABS Basophils 0.1 10^3/ul (0-0.2); ABS Lymphocytes 0.9 10^3/ul (1.0-4.8); ABS Monocytes 0.3 10^3/ul (0-0.8); ABS Neutrophils 7.8 10^3/ul (1.5-7.7); Eosinophil % 0.5 %; Hematocrit 35 % (35-47); Hemoglobin 11.8 g/dL (12.0-16.0); Lymphocyte % 10.3 %; Mean Corpuscular HGB Conc 34 g/dL (31-36); Mean Corpuscular Hemoglobin 31 pg (27-31); Mean Corpuscular Volume 91 fL (80-97); Mean Platelet Volume 9.3 fL (7.4-10.4); Platelet Count 203 10^3/uL (150-450); Red Blood Count 3.83 10^6 /uL (3.70-4.87); Red Cell Distribution Width 15 % (10-15); White Blood Count 9.2 10^3/uL (3.5-10.8)
[2019-01-03 12:41] LABS: ALT 7 U/L (7-52); AST 15 U/L (13-39); Albumin/Globulin Ratio 1.1 (1-3); Alkaline Phosphatase 75 U/L (34-104); Anion Gap 10 mmol/L (2-11); BUN/Creatinine Ratio 21.9 (8-20); Blood Urea Nitrogen 21 mg/dL (6-24); CO2 Carbon Dioxide 24 mmol/L (22-32); Calcium 10.1 mg/dL (8.6-10.3); Chloride 104 mmol/L (101-111); EGFR Non-African American 55.4 (>60); Globulin 3.8 g/dL (2-4); Glucose 112 mg/dL (70-100); Potassium 4.2 mmol/L (3.5-5.0); Sodium 138 mmol/L (135-145); Total Protein 7.8 g/dL (6.4-8.9)
[2019-01-03 14:20] LABS: TSH (Thyroid Stimulating Horm) 0.76 mcIU/mL (0.34-5.60)
[2019-01-03 14:31] LABS: Folate > 20.00 ng/mL (>3.99)
[2019-01-03] MEDS ORDERED: Ondansetron INJ* 2 MG/ML VIAL IV PRN (15:13)
[2019-01-03 16:10] LABS: Urine Appearance Clear; Urine Bacteria Absent (Absent); Urine Bilirubin Negative (Negative); Urine Blood Negative (Negative); Urine Color Yellow; Urine Glucose Negative (Negative); Urine Ketones Negative (Negative); Urine Nitrite Negative (Negative); Urine Protein 1+(30 mg/dL) (Negative); Urine Red Blood Cell 1+(3-5/hpf) (Absent); Urine Specific Gravity 1.014 (1.010-1.030); Urine Urobilinogen Negative (Negative); Urine White Blood Cell Absent (Absent)
--- NOTE | 2019-01-03 17:28 | HP ---
CC: Dr. Hanley * HISTORY AND PHYSICAL: DATE OF ADMISSION: 01/03/19 PROVIDER: Loren Pedraza NP PRIMARY CARE PROVIDER: Dr. Hanley. ATTENDING PHYSICIAN WHILE IN THE HOSPITAL: Dr. Delmy Ojeda * (dictated by Loren Pedraza NP) CHIEF COMPLAINT: 1. Headache. 2. Fall. HISTORY OF PRESENT ILLNESS: Ms. Patterson is an 83-year-old female with past medical history significant for hypertension, dementia, atrial fibrillation, who presented to the emergency room with complaints of headache, dizziness, and a fall. The patient reports that initially she had a fall 5 to 6 weeks ago where she was out working in her flower bed. She reports that her heel got caught on a piece of wood and she fell backwards hitting her head on the ground. The patient reports that at that time she was seen in the emergency room and had a CT of the head which was negative and the patient was sent home. The patient does report that she remembers falling and was not dizzy prior to this initial event. The patient reports subsequently she has had a headache since her fall with pain on the left side of her face and the left side of her head. She reports that she had a fall again in approximately 2 weeks after her initial fall. Again, presented to the patient emergency room with head pain and had a subsequent CT of the head, again that was negative. The patient reports she continues to have daily headache for the past 5 to 6 weeks. She has followed up with her primary care provider twice and reports that the primary care provider was going to order an MRI. She reports that her primary care provider started her on tramadol and amitriptyline due to the headaches. The patient reports that this morning, she was walking and her wanted her to come back into the bedroom. The patient reports that she was feeling dizzy and went to reach for the couch, but missed the couch and fell on the floor. The patient does not recall if she hit her head or not. She denies LOC. Reports mild neck pain at the base of her neck. The patient reports that her headaches become more severe in the evening and at night. She does report that she had an episode of dizziness with this headache today. Due to these findings and her fall, the patient was brought to the emergency room for further evaluation. The patient denies any visual changes. She does complain of tenderness to the left side of her head, to her jaw and base of her neck. She does complain of pain with palpation to her posterior head. She denies any recent fever or chills. She does report decreased appetite. Denies any chest pain, edema, cough, hemoptysis, shortness of breath. She does report some nausea and vomiting this morning. Denies any diarrhea or abdominal pain, gross hematuria or dysuria. She denies any focal weakness, sensory loss, dysphagia, arthralgias, myalgias, rashes, lesions, open sores, psychosis, or anxiety. While in the emergency room, the patient had routine lab work drawn which showed no significant changes. Due to her continued headache and falls, Hospital Medicine was asked to see and evaluate her for admission. PAST MEDICAL HISTORY: Significant for: 1. Hypertension. 2. Dementia. 3. Atrial fibrillation. 4. History of skin cancer. PAST SURGICAL HISTORY: 1. Cholecystectomy. 2. Bowel resection for diverticulitis. 3. Hysterectomy. HOME MEDICATIONS: Include: 1. Amitriptyline 25 mg p.o. at bedtime. 2. Folic acid 1 mg p.o. daily. 3. Metoprolol 25 mg p.o. daily. 4. [place]-3 fatty acid 1000 mg p.o. daily. 5. Folic acid 1 mg p.o. daily. 6. Furosemide 20 mg p.o. daily. 7. Potassium 20 mEq p.o. daily. 8. Zoloft 50 mg p.o. daily. 9. Simvastatin 20 mg p.o. at bedtime. 10. Tramadol 50 mg p.o. q.6 hours as needed for headache. ALLERGIES: She has an allergy to CODEINE, ERYTHROMYCIN, and GABAPENTIN. FAMILY HISTORY: No history of coronary artery disease or diabetes within the family. Mother with ovarian cancer, brother with questionable lung cancer. SOCIAL HISTORY: The patient lives with her , Cindy Patterson. She has never smoked, never used any drugs. She used to drink alcohol, but has not drank in several years. Surrogate decision maker in the event she is unable to make her own decisions is her son, Oumar. She is a full code. REVIEW OF SYSTEMS: A 14-point review of systems is completed, all pertinent positives were mentioned in the HPI, otherwise were negative. PHYSICAL EXAMINATION GENERAL: At this time, Ms. Patterson is alert and oriented, resting on the stretcher in the emergency room. She is in no acute distress. VITAL SIGNS: Blood pressure 145/97, heart rate 91, respirations 16, O2 saturation is 95%, temperature was 98.1. HEENT: Head is atraumatic, normocephalic. Pupils are equal and reactive to light. EOMs are intact. Sclerae anicteric and not pale. She does complain of tenderness with palpation to the left side of her face above her ear. She does complain of tenderness with palpation to the occipital region. NECK: Supple. She has mild lower C-spine tenderness with palpation. RESPIRATORY: Lungs are clear to auscultation bilaterally. There was no wheezing, rales, or rhonchi. CARDIAC: S1, S2. No murmurs, rubs, or gallops. ABDOMEN: Soft and nontender. Bowel sounds are present x4. EXTREMITIES: She is able to move all 4 extremities. There is no clubbing or cyanosis. Pedal pulses are +2 bilaterally. NEUROLOGIC: She is awake, alert, and oriented x3. Speech is clear. Thought process is intact. There are no gross focal deficits. [id number] is intact. Hand skeins yarn examiner are equal. There is no pronator drift. There is no leg drift. She has no nystagmus. SKIN: scabbed area to right side of nose. DIAGNOSTIC STUDIES/LAB DATA: WBCs are 9.2, RBCs 3.83, hemoglobin 11.8, hematocrit was 35, platelet count 203. Sodium 138, potassium 4.2, chloride 104 , carbon dioxide is 24, anion gap was 10, BUN was 21, creatinine 0.96, glucose was 112. Calcium 10.1. ASTs were 15, ALTs were 7, alkaline phosphatase was 75. Troponin was 0.00. Vitamin B12 is 1092. Folate is greater than 20. TSH was 0.76. Urine is currently pending. She has a C-spine x-ray that is currently pending. She had an electrocardiogram which showed sinus rhythm at a rate of 86. No ST or T- wave changes. ASSESSMENT AND PLAN: Ms. Patterson is an 83-year-old female with past medical history significant for hypertension, history of atrial fibrillation, dementia, history of skin cancer, and history of diverticulitis, who presented to the emergency room with complaints of headache, dizziness, and falls. She will be admitted under observation for: 1. Falls. The patient has been falling, has had several falls since her initial head injury approximately 5 to 6 weeks ago. The patient does report mild episode of dizziness. I suspect this is related to her chronic headache and head injury 5 to 6 weeks ago. I will get a PT and OT evaluation and further recommendations will be based on their evaluation. 2. Headache. The patient has had headaches for 5 to 6 weeks. We will obtain an MRI of the brain. Should the MRI of the brain show any significant change, we will consult Neurology for further recommendations. At this time, I suspect that her headache is related to postconcussive syndrome as the patient did have significant fall hitting her head approximately 5 to 6 weeks ago and has had headache since. We will continue on her amitriptyline 25 mg p.o. daily. She can have Tylenol as needed for headaches. Differential diagnosis could also include occipital neuralgias as the patient does have tenderness with palpation to the occipital nerve. 3. Hypertension. The patient should continue on metoprolol as previously prescribed. 4. Hyperlipidemia. She should continue on simvastatin 20 mg p.o. daily. 5. Anxiety/depression. She should continue on sertraline. 6. FEN. She can have a regular diet. 7. Code status. She is a full code. 8. DVT prophylaxis. I will place her on heparin subcu. TIME SPENT: Time spent on this admission was 60 minutes, greater than half of that time was spent at the bedside reviewing events leading thus far to her hospitalization, performing physical exam, and reviewing my plan of care. I have discussed this with my attending, Dr. Delmy Ojeda; she is in agreement with my plan. LOREN ABHINAV, APRON OPERATOR [id number]/[facility] #: [id number] JAMES
[2019-01-03] MEDS: Acetaminophen TAB* 325 MG PO PRN (17:32)
[2019-01-03] MEDS ORDERED: traMADol TAB* 50 MG PO SCH (21:00)
[2019-01-03] MEDS: Amitriptyline TAB* 25 MG PO SCH (21:15)
[2019-01-03] MEDS: Nystatin TOP POWDER* 15 GM BTL TOPICAL SCH (21:15)
[2019-01-03] MEDS: Atorvastatin* 10 MG TAB PO SCH (21:15)
[2019-01-03] MEDS: Heparin VIAL(*) 5000 UNITS/ML VIAL (FIVE THOUSAND) SUBCUT SCH (21:20)
[2019-01-04 04:28] LABS: Hematocrit 33 % (35-47); Mean Corpuscular HGB Conc 34 g/dL (31-36); Mean Corpuscular Hemoglobin 30 pg (27-31); Mean Corpuscular Volume 91 fL (80-97); Mean Platelet Volume 9.6 fL (7.4-10.4); Platelet Count 205 10^3/uL (150-450); Red Blood Count 3.63 10^6 /uL (3.70-4.87); Red Cell Distribution Width 15 % (10-15); White Blood Count 10.1 10^3/uL (3.5-10.8)
[2019-01-04 04:39] LABS: BUN/Creatinine Ratio 21.6 (8-20); Calcium 9.8 mg/dL (8.6-10.3); EGFR African American 62.5 (>60); EGFR Non-African American 51.6 (>60); Potassium 4.1 mmol/L (3.5-5.0)
[2019-01-04] MEDS: Heparin VIAL(*) 5000 UNITS/ML VIAL (FIVE THOUSAND) SUBCUT SCH ×3 (05:21→22:13)
[2019-01-04] MEDS ORDERED: QUEtiapine TAB* 25 MG PO ONE (08:36)
[2019-01-04] MEDS: Potassium Chlor TAB* 20 MEQ TAB.ER PO SCH (09:29)
[2019-01-04] MEDS: Folic Acid TAB* 1 MG PO SCH (09:30)
[2019-01-04] MEDS: Metoprolol Succinate XL TAB* 25 MG PO SCH (09:30)
[2019-01-04] MEDS: Sertraline* 50 MG TAB PO SCH (09:30)
[2019-01-04] MEDS: Nystatin TOP POWDER* 15 GM BTL TOPICAL SCH ×2 (09:30→22:27)
[2019-01-04] MEDS: Acetaminophen TAB* 325 MG PO PRN ×2 (16:30→22:14)
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
[2019-01-04] MEDS: Amitriptyline TAB* 25 MG PO SCH (22:15)
[2019-01-04] MEDS: Atorvastatin* 10 MG TAB PO SCH (22:15)
[2019-01-05] MEDS: Acetaminophen TAB* 325 MG PO PRN ×3 (04:50→19:59)
[2019-01-05] MEDS: Heparin VIAL(*) 5000 UNITS/ML VIAL (FIVE THOUSAND) SUBCUT SCH ×3 (04:50→20:07)
[2019-01-05] MEDS: Potassium Chlor TAB* 20 MEQ TAB.ER PO SCH (09:27)
[2019-01-05] MEDS: Folic Acid TAB* 1 MG PO SCH (09:27)
[2019-01-05] MEDS: Metoprolol Succinate XL TAB* 25 MG PO SCH (09:28)
[2019-01-05] MEDS: Furosemide TAB* 20 MG PO SCH (09:28)
[2019-01-05] MEDS: Nystatin TOP POWDER* 15 GM BTL TOPICAL SCH ×2 (09:28→19:56)
[2019-01-05] MEDS: Sertraline* 50 MG TAB PO SCH (09:28)
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
[2019-01-05] MEDS: carBAMazepine TAB(*) 200 MG PO SCH ×2 (10:41→19:55)
[2019-01-05] MEDS ORDERED: NS 0.9% 1000 ML** 1,000 ML IV ONE (10:49)
[2019-01-05] MEDS: Atorvastatin* 10 MG TAB PO SCH (19:55)
[2019-01-05] MEDS: Amitriptyline TAB* 25 MG PO SCH (19:55)
[2019-01-06] MEDS: Acetaminophen TAB* 325 MG PO PRN ×4 (01:58→20:14)
[2019-01-06] MEDS: Heparin VIAL(*) 5000 UNITS/ML VIAL (FIVE THOUSAND) SUBCUT SCH ×3 (05:58→20:14)
[2019-01-06] MEDS: Metoprolol Succinate XL TAB* 25 MG PO SCH (08:28)
[2019-01-06] MEDS: Nystatin TOP POWDER* 15 GM BTL TOPICAL SCH ×2 (08:29→20:17)
[2019-01-06] MEDS: carBAMazepine TAB(*) 200 MG PO SCH ×2 (08:29→20:17)
[2019-01-06] MEDS: Sertraline* 50 MG TAB PO SCH (08:29)
[2019-01-06] MEDS: Folic Acid TAB* 1 MG PO SCH (08:29)
[2019-01-06] MEDS: Furosemide TAB* 20 MG PO SCH (08:29)
[2019-01-06] MEDS: Potassium Chlor TAB* 20 MEQ TAB.ER PO SCH (08:29)
--- NOTE | 2019-01-06 10:08 | PN ---
Subjective Date of Service: 01/06/19 Interval History: Ms. Patterson is not feeling any better today. Headache is persisting, not any better or worse. Reports photophobia. No dizziness or nausea at rest. She is not sure if she is dizzy while walking as she has not been up OOB enough this morning. No concerns from nursing. Family History: Unchanged from Admission Social History: Unchanged from Admission Past Medical History: Unchanged from Admission Objective Active Medications: Acetaminophen (Tylenol Tab*) 650 mg PO Q6H PRN MILD PAIN or TEMP > 100.4 Amitriptyline HCl (Elavil Tab*) 25 mg PO BEDTIME [facility] Atorvastatin Calcium (Lipitor*) 10 mg PO BEDTIME [facility] Carbamazepine (Tegretol Tab(*)) 200 mg PO BID [facility] Folic Acid (Folvite Tab*) 1 mg PO DAILY [facility] Furosemide (Lasix Tab*) 20 mg PO DAILY [facility] Heparin Sodium (Porcine) (Heparin Vial(*)) 5,000 units SUBCUT Q8HR [facility] Metoprolol Succinate (Toprol Xl Tab*) 25 mg PO DAILY [facility] Nystatin (Nystatin Top Powder*) 1 applic TOPICAL BID [facility] Ondansetron HCl (Zofran Inj*) 4 mg IV Q4H PRN NAUSEA/VOMITING Potassium Chloride (Klor Con Er Tab*) 20 meq PO DAILY [facility] Sertraline HCl (Zoloft*) 50 mg PO DAILY [facility] Vital Signs - 8 hr 01/06/19 01/06/19 03:48 07:30 Temperature 97.7 F 97.4 F Pulse Rate 63 63 Respiratory 16 20 Rate Blood Pressure 109/70 138/80 (mmHg) O2 Sat by Pulse 94 96 Oximetry Oxygen Devices in Use Now: None Appearance: Elderly female lying in bed in NAD Ears/Nose/Mouth/Throat: Mucous Membranes Moist Neck: NL Appearance and Movements; NL JVP, Trachea Midline Respiratory: Symmetrical Chest Expansion and Respiratory Effort, Clear to Auscultation Cardiovascular: NL Sounds; No Murmurs; No JVD, RRR Abdominal: NL Sounds; No Tenderness; No Distention Extremities: No Edema Neurological: - - Oriented to self Lines/Tubes/Other Access: Clean, Dry and Intact Peripheral IV Nutrition: Taking PO's Result Diagrams: 01/04/19 04:18 01/04/19 04:18 Assess/Plan/Problems-Billing Assessment: Ms. Patterson is an 83 yo F with PMH of frequent falls, afib, HTN; presented to the ED with c/o falls and dizziness, admitted for further evaluation and need for rehab. - Patient Problems (1) Headache Code(s): R51 - HEADACHE Comment: - Worse in the morning, accompanied by a left temporal and eye burning/pain and photophobia; patient reports they started right after her fall when she hit her head but it is unclear if she is a reliable historian - Initially thought to be occipital neuralgia or postconcussive syndrome, though more likely r/t MRI findings - MRI brain shows changes in the left nasopharyngeal, concerning for carcinoma or lymphoma; maxillofacial MRI tomorrow for further evaluation - Appreciate Oncology consult - Continue Tegretol for now pending further workup (2) Atrial fibrillation Code(s): I48.91 - UNSPECIFIED ATRIAL FIBRILLATION Comment: - Rate controlled - Not on anticoagulation - Continue metoprolol (3) HTN (hypertension) Code(s): I10 - ESSENTIAL (PRIMARY) HYPERTENSION Comment: - Normotensive - Continue metoprolol, furosemide (4) Dementia Code(s): F03.90 - UNSPECIFIED DEMENTIA WITHOUT BEHAVIORAL DISTURBANCE Comment : - Likely exacerbated by hospital setting - Previously had some behavioral outbursts earlier this admission - Supportive care (5) Hyperlipidemia Code(s): E78.5 - HYPERLIPIDEMIA, UNSPECIFIED Comment: - Continue atorvastatin (6) Depression Code(s): F32.9 - MAJOR DEPRESSIVE DISORDER, SINGLE EPISODE, UNSPECIFIED Comment: - Continue sertraline (7) DVT prophylaxis Code(s): Z29.9 - ENCOUNTER FOR PROPHYLACTIC MEASURES, UNSPECIFIED Comment: - Heparin SQ (8) Full code status Code(s): Z78.9 - OTHER SPECIFIED HEALTH STATUS Comment: Status and Disposition: Inpatient. Anticipate d/c to [facility] when medically stable. Attending: Faustino Edmonds
[2019-01-06] MEDS: Amitriptyline TAB* 25 MG PO SCH (20:16)
[2019-01-06] MEDS: Atorvastatin* 10 MG TAB PO SCH (20:17)
[2019-01-07] MEDS ORDERED: Ibuprofen TAB* 200 MG PO ONE (01:52)
[2019-01-07] MEDS: Heparin VIAL(*) 5000 UNITS/ML VIAL (FIVE THOUSAND) SUBCUT SCH ×4 (05:43→22:30)
[2019-01-07 07:14] LABS: BUN/Creatinine Ratio 17.2 (8-20); EGFR African American 64.7 (>60); EGFR Non-African American 53.4 (>60)
[2019-01-07] MEDS: carBAMazepine TAB(*) 200 MG PO SCH ×3 (08:46→22:40)
[2019-01-07] MEDS: Furosemide TAB* 20 MG PO SCH (08:46)
[2019-01-07] MEDS: Potassium Chlor TAB* 20 MEQ TAB.ER PO SCH (08:47)
[2019-01-07] MEDS: Metoprolol Succinate XL TAB* 25 MG PO SCH (08:47)
[2019-01-07] MEDS: Folic Acid TAB* 1 MG PO SCH (08:47)
[2019-01-07] MEDS: Sertraline* 50 MG TAB PO SCH (08:47)
[2019-01-07] MEDS: Acetaminophen TAB* 325 MG PO PRN ×3 (08:48→22:14)
[2019-01-07] MEDS: Nystatin TOP POWDER* 15 GM BTL TOPICAL SCH ×3 (08:48→22:31)
--- NOTE | 2019-01-07 10:31 | PN ---
Subjective Date of Service: 01/07/19 Interval History: Ms. Patterson is not feeling any better today. Headache was a little better when she woke this morning, but is worsening. Left sided pain, described as throbbing and sharp. Denies dizziness, N/V. Nursing reports HTN this morning. Family History: Unchanged from Admission Social History: Unchanged from Admission Past Medical History: Unchanged from Admission Objective Active Medications: Acetaminophen (Tylenol Tab*) 650 mg PO Q6H PRN MILD PAIN or TEMP > 100.4 Amitriptyline HCl (Elavil Tab*) 25 mg PO BEDTIME [facility] Atorvastatin Calcium (Lipitor*) 10 mg PO BEDTIME [facility] Carbamazepine (Tegretol Tab(*)) 200 mg PO BID [facility] Folic Acid (Folvite Tab*) 1 mg PO DAILY [facility] Furosemide (Lasix Tab*) 20 mg PO DAILY [facility] Heparin Sodium (Porcine) (Heparin Vial(*)) 5,000 units SUBCUT Q8HR [facility] Metoprolol Succinate (Toprol Xl Tab*) 25 mg PO DAILY [facility] Nystatin (Nystatin Top Powder*) 1 applic TOPICAL BID [facility] Ondansetron HCl (Zofran Inj*) 4 mg IV Q4H PRN NAUSEA/VOMITING Potassium Chloride (Klor Con Er Tab*) 20 meq PO DAILY [facility] Sertraline HCl (Zoloft*) 50 mg PO DAILY [facility] Vital Signs - 8 hr 01/07/19 01/07/19 01/07/19 04:07 07:49 08:51 Temperature 98.4 F 97.5 F Pulse Rate 71 74 Respiratory 20 20 20 Rate Blood Pressure 149/81 188/91 (mmHg) O2 Sat by Pulse 95 93 Oximetry Oxygen Devices in Use Now: None Appearance: Elderly female lying in bed in NAD Ears/Nose/Mouth/Throat: Mucous Membranes Moist Neck: NL Appearance and Movements; NL JVP, Trachea Midline Respiratory: Symmetrical Chest Expansion and Respiratory Effort, Clear to Auscultation Cardiovascular: NL Sounds; No Murmurs; No JVD, RRR Abdominal: NL Sounds; No Tenderness; No Distention Extremities: No Edema Neurological: - - Oriented to self and place Lines/Tubes/Other Access: Clean, Dry and Intact Peripheral IV Nutrition: Taking PO's Result Diagrams: 01/04/19 04:18 01/07/19 05:47 Assess/Plan/Problems-Billing Assessment: Ms. Patterson is an 83 yo F with PMH of frequent falls, afib, HTN; presented to the ED with c/o falls and dizziness, admitted for further evaluation and need for rehab. - Patient Problems (1) Headache Code(s): R51 - HEADACHE Comment: - Worse in the morning, accompanied by a left temporal and eye burning/pain and photophobia; patient reports they started right after her fall when she hit her head but it is unclear if she is a reliable historian - Initially thought to be occipital neuralgia or postconcussive syndrome, though more likely r/t MRI findings - MRI brain shows changes in the left nasopharyngeal, concerning for carcinoma or lymphoma; maxillofacial MRI today for further evaluation - Appreciate Oncology consult - Continue Tegretol for now pending further workup (2) Atrial fibrillation Code(s): I48.91 - UNSPECIFIED ATRIAL FIBRILLATION Comment: - Rate controlled - Not on anticoagulation - Continue metoprolol (3) HTN (hypertension) Code(s): I10 - ESSENTIAL (PRIMARY) HYPERTENSION Comment: - Hypertensive - Continue metoprolol, furosemide; start amlodipine (4) Dementia Code(s): F03.90 - UNSPECIFIED DEMENTIA WITHOUT BEHAVIORAL DISTURBANCE Comment : - Likely exacerbated by hospital setting - Previously had some behavioral outbursts earlier this admission - Supportive care (5) Hyperlipidemia Code(s): E78.5 - HYPERLIPIDEMIA, UNSPECIFIED Comment: - Continue atorvastatin (6) Depression Code(s): F32.9 - MAJOR DEPRESSIVE DISORDER, SINGLE EPISODE, UNSPECIFIED Comment: - Continue sertraline (7) DVT prophylaxis Code(s): Z29.9 - ENCOUNTER FOR PROPHYLACTIC MEASURES, UNSPECIFIED Comment: - Heparin SQ (8) Full code status Code(s): Z78.9 - OTHER SPECIFIED HEALTH STATUS Comment: Status and Disposition: Inpatient. Anticipate d/c to [facility] when medically stable. Attending: Kerri Salinas
[2019-01-07] MEDS: amLODIPine TAB* 5 MG PO SCH (10:52)
[2019-01-07] MEDS ORDERED: Gadoteridol* (CONTRAST) 279.3 MG/ML 10 ML IV ONE (15:11)
--- NOTE | 2019-01-07 20:08 | CONS ---
CONSULTATION REPORT: DATE OF CONSULT: 01/07/19 REASON FOR CONSULT: Nasal sinal mass. HISTORY OF PRESENT ILLNESS: An 83-year-old female who developed a severe headache approximately 6 weeks ago. She describes headache on the left methodist that its burning, like her methodist is on fire. It radiates up to the dome of her skull. The pain is present all day long but it is made worse when eats. Pain has been relatively persistent over the past 6 weeks but has been getting progressively more intense. She also has a history of several falls. About when the pain started, she fell getting off of her bed, falling backwards and hitting the back, her occipital region. She went to the emergency room at that time and a noncontrast CT was negative, she was sent home. Since then she has had several other falls. She had been very active gardening and picking weeds in flower bed and had a fall outside as well. She presented to the emergency room second time with pain and again a CT was negative, no direct intervention. She was tried by her primary care doctor on Tramadol without success. She was tried on narcotics but that made her very confused and did not help with the pain. She was started on amitriptyline which she tolerated but had minimal impact, and she had been allergic to gabapentin in the past. Ultimately, re- presented on 01/03/19 with increasing pain. She was then admitted. She had an MRI of the brain done on 01/03/19 that showed an eccentric nasopharyngeal soft tissue mass on the left side with effacement of the left fat planes and is concerning for a neoplastic process that starts either in the nasopharynx or sinuses. 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 Additional evaluation has included a CBC with hemoglobin of 11.0, normal MCV, platelets 105, and white count of 10.1. She has normal renal and liver function with a mildly elevated creatinine of 0.99 which given her age and weight likely represents low GFR. She had a B12 that was 1092. She denies any fevers, chills, or night sweats. No vision changes. She does have some throat pain since her fall 6 weeks ago but has been swallowing well. She has been eating reasonably well. Prior to developing the headache, she was in relatively good shape, remained active during the day and often working outside in the yard. PAST MEDICAL HISTORY: 1. Dementia. Has been mild but with difficulty tolerating multiple types of pain medicine. 2. Hypertension. 3. Atrial fibrillation. 4. History of skin cancer. 5. History of C. diff colitis. 6. Diverticulosis. PAST SURGICAL HISTORY: 1. Cholecystectomy. 2. Bowel resection for diverticulitis. 3. Hysterectomy. HOME MEDICATIONS: 1. Amitriptyline 25 mg at bedtime. 2. Folic acid 1 mg a day. 3. Metoprolol 25 daily. 4. [place]-3 fatty acids. 5. Folic acid. 6. Furosemide 20 a day. 7. Potassium 20 a day. 8. Zoloft 50 a day. 9. Simvastatin 20 a day. 10. Tramadol 50 mg q.6 p.r.n. as needed. ALLERGIES: CODEINE, ERYTHROMYCIN, and GABAPENTIN. FAMILY HISTORY: No significant history of malignancy, lymphoma. Mother had ovarian cancer. Brother may have had lung cancer. SOCIAL HISTORY: She is in the hospital with her and her son. Never smoked, did not use drugs and occasional alcohol use. Her son Oumar is designated as her proxy. REVIEW OF SYSTEMS: As noted above. She has had normal bowel movements, no GERD , no urinary symptoms, no focal musculoskeletal symptoms, no skin changes, breathing has been fine, chronic atrial fibrillation but no chest pain, and no swelling of the lower extremities. No foal neurologic symptoms other than the headache. PHYSICAL EXAM: Temperature 97.7, BP 143/66, heart rate 79, respirations 18, O2 sat 97%. HEENT: Mucosa moist, no lesions. I do not see any irregularities in the posterior oropharynx. No cervical or supraclavicular lymphadenopathy. Pupils equal, round, and reactive to light. Neurologic: CN II through XII are intact, although she had some difficulty following commands. Strength 5/5 throughout and normal [id number]. Did not try and walk her. Lungs: Clear to auscultation. Heart: Irregular. S1, S2. Rate in the 70s. Abdomen: Nontender, nondistended. No hepatosplenomegaly. Nodes: No peripheral lymphadenopathy. Skin: Ventral surfaces were clear. I did not fully turn over. DIAGNOSTIC STUDIES/LAB DATA: As in the HPI. 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 Differential diagnosis includes nasopharyngeal carcinoma, diffuse large B cell lymphoma of the sinuses, squamous cell cancer of the nasopharynx, other malignancy possible , benign differential is limited. I discussed the probability of malignancy. Various cancers had markedly different prognosis and options for treatment. Large B cell lymphoma would be the most treatable and therapy would be recommended in that setting with reduced dose of combination chemotherapy, Primary nasopharyngeal cancer will be very difficult to treat, palliative radiation would be an option in transition to hospice, as would purely palliative care, squamous cell cancer of the head and neck is potentially treatable as means of reducing her pain. 1. Recommend consultation with ENT and biopsy if possible. 2. Pain control. It will be very difficult. I agree with current regimen with Tegretol, Tylenol, and amitriptyline. I agree with avoiding narcotics. 3. Anemia likely secondary to mild renal insufficiency, follow. 4. We will check LDH, ESR, and SPEP with morning labs. 5. We will continue to follow in the hospital. She can see us in clinic if she is able to go home. [id number]/[facility] #: [id number] JAMES
[2019-01-07] MEDS: Amitriptyline TAB* 25 MG PO SCH ×2 (22:12→22:40)
[2019-01-07] MEDS: Atorvastatin* 10 MG TAB PO SCH ×2 (22:12→22:41)
[2019-01-08] MEDS ORDERED: carBAMazepine TAB(*) 200 MG ONE (01:40)
[2019-01-08] MEDS: carBAMazepine TAB(*) 200 MG PO SCH ×3 (02:16→20:50)
[2019-01-08] MEDS: Amitriptyline TAB* 25 MG PO SCH ×2 (02:16→20:50)
[2019-01-08] MEDS: Acetaminophen TAB* 325 MG PO PRN ×3 (03:54→17:32)
[2019-01-08] MEDS: Heparin VIAL(*) 5000 UNITS/ML VIAL (FIVE THOUSAND) SUBCUT SCH ×3 (05:58→20:50)
[2019-01-08] MEDS: Potassium Chlor TAB* 20 MEQ TAB.ER PO SCH (08:51)
[2019-01-08] MEDS: Metoprolol Succinate XL TAB* 25 MG PO SCH (08:51)
[2019-01-08] MEDS: Furosemide TAB* 20 MG PO SCH (08:51)
[2019-01-08] MEDS: Folic Acid TAB* 1 MG PO SCH (08:51)
[2019-01-08] MEDS: amLODIPine TAB* 5 MG PO SCH (08:51)
[2019-01-08] MEDS: Sertraline* 50 MG TAB PO SCH (08:51)
[2019-01-08] MEDS: Nystatin TOP POWDER* 15 GM BTL TOPICAL SCH ×2 (08:54→20:50)
[2019-01-08] MEDS ORDERED: Influenza VAC *QUAD* 2019-20* 0.5 ML SYRINGE IM ONE (09:00)
--- NOTE | 2019-01-08 15:52 | CONSULT ---
Subjective Date of Service: 01/08/19 Interval History: Ms. 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 She was admitted to the hospital for falls and a headache. She reports 2 lesions to her right upper back that have been present for at least 1 year. These were biopsied and she was told it was skin cancer, she has not been able to have the procedure to excise the areas due to other illnesses. There is usually drainage from the areas. Patient seen and examined at bedside. Family History: Unchanged from Admission Social History: Unchanged from Admission Past Medical History: Unchanged from Admission Review of Systems - Measurements Intake and Output: Intake and Output Last 24 Hours 01/06/19 01/07/19 01/08/19 01/09/19 06:59 06:59 06:59 06:59 Intake Total 1999 630 530 840 Output Total 0 0 0 Balance 1999 630 530 840 Intake: IV Fluids 1000 Oral 999 630 530 840 Output: Urine 0 0 0 Other: Estimated Void Medium Medium Estimated Stool Amount Small # Voids 1 1 - Review of Systems Constitutional Symptoms: Negative: Fever, Other - Chills Dermatology: Positive: Skin Lesions - Right upper back Objective Active Medications: Acetaminophen (Tylenol Tab*) 650 mg PO Q6H PRN Reason: MILD PAIN or TEMP > 100.4 Amitriptyline HCl (Elavil Tab*) 25 mg PO BEDTIME [facility] Amlodipine Besylate (Norvasc Tab*) 5 mg PO DAILY [facility] Atorvastatin Calcium (Lipitor*) 10 mg PO BEDTIME [facility] Carbamazepine (Tegretol Tab(*)) 200 mg PO BID [facility] Folic Acid (Folvite Tab*) 1 mg PO DAILY [facility] Furosemide (Lasix Tab*) 20 mg PO DAILY [facility] Heparin Sodium (Porcine) (Heparin Vial(*)) 5,000 units SUBCUT Q8HR [facility] Metoprolol Succinate (Toprol Xl Tab*) 25 mg PO DAILY [facility] Nystatin (Nystatin Top Powder*) 1 applic TOPICAL BID [facility] Ondansetron HCl (Zofran Inj*) 4 mg IV Q4H PRN Reason: NAUSEA/VOMITING Potassium Chloride (Klor Con Er Tab*) 20 meq PO DAILY [facility] Sertraline HCl (Zoloft*) 50 mg PO DAILY [facility] Vital Signs 01/08/19 01/08/19 08:00 11:15 Temperature 97.9 F Pulse Rate 79 Respiratory 16 18 Rate Blood Pressure 149/54 (mmHg) O2 Sat by Pulse 94 Oximetry Oxygen Devices in Use Now: None Appearance: NAD, sitting up in bed Ears/Nose/Mouth/Throat: Mucous Membranes Moist Respiratory: Symmetrical Chest Expansion and Respiratory Effort Skin: - - See skin note below Neurological: Alert and Oriented x 3 Nutrition: Taking PO's Result Diagrams: 01/04/19 04:18 01/07/19 05:47 Skin Deviation Note - Skin Deviation Findings Right upper back - 2 lesions to the right upper back. The proximal one measures , 1.5 cm x 1.5 cm x 0.1 cm. There is red granulation tissue in the wound base and serous drainage. The surrounding skin is intact. The distal one measures, 2 cm x 2 cm x 0.1 cm. The wound base is red granulation tissue. The surrounding skin is intact with mild erythema. There is serous drainage. There was non adherent yellow slough present when the old bandages were removed. Wound Problem/Plan Assessment: Ms. 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 She was admitted to the hospital for falls and a headache. She reports 2 lesions to her right upper back that have been present for at least 1 year, she was told they are skin cancer. 1. Upper back with 2 lesions. Suspect this represents either basal call cancer or squamous cell cancer. She states these have been biopsied in the past and she needs to have excisions. Recommend washing the areas with soap and water, apply ABX ointment, and [place] dressings, change daily. She should be referred back to Dermatology or Dr. Owusu at discharge for the excisions. 2. History of basal cell skin cancer and Invasive squamous cell skin cancer. 3. Diet. Regular diet. 4. Code Status. Full Code Status. 5. Disposition. Inpatient, disposition per primary medicine team. TIME SPENT: Time for this wound consultation was 20 minutes and 10 minutes was spent with the patient and family discussing past medical history; removing old dressings, assessing, measuring, and photographing the wounds; and applying new dressings. Is Patient a Wound Clinic Patient: No Attending: Stephanie Ortiz
--- NOTE | 2019-01-08 18:27 | PN ---
Subjective Date of Service: 01/08/19 Interval History: Overnight patient refused her PM med and then was in severe pain at 11PM. She became combative with staff reportedly. Then ultimately took her medications and pain resolved. At time of evaluation, patient is not having pain at left holiness. Sometimes has sensation of that aspect of face "feeling hot" but has not occurred today. Had pain today which was relieved with tylenol. Agreeable to scheduled tylenol. Denies extremity numbness or tingling, visual changes, abd pain, nausea, vomiting. Family History: Unchanged from Admission Social History: Unchanged from Admission Past Medical History: Unchanged from Admission Objective Active Medications: Acetaminophen (Tylenol Tab*) 650 mg PO Q6H PRN PRN Reason: MILD PAIN or TEMP > 100.4 Last Admin: 01/08/19 17:32 Dose: 650 mg Amitriptyline HCl (Elavil Tab*) 25 mg PO BEDTIME [facility] Last Admin: 01/08/19 02:16 Dose: 25 mg Amlodipine Besylate (Norvasc Tab*) 5 mg PO DAILY [facility] Last Admin: 01/08/19 08:51 Dose: 5 mg Atorvastatin Calcium (Lipitor*) 10 mg PO BEDTIME [facility] Last Admin: 01/07/19 22:41 Dose: Not Given Carbamazepine (Tegretol Tab(*)) 200 mg PO BID [facility] Last Admin: 01/08/19 08:51 Dose: 200 mg Folic Acid (Folvite Tab*) 1 mg PO DAILY [facility] Last Admin: 01/08/19 08:51 Dose: 1 mg Furosemide (Lasix Tab*) 20 mg PO DAILY [facility] Last Admin: 01/08/19 08:51 Dose: 20 mg Heparin Sodium (Porcine) (Heparin Vial(*)) 5,000 units SUBCUT Q8HR [facility] Last Admin: 01/08/19 15:55 Dose: 5,000 units Metoprolol Succinate (Toprol Xl Tab*) 25 mg PO DAILY [facility] Last Admin: 01/08/19 08:51 Dose: 25 mg Nystatin (Nystatin Top Powder*) 1 applic TOPICAL BID [facility] Last Admin: 01/08/19 08:54 Dose: 1 applic Ondansetron HCl (Zofran Inj*) 4 mg IV Q4H PRN PRN Reason: NAUSEA/VOMITING Potassium Chloride (Klor Con Er Tab*) 20 meq PO DAILY [facility] Last Admin: 01/08/19 08:51 Dose: 20 meq Sertraline HCl (Zoloft*) 50 mg PO DAILY [facility] Last Admin: 01/08/19 08:51 Dose: 50 mg Vital Signs - 8 hr 01/08/19 01/08/19 11:15 15:15 Temperature 97.9 F 98.0 F Pulse Rate 79 91 Respiratory 18 16 Rate Blood Pressure 149/54 147/71 (mmHg) O2 Sat by Pulse 94 94 Oximetry Oxygen Devices in Use Now: None Appearance: Elderly white female, sitting in chair, son and at bedside, appearing comfortable and in NAD Eyes: No Scleral Icterus, - - PERRL Ears/Nose/Mouth/Throat: Mucous Membranes Moist Neck: Trachea Midline Respiratory: Symmetrical Chest Expansion and Respiratory Effort, Clear to Auscultation Cardiovascular: NL Sounds; No Murmurs; No JVD, RRR Abdominal: - - abd soft, nontender, nondistended Extremities: No Edema, No Clubbing, Cyanosis Skin: No Rash or Ulcers Neurological: Alert and Oriented x 3, - - strength 5/5 in all extremities Result Diagrams: 01/04/19 04:18 01/07/19 05:47 Assess/Plan/Problems-Billing Assessment: Ms. Patterson is an 83 yo F with PMH of frequent falls, afib, HTN; presented to the ED with c/o falls and dizziness. - Patient Problems (1) Nasopharyngeal mass Current Visit: Yes Status: Acute Code(s): J39.2 - OTHER DISEASES OF PHARYNX SNOMED Code(s): 270107210 Comment: - MRI brain shows changes in the left nasopharyngeal, concerning for carcinoma or lymphoma; maxillofacial MRI demonstrates sinonasal vs nasopharyngeal mass concerning for carcinoma - Appreciate heme/onc consult. Dr. Cannon recommended ENT consult for biopsy. - ENT consulted, will evaluate the patient tomorrow. This should occur prior to discharge (2) Headache Current Visit: Yes Status: Acute Code(s): R51 - HEADACHE SNOMED Code(s): 51243995 Comment: - left temporal and eye burning/pain and photophobia; patient reports they started right after her fall when she hit her head but it is unclear if she is a reliable historian - 2/2 to nasopharyngeal mass - Continue Tegretol, amitriptyline, and changing tylenol to scheduled (3) Depression Current Visit: Yes Status: Acute Code(s): F32.9 - MAJOR DEPRESSIVE DISORDER , SINGLE EPISODE, UNSPECIFIED SNOMED Code(s): 68541515 Comment: - Continue sertraline (4) Hyperlipidemia Current Visit: Yes Status: Acute Code(s): E78.5 - HYPERLIPIDEMIA, UNSPECIFIED SNOMED Code(s): 56432779 Comment: - Continue atorvastatin (5) Atrial fibrillation Current Visit: No Status: Acute Code(s): I48.91 - UNSPECIFIED ATRIAL FIBRILLATION SNOMED Code(s): 13966632 Comment: - Rate controlled - Not on anticoagulation - Continue metoprolol (6) Dementia Current Visit: No Status: Acute Code(s): F03.90 - UNSPECIFIED DEMENTIA WITHOUT BEHAVIORAL DISTURBANCE SNOMED Code(s): 48249826 Comment: - Likely exacerbated by hospital setting - Previously had some behavioral outbursts earlier this admission - Supportive care (7) HTN (hypertension) Current Visit: No Status: Acute Code(s): I10 - ESSENTIAL (PRIMARY) HYPERTENSION SNOMED Code(s): 50433551 Comment: - Hypertensive - Continue metoprolol, furosemide, amlodipine (8) DVT prophylaxis Current Visit: Yes Status: Acute Code(s): Z29.9 - ENCOUNTER FOR PROPHYLACTIC MEASURES, UNSPECIFIED SNOMED Code(s): 874863292 Comment: - Heparin SQ (9) Full code status Current Visit: Yes Status: Acute Code(s): Z78.9 - OTHER SPECIFIED HEALTH STATUS SNOMED Code(s): 568906903 Comment: Status and Disposition: Inpatient. Patient declining LEONID. Anticipate d/c home after ENT consult and if pain controlled
[2019-01-08] MEDS: Atorvastatin* 10 MG TAB PO SCH (20:50)
[2019-01-08] MEDS: Acetaminophen TAB* 325 MG PO SCH (23:51)
[2019-01-09] MEDS: Heparin VIAL(*) 5000 UNITS/ML VIAL (FIVE THOUSAND) SUBCUT SCH ×2 (05:36→13:03)
[2019-01-09] MEDS: Acetaminophen TAB* 325 MG PO SCH (07:59)
[2019-01-09] MEDS: Sertraline* 50 MG TAB PO SCH (09:46)
[2019-01-09] MEDS: Folic Acid TAB* 1 MG PO SCH (09:46)
[2019-01-09] MEDS: Potassium Chlor TAB* 20 MEQ TAB.ER PO SCH (09:46)
[2019-01-09] MEDS: Furosemide TAB* 20 MG PO SCH (09:46)
[2019-01-09] MEDS: amLODIPine TAB* 5 MG PO SCH (09:47)
[2019-01-09] MEDS: carBAMazepine TAB(*) 200 MG PO SCH (09:51)
[2019-01-09] MEDS: Nystatin TOP POWDER* 15 GM BTL TOPICAL SCH (09:51)
[2019-01-09] MEDS: Metoprolol Succinate XL TAB* 25 MG PO SCH (09:56)
--- NOTE | 2019-01-09 10:34 | CONS ---
CONSULTATION REPORT: DATE OF CONSULT: 01/09/19 ATTENDING PHYSICIAN: Blair Tijerina MD. REQUESTING PROVIDER: LUIS ENRIQUE Rachel. REASON FOR CONSULT: Nasopharyngeal mass. HISTORY OF PRESENT ILLNESS: The patient is an 83-year-old who was admitted to the hospital, my understanding is, because of falling. Because of this, she has had a head MRI and then followed up with a maxillofacial MRI that shows a mass in her nasopharynx, eroding into her sphenoid sinus. She says she is having some pain in that area but otherwise does not know that there is anything going on there. PHYSICAL EXAM: She has some purulent postnasal drip in her oropharynx. A nasopharyngoscopy was performed with a flexible nasal laryngoscope, and she has a lots of purulent crusting in her nasopharynx along the rostrum of the sphenoid. It does appear that there might be a mass growing, it is not definitive however. Her right Rosenmuller fossa is clear. The left one is difficult to visualize because of the crusting that is in that area. DIAGNOSTIC STUDIES/LAB DATA: Viewing the MRIs show this mass as I previously described. It appears to be nasopharyngeal with some erosion into the face of the sphenoid sinus. She has had multiple imaging prior and it is seen on a CT scan from October, it is not seen on CT scan from previous years. 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 Alternatively, this could be an infectious process based on what I am seeing today. PLAN/RECOMMENDATIONS: She is going to need nasopharyngoscopy with biopsies. [id number]/CPS #: [id number] [facility] CHILDR[facility]'S HOSPITALGretel
[2019-01-09 12:01] VITALS: BP 143/78
--- NOTE | 2019-01-09 20:56 | DS ---
CC: Dr. Susan Hanley; Dr. Tijerina; Dr. Forman; Dr. Lu; Dr. Isiah Cannon * DISCHARGE SUMMARY: DATE OF ADMISSION: 01/06/19 DATE OF DISCHARGE: 01/09/19 PRIMARY CARE PROVIDER: Dr. Susan Hanley. MY ATTENDING WHILE IN THE HOSPITAL: Dr. Zaida Trujillo.* (DICTATED BY LUIS ENRIQUE VALENTINO) CONSULT ENT: Dr. Tijerina, Dr. Forman, and Dr. Lu. CONSULTING WEB SYSTEMS DEVELOPER ONCOLOGIST: Dr. Isiah Cannon. 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 SECONDARY DISCHARGE DIAGNOSES: History of mechanical fall, hypertension, dementia, atrial fibrillation, history of skin cancer, history of diverticulitis. STUDIES DONE WHILE IN THE HOSPITAL: Brain MRI from 01/03/19 read as elevation of the eccentric left naso-pharyngeal soft tissue bone marrow signal effacement of the left fat planes. This finding is highly concerning for neoplastic process such as nasopharyngeal carcinoma or lymphoma. Direct inspection of maxillofacial MRI with contrast and elective biopsy was recommended. No acute intracranial abnormality, mild small vessel ischemic changes likely. Cervical spine CT read as, no destructive left nasopharyngeal mass highly concerning for neoplastic process such as nasopharyngeal carcinoma. After ENT consultation, maxillofacial MRI with contrast recommended. No fracture or malalignment of the cervical spine, osseous fusion of the right C4- C5 facet, varying degrees of multilevel spondylosis resulting in severe right neural foraminal stenosis at C4-C5. Orbit, face, neck MRI from 01/07/19 read as there is an enhancing lesion in the posterior nasopharynx that extends into the floor of the sphenoid sinus, it corresponds to an area of change on MRI of the brain concerning for either sinonasal or nasopharyngeal neoplasm, left mastoid effusion, no lymphadenopathy by size criteria. MEDICATIONS AT DISCHARGE: 1. Metoprolol succinate 25 mg p.o. daily. 2. Simvastatin 20 mg p.o. at bedtime. 3. Furosemide 20 mg p.o. daily. 4. Potassium chloride 20 mEq p.o. daily. 5. Sertraline 50 mg p.o. daily. 6. Folic acid 1 mg p.o. daily. 7. Mabel-3 fatty acid 1000 mg p.o. daily. 8. Amitriptyline 25 mg p.o. daily. 9. Tylenol 975 mg p.o. q.8 hours as scheduled. 10. Tegretol 200 mg p.o. b.i.d. as scheduled. New medications at discharge: 1. Tylenol. 2. Tegretol. Medications discontinued at discharge: 1. Tramadol 50 mg p.o. q.6 hours as needed. HOSPITAL COURSE: This is a brief summary of the patient's presentation. For more details, please see the history and physical from Loren Pedraza NP on 01/03/19. In brief, the patient is an 83-year-old female with past medical history significant for the above, who approximately 6 weeks before admission had a mechanical fall where she fell backward and hit her head. She did have another subsequent fall and subsequent CT that was negative. She has had a headache since her first fall, which was treated with tramadol and amitriptyline. The patient in the emergency department had imaging concerning for a nasopharyngeal mass as above. The patient had no other significant laboratory abnormalities different from her baseline. The patient admitted to the hospital, started on scheduled Tylenol, Tegretol and her amitriptyline was continued as above. The patient was quite delirious initially and her tramadol was stopped to good effect with this. The patient had her orbit MRI on as above and subsequently was seen in consultation by Dr. Isiah Cannon, who recommended ENT evaluation for biopsy. The patient was also seen in consultation by Sheree Dorado of wound care for 2 open areas on her back, which are chronic problem and she appears to have been diagnosed with skin cancer from these, but had not followed up with her carpenter helper maintenance for excision. The patient had no other significant findings. Her vital signs were well within normal limits. For the majority of her hospitalization, she had no fevers, no shortness of breath. She was initially recommended to go to subacute rehab; however, family opted to take her home and with visiting nurse services. The patient was seen in consultation by Dr. Blair Tijerina of ENT, who recommended a biopsy which was scheduled to be done on 01/16/19 by one of his partners. The patient was stable and amenable for discharge with good control of her pain on the above regimen on 01/09/19. PHYSICAL EXAMINATION ON THE DAY OF DISCHARGE: General: The patient is an 83- year- old female who appears stated age, sitting comfortably in bed, in no acute distress. Vital Signs: Temperature 97.5, pulse rate 82, respiratory rate is 18, oxygen saturation 96% on room air, blood pressure 143/78. HEENT: Head: Normocephalic, atraumatic. Sclerae anicteric. No conjunctival injection. Nasal mucosa moist. Oral mucosa moist. Purulent fluid seen in the posterior nasopharynx, unable to visualize nasal mass. Neck: Supple, nontender. No lymphadenopathy. No carotid bruits auscultated. No JVD. Cardiac: Regular rate and rhythm. No clicks, murmurs, gallops, or rubs. Pulses 2+ in the dorsalis pedis, posterior tibialis, and radial areas. Respiratory: Clear to auscultation bilaterally. No wheezes, rales, or rhonchi. Good air exchange bilaterally. Abdomen: Soft, nontender, nondistended. Bowel sounds present and normoactive in all 4 quadrants. No hepatosplenomegaly. Ne abdominal bruits auscultated. No hepatojugular reflux. Genitourinary: No suprapubic or CVA tenderness. Skin: Clean, dry, and intact. Wounds on the back cannot visualized due to the dress. Neuro: Cranial nerves II through XII intact. No focal deficits. Alert and oriented to self and place, not date. Psychiatric: Pleasant and cooperative. DISCHARGE PLAN BY PROBLEM: 1. Nasopharyngeal mass. The patient will follow up with a biopsy of this in 1 week's time to determine its etiology whether this would be neoplastic or infectious. No current treatment has been recommended for this. Otherwise, the patient should follow up closely with ENT and Oncology to further results of her biopsy after her discharge. The patient returned to the hospital for uncontrollable nose bleeding and difficulty breathing or other alarming symptoms. 2. Headache. The patient's headache is well controlled with amitriptyline, Tegretol and Tylenol, this should be continued at home. The patient should avoid tramadol as it causes delirious reaction while in the hospital. 3. Dizziness. The patient's dizziness is likely related to traumatic positional paroxysmal vertigo, but this is not able to be reproduced while in the hospital. The patient should follow up with her primary care provider for referral to vestibular physical therapy if needed. 4. Falls. The patient should have physical therapy at home through visiting nurse services. 5. Hypertension. Continue the patient's amlodipine, Lasix and metoprolol. 6. Hyperlipidemia. Continue the patient's Lipitor. 7. Atrial fibrillation. The patient was in sinus rhythm on her presentation to the hospital. Continue metoprolol for rate control. DISPOSITION: Home. CONDITION: Stable. DIET: Regular unrestricted. ACTIVITY: As tolerated. TIME SPENT: Approximately 60 minutes was spent on the discharge of this patient , 30 of which was spent [id number] with the patient, obtaining history and physical, and discussing the treatment plan. LUIS ENRIQUE VALENTINO [id number] #: [id number] MTDD
[2019-01-10 14:12] LABS: Albumin/Globulin Ratio 0.73; Gamma Globulin 1.4 g/dL (0.6-1.6); Total Protein(PEP) 7.1 g/dL (6.3 - 7.9)
== END 2019-01-09 14:23 | disposition home health service (06) | DRG 147 ==
LOC: ED 11:38 → UNDOADMOB 15:13 → INTOOBSV 15:13 → MEDTELE 15:13 → OBSVTOIN 15:13 → INTOOBSV 01-06 09:45 → UNDODISOB 01-09 14:23
PROVIDERS: ADMIT Internal Medicine; ATTEND Hospitalist
DX: C11.9 Malignant neoplasm of nasopharynx, unspecified (principal); F03.91 Unspecified dementia, unspecified severity, with behavioral disturbance; I48.20 Chronic atrial fibrillation, unspecified; M54.81 Occipital neuralgia; R51 Headache; I10 Essential (primary) hypertension; E78.5 Hyperlipidemia, unspecified; C44.92 Squamous cell carcinoma of skin, unspecified; F07.81 Postconcussional syndrome; H81.10 Benign paroxysmal vertigo, unspecified ear; M47.892 Other spondylosis, cervical region; F41.8 Other specified anxiety disorders; W18.30XA Fall on same level, unspecified, initial encounter; Y92.009 Unspecified place in unspecified non-institutional (private) residence as the place of occurrence of the external cause; Z91.81 History of falling; Z79.899 Other long term (current) drug therapy; Z88.1 Allergy status to other antibiotic agents; Z88.5 Allergy status to narcotic agent; Z88.8 Allergy status to other drugs, medicaments and biological substances; Z80.41 Family history of malignant neoplasm of ovary; Z80.1 Family history of malignant neoplasm of trachea, bronchus and lung; H53.142 Visual discomfort, left eye
CPT/HCPCS: 36415; 70543; 70551; 72125; 80048; 80053; 81003; 81015; 82607; 82746; 83615; 84155; 84165; 84443; 84484; 85025; 85027; 85652; 90686; 93005; 99223; 99284; A9270-GY; A9579; G0378; G8978-GP-CJ; G8979-GP-CI; J1644

== ENCOUNTER → 2019-01-18 11:50 | Day surgery (SDC) | payer MEDICARE, BC ==
[~2019-01-18 11:50] MED LIST changes: +Acetaminophen TAB* 325 MG ONE; +Buffered Lidocaine 1% SYRIN* 1 ML/SYRINGE INTRADERM ONE; -Ciprofloxacin TAB* 500 MG PO ONE; +Dexamethasone IV* 4 MG/ML 1 ML (4 MG) ONE; +HYDROmorphone INJ1* 1 MG/ML SYRINGE IV PRN; -Iodixanol* (CONTRAST) 320 MG/ML 100 ML SDV IV ONE; +Lactated Ringers 1000 ML Bag* 1,000 ML IV SCH; +Lidocaine 2% PF * 5 ML VIAL ONE; +Lidocaine 4% TOPICAL* 50 ML TOP.SOLN ONE; +Midazolam* 1 MG/ML 2 ML VIAL (2 MG) ONE; -NS 0.9% 500 ML* 500 ML IV ONE; +Naloxone* 0.4 MG/ML 1 ML VIAL IV PRN; +Ondansetron INJ* 2 MG/ML VIAL IV PRN; +Ondansetron INJ* 2 MG/ML VIAL ONE; +Oxymetazoline 0.05% NASAL SPR* 15 ML BTL ONE; +PROCHLORPERAZINE INJ 5 MG/ML 2 ML VIAL IV PRN; +Propofol* 10 MG/ML 20 ML BTL ONE; +diPHENhydraMINE IV* 50 MG/ML 1 ml VIAL (BENADRYL) IV PRN; +fentaNYL* 50 MCG/ML 2 ML VIAL (100 MCG VIAL) ONE; -metroNIDAZOLE TAB* 250 MG PO ONE; +oxyCODONE TAB* 5 MG TAB PO PRN
[2019-01-18 18:10] VITALS: BP 163/78
--- NOTE | 2019-01-18 23:26 | OP ---
DATE OF OPERATION: 01/18/19 - [facility] DATE OF : 33 SURGEON: Valentín Lu MD. ENTERPRISE BUSINESS ARCHITECT: None. ANESTHESIA: General. PRE-OP DIAGNOSIS: Nasopharyngeal mass. POST-OP DIAGNOSIS: Nasopharyngeal mass. OPERATIVE PROCEDURE: Nasopharyngoscopy with biopsies of the nasopharynx under anesthesia. ESTIMATED BLOOD LOSS: Less than 15 cc. SPECIMENS: Nasopharyngeal biopsies. These were sent both in formalin as well as flow media and saline. INDICATIONS: This is an 83-year-old woman who was noted to have a nasopharyngeal mass with involvement of the left lateral skull base on recent hospital admission for intractable left-sided headache. DESCRIPTION OF PROCEDURE: On 01/18/19, the patient was brought to the operating room. General anesthesia was induced and an oral endotracheal tube was placed. The patient was draped and a time-out was performed. The left nasal cavity was packed with pledgets soaked in Afrin and lidocaine. Once adequately time had been allotted for vasoconstriction, the procedure was begun. A rigid 0-degree endoscope was used to perform a nasal endoscopy. There was abnormal soft tissue which appeared to be primarily involving the left side of the nasopharynx extending superiorly toward the sphenoid face and involving the fossa of Rosenmuller. Multiple biopsies were taken of this using a through cutting forceps. There was relatively little bleeding that was readily controlled with an endoscopic bipolar forceps. The patient was then returned to the care of the anesthesiologist, extubated and delivered to the PACU. [id number] #: [id number] MTDD
== END | disposition home or self-care (01) ==
LOC: OR 11:50
PROVIDERS: ATTEND Otolaryngology
DX: C11.9 Malignant neoplasm of nasopharynx, unspecified (principal); I10 Essential (primary) hypertension; F41.8 Other specified anxiety disorders; M06.9 Rheumatoid arthritis, unspecified; M81.0 Age-related osteoporosis without current pathological fracture; E78.5 Hyperlipidemia, unspecified; I48.0 Paroxysmal atrial fibrillation; Z79.01 Long term (current) use of anticoagulants
CPT/HCPCS: 88184; 88187; 88188; 88189; 88305; 88333; 88341; 88342; A9270-GY; J1100; J2250; J2405; J2704; J3010

== ENCOUNTER 2019-01-28 14:28 | Inpatient (IN) | payer MEDICARE, BC ==
--- NOTE | 2019-01-28 14:38 | ED ---
Headache - HPI Summary HPI Summary: The patient is an 83 y/o F arriving by ambulance to [facility] with a chief complaint of constant occipital headaches onset three weeks ago after falling and hitting her head four weeks ago. She reports that she came to the ED for a workup after the fall on 01/03/19, and a nasopharyngeal mass was found, and then it was operated on by Dr. Lu on 01/18/19. Since then, however, she has been experiencing worsening headaches rated 10/10 in severity. She endorses neck pain. She denies any nausea, vomiting, or fevers. In the ambulance, she was noted to be hypertensive with blood pressure readings of 174/88 mmHg initially, 150/84 mmHg after fluids, and 166/96 mmHg immediately before arrival. No anticoagulant use. She lives at home with her . PMHx: anemia , angina, atrial fibrillation, CAD, DVT, HTN, mitral valve disorder, dementia, basal cell carcinoma, squamous cell carcinoma of nasal area. Nonsmoker, no EtOH , no substance use. Medications reviewed. Allergies noted. - History Of Current Complaint Stated Complaint: HEADACHE PER EMS Hx Obtained From: Patient Onset/Duration: Gradual Onset, Started weeks ago - three, Still Present Initially Headache Was: Moderate Currently Pain Is: Current Pain Scale(0-10)= - 10, Severe Timing: Constant Character: Sharp Location of Headache: Occipital Aggravating Factor: Nothing Allevating Factors: Nothing Associated Signs And Symptoms: Neck Pain, Other (Noted In Comments) - Negative: nausea, vomiting, fever - Allergies/Home Medications Allergies/Adverse Reactions: Allergies Allergy/AdvReac Type Severity Reaction Status Date / Time codeine Allergy Unknown Verified 01/18/19 13:26 Reaction Details erythromycin base Allergy Unknown Verified 01/18/19 13:26 [From Erythrocin] Reaction Details gabapentin [From Neurontin] Allergy Hallucinati Verified 01/18/19 13:26 ons tramadol Allergy Hallucinati Verified 01/18/19 13:26 ons Home Medications: Home Medications Diclofenac 1% GEL (NF) [Voltaren 1% GEL (NF)] 1 applic TOPICAL TID PRN 01/28/19 [History Confirmed 01/28/19] Triamcinolone 0.1% OINT(NF) [Kenalog 0.1% OINT(NF)] 1 applic TOPICAL BID [History Confirmed 01/28/19] Triamcinolone PASTE 0.1% (NF) [Triamcinolone 0.1% PASTE *] 1 applic TOPICAL TID 01/28/19 [History Confirmed 01/28/19] PMH/Surg Hx/FS Hx/Imm Hx Endocrine/Hematology History: Reports: Hx Anemia, Other Endocrine/Hematological Disorders - pancytopenia on adm 07/06/17 Denies: Hx Diabetes, Hx Thyroid Disease Cardiovascular History: Reports: Hx Angina, Hx Atrial Fibrillation, Hx Coronary Artery Disease, Hx Deep Vein Thrombosis - L arm, Hx Hypertension, 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, Other Cardiovascular Problems/Disorders - Atrial fib per H&P, DVT per H&P, Hyperlipidemia Denies: Hx Hypercholesterolemia, Hx Pacemaker/ICD Respiratory History: Reports: Other Respiratory Problems/Disorders - NASOPHARYNGEAL MASS Denies: Hx Asthma, Hx Chronic Obstructive Pulmonary Disease (COPD) GI History: Reports: Hx Hiatal Hernia, Hx Jaundice - HISTORY OF A CHILD, Hx Ulcer, Other GI Disorders - Diverticulitis with bowel resection, cholecystecytomy History: Reports: Other Problems/Disorders - Hysterectomy Denies: Hx Renal Disease Musculoskeletal History: Reports: Hx Arthritis, Hx Rheumatoid Arthritis, Hx Osteoporosis Comment Only: Other Musculoskeletal History - GIANT CELL POLYMYALGA, Sensory History: Reports: Hx Cataracts - HISTORY OF Denies: Hx Contacts or Glasses - Lasik procedure, Hx Hearing Aid Opthamlomology History: Reports: Hx Cataracts - HISTORY OF Denies: Hx Contacts or Glasses - Lasik procedure Neurological History: Reports: Hx Dementia, Hx Headaches - Severe intractable headache, hospitalized 01/06-01/09/19, Other Neuro Impairments/Disorders - Dementia, dizziness, confusion, weakness Psychiatric History: Reports: Hx Anxiety, Hx Depression Denies: Hx Panic Disorder - Cancer History Cancer Type, Location and Year: basal cell skin - Surgical History Surgical History: Yes Surgery Procedure, Year, and Place: CYST/TUMOR DRAINED FROM RIGHT HIP X 25 YRS AGO. hysteretomy @ 29 yrs. tonsils. endometriosis cleanout. diveriticulitis surgery. galbladder removed. bowel tumor removed. bowel resection. left thumn joint. skin cancer removed from forehead. THUMB SURGERY -LEFT Hx Anesthesia Reactions: No - Immunization History Date of Tetanus Vaccine: unk Date of Influenza Vaccine: utd Infectious Disease History: Reports: Hx Shingles Denies: Hx Clostridium Difficile, Hx Hepatitis, Hx Human Immunodeficiency Virus (HIV), Hx of Known/Suspected MRSA, Hx Tuberculosis - Family History Known Family History: Positive: Other - Negative autoimmune disease Negative: Respiratory Disease - Social History Alcohol Use: None Hx Substance Use: No Substance Use Type: Reports: None Hx Tobacco Use: No Smoking Status (MU): Never Smoked Tobacco Review of Systems Negative: Fever Negative: Vomiting, Nausea Positive: Other - neck pain Positive: Headache - occipital All Other Systems Reviewed And Are Negative: Yes Physical Exam - Summary Physical Exam Summary: VITAL SIGNS: Reviewed. GENERAL: Patient is a well-developed and nourished female who is lying comfortable in the stretcher. Patient is not in any acute respiratory distress. Appears lethargic. HEAD AND FACE: No signs of trauma. No ecchymosis, hematomas or skull depressions. No sinus tenderness. EYES: PERRLA, EOMI x 2, No injected conjunctiva, no nystagmus. No photophobia. EARS: Hearing grossly intact. Ear canals and tympanic membranes are within normal limits. MOUTH: Oropharynx within normal limits. NECK: Supple, trachea is midline, no adenopathy, no JVD, no carotid bruit, no c- spine tenderness, neck with full ROM. No meningeal signs, no Kernig's or brudzinskis signs. CHEST: Symmetric, no tenderness at palpation. LUNGS: Clear to auscultation bilaterally. No wheezing or crackles. CVS: Regular rate and rhythm, S1 and S2 present, no murmurs or gallops appreciated. ABDOMEN: Soft, non-tender. No signs of distention. No rebound, no guarding, and no masses palpated. Bowel sounds are normal. EXTREMITIES: FROM in all major joints, no edema, no cyanosis or clubbing. NEURO: Alert and mild confusion. No acute neurological deficits. Speech is normal and follows commands. SKIN: Dry and warm. GCS: 15. Triage Information Reviewed: Yes Vital Signs Reviewed: Yes - [place] Coma Scale Best Eye Response: 4 - Spontaneous Best Motor Response: 6 - Obeys Commands Best Verbal Response: 5 - Oriented Coma Scale Total: 15 Procedures - Sedation Patient Received Moderate/Deep Sedation with Procedure: No Diagnostics - Laboratory Result Diagrams: 01/29/19 06:31 01/29/19 06:31 Lab Statement: Any lab studies that have been ordered have been reviewed, and results considered in the medical decision making process. Re-Evaluation - Re-Evaluation Second Eval Re-Evaluation Time: 17:40 Comment: We discussed results and further plan of treatment. Headache Course/Dx - Course Assessment/Plan: Patient is an 83-year-old female who presents to the emergency department with a chief complaint of having a headache. As per the patients son , she has been having increasing episodes with a headache, dizziness, unable to eat or drink. 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 Past medical history: Dementia, hypertension, atrial ablation, and skin cancer, C. difficile colitis, diverticulosis. Patient was given Benadryl, Reglan and Morphine. She continues to have pain, and she is very weak. I discussed the case with Dr. Cannon from oncology, and he recommends admission to the hospital services. I discussed my physical exam and findings with Dr. Jara from the hospital services, and he accepted the patient for admission. - Diagnoses Provider Diagnoses: Intractable headache, Squamous cell carcinoma - Physician Notifications Discussed Care Of Patient With: Isiah Cannon - oncology Time Discussed With Above Provider: 17:53 Instructed by Provider To: Other - I discussed the patient's case with Dr. Cannon , and he recommends admission, and he will consult for the patient. I spoke with Dr. Jara, and he accepts the patient for admission. Discharge ED - Sign-Out/Discharge Documenting (check all that apply): Patient Departure - Patient accepted for admission by Dr. Jara. - Discharge Plan Condition: Stable Disposition: ADMITTED TO [facility] - Billing Disposition and Condition Condition: STABLE Disposition: Admitted to [facility] - Attestation Statements Document Initiated by Philip: Yes Documenting Scribe: Denise Andino Provider For Whom Philip is Documenting (Include Credential): Dr. Timothy Douglass MD Scribe Attestation: Denise Andrea scribed for Dr. Timothy Douglass MD on 01/29/19 at 0723. Scribe Documentation Reviewed: Yes Provider Attestation: The documentation as recorded by the Denise myers accurately reflects the service I personally performed and the decisions made by me, Dr. Timothy Douglass MD Status of Scribe Document: Viewed
[2019-01-28] MEDS ORDERED: Metoclopramide IV* 5 MG/ML 2 ML VIAL IV ONE (14:42)
[2019-01-28] MEDS ORDERED: Morphine 4 MG/ML VIAL (1 ml) 4 MG/ML VIAL IV ONE (14:42)
[2019-01-28] MEDS ORDERED: diPHENhydraMINE IV* 50 MG/ML 1 ml VIAL (BENADRYL) IV ONE (14:42)
[2019-01-28 15:25] LABS: ABS Eosinophils 0.2 10^3/ul (0-0.6); ABS Lymphocytes 1.1 10^3/ul (1.0-4.8); ABS Monocytes 0.8 10^3/ul (0-0.8); ABS Neutrophils 8.9 10^3/ul (1.5-7.7); Eosinophil % 2.2 %; Hematocrit 35 % (35-47); Hemoglobin 11.5 g/dL (12.0-16.0); Lymphocyte % 10.2 %; Mean Corpuscular HGB Conc 33 g/dL (31-36); Mean Corpuscular Hemoglobin 30 pg (27-31); Mean Corpuscular Volume 92 fL (80-97); Mean Platelet Volume 9.1 fL (7.4-10.4); Nucleated Red Blood Cells % 0.1; Platelet Count 243 10^3/uL (150-450); Red Cell Distribution Width 16 % (10-15); White Blood Count 11.2 10^3/uL (3.5-10.8)
[2019-01-28 15:40] LABS: Albumin 3.7 g/dL (3.2-5.2); Albumin/Globulin Ratio 0.9 (1-3); BUN/Creatinine Ratio 16.8 (8-20); Calcium 9.6 mg/dL (8.6-10.3); EGFR African American 59.1 (>60); EGFR Non-African American 48.9 (>60); Globulin 3.9 g/dL (2-4); Potassium 4.1 mmol/L (3.5-5.0); Total Bilirubin 0.5 mg/dL (0.2-1.0); Total Protein 7.6 g/dL (6.4-8.9)
[2019-01-28 17:04] LABS: Erythrocyte Sed Rate 100 mm/Hr (0-29)
[2019-01-28] MEDS ORDERED: Morphine INJ* 2 MG/ML 1 ML SYRINGE (TWO MG - NEW SYRINGE VERSION) IV PRN (18:43)
[2019-01-28] MEDS ORDERED: Metoprolol Tartrate IV* 1 MG/ML 5 ML VIAL IV ONE (18:49)
[2019-01-28] MEDS ORDERED: Enoxaparin(*) 40 MG/0.4 ML SYR SUBCUT SCH (19:00)
--- NOTE | 2019-01-28 20:25 | HP ---
CC: Dr. Susan Hanley * HISTORY AND PHYSICAL: DATE OF ADMISSION: 01/28/19 PRIMARY CARE PROVIDER: Dr. Susan Hanley. ATTENDING PHYSICIAN: Dr. Vidal Jara.* (DICTATED BY KRISTIN HERBERT NP) CHIEF COMPLAINT: Headache. HISTORY OF PRESENT ILLNESS: Ms. Patterson is an 83-year-old female with past medical history of hypertension, dementia, atrial fibrillation, and recent diagnosis of sinonasal cancer, who presents to the emergency room today with complaints of headache. The patient was hospitalized at the facility from 01/03 to 01/09/19. At that time, the patient had suffered a mechanical fall and subsequently had a headache. MRI revealed a concerning mass in the nasopharyngeal area. This was thought to be the explanation for patient's headache. The patient was arranged to have a biopsy and she was discharged from the hospital. She was seen by Oncology prior to discharge and was started on amitriptyline, Tegretol, and Tylenol to manage her headache pain. Reportedly , the patient did have a biopsy with Dr. Lu on 12/29/18. That biopsy ultimately showed sinonasal squamous cell carcinoma. The patient was due to have a followup tomorrow with Dr. Lu and has an appointment scheduled for Monday with Oncology to discuss treatment options. The patient is unable to provide reliable history due to dementia, so history was obtained from her son. He reports that the patient's headaches have actually been going on for over a year, though did not become a significant issue until her recent fall. Since going home, the patient has continued to complain of a severe headache in the frontal and left occipital area. She has been taking 650 mg of Tylenol every 4 hours, which does help with the pain to some degree. The patient's son notes that she has not been eating or drinking much of anything and the only thing she has had to eat within the last couple of days were a few apples. The patient's has also had a difficult time getting her to take her medications. The patient does admit to a headache. She is unable to further describe the pain but does hold her forehead when asked where the pain is. She is not able to state why she is not eating or drinking, so it is not entirely clear if this is just due to lack of appetite or if this is related to the pain. In the emergency room, the patient was noted to have mostly normal labs. Carbon monoxide was mildly elevated at 4.7. ESR is elevated at 100, which is consistent with results from last month. She was noted to be hypertensive and upon arrival, blood pressure was 207/122. It is not entirely clear if she has been taking her medications including metoprolol and amlodipine. Because of concern for hypertension and poor p.o. intake, the hospitalist service was asked to evaluate for admission. PAST MEDICAL HISTORY: 1. Hypertension. 2. Dementia. 3. Atrial fibrillation. 4. Hyperlipidemia. 5. Nasopharyngeal squamous cell carcinoma. PAST SURGICAL HISTORY: 1. Cholecystectomy. 2. Bowel resection. 3. Hysterectomy. HOME MEDICATIONS: 1. Amitriptyline 25 mg p.o. at bedtime. 2. Amlodipine 2.5 mg p.o. b.i.d. 3. Tegretol 200 mg p.o. b.i.d. 4. Diclofenac 1% gel 1 application topically t.i.d. p.r.n. pain. 5. Folic acid 1 mg p.o. daily. 6. Furosemide 20 mg p.o. daily. 7. Metoprolol succinate 25 mg p.o. daily. 8. [place]-3 fatty acid 1000 mg p.o. daily. 9. Potassium chloride 20 mEq p.o. daily. 10. Sertraline 50 mg p.o. daily. 11. Simvastatin 20 mg p.o. at bedtime. 12. Triamcinolone 0.1% ointment 1 application topically b.i.d. 13. Triamcinolone 0.1% paste 1 application topically t.i.d. ALLERGIES: CODEINE, ERYTHROMYCIN, GABAPENTIN, and TRAMADOL. FAMILY HISTORY: The patient's mother had ovarian cancer and she had a brother with lung cancer. No known coronary artery disease or diabetes. SOCIAL HISTORY: The patient denies any alcohol, tobacco, or recreational drug use. She lives at home with her . Her son, Oumar, will be her surrogate decision maker in the event she is unable to make her own decisions. REVIEW OF SYSTEMS: An 11-point review of systems was performed and all the pertinent positive and negative findings are in the HPI. All other systems are negative. PHYSICAL EXAMINATION GENERAL: Ms. Patterson is a well-developed, well-nourished, elderly, white female , lying in bed, in no acute distress. She appears her stated age. VITAL SIGNS: Temp 98.7, heart rate 97, respiratory rate 18, oxygen saturation 95% on room air, and blood pressure 177/103. HEENT: Head is atraumatic, normocephalic. Visual luong are grossly intact. Pupils are equal, round, and reactive to light and accommodation. Extraocular movements intact. Oral mucous membranes slightly dry. NECK: Thyroid not palpable. Trachea midline. No lymphadenopathy. RESPIRATORY: Symmetrical chest expansion. No chest wall deformities. Lungs are clear to auscultation throughout. No rhonchi, wheezes, or rales. CARDIAC: Regular rate and rhythm. S1, S2 present. No murmurs, rubs, or gallops. ABDOMEN: Soft, nontender to palpation. Bowel sounds normoactive throughout. EXTREMITIES: Skin warm and smooth bilaterally. No edema. NEUROLOGIC: Awake, alert, and oriented to self and place. Moves all extremities. Motor strength is 5/5 in upper and lower extremities bilaterally. DIAGNOSTIC STUDIES/LAB DATA: WBC 11.2, RBC 3.8, hemoglobin 11.5, hematocrit 35 , platelets 243. Carbon monoxide 4.7. Sodium 136, potassium 4.1, chloride 103 , carbon dioxide 25, BUN 18, creatinine 1.07, glucose 103, ESR 100. ASSESSMENT AND PLAN: Ms. Patterson is an 83-year-old female with past medical history of hypertension, hyperlipidemia, atrial fibrillation, dementia, and recent diagnosis of nasopharyngeal squamous cell carcinoma, who presents to the emergency room today with complaints of headache and decreased oral intake and was found to be significantly hypertensive. The patient will be admitted to observation for: 1. Hypertensive urgency: The patient had systolic pressures into the 200s in the emergency room. It is unclear if she has been taking her metoprolol and amlodipine at home. I will give her 1 dose of IV metoprolol now and I have ordered p.r.n. hydralazine for any systolic pressures over 170. She has been taking 2.5 mg b.i.d. of amlodipine and I will increase this to 5 mg b.i.d. I will leave her metoprolol dosing as is at this point as I do think that once pain has been managed, her blood pressure may also come down. 2. Headache: The patient's headache is secondary to known nasopharyngeal squamous cell carcinoma. The patient was due to have followup with Dr. Lu tomorrow and appointment with Oncology on Monday. At this point, it is not known if she will undergo any treatment. Dr. Cannon was contacted and he advised that it would be reasonable to start prednisone, so I will start the patient on prednisone tonight in hopes that this will decrease her pain. I have also ordered morphine, Toradol and scheduled doses of Tylenol. She will also be continued on her amitriptyline and Tegretol. 3. Decreased oral intake: The cause of her decreased oral intake is unclear. This could be simply due to pain or this may represent a more prominent decline in the patient's condition. At this point, we will encourage oral intake. I have ordered a regular diet and I will continue her on normal saline 125 mL per hour. There is no evidence of acute kidney injury at this point. 4. Atrial fibrillation: The patient is not on anticoagulation. Continue metoprolol. 5. Dementia: Supportive care. 6. Hyperlipidemia: Continue simvastatin. 7. FEN: Again, she will be continued on normal saline at 125 mL per hour, have a regular diet. She does not require any electrolyte repletion. 8. DVT prophylaxis. According to the DVT risk assessment, the patient's scores 4 putting her at high risk. I have ordered Lovenox. 9. Code status: The patient will be a full code, though this may need to be readdress with the patient and her family pending her clinical course. TIME SPENT: Approximately 60 minutes was spent on this admission, greater than half of that time [id number] with the patient and her son, obtaining my history, performing my physical exam, and reviewing the plan of care. This case has been reviewed with my attending, Dr. Jara, who is in agreement with the plan of care. KRISTIN HERBERT, MARE [id number]/[facility] #: [id number] JAMES
[2019-01-28] MEDS: amLODIPine TAB* 5 MG PO SCH (21:28)
[2019-01-28] MEDS: predniSONE TAB* 20 MG PO SCH (21:28)
[2019-01-28] MEDS: Atorvastatin* 10 MG TAB PO SCH (21:28)
[2019-01-28] MEDS: Amitriptyline TAB* 25 MG PO SCH (21:28)
[2019-01-28] MEDS: carBAMazepine TAB(*) 200 MG PO SCH (21:28)
[2019-01-28] MEDS: NS 0.9% 1000 ML** 1,000 ML IV SCH (21:28)
[2019-01-28] MEDS: Acetaminophen TAB* 325 MG PO SCH (21:28)
[2019-01-29] MEDS: NS 0.9% 1000 ML** 1,000 ML IV SCH ×2 (06:08→19:06)
[2019-01-29 06:57] LABS: ABS Monocytes 0.3 10^3/ul (0-0.8); ABS Neutrophils 8.8 10^3/ul (1.5-7.7); Hematocrit 34 % (35-47); Hemoglobin 11.3 g/dL (12.0-16.0); Lymphocyte % 9.7 %; Mean Corpuscular HGB Conc 34 g/dL (31-36); Mean Corpuscular Hemoglobin 31 pg (27-31); Mean Corpuscular Volume 93 fL (80-97); Mean Platelet Volume 9.3 fL (7.4-10.4); Nucleated Red Blood Cells % 0.1; Platelet Count 224 10^3/uL (150-450); Red Blood Count 3.61 10^6 /uL (3.70-4.87); Red Cell Distribution Width 16 % (10-15); White Blood Count 10.1 10^3/uL (3.5-10.8)
[2019-01-29 07:12] LABS: BUN/Creatinine Ratio 18.5 (8-20); Calcium 8.9 mg/dL (8.6-10.3); EGFR African American 70.4 (>60); EGFR Non-African American 58.2 (>60); Potassium 4.2 mmol/L (3.5-5.0)
[2019-01-29 07:46] LABS: Urine Appearance Clear; Urine Bilirubin Negative (Negative); Urine Blood 1+ (Negative); Urine Color Yellow; Urine Glucose Negative (Negative); Urine Ketones Negative (Negative); Urine Nitrite Negative (Negative); Urine Protein Negative (Negative); Urine Specific Gravity 1.015 (1.010-1.030); Urine Urobilinogen Negative (Negative)
[2019-01-29 07:50] LABS: Urine Bacteria Absent (Absent); Urine Red Blood Cell Trace(0-2/hpf) (Absent); Urine Squamous Epithelial Cell Present (Absent); Urine White Blood Cell Trace(0-5/hpf) (Absent)
[2019-01-29] MEDS: Ketorolac INJ* 15 MG/ML 1 ML VIAL IV PUSH PRN ×3 (09:21→21:33)
[2019-01-29] MEDS: Folic Acid TAB* 1 MG PO SCH (09:22)
[2019-01-29] MEDS: Sertraline* 50 MG TAB PO SCH (09:22)
[2019-01-29] MEDS: carBAMazepine TAB(*) 200 MG PO SCH ×2 (09:22→20:28)
[2019-01-29] MEDS: Metoprolol Succinate XL TAB* 25 MG PO SCH (09:22)
[2019-01-29] MEDS: amLODIPine TAB* 5 MG PO SCH ×2 (09:23→20:28)
[2019-01-29] MEDS: Acetaminophen TAB* 325 MG PO SCH ×3 (09:23→20:27)
[2019-01-29] MEDS: predniSONE TAB* 20 MG PO SCH (09:23)
--- NOTE | 2019-01-29 13:03 | PN ---
Progress Note - Progress Note Date of Service: 01/29/19 SOAP: Subjective: [This is an 83 yo female with a new diagnosis of nasopharyngeal CA who was admitted last month with c/o BECKFORD after sustaining a fall 6 weeks earlier. MRI at that time demonstrated a mass in the nasopharynx. She was seen by Dr Lu who biopsied the mass which was resulted as a P16 negative squamous cell carcinoma. MRI of the head shows no LAD, PET scan has not been completed. Her son reports that she has done very poorly at home. She has eaten very little and continues to complain of BECKFORD. Due to her intractable symptoms and declining performance status she returned to the ER. She reports this morning that she is feeling much better after receiving some toradol earlier in the day. Denies feeling nauseated. Reports feeling a little mixed up from the events of the last 24 hours. ] Objective: [ Vital Signs: Temp Pulse Resp BP Pulse Ox 97.3 F 89 18 155/73 92 01/29/19 11:15 01/29/19 11:15 01/29/19 11:15 01/29/19 11:15 01/29/19 11:15 Acetaminophen (Tylenol Tab*) 975 mg PO TID [facility] Last Admin: 01/29/19 09:23 Dose: 975 mg Amitriptyline HCl (Elavil Tab*) 25 mg PO BEDTIME [facility] Last Admin: 01/28/19 21:28 Dose: 25 mg Amlodipine Besylate (Norvasc Tab*) 5 mg PO BID [facility] Last Admin: 01/29/19 09:23 Dose: 5 mg Atorvastatin Calcium (Lipitor*) 10 mg PO BEDTIME [facility] Last Admin: 01/28/19 21:28 Dose: 10 mg Carbamazepine (Tegretol Tab(*)) 200 mg PO BID [facility] Last Admin: 01/29/19 09:22 Dose: 200 mg Enoxaparin Sodium (Lovenox(*)) 40 mg SUBCUT Q24H [facility] Last Admin: 01/28/19 21:28 Dose: 40 mg Folic Acid (Folvite Tab*) 1 mg PO QAM [facility] Last Admin: 01/29/19 09:22 Dose: 1 mg Hydralazine HCl (Apresoline Iv*) 5 mg IV SLOW PU Q6H PRN PRN Reason: Systolic Bp Greater Than: 170 Sodium Chloride (Ns 0.9% 1000 Ml) 1,000 mls @ 125 mls/hr IV PER RATE [facility] Last Admin: 01/29/19 06:08 Dose: 125 mls/hr Ketorolac Tromethamine (Toradol Inj*) 15 mg IV PUSH Q6H PRN PRN Reason: PAIN - MODERATE Last Admin: 01/29/19 09:21 Dose: 15 mg Metoprolol Succinate (Toprol Xl Tab*) 25 mg PO QAM [facility] Last Admin: 01/29/19 09:22 Dose: 25 mg Morphine Sulfate (Morphine Inj (Syringe))*) 2 mg IV Q4H PRN PRN Reason: PAIN - SEVERE Ondansetron HCl (Zofran Inj*) 4 mg IV Q4H PRN PRN Reason: NAUSEA/VOMITING Prednisone (Deltasone Tab*) 40 mg PO DAILY [facility] Last Admin: 01/29/19 09:23 Dose: 40 mg Sertraline HCl (Zoloft*) 50 mg PO QAM [facility] Last Admin: 01/29/19 09:22 Dose: 50 mg Laboratory Results - last 24 hr 01/28/19 01/28/19 01/28/19 15:13 15:13 15:13 WBC 11.2 H RBC 3.80 Hgb 11.5 L Hct 35 MCV 92 MCH 30 MCHC 33 RDW 16 H Plt Count 243 MPV 9.1 Neut % (Auto) 80.2 Lymph % (Auto) 10.2 [place] % (Auto) 7.1 Eos % (Auto) 2.2 Baso % (Auto) 0.3 Absolute Neuts (auto) 8.9 H Absolute Lymphs (auto) 1.1 Absolute Monos (auto) 0.8 Absolute Eos (auto) 0.2 Absolute Basos (auto) 0.0 Absolute Nucleated RBC 0.0 Nucleated RBC % 0.1 ESR 100 H Carbon Monoxide Screen 4.7 H Sodium 136 Potassium 4.1 Chloride 103 Carbon Dioxide 25 Anion Gap 8 BUN 18 Creatinine 1.07 H Est GFR ( Amer) 59.1 Est GFR (Non-Af Amer) 48.9 BUN/Creatinine Ratio 16.8 Glucose 103 H Calcium 9.6 Total Bilirubin 0.50 AST 17 ALT 11 Alkaline Phosphatase 96 Total Protein 7.6 Albumin 3.7 Globulin 3.9 Albumin/Globulin Ratio 0.9 L Urine Color Urine Appearance Urine pH Ur Specific [place] Urine Protein Urine Ketones Urine Blood Urine Nitrate Urine Bilirubin Urine Urobilinogen Ur Leukocyte Esterase Urine WBC (Auto) Urine RBC (Auto) Ur Squamous Epith Cells Urine Bacteria Urine Glucose 01/29/19 01/29/19 01/29/19 06:31 06:31 07:10 WBC 10.1 RBC 3.61 L Hgb 11.3 L Hct 34 L MCV 93 MCH 31 MCHC 34 RDW 16 H Plt Count 224 MPV 9.3 Neut % (Auto) 87.5 Lymph % (Auto) 9.7 [place] % (Auto) 2.5 Eos % (Auto) 0.0 Baso % (Auto) 0.3 Absolute Neuts (auto) 8.8 H Absolute Lymphs (auto) 1.0 Absolute Monos (auto) 0.3 Absolute Eos (auto) 0.0 Absolute Basos (auto) 0.0 Absolute Nucleated RBC 0.0 Nucleated RBC % 0.1 ESR Carbon Monoxide Screen Sodium 137 Potassium 4.2 Chloride 105 Carbon Dioxide 25 Anion Gap 7 BUN 17 Creatinine 0.92 Est GFR ( Amer) 70.4 Est GFR (Non-Af Amer) 58.2 BUN/Creatinine Ratio 18.5 Glucose 111 H Calcium 8.9 Total Bilirubin AST ALT Alkaline Phosphatase Total Protein Albumin Globulin Albumin/Globulin Ratio Urine Color Yellow Urine Appearance Clear Urine pH 6.0 Ur Specific [place] 1.015 Urine Protein Negative Urine Ketones Negative Urine Blood 1+ A Urine Nitrate Negative Urine Bilirubin Negative Urine Urobilinogen Negative Ur Leukocyte Esterase Negative Urine WBC (Auto) Trace(0-5/hpf) Urine RBC (Auto) Trace(0-2/hpf) Ur Squamous Epith Cells Present A Urine Bacteria Absent Urine Glucose Negative Exam: Gen: somewhat frail appearing 83 yo female in NAD, accompanied by her son HEENT: MMM CV: RRR, no m/r/g Resp: CTA, no w/c/r Abd: soft, nonTTP Ext: no edema] Assessment: [83 yo female with a 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 ] Plan: [1. Hypertensive urgency - resolved, likely being driven by pain 2. BECKFORD - secondary to malignancy - good response to IV toradol this am - cont amitriptyine and trileptal for now - reportedly poor tolerance to tramadol, so hesitant to try more potent opiates, but cont morphine IV prn as she did seem to do well with that in the ER 3. Squamous cell carcinoma of the nasopharynx - complete staging scans with CT C/A/P - requested radiation consultation with Dr Guadalupe - she does not appear to have an appropriate performance status to consider palliative or curative intent chemotherapy at this time - plan to discuss treatment plan further at tumor board tomorrow Dispo: will require LEONID v long-term SNF placement, CM involved
[2019-01-29] MEDS ORDERED: Iodixanol* (CONTRAST) 320 MG/ML 100 ML SDV IV ONE (13:19)
--- OUTSIDE RECORDS SUMMARY | 2019-01-29 16:25 | XMS REPORT ---
:1935 Author Organization [facility] Care Team Providers Name Role Phone Unavailable Unavailable Unavailable Problems This patient has no known problems. Allergies, Adverse Reactions, Alerts Allergy Name Allergy Status Severity Reaction(s) Onset Inactive Treating Comments Type Date Date Clinician codeine Base Active Unknown Reaction 2018-02 Interface Ingredient Unknown 03-10 erythromycin Base Active Unknown Reaction 2018-02 Unknown base Ingredient Unknown 03-10 gabapentin Base Active Unknown Reaction 2018-02 Interface Ingredient Unknown 03-10 Medications Ordered Filled Start Stop Current Ordering Indication Dosage Frequency Signature Comments Components Medication Medication Date Date Medication? Clinician (SIG) Name Name folic acid folic acid Yes Unknown Unknown Unknown 1 mg tablet 1 mg tablet 11-26 furosemide furosemide Yes Unknown Unknown Unknown 20 mg 20 mg -30 tablet tablet sertraline sertraline Yes Unknown Unknown Unknown 50 mg 50 mg 30 tablet tablet simvastatin simvastatin Yes Unknown Unknown Unknown 20 mg 20 mg -30 tablet tablet metoprolol metoprolol Yes Unknown Unknown Unknown succinate succinate 11-26 ER 25 mg ER 25 mg tablet,exte tablet,exte nded nded release 24 release 24 hr hr Potassium Potassium Yes Unknown Unknown Unknown Chlor Tab* Chlor Tab* 11-26 [place]-3 [place]-3 2018-02 Yes Unknown Unknown Unknown Fatty Acids Fatty Acids 03-05 (Nf) (Nf) traMADol 50 traMADol 50 2018-02 Yes Unknown Unknown Unknown mg tablet mg tablet 03-05 amitriptyli amitriptyli 2018-02 Yes Unknown Unknown Unknown ne 25 mg ne 25 mg 03-05 tablet tablet Vital Signs Vital Name Observation Time Observation Value Comments SYSTOLIC mm[Hg] 2019-01-08 18:08:49 149 mm[Hg] mm[Hg] Method: Sit DIASTOLIC mm[Hg] 2019-01-08 18:08:49 54 mm[Hg] mm[Hg] Method: Sit PULSE 2019-01-08 18:08:49 79 /min /min RESP RATE 2019-01-08 18:08:49 18 /min /min TEMP 2019-01-08 18:08:49 97.9 [degF] Procedures This patient has no known procedures. Results Test Description Test Time Test Comments Text Results Atomic Results Result Comments Erythrocyte sedimentation rate 2019-01-07 19:06:00 Identifier 4537-7 Result Unknown by Westergren method Time 2019-01-07 19:06:00 Test Item Value Reference Range Comments Erythrocyte sedimentation rate by Westergren method 100 mm/Hr Unknown Unknown F (test code = 4537-7) Ordering Physician UnknownSerum or plasma calcium measurement (mass/volume)01-07 05:47:00Identifier 98636-8 Result Time 2019-01-07 05:47:00Unknown Test Item Value Reference Range Comments Serum or plasma calcium measurement 9.0 mg/dL Unknown Unknown F (mass/volume) (test code = 66609-5) Ordering Physician UnknownSerum or plasma carbon dioxide, total measurement ( moles/volume)2019-01-07 05:47:00Identifier 8-9 Result Time 2019-01-07 05:47: 00Unknown Test Item Value Reference Range Comments Serum or plasma carbon dioxide, total 24 mmol/L Unknown Unknown F measurement (moles/volume) (test code = 2028-9) Ordering Physician UnknownSerum or plasma chloride measurement (moles/volume) 2019-01-07 05:47:00Identifier 2075-0 Result Time 2019-01-07 05:47:00Unknown Test Item Value Reference Range Comments Serum or plasma chloride measurement 108 mmol/L Unknown Unknown F (moles/volume) (test code = 2075-0) Ordering Physician UnknownSerum or plasma creatinine measurement (mass/volume) 2019-01-07 05:47:00Identifier 2160-0 Result Time 2019-01-07 05:47:00Unknown Test Item Value Reference Range Comments Serum or plasma creatinine measurement 0.99 mg/dL Unknown Unknown F (mass/volume) (test code = 2160-0) Ordering Physician UnknownSerum glucose measurement (mass/volume)2019-01-07 05: 47:00Identifier 2345-7 Result Time 2019-01-07 05:47:00Unknown Test Item Value Reference Range Comments Serum glucose measurement (mass/volume) 85 mg/dL Unknown Unknown F (test code = 2345-7) Ordering Physician UnknownSerum or plasma potassium measurement (moles/volume) 2019-01-07 05:47:00Identifier 2823-3 Result Time 2019-01-07 05:47:00Unknown Test Item Value Reference Range Comments Serum or plasma potassium measurement 4.0 mmol/L Unknown Unknown F (moles/volume) (test code = 2823-3) Ordering Physician UnknownSerum or plasma sodium measurement (moles/volume)01-07 05:47:00Identifier 2951-2 Result Time 2019-01-07 05:47:00Unknown Test Item Value Reference Range Comments Serum or plasma sodium measurement 139 mmol/L Unknown Unknown F (moles/volume) (test code = 2951-2) Ordering Physician UnknownSerum or plasma urea nitrogen measurement (mass/volume )2019-01-07 05:47:00Identifier 3094-0 Result Time 2019-01-07 05:47:00Unknown Test Item Value Reference Range Comments Serum or plasma urea nitrogen measurement 17 mg/dL Unknown Unknown F (mass/volume) (test code = 3094-0) Ordering Physician UnknownSerum or plasma urea nitrogen/creatinine [id number]- 11 05:47:00Identifier 3097-3 Result Time 2019-01-07 05:47:00Unknown Test Item Value Reference Range Comments Serum or plasma urea nitrogen/creatinine 17.2 Unknown Unknown F ratio (test code = 3097-3) Ordering Physician UnknownSerum or plasma anion [id number] 05:47: 00Identifier 38351-9 Result Time 2019-01-07 05:47:00Unknown Test Item Value Reference Range Comments Serum or plasma anion gap (test code = 7 mmol/L Unknown Unknown F 76623-9) Ordering Physician UnknownEstimated glomerular filtration rate (GFR) non- Lldgsltc1195-63-51 05:47:00Identifier 77181-2 Result Time 2019-01-07 05: 47:00Unknown Test Item Value Reference Range Comments Estimated glomerular filtration rate (GFR) 53.4 Unknown Unknown F non- (test code = 25980-8) Ordering Physician UnknownAutomated blood platelet mean volume sfykigcevfg0215- 11-08 04:18:00Identifier 57536-7 Result Time 2019-01-04 04:18:00Unknown Test Item Value Reference Range Comments Automated blood platelet mean volume 9.6 fL Unknown Unknown F measurement (test code = 22692-1) Ordering Physician UnknownAutomated blood leukocytes count corrected for nucleated erythrocytes (number/volume)2019-01-04 04:18:00Identifier 81205-7 Result Time 2019-01-04 04:18:00Unknown Test Item Value Reference Range Comments Automated blood leukocytes count 10.1 10^3/uL Unknown Unknown F corrected for nucleated erythrocytes (number/volume) (test code = 69661-8) Ordering Physician UnknownAutomated blood hematocrit (percentage)2019-01-04 04: 18:00Identifier 4544-3 Result Time 2019-01-04 04:18:00Unknown Test Item Value Reference Range Comments Automated blood hematocrit (percentage) (test 33 % Unknown Unknown F code = 4544-3) Ordering Physician UnknownBlood hemoglobin measurement (mass/volume)2019-01-04 04:18:00Identifier 718-7 Result Time 2019-01-04 04:18:00Unknown Test Item Value Reference Range Comments Blood hemoglobin measurement 11.0 g/dL Unknown Unknown F (mass/volume) (test code = 718-7) Ordering Physician UnknownAutomated blood platelet count (number/volume) 04:18:00Identifier 777-3 Result Time 2019-01-04 04:18:00Unknown Test Item Value Reference Range Comments Automated blood platelet count 205 10^3/uL Unknown Unknown F (number/volume) (test code = 777-3) Ordering Physician UnknownAutomated erythrocyte mean corpuscular hemoglobin ( mass per erythrocyte)2019-01-04 04:18:00Identifier 785-6 Result Time 2019-01-04 04:18:00Unknown Test Item Value Reference Range Comments Automated erythrocyte mean corpuscular 30 pg Unknown Unknown F hemoglobin (mass per erythrocyte) (test code = 785-6) Ordering Physician UnknownAutomated erythrocyte mean corpuscular hemoglobin concentration measurement (mass/eax1029-52-29 04:18:00Identifier 786-4 Result Time 2019-01-04 04:18:00Unknown Test Item Value Reference Range Comments Automated erythrocyte mean corpuscular 34 g/dL Unknown Unknown F hemoglobin concentration measurement (mass/vol (test code = 786-4) Ordering Physician UnknownAutomated erythrocyte mean corpuscular zlnqjx4293-73- 08 04:18:00Identifier 787-2 Result Time 2019-01-04 04:18:00Unknown Test Item Value Reference Range Comments Automated erythrocyte mean corpuscular volume 91 fL Unknown Unknown F (test code = 787-2) Ordering Physician UnknownAutomated erythrocyte distribution width gsgxc9918-90- 08 04:18:00Identifier 788-0 Result Time 2019-01-04 04:18:00Unknown Test Item Value Reference Range Comments Automated erythrocyte distribution width ratio 15 % Unknown Unknown F (test code = 788-0) Ordering Physician UnknownAutomated blood erythrocyte count (number/volume)01-04 04:18:00Identifier 789-8 Result Time 2019-01-04 04:18:00Unknown Test Item Value Reference Range Comments Automated blood erythrocyte count 3.63 10^6 /uL Unknown Unknown F (number/volume) (test code = 789-8) Ordering Physician UnknownUrine urobilinogen measurement (units/volume) by test sznlo1872-45-13 15:54:00Identifier 89609-9 Result Time 2019-01-03 15:54: 00Unknown Test Item Value Reference Range Comments Urine urobilinogen measurement Negative Unknown Unknown F (units/volume) by test strip (test code = 58731-3) Ordering Physician UnknownUrine bacteria detection by automated turkfw1994-90- 07 15:54:00Identifier 86930-5 Result Time 2019-01-03 15:54:00Unknown Test Item Value Reference Range Comments Urine bacteria detection by automated Absent Unknown Unknown F method (test code = 48380-7) Ordering Physician UnknownUrine total bilirubin detection by automated test [id number] 15:54:00Identifier 01371-4 Result Time 2019-01-03 15:54: 00Unknown Test Item Value Reference Range Comments Urine total bilirubin detection by Negative Unknown Unknown F automated test strip (test code = 89525-4) Ordering Physician UnknownUrine clarity by refractometry bxbvdorlr2169-93-10 15: 54:00Identifier 39480-7 Result Time 2019-01-03 15:54:00Unknown Test Item Value Reference Range Comments Urine clarity by refractometry automated Clear Unknown Unknown F (test code = 14473-0) Ordering Physician UnknownColor of Urine by Dfoz3398-13-46 15:54:00Identifier 79239-8 Result Time 2019-01-03 15:54:00Unknown Test Item Value Reference Range Comments Color of Urine by Auto (test code = Yellow Unknown Unknown F 98370-9) Ordering Physician UnknownUrine glucose detection by automated test ybfpo1630-39 -07 15:54:00Identifier 50773-3 Result Time 2019-01-03 15:54:00Unknown Test Item Value Reference Range Comments Urine glucose detection by automated test Negative Unknown Unknown F strip (test code = 31695-9) Ordering Physician UnknownKetones [Mass/volume] in Urine by Automated test olcvo0852-51-05 15:54:00Identifier 30620-0 Result Time 2019-01-03 15:54: 00Unknown Test Item Value Reference Range Comments Ketones [Mass/volume] in Urine by Negative Unknown Unknown F Automated test strip (test code = 12917-7) Ordering Physician UnknownUrine nitrite detection by automated test wgbav6949-89 -07 15:54:00Identifier 73515-9 Result Time 2019-01-03 15:54:00Unknown Test Item Value Reference Range Comments Urine nitrite detection by automated test Negative Unknown Unknown F strip (test code = 72950-9) Ordering Physician UnknownProtein [Mass/volume] in Urine by Automated test [id number] 15:54:00Identifier 01955-4 Result Time 2019-01-03 15:54: 00Unknown Test Item Value Reference Range Comments Protein [Mass/volume] in Urine by 1+(30 mg/dl) Unknown Unknown F Automated test strip (test code = 51006-2) Ordering Physician UnknownSpecific gravity of Urine by Refractometry ledgdoagv5836-29-00 15:54:00Identifier 72298-9 Result Time 2019-01-03 15:54: 00Unknown Test Item Value Reference Range Comments Specific gravity of Urine by Refractometry 1.014 Unknown Unknown F automated (test code = 43773-7) Ordering Physician UnknownUrine erythrocytes detection by automated dyynmj477201-03 15:54:00Identifier 72213-6 Result Time 2019-01-03 15:54:00Unknown Test Item Value Reference Range Comments Urine erythrocytes detection by 1+(3-5/hpf) Unknown Unknown F automated method (test code = 11064-8) Ordering Physician UnknownUrine leukocytes detection by automated lzjseb5066-78- 07 15:54:00Identifier 31692-8 Result Time 2019-01-03 15:54:00Unknown Test Item Value Reference Range Comments Urine leukocytes detection by automated Absent Unknown Unknown F method (test code = 21223-6) Ordering Physician UnknownUrine hemoglobin detection by test bhjao1543-46-02 15: 54:00Identifier 5794-3 Result Time 2019-01-03 15:54:00Unknown Test Item Value Reference Range Comments Urine hemoglobin detection by test strip Negative Unknown Unknown F (test code = 5794-3) Ordering Physician UnknownUrine leukocyte esterase detection by automated test qzlao4664-13-22 15:54:00Identifier 91764-9 Result Time 2019-01-03 15:54: 00Unknown Test Item Value Reference Range Comments Urine leukocyte esterase detection by Negative Unknown Unknown F automated test strip (test code = 02705-1) Ordering Physician UnknownSerum or plasma troponin i.cardiac measurement (mass/ volume)2019-01-03 12:14:00Identifier 34396-2 Result Time 2019-01-03 12:14: 00Unknown Test Item Value Reference Range Comments Serum or plasma troponin i.cardiac 0.00 ng/mL Unknown Unknown F measurement (mass/volume) (test code = 35292-1) Ordering Physician UnknownSerum or plasma alanine aminotransferase measurement ( enzymatic activity/volume)2019-01-03 12:14:00Identifier 1742-6 Result Time 01-03 12:14:00Unknown Test Item Value Reference Range Comments Serum or plasma alanine aminotransferase 7 U/L Unknown Unknown F measurement (enzymatic activity/volume) (test code = 1742-6) Ordering Physician UnknownSerum or plasma albumin/globulin mass [id number] 12:14:00Identifier 1759-0 Result Time 2019-01-03 12:14:00Unknown Test Item Value Reference Range Comments Serum or plasma albumin/globulin mass ratio 1.1 Unknown Unknown F (test code = 1759-0) Ordering Physician UnknownSerum or plasma aspartate aminotransferase measurement (enzymatic activity/volume)2019-01-03 12:14:00Identifier 1920-8 Result Time 2019-01-03 12:14:00Unknown Test Item Value Reference Range Comments Serum or plasma aspartate aminotransferase 15 U/L Unknown Unknown F measurement (enzymatic activity/volume) (test code = 1920-8) Ordering Physician UnknownSerum or plasma total bilirubin measurement (mass/ volume)2019-01-03 12:14:00Identifier 1975-2 Result Time 2019-01-03 12:14: 00Unknown Test Item Value Reference Range Comments Serum or plasma total bilirubin 0.60 mg/dL Unknown Unknown F measurement (mass/volume) (test code = 1975-2) Ordering Physician UnknownSerum or plasma vitamin B12 measurement (mass/volume) 2019-01-03 12:14:00Identifier 2132-9 Result Time 2019-01-03 12:14:00Unknown Test Item Value Reference Range Comments Serum or plasma vitamin B12 measurement 1092 pg/mL Unknown Unknown F (mass/volume) (test code = 2132-9) Ordering Physician UnknownSerum or plasma folate measurement (mass/volume)01-03 12:14:00Identifier 2284-8 Result Time 2019-01-03 12:14:00Unknown Test Item Value Reference Range Comments Serum or plasma folate measurement > 20.00 ng/mL Unknown Unknown F (mass/volume) (test code = 2284-8) Ordering Physician UnknownSerum total protein measurement (mass/volume) 12:14:00Identifier 2885-2 Result Time 2019-01-03 12:14:00Unknown Test Item Value Reference Range Comments Serum total protein measurement 7.8 g/dL Unknown Unknown F (mass/volume) (test code = 2885-2) Ordering Physician UnknownSerum or plasma thyroid stimulating hormone (TSH) measurement (units/volume)2019-01-03 12:14:00Identifier 3016-3 Result Time 01-03 12:14:00Unknown Test Item Value Reference Range Comments Serum or plasma thyroid stimulating 0.76 mcIU/mL Unknown Unknown F hormone (TSH) measurement (units/volume) (test code = 3016-3) Ordering Physician UnknownAutomated blood nucleated erythrocytes ezxdlvcwn3344- 11-07 12:14:00Identifier 61679-1 Result Time 2019-01-03 12:14:00Unknown Test Item Value Reference Range Comments Automated blood nucleated erythrocytes 0.0 Unknown Unknown F detection (test code = 04871-2) Ordering Physician UnknownAutomated blood monocytes/100 sefldleguq6874-23-31 12: 14:00Identifier 5905-5 Result Time 2019-01-03 12:14:00Unknown Test Item Value Reference Range Comments Automated blood monocytes/100 leukocytes 3.6 % Unknown Unknown F (test code = 5905-5) Ordering Physician UnknownSerum or plasma albumin measurement by bromocresol green (BCG) dye binding method (cu1391-04-25 12:14:00Identifier 61866-0 Result Time 2019-01-03 12:14:00Unknown Test Item Value Reference Range Comments Serum or plasma albumin measurement by 4.0 g/dL Unknown Unknown F bromocresol green (BCG) dye binding method (ma (test code = 78990-4) Ordering Physician UnknownSerum or plasma alkaline phosphatase measurement ( enzymatic activity/volume)2019-01-03 12:14:00Identifier 6768-6 Result Time 01-03 12:14:00Unknown Test Item Value Reference Range Comments Serum or plasma alkaline phosphatase 75 U/L Unknown Unknown F measurement (enzymatic activity/volume) (test code = 6768-6) Ordering Physician UnknownAutomated blood basophil count (number/volume) 12:14:00Identifier 704-7 Result Time 2019-01-03 12:14:00Unknown Test Item Value Reference Range Comments Automated blood basophil count 0.1 10^3/ul Unknown Unknown F (number/volume) (test code = 704-7) Ordering Physician UnknownAutomated blood basophils/100 [id number] 12: 14:00Identifier 706-2 Result Time 2019-01-03 12:14:00Unknown Test Item Value Reference Range Comments Automated blood basophils/100 leukocytes 0.9 % Unknown Unknown F (test code = 706-2) Ordering Physician UnknownAutomated blood eosinophil count (number/volume)01-03 12:14:00Identifier 711-2 Result Time 2019-01-03 12:14:00Unknown Test Item Value Reference Range Comments Automated blood eosinophil count 0.0 10^3/ul Unknown Unknown F (number/volume) (test code = 711-2) Ordering Physician UnknownAutomated blood eosinophils/100 kbaejcvoyj0053-00-08 12:14:00Identifier 713-8 Result Time 2019-01-03 12:14:00Unknown Test Item Value Reference Range Comments Automated blood eosinophils/100 leukocytes 0.5 % Unknown Unknown F (test code = 713-8) Ordering Physician UnknownBlood lymphocytes automated count (number/volume)01-03 12:14:00Identifier 731-0 Result Time 2019-01-03 12:14:00Unknown Test Item Value Reference Range Comments Blood lymphocytes automated count 0.9 10^3/ul Unknown Unknown F (number/volume) (test code = 731-0) Ordering Physician UnknownAutomated blood lymphocytes/100 tuhroxbvis3541-25-20 12:14:00Identifier 736-9 Result Time 2019-01-03 12:14:00Unknown Test Item Value Reference Range Comments Automated blood lymphocytes/100 leukocytes 10.3 % Unknown Unknown F (test code = 736-9) Ordering Physician UnknownBlood monocytes automated count (number/volume)2018-12 12:14:00Identifier 742-7 Result Time 2019-01-03 12:14:00Unknown Test Item Value Reference Range Comments Blood monocytes automated count 0.3 10^3/ul Unknown Unknown F (number/volume) (test code = 742-7) Ordering Physician UnknownAutomated blood neutrophils/100 ymsyyjqpni6968-23-74 12:14:00Identifier 770-8 Result Time 2019-01-03 12:14:00Unknown Test Item Value Reference Range Comments Automated blood neutrophils/100 leukocytes 84.7 % Unknown Unknown F (test code = 770-8) Ordering Physician UnknownBlood nucleated erythrocytes automated count (number/ volume)2019-01-03 12:14:00Identifier 771-6 Result Time 2019-01-03 12:14: 00Unknown Test Item Value Reference Range Comments Blood nucleated erythrocytes automated 0.0 10^3/ul Unknown Unknown F count (number/volume) (test code = 771-6) Ordering Physician UnknownCT biopsy [id number] 12:14:00Identifier [id number] Result Time 2019-01-03 12:14:00Unknown Test Item Value Reference Range Comments CT biopsy liver (test code = MGR3619) 7.8 10^3/ul Unknown Unknown F Ordering Physician Unknown
--- OUTSIDE RECORDS SUMMARY | 2019-01-29 16:25 | XMS REPORT ---
:1935 Author Organization [facility] Care Team Providers Name Role Phone Unavailable [...] Unknown Unknown Chlor Tab* Chlor Tab* 11-26 [place]-3 [place]-3 2018-02 Yes Unknown Unknown Unknown Fatty Acids [...] UnknownSerum or plasma calcium measurement (mass/volume)01-07 05:47:00Identifier 67079-7 Result Time 2019-01-07 05:47:00Unknown Test Item Value Reference Range Comments Serum or plasma calcium measurement 9.0 mg/dL Unknown Unknown F (mass/volume) (test code = 65455-4) Ordering Physician UnknownSerum or plasma carbon dioxide, [...] Ordering Physician UnknownSerum or plasma urea nitrogen/creatinine kgrdi9745-92- 11 05:47:00Identifier 3097-3 Result Time 2019-01-07 05:47:00Unknown Test Item Value Reference Range Comments Serum or plasma urea nitrogen/creatinine 17.2 Unknown Unknown F ratio (test code = 3097-3) Ordering Physician UnknownSerum or plasma anion ggp8787-64-15 05:47: 00Identifier 32928-6 Result Time 2019-01-07 05:47:00Unknown Test Item Value Reference Range Comments Serum or plasma anion gap (test code = 7 mmol/L Unknown Unknown F 23872-2) Ordering Physician UnknownEstimated glomerular filtration rate (GFR) non- Spzxnepp6189-25-91 05:47:00Identifier 68170-2 Result Time 2019-01-07 05: 47:00Unknown Test Item Value Reference Range Comments Estimated glomerular filtration rate (GFR) 53.4 Unknown Unknown F non- (test code = 91841-4) Ordering Physician UnknownAutomated blood platelet mean volume qxrtacphojd7861- 11-08 04:18:00Identifier 36876-5 Result Time 2019-01-04 04:18:00Unknown Test Item Value Reference Range Comments Automated blood platelet mean volume 9.6 fL Unknown Unknown F measurement (test code = 34838-2) Ordering Physician UnknownAutomated blood leukocytes count corrected for nucleated erythrocytes (number/volume)2019-01-04 04:18:00Identifier 85531-8 Result Time 2019-01-04 04:18:00Unknown Test Item Value Reference Range Comments Automated blood leukocytes count 10.1 10^3/uL Unknown Unknown F corrected for nucleated erythrocytes (number/volume) (test code = 43157-4) Ordering Physician UnknownAutomated blood hematocrit (percentage)2019-01-04 04: [...] UnknownAutomated erythrocyte mean corpuscular hemoglobin concentration measurement (mass/rqu3432-44-32 04:18:00Identifier 786-4 Result Time 2019-01-04 04:18:00Unknown Test Item Value Reference Range Comments Automated erythrocyte mean corpuscular 34 g/dL Unknown Unknown F hemoglobin concentration measurement (mass/vol (test code = 786-4) Ordering Physician UnknownAutomated erythrocyte mean corpuscular axjdpy6796-50- 08 04:18:00Identifier 787-2 Result Time 2019-01-04 04:18:00Unknown Test Item Value Reference Range Comments Automated erythrocyte mean corpuscular volume 91 fL Unknown Unknown F (test code = 787-2) Ordering Physician UnknownAutomated erythrocyte distribution width yvhzx4045-39- 08 04:18:00Identifier 788-0 Result Time 2019-01-04 04:18:00Unknown [...] Physician UnknownUrine urobilinogen measurement (units/volume) by test qbwqp9568-24-27 15:54:00Identifier 92470-7 Result Time 2019-01-03 15:54: 00Unknown Test Item Value Reference Range Comments Urine urobilinogen measurement Negative Unknown Unknown F (units/volume) by test strip (test code = 17858-3) Ordering Physician UnknownUrine bacteria detection by automated kcdbmv2569-76- 07 15:54:00Identifier 37278-7 Result Time 2019-01-03 15:54:00Unknown Test Item Value Reference Range Comments Urine bacteria detection by automated Absent Unknown Unknown F method (test code = 91493-8) Ordering Physician UnknownUrine total bilirubin detection by automated test fajeu2013-18-32 15:54:00Identifier 06080-8 Result Time 2019-01-03 15:54: 00Unknown Test Item Value Reference Range Comments Urine total bilirubin detection by Negative Unknown Unknown F automated test strip (test code = 27660-1) Ordering Physician UnknownUrine clarity by refractometry pipdmjneo5187-51-07 15: 54:00Identifier 42369-6 Result Time 2019-01-03 15:54:00Unknown Test Item Value Reference Range Comments Urine clarity by refractometry automated Clear Unknown Unknown F (test code = 14995-7) Ordering Physician UnknownColor of Urine by Hzpy5670-15-85 15:54:00Identifier 73180-6 Result Time 2019-01-03 15:54:00Unknown Test Item Value Reference Range Comments Color of Urine by Auto (test code = Yellow Unknown Unknown F 50845-1) Ordering Physician UnknownUrine glucose detection by automated test obuve2642-01 -07 15:54:00Identifier 57883-8 Result Time 2019-01-03 15:54:00Unknown Test Item Value Reference Range Comments Urine glucose detection by automated test Negative Unknown Unknown F strip (test code = 09494-0) Ordering Physician UnknownKetones [Mass/volume] in Urine by Automated test iympq3125-89-40 15:54:00Identifier 72208-2 Result Time 2019-01-03 15:54: 00Unknown Test Item Value Reference Range Comments Ketones [Mass/volume] in Urine by Negative Unknown Unknown F Automated test strip (test code = 24487-1) Ordering Physician UnknownUrine nitrite detection by automated test tbatz7722-18 -07 15:54:00Identifier 02371-0 Result Time 2019-01-03 15:54:00Unknown Test Item Value Reference Range Comments Urine nitrite detection by automated test Negative Unknown Unknown F strip (test code = 31607-0) Ordering Physician UnknownProtein [Mass/volume] in Urine by Automated test bqvqv3699-20-72 15:54:00Identifier 09109-4 Result Time 2019-01-03 15:54: 00Unknown Test Item Value Reference Range Comments Protein [Mass/volume] in Urine by 1+(30 mg/dl) Unknown Unknown F Automated test strip (test code = 59235-3) Ordering Physician UnknownSpecific gravity of Urine by Refractometry zpkgtfmzt6115-86-05 15:54:00Identifier 82714-4 Result Time 2019-01-03 15:54: 00Unknown Test Item Value Reference Range Comments Specific gravity of Urine by Refractometry 1.014 Unknown Unknown F automated (test code = 03804-7) Ordering Physician UnknownUrine erythrocytes detection by automated ldfuzk759401-03 15:54:00Identifier 60050-2 Result Time 2019-01-03 15:54:00Unknown Test Item Value Reference Range Comments Urine erythrocytes detection by 1+(3-5/hpf) Unknown Unknown F automated method (test code = 66652-0) Ordering Physician UnknownUrine leukocytes detection by automated oyutjb2989-33- 07 15:54:00Identifier 18581-8 Result Time 2019-01-03 15:54:00Unknown Test Item Value Reference Range Comments Urine leukocytes detection by automated Absent Unknown Unknown F method (test code = 30565-6) Ordering Physician UnknownUrine hemoglobin detection by test ukvvs2651-78-67 15: 54:00Identifier 5794-3 Result Time 2019-01-03 15:54:00Unknown Test Item Value Reference Range Comments Urine hemoglobin detection by test strip Negative Unknown Unknown F (test code = 5794-3) Ordering Physician UnknownUrine leukocyte esterase detection by automated test ablvq8515-97-84 15:54:00Identifier 04932-8 Result Time 2019-01-03 15:54: 00Unknown Test Item Value Reference Range Comments Urine leukocyte esterase detection by Negative Unknown Unknown F automated test strip (test code = 66819-1) Ordering Physician UnknownSerum or plasma troponin i.cardiac measurement (mass/ volume)2019-01-03 12:14:00Identifier 17929-2 Result Time 2019-01-03 12:14: 00Unknown Test Item Value Reference Range Comments Serum or plasma troponin i.cardiac 0.00 ng/mL Unknown Unknown F measurement (mass/volume) (test code = 05477-5) Ordering Physician UnknownSerum or plasma alanine aminotransferase measurement ( enzymatic activity/volume)2019-01-03 12:14:00Identifier 1742-6 Result Time 01-03 12:14:00Unknown Test Item Value Reference Range Comments Serum or plasma alanine aminotransferase 7 U/L Unknown Unknown F measurement (enzymatic activity/volume) (test code = 1742-6) Ordering Physician UnknownSerum or plasma albumin/globulin mass qczlq0960-90-96 12:14:00Identifier 1759-0 Result Time 2019-01-03 12:14:00Unknown Test [...] 3016-3) Ordering Physician UnknownAutomated blood nucleated erythrocytes blkhtvqgo0802- 11-07 12:14:00Identifier 87144-0 Result Time 2019-01-03 12:14:00Unknown Test Item Value Reference Range Comments Automated blood nucleated erythrocytes 0.0 Unknown Unknown F detection (test code = 46098-9) Ordering Physician UnknownAutomated blood monocytes/100 rlcqhbeyav1518-64-20 12: 14:00Identifier 5905-5 Result Time 2019-01-03 12:14:00Unknown Test Item Value Reference Range Comments Automated blood monocytes/100 leukocytes 3.6 % Unknown Unknown F (test code = 5905-5) Ordering Physician UnknownSerum or plasma albumin measurement by bromocresol green (BCG) dye binding method (xx7689-58-84 12:14:00Identifier 60333-8 Result Time 2019-01-03 12:14:00Unknown Test Item Value Reference Range Comments Serum or plasma albumin measurement by 4.0 g/dL Unknown Unknown F bromocresol green (BCG) dye binding method (ma (test code = 10383-2) Ordering Physician UnknownSerum or plasma alkaline phosphatase [...] = 704-7) Ordering Physician UnknownAutomated blood basophils/100 mzuxjfxbxq4318-41-69 12: 14:00Identifier 706-2 Result Time 2019-01-03 12:14:00Unknown [...] = 711-2) Ordering Physician UnknownAutomated blood eosinophils/100 sftcbexaxh7222-57-98 12:14:00Identifier 713-8 Result Time 2019-01-03 12:14:00Unknown Test Item Value Reference Range Comments Automated blood eosinophils/100 leukocytes 0.5 % Unknown Unknown F (test code = 713-8) Ordering Physician UnknownBlood lymphocytes automated count (number/volume)01-03 12:14:00Identifier 731-0 Result Time 2019-01-03 12:14:00Unknown Test Item Value Reference Range Comments Blood lymphocytes automated count 0.9 10^3/ul Unknown Unknown F (number/volume) (test code = 731-0) Ordering Physician UnknownAutomated blood lymphocytes/100 ytgagkzwef7256-60-40 12:14:00Identifier 736-9 Result Time 2019-01-03 12:14:00Unknown Test Item Value Reference Range Comments Automated blood lymphocytes/100 leukocytes 10.3 % Unknown Unknown F (test code = 736-9) Ordering Physician UnknownBlood monocytes automated count (number/volume)2018-12 12:14:00Identifier 742-7 Result Time 2019-01-03 12:14:00Unknown Test Item Value Reference Range Comments Blood monocytes automated count 0.3 10^3/ul Unknown Unknown F (number/volume) (test code = 742-7) Ordering Physician UnknownAutomated blood neutrophils/100 mnkbepgsuo8075-98-04 12:14:00Identifier 770-8 Result Time 2019-01-03 12:14:00Unknown Test [...] code = 771-6) Ordering Physician UnknownCT biopsy rxgfh4146-30-74 12:14:00Identifier [id number] Result Time 2019-01-03 12:14:00Unknown Test Item Value Reference Range Comments CT biopsy liver (test code = NHR1524) 7.8 10^3/ul Unknown Unknown F Ordering Physician Unknown
--- OUTSIDE RECORDS SUMMARY | 2019-01-29 16:25 | XMS REPORT ---
:1935 Author Organization [facility] Care Team Providers Name Role Phone Unavailable [...] Unknown Unknown Chlor Tab* Chlor Tab* 11-26 [place]-3 [place]-3 2018-02 Yes Unknown Unknown Unknown Fatty Acids [...] UnknownSerum or plasma calcium measurement (mass/volume)01-07 05:47:00Identifier 39734-5 Result Time 2019-01-07 05:47:00Unknown Test Item Value Reference Range Comments Serum or plasma calcium measurement 9.0 mg/dL Unknown Unknown F (mass/volume) (test code = 87655-2) Ordering Physician UnknownSerum or plasma carbon dioxide, [...] Ordering Physician UnknownSerum or plasma urea nitrogen/creatinine zzcan5879-55- 11 05:47:00Identifier 3097-3 Result Time 2019-01-07 05:47:00Unknown Test Item Value Reference Range Comments Serum or plasma urea nitrogen/creatinine 17.2 Unknown Unknown F ratio (test code = 3097-3) Ordering Physician UnknownSerum or plasma anion bnw2709-02-14 05:47: 00Identifier 07214-9 Result Time 2019-01-07 05:47:00Unknown Test Item Value Reference Range Comments Serum or plasma anion gap (test code = 7 mmol/L Unknown Unknown F 77972-7) Ordering Physician UnknownEstimated glomerular filtration rate (GFR) non- Tctwsymt3343-13-56 05:47:00Identifier 39011-6 Result Time 2019-01-07 05: 47:00Unknown Test Item Value Reference Range Comments Estimated glomerular filtration rate (GFR) 53.4 Unknown Unknown F non- (test code = 05966-5) Ordering Physician UnknownAutomated blood platelet mean volume omostabtxrv5370- 11-08 04:18:00Identifier 06640-2 Result Time 2019-01-04 04:18:00Unknown Test Item Value Reference Range Comments Automated blood platelet mean volume 9.6 fL Unknown Unknown F measurement (test code = 04509-5) Ordering Physician UnknownAutomated blood leukocytes count corrected for nucleated erythrocytes (number/volume)2019-01-04 04:18:00Identifier 98164-5 Result Time 2019-01-04 04:18:00Unknown Test Item Value Reference Range Comments Automated blood leukocytes count 10.1 10^3/uL Unknown Unknown F corrected for nucleated erythrocytes (number/volume) (test code = 83517-3) Ordering Physician UnknownAutomated blood hematocrit (percentage)2019-01-04 04: [...] UnknownAutomated erythrocyte mean corpuscular hemoglobin concentration measurement (mass/ugo3469-34-01 04:18:00Identifier 786-4 Result Time 2019-01-04 04:18:00Unknown Test Item Value Reference Range Comments Automated erythrocyte mean corpuscular 34 g/dL Unknown Unknown F hemoglobin concentration measurement (mass/vol (test code = 786-4) Ordering Physician UnknownAutomated erythrocyte mean corpuscular iojubw1673-99- 08 04:18:00Identifier 787-2 Result Time 2019-01-04 04:18:00Unknown Test Item Value Reference Range Comments Automated erythrocyte mean corpuscular volume 91 fL Unknown Unknown F (test code = 787-2) Ordering Physician UnknownAutomated erythrocyte distribution width fszxy8960-88- 08 04:18:00Identifier 788-0 Result Time 2019-01-04 04:18:00Unknown [...] Physician UnknownUrine urobilinogen measurement (units/volume) by test gtqxl6713-45-33 15:54:00Identifier 71225-1 Result Time 2019-01-03 15:54: 00Unknown Test Item Value Reference Range Comments Urine urobilinogen measurement Negative Unknown Unknown F (units/volume) by test strip (test code = 92963-6) Ordering Physician UnknownUrine bacteria detection by automated jawird0561-55- 07 15:54:00Identifier 73549-1 Result Time 2019-01-03 15:54:00Unknown Test Item Value Reference Range Comments Urine bacteria detection by automated Absent Unknown Unknown F method (test code = 80818-7) Ordering Physician UnknownUrine total bilirubin detection by automated test hmlkb4910-14-22 15:54:00Identifier 73713-2 Result Time 2019-01-03 15:54: 00Unknown Test Item Value Reference Range Comments Urine total bilirubin detection by Negative Unknown Unknown F automated test strip (test code = 76825-0) Ordering Physician UnknownUrine clarity by refractometry eyoyswdux7045-76-60 15: 54:00Identifier 32966-1 Result Time 2019-01-03 15:54:00Unknown Test Item Value Reference Range Comments Urine clarity by refractometry automated Clear Unknown Unknown F (test code = 61036-4) Ordering Physician UnknownColor of Urine by Hmwh6509-20-41 15:54:00Identifier 66437-6 Result Time 2019-01-03 15:54:00Unknown Test Item Value Reference Range Comments Color of Urine by Auto (test code = Yellow Unknown Unknown F 34578-5) Ordering Physician UnknownUrine glucose detection by automated test bkakt7536-14 -07 15:54:00Identifier 43439-4 Result Time 2019-01-03 15:54:00Unknown Test Item Value Reference Range Comments Urine glucose detection by automated test Negative Unknown Unknown F strip (test code = 98522-4) Ordering Physician UnknownKetones [Mass/volume] in Urine by Automated test wgicv9916-16-43 15:54:00Identifier 12199-4 Result Time 2019-01-03 15:54: 00Unknown Test Item Value Reference Range Comments Ketones [Mass/volume] in Urine by Negative Unknown Unknown F Automated test strip (test code = 46649-8) Ordering Physician UnknownUrine nitrite detection by automated test pbhmd7620-28 -07 15:54:00Identifier 41515-7 Result Time 2019-01-03 15:54:00Unknown Test Item Value Reference Range Comments Urine nitrite detection by automated test Negative Unknown Unknown F strip (test code = 04195-0) Ordering Physician UnknownProtein [Mass/volume] in Urine by Automated test wrzww1183-33-89 15:54:00Identifier 83855-1 Result Time 2019-01-03 15:54: 00Unknown Test Item Value Reference Range Comments Protein [Mass/volume] in Urine by 1+(30 mg/dl) Unknown Unknown F Automated test strip (test code = 94720-7) Ordering Physician UnknownSpecific gravity of Urine by Refractometry otlolslfb4894-82-44 15:54:00Identifier 79175-0 Result Time 2019-01-03 15:54: 00Unknown Test Item Value Reference Range Comments Specific gravity of Urine by Refractometry 1.014 Unknown Unknown F automated (test code = 31315-4) Ordering Physician UnknownUrine erythrocytes detection by automated catxer994201-03 15:54:00Identifier 72831-1 Result Time 2019-01-03 15:54:00Unknown Test Item Value Reference Range Comments Urine erythrocytes detection by 1+(3-5/hpf) Unknown Unknown F automated method (test code = 58945-3) Ordering Physician UnknownUrine leukocytes detection by automated folnaq8103-32- 07 15:54:00Identifier 02757-9 Result Time 2019-01-03 15:54:00Unknown Test Item Value Reference Range Comments Urine leukocytes detection by automated Absent Unknown Unknown F method (test code = 28577-4) Ordering Physician UnknownUrine hemoglobin detection by test nwdjs2418-53-89 15: 54:00Identifier 5794-3 Result Time 2019-01-03 15:54:00Unknown Test Item Value Reference Range Comments Urine hemoglobin detection by test strip Negative Unknown Unknown F (test code = 5794-3) Ordering Physician UnknownUrine leukocyte esterase detection by automated test acckz9948-81-71 15:54:00Identifier 36754-7 Result Time 2019-01-03 15:54: 00Unknown Test Item Value Reference Range Comments Urine leukocyte esterase detection by Negative Unknown Unknown F automated test strip (test code = 19735-9) Ordering Physician UnknownSerum or plasma troponin i.cardiac measurement (mass/ volume)2019-01-03 12:14:00Identifier 59247-0 Result Time 2019-01-03 12:14: 00Unknown Test Item Value Reference Range Comments Serum or plasma troponin i.cardiac 0.00 ng/mL Unknown Unknown F measurement (mass/volume) (test code = 07099-1) Ordering Physician UnknownSerum or plasma alanine aminotransferase measurement ( enzymatic activity/volume)2019-01-03 12:14:00Identifier 1742-6 Result Time 01-03 12:14:00Unknown Test Item Value Reference Range Comments Serum or plasma alanine aminotransferase 7 U/L Unknown Unknown F measurement (enzymatic activity/volume) (test code = 1742-6) Ordering Physician UnknownSerum or plasma albumin/globulin mass aixlm6909-23-63 12:14:00Identifier 1759-0 Result Time 2019-01-03 12:14:00Unknown Test [...] 3016-3) Ordering Physician UnknownAutomated blood nucleated erythrocytes puoanvmch3480- 11-07 12:14:00Identifier 47076-0 Result Time 2019-01-03 12:14:00Unknown Test Item Value Reference Range Comments Automated blood nucleated erythrocytes 0.0 Unknown Unknown F detection (test code = 01877-8) Ordering Physician UnknownAutomated blood monocytes/100 pcozctozkt8425-95-22 12: 14:00Identifier 5905-5 Result Time 2019-01-03 12:14:00Unknown Test Item Value Reference Range Comments Automated blood monocytes/100 leukocytes 3.6 % Unknown Unknown F (test code = 5905-5) Ordering Physician UnknownSerum or plasma albumin measurement by bromocresol green (BCG) dye binding method (qr6390-73-44 12:14:00Identifier 67785-6 Result Time 2019-01-03 12:14:00Unknown Test Item Value Reference Range Comments Serum or plasma albumin measurement by 4.0 g/dL Unknown Unknown F bromocresol green (BCG) dye binding method (ma (test code = 38936-1) Ordering Physician UnknownSerum or plasma alkaline phosphatase [...] = 704-7) Ordering Physician UnknownAutomated blood basophils/100 izqekoehrx4183-80-46 12: 14:00Identifier 706-2 Result Time 2019-01-03 12:14:00Unknown [...] = 711-2) Ordering Physician UnknownAutomated blood eosinophils/100 fgazxsmmkl2958-19-09 12:14:00Identifier 713-8 Result Time 2019-01-03 12:14:00Unknown Test Item Value Reference Range Comments Automated blood eosinophils/100 leukocytes 0.5 % Unknown Unknown F (test code = 713-8) Ordering Physician UnknownBlood lymphocytes automated count (number/volume)01-03 12:14:00Identifier 731-0 Result Time 2019-01-03 12:14:00Unknown Test Item Value Reference Range Comments Blood lymphocytes automated count 0.9 10^3/ul Unknown Unknown F (number/volume) (test code = 731-0) Ordering Physician UnknownAutomated blood lymphocytes/100 tysqquprky8152-95-95 12:14:00Identifier 736-9 Result Time 2019-01-03 12:14:00Unknown Test Item Value Reference Range Comments Automated blood lymphocytes/100 leukocytes 10.3 % Unknown Unknown F (test code = 736-9) Ordering Physician UnknownBlood monocytes automated count (number/volume)2018-12 12:14:00Identifier 742-7 Result Time 2019-01-03 12:14:00Unknown Test Item Value Reference Range Comments Blood monocytes automated count 0.3 10^3/ul Unknown Unknown F (number/volume) (test code = 742-7) Ordering Physician UnknownAutomated blood neutrophils/100 thodzteynx5709-77-56 12:14:00Identifier 770-8 Result Time 2019-01-03 12:14:00Unknown Test [...] code = 771-6) Ordering Physician UnknownCT biopsy ucjdj2875-81-92 12:14:00Identifier [id number] Result Time 2019-01-03 12:14:00Unknown Test Item Value Reference Range Comments CT biopsy liver (test code = MBJ0958) 7.8 10^3/ul Unknown Unknown F Ordering Physician Unknown
--- OUTSIDE RECORDS SUMMARY | 2019-01-29 16:25 | XMS REPORT ---
:1935 Author Organization [facility] Providers Name Role Phone Unavailable [...] Unknown Unknown Chlor Tab* Chlor Tab* 11-26 [place]-3 [place]-3 2018-02 Yes Unknown Unknown Unknown Fatty Acids [...] UnknownSerum or plasma calcium measurement (mass/volume)01-07 05:47:00Identifier 95344-4 Result Time 2019-01-07 05:47:00Unknown Test Item Value Reference Range Comments Serum or plasma calcium measurement 9.0 mg/dL Unknown Unknown F (mass/volume) (test code = 71471-7) Ordering Physician UnknownSerum or plasma carbon dioxide, [...] Ordering Physician UnknownSerum or plasma urea nitrogen/creatinine pokhi1194-26- 11 05:47:00Identifier 3097-3 Result Time 2019-01-07 05:47:00Unknown Test Item Value Reference Range Comments Serum or plasma urea nitrogen/creatinine 17.2 Unknown Unknown F ratio (test code = 3097-3) Ordering Physician UnknownSerum or plasma anion [id number] 05:47: 00Identifier 48173-1 Result Time 2019-01-07 05:47:00Unknown Test Item Value Reference Range Comments Serum or plasma anion gap (test code = 7 mmol/L Unknown Unknown F 60778-9) Ordering Physician UnknownEstimated glomerular filtration rate (GFR) non- Dawbeisk2981-75-71 05:47:00Identifier 53985-8 Result Time 2019-01-07 05: 47:00Unknown Test Item Value Reference Range Comments Estimated glomerular filtration rate (GFR) 53.4 Unknown Unknown F non- (test code = 17581-4) Ordering Physician UnknownAutomated blood platelet mean volume vunniweeljw1597- 11-08 04:18:00Identifier 17683-6 Result Time 2019-01-04 04:18:00Unknown Test Item Value Reference Range Comments Automated blood platelet mean volume 9.6 fL Unknown Unknown F measurement (test code = 50838-0) Ordering Physician UnknownAutomated blood leukocytes count corrected for nucleated erythrocytes (number/volume)2019-01-04 04:18:00Identifier 18975-8 Result Time 2019-01-04 04:18:00Unknown Test Item Value Reference Range Comments Automated blood leukocytes count 10.1 10^3/uL Unknown Unknown F corrected for nucleated erythrocytes (number/volume) (test code = 79622-5) Ordering Physician UnknownAutomated blood hematocrit (percentage)2019-01-04 04: [...] UnknownAutomated erythrocyte mean corpuscular hemoglobin concentration measurement (mass/rxc2073-90-54 04:18:00Identifier 786-4 Result Time 2019-01-04 04:18:00Unknown Test Item Value Reference Range Comments Automated erythrocyte mean corpuscular 34 g/dL Unknown Unknown F hemoglobin concentration measurement (mass/vol (test code = 786-4) Ordering Physician UnknownAutomated erythrocyte mean corpuscular mgjjol5147-04- 08 04:18:00Identifier 787-2 Result Time 2019-01-04 04:18:00Unknown Test Item Value Reference Range Comments Automated erythrocyte mean corpuscular volume 91 fL Unknown Unknown F (test code = 787-2) Ordering Physician UnknownAutomated erythrocyte distribution width jfmaa9484-36- 08 04:18:00Identifier 788-0 Result Time 2019-01-04 04:18:00Unknown [...] Physician UnknownUrine urobilinogen measurement (units/volume) by test ttkwl9542-60-36 15:54:00Identifier 68811-7 Result Time 2019-01-03 15:54: 00Unknown Test Item Value Reference Range Comments Urine urobilinogen measurement Negative Unknown Unknown F (units/volume) by test strip (test code = 55581-1) Ordering Physician UnknownUrine bacteria detection by automated qtkumd3068-51- 07 15:54:00Identifier 04787-9 Result Time 2019-01-03 15:54:00Unknown Test Item Value Reference Range Comments Urine bacteria detection by automated Absent Unknown Unknown F method (test code = 31475-6) Ordering Physician UnknownUrine total bilirubin detection by automated test yclzq8303-52-16 15:54:00Identifier 09947-0 Result Time 2019-01-03 15:54: 00Unknown Test Item Value Reference Range Comments Urine total bilirubin detection by Negative Unknown Unknown F automated test strip (test code = 58849-2) Ordering Physician UnknownUrine clarity by refractometry tbnkajbbn7878-06-39 15: 54:00Identifier 36804-8 Result Time 2019-01-03 15:54:00Unknown Test Item Value Reference Range Comments Urine clarity by refractometry automated Clear Unknown Unknown F (test code = 55420-7) Ordering Physician UnknownColor of Urine by Asag9312-10-25 15:54:00Identifier 59910-7 Result Time 2019-01-03 15:54:00Unknown Test Item Value Reference Range Comments Color of Urine by Auto (test code = Yellow Unknown Unknown F 06998-0) Ordering Physician UnknownUrine glucose detection by automated test wwpbc1984-23 -07 15:54:00Identifier 95193-9 Result Time 2019-01-03 15:54:00Unknown Test Item Value Reference Range Comments Urine glucose detection by automated test Negative Unknown Unknown F strip (test code = 81514-0) Ordering Physician UnknownKetones [Mass/volume] in Urine by Automated test ubnbj4029-42-50 15:54:00Identifier 16655-6 Result Time 2019-01-03 15:54: 00Unknown Test Item Value Reference Range Comments Ketones [Mass/volume] in Urine by Negative Unknown Unknown F Automated test strip (test code = 31676-5) Ordering Physician UnknownUrine nitrite detection by automated test hbhvz3319-74 -07 15:54:00Identifier 43684-3 Result Time 2019-01-03 15:54:00Unknown Test Item Value Reference Range Comments Urine nitrite detection by automated test Negative Unknown Unknown F strip (test code = 29038-5) Ordering Physician UnknownProtein [Mass/volume] in Urine by Automated test isukr5994-01-16 15:54:00Identifier 79705-5 Result Time 2019-01-03 15:54: 00Unknown Test Item Value Reference Range Comments Protein [Mass/volume] in Urine by 1+(30 mg/dl) Unknown Unknown F Automated test strip (test code = 37204-4) Ordering Physician UnknownSpecific gravity of Urine by Refractometry zdrvxnnri0576-78-45 15:54:00Identifier 75559-4 Result Time 2019-01-03 15:54: 00Unknown Test Item Value Reference Range Comments Specific gravity of Urine by Refractometry 1.014 Unknown Unknown F automated (test code = 95134-8) Ordering Physician UnknownUrine erythrocytes detection by automated gfhrky548801-03 15:54:00Identifier 46353-2 Result Time 2019-01-03 15:54:00Unknown Test Item Value Reference Range Comments Urine erythrocytes detection by 1+(3-5/hpf) Unknown Unknown F automated method (test code = 01639-0) Ordering Physician UnknownUrine leukocytes detection by automated txiqwm4244-43- 07 15:54:00Identifier 61541-8 Result Time 2019-01-03 15:54:00Unknown Test Item Value Reference Range Comments Urine leukocytes detection by automated Absent Unknown Unknown F method (test code = 49420-4) Ordering Physician UnknownUrine hemoglobin detection by test tgehn4226-06-25 15: 54:00Identifier 5794-3 Result Time 2019-01-03 15:54:00Unknown Test Item Value Reference Range Comments Urine hemoglobin detection by test strip Negative Unknown Unknown F (test code = 5794-3) Ordering Physician UnknownUrine leukocyte esterase detection by automated test yhbhb2012-29-01 15:54:00Identifier 73227-2 Result Time 2019-01-03 15:54: 00Unknown Test Item Value Reference Range Comments Urine leukocyte esterase detection by Negative Unknown Unknown F automated test strip (test code = 66899-9) Ordering Physician UnknownSerum or plasma troponin i.cardiac measurement (mass/ volume)2019-01-03 12:14:00Identifier 22734-4 Result Time 2019-01-03 12:14: 00Unknown Test Item Value Reference Range Comments Serum or plasma troponin i.cardiac 0.00 ng/mL Unknown Unknown F measurement (mass/volume) (test code = 87846-7) Ordering Physician UnknownSerum or plasma alanine aminotransferase measurement ( enzymatic activity/volume)2019-01-03 12:14:00Identifier 1742-6 Result Time 01-03 12:14:00Unknown Test Item Value Reference Range Comments Serum or plasma alanine aminotransferase 7 U/L Unknown Unknown F measurement (enzymatic activity/volume) (test code = 1742-6) Ordering Physician UnknownSerum or plasma albumin/globulin mass zhvfv0547-19-64 12:14:00Identifier 1759-0 Result Time 2019-01-03 12:14:00Unknown Test [...] 3016-3) Ordering Physician UnknownAutomated blood nucleated erythrocytes kzrocejze3522- 11-07 12:14:00Identifier 08269-9 Result Time 2019-01-03 12:14:00Unknown Test Item Value Reference Range Comments Automated blood nucleated erythrocytes 0.0 Unknown Unknown F detection (test code = 83463-7) Ordering Physician UnknownAutomated blood monocytes/100 znsduebema6174-20-06 12: 14:00Identifier 5905-5 Result Time 2019-01-03 12:14:00Unknown Test Item Value Reference Range Comments Automated blood monocytes/100 leukocytes 3.6 % Unknown Unknown F (test code = 5905-5) Ordering Physician UnknownSerum or plasma albumin measurement by bromocresol green (BCG) dye binding method (ft8685-03-45 12:14:00Identifier 24581-0 Result Time 2019-01-03 12:14:00Unknown Test Item Value Reference Range Comments Serum or plasma albumin measurement by 4.0 g/dL Unknown Unknown F bromocresol green (BCG) dye binding method (ma (test code = 83206-8) Ordering Physician UnknownSerum or plasma alkaline phosphatase [...] = 704-7) Ordering Physician UnknownAutomated blood basophils/100 ttgjeboluf6044-40-08 12: 14:00Identifier 706-2 Result Time 2019-01-03 12:14:00Unknown [...] = 711-2) Ordering Physician UnknownAutomated blood eosinophils/100 waihhprnev0345-68-13 12:14:00Identifier 713-8 Result Time 2019-01-03 12:14:00Unknown Test Item Value Reference Range Comments Automated blood eosinophils/100 leukocytes 0.5 % Unknown Unknown F (test code = 713-8) Ordering Physician UnknownBlood lymphocytes automated count (number/volume)01-03 12:14:00Identifier 731-0 Result Time 2019-01-03 12:14:00Unknown Test Item Value Reference Range Comments Blood lymphocytes automated count 0.9 10^3/ul Unknown Unknown F (number/volume) (test code = 731-0) Ordering Physician UnknownAutomated blood lymphocytes/100 rrncheyzkv7880-32-08 12:14:00Identifier 736-9 Result Time 2019-01-03 12:14:00Unknown Test Item Value Reference Range Comments Automated blood lymphocytes/100 leukocytes 10.3 % Unknown Unknown F (test code = 736-9) Ordering Physician UnknownBlood monocytes automated count (number/volume)2018-12 12:14:00Identifier 742-7 Result Time 2019-01-03 12:14:00Unknown Test Item Value Reference Range Comments Blood monocytes automated count 0.3 10^3/ul Unknown Unknown F (number/volume) (test code = 742-7) Ordering Physician UnknownAutomated blood neutrophils/100 rwftaonwkw8306-17-77 12:14:00Identifier 770-8 Result Time 2019-01-03 12:14:00Unknown Test [...] code = 771-6) Ordering Physician UnknownCT biopsy qlvgt1637-26-42 12:14:00Identifier IAX1482 Result Time 2019-01-03 12:14:00Unknown Test Item Value Reference Range Comments CT biopsy liver (test code = QYE4627) 7.8 10^3/ul Unknown Unknown F Ordering Physician Unknown
--- OUTSIDE RECORDS SUMMARY | 2019-01-29 16:25 | XMS REPORT ---
:1935 Author Organization [facility] Team Providers Name Role Phone [...] Unknown Unknown Chlor Tab* Chlor Tab* 11-26 [place]-3 [place]-3 2018-02 Yes Unknown Unknown Unknown Fatty Acids [...] UnknownSerum or plasma calcium measurement (mass/volume)01-07 05:47:00Identifier 41619-3 Result Time 2019-01-07 05:47:00Unknown Test Item Value Reference Range Comments Serum or plasma calcium measurement 9.0 mg/dL Unknown Unknown F (mass/volume) (test code = 99813-4) Ordering Physician UnknownSerum or plasma carbon dioxide, [...] Ordering Physician UnknownSerum or plasma urea nitrogen/creatinine opoie8453-89- 11 05:47:00Identifier 3097-3 Result Time 2019-01-07 05:47:00Unknown Test Item Value Reference Range Comments Serum or plasma urea nitrogen/creatinine 17.2 Unknown Unknown F ratio (test code = 3097-3) Ordering Physician UnknownSerum or plasma anion xav0711-87-47 05:47: 00Identifier 97888-7 Result Time 2019-01-07 05:47:00Unknown Test Item Value Reference Range Comments Serum or plasma anion gap (test code = 7 mmol/L Unknown Unknown F 09322-4) Ordering Physician UnknownEstimated glomerular filtration rate (GFR) non- Qpvfkrfc1010-82-22 05:47:00Identifier 74177-5 Result Time 2019-01-07 05: 47:00Unknown Test Item Value Reference Range Comments Estimated glomerular filtration rate (GFR) 53.4 Unknown Unknown F non- (test code = 56545-0) Ordering Physician UnknownAutomated blood platelet mean volume jxnyvhtvbwl2279- 11-08 04:18:00Identifier 04315-9 Result Time 2019-01-04 04:18:00Unknown Test Item Value Reference Range Comments Automated blood platelet mean volume 9.6 fL Unknown Unknown F measurement (test code = 35999-4) Ordering Physician UnknownAutomated blood leukocytes count corrected for nucleated erythrocytes (number/volume)2019-01-04 04:18:00Identifier 45709-1 Result Time 2019-01-04 04:18:00Unknown Test Item Value Reference Range Comments Automated blood leukocytes count 10.1 10^3/uL Unknown Unknown F corrected for nucleated erythrocytes (number/volume) (test code = 64278-2) Ordering Physician UnknownAutomated blood hematocrit (percentage)2019-01-04 04: [...] UnknownAutomated erythrocyte mean corpuscular hemoglobin concentration measurement (mass/pha3775-88-48 04:18:00Identifier 786-4 Result Time 2019-01-04 04:18:00Unknown Test Item Value Reference Range Comments Automated erythrocyte mean corpuscular 34 g/dL Unknown Unknown F hemoglobin concentration measurement (mass/vol (test code = 786-4) Ordering Physician UnknownAutomated erythrocyte mean corpuscular rlyean6285-88- 08 04:18:00Identifier 787-2 Result Time 2019-01-04 04:18:00Unknown Test Item Value Reference Range Comments Automated erythrocyte mean corpuscular volume 91 fL Unknown Unknown F (test code = 787-2) Ordering Physician UnknownAutomated erythrocyte distribution width hpnaq4918-50- 08 04:18:00Identifier 788-0 Result Time 2019-01-04 04:18:00Unknown [...] Physician UnknownUrine urobilinogen measurement (units/volume) by test vtgud8837-06-26 15:54:00Identifier 38384-1 Result Time 2019-01-03 15:54: 00Unknown Test Item Value Reference Range Comments Urine urobilinogen measurement Negative Unknown Unknown F (units/volume) by test strip (test code = 63606-7) Ordering Physician UnknownUrine bacteria detection by automated pzsird2308-36- 07 15:54:00Identifier 84846-1 Result Time 2019-01-03 15:54:00Unknown Test Item Value Reference Range Comments Urine bacteria detection by automated Absent Unknown Unknown F method (test code = 30699-4) Ordering Physician UnknownUrine total bilirubin detection by automated test ohsrw9841-48-56 15:54:00Identifier 63027-7 Result Time 2019-01-03 15:54: 00Unknown Test Item Value Reference Range Comments Urine total bilirubin detection by Negative Unknown Unknown F automated test strip (test code = 35794-5) Ordering Physician UnknownUrine clarity by refractometry hdjtuojyp1762-59-64 15: 54:00Identifier 82289-0 Result Time 2019-01-03 15:54:00Unknown Test Item Value Reference Range Comments Urine clarity by refractometry automated Clear Unknown Unknown F (test code = 52625-4) Ordering Physician UnknownColor of Urine by Rstz6705-41-11 15:54:00Identifier 80876-0 Result Time 2019-01-03 15:54:00Unknown Test Item Value Reference Range Comments Color of Urine by Auto (test code = Yellow Unknown Unknown F 81208-3) Ordering Physician UnknownUrine glucose detection by automated test pnert6252-08 -07 15:54:00Identifier 92413-4 Result Time 2019-01-03 15:54:00Unknown Test Item Value Reference Range Comments Urine glucose detection by automated test Negative Unknown Unknown F strip (test code = 64572-4) Ordering Physician UnknownKetones [Mass/volume] in Urine by Automated test batye6884-43-21 15:54:00Identifier 96602-2 Result Time 2019-01-03 15:54: 00Unknown Test Item Value Reference Range Comments Ketones [Mass/volume] in Urine by Negative Unknown Unknown F Automated test strip (test code = 66824-5) Ordering Physician UnknownUrine nitrite detection by automated test rfdaa3542-43 -07 15:54:00Identifier 84746-3 Result Time 2019-01-03 15:54:00Unknown Test Item Value Reference Range Comments Urine nitrite detection by automated test Negative Unknown Unknown F strip (test code = 59891-2) Ordering Physician UnknownProtein [Mass/volume] in Urine by Automated test dmxha8727-31-60 15:54:00Identifier 50569-4 Result Time 2019-01-03 15:54: 00Unknown Test Item Value Reference Range Comments Protein [Mass/volume] in Urine by 1+(30 mg/dl) Unknown Unknown F Automated test strip (test code = 10617-1) Ordering Physician UnknownSpecific gravity of Urine by Refractometry zaysowykq6495-62-46 15:54:00Identifier 17349-4 Result Time 2019-01-03 15:54: 00Unknown Test Item Value Reference Range Comments Specific gravity of Urine by Refractometry 1.014 Unknown Unknown F automated (test code = 92353-5) Ordering Physician UnknownUrine erythrocytes detection by automated ghkhpy034201-03 15:54:00Identifier 43580-3 Result Time 2019-01-03 15:54:00Unknown Test Item Value Reference Range Comments Urine erythrocytes detection by 1+(3-5/hpf) Unknown Unknown F automated method (test code = 73961-4) Ordering Physician UnknownUrine leukocytes detection by automated jepdro1271-20- 07 15:54:00Identifier 60509-6 Result Time 2019-01-03 15:54:00Unknown Test Item Value Reference Range Comments Urine leukocytes detection by automated Absent Unknown Unknown F method (test code = 37008-0) Ordering Physician UnknownUrine hemoglobin detection by test sipvg0916-06-92 15: 54:00Identifier 5794-3 Result Time 2019-01-03 15:54:00Unknown Test Item Value Reference Range Comments Urine hemoglobin detection by test strip Negative Unknown Unknown F (test code = 5794-3) Ordering Physician UnknownUrine leukocyte esterase detection by automated test fmeos8441-36-23 15:54:00Identifier 06036-7 Result Time 2019-01-03 15:54: 00Unknown Test Item Value Reference Range Comments Urine leukocyte esterase detection by Negative Unknown Unknown F automated test strip (test code = 79356-1) Ordering Physician UnknownSerum or plasma troponin i.cardiac measurement (mass/ volume)2019-01-03 12:14:00Identifier 38005-5 Result Time 2019-01-03 12:14: 00Unknown Test Item Value Reference Range Comments Serum or plasma troponin i.cardiac 0.00 ng/mL Unknown Unknown F measurement (mass/volume) (test code = 98341-3) Ordering Physician UnknownSerum or plasma alanine aminotransferase measurement ( enzymatic activity/volume)2019-01-03 12:14:00Identifier 1742-6 Result Time 01-03 12:14:00Unknown Test Item Value Reference Range Comments Serum or plasma alanine aminotransferase 7 U/L Unknown Unknown F measurement (enzymatic activity/volume) (test code = 1742-6) Ordering Physician UnknownSerum or plasma albumin/globulin mass imttk7323-47-08 12:14:00Identifier 1759-0 Result Time 2019-01-03 12:14:00Unknown Test [...] 3016-3) Ordering Physician UnknownAutomated blood nucleated erythrocytes wigyulznt3319- 11-07 12:14:00Identifier 54738-1 Result Time 2019-01-03 12:14:00Unknown Test Item Value Reference Range Comments Automated blood nucleated erythrocytes 0.0 Unknown Unknown F detection (test code = 29334-9) Ordering Physician UnknownAutomated blood monocytes/100 sgbncqlvjo6111-56-30 12: 14:00Identifier 5905-5 Result Time 2019-01-03 12:14:00Unknown Test Item Value Reference Range Comments Automated blood monocytes/100 leukocytes 3.6 % Unknown Unknown F (test code = 5905-5) Ordering Physician UnknownSerum or plasma albumin measurement by bromocresol green (BCG) dye binding method (to6407-38-74 12:14:00Identifier 66488-5 Result Time 2019-01-03 12:14:00Unknown Test Item Value Reference Range Comments Serum or plasma albumin measurement by 4.0 g/dL Unknown Unknown F bromocresol green (BCG) dye binding method (ma (test code = 88064-0) Ordering Physician UnknownSerum or plasma alkaline phosphatase [...] = 704-7) Ordering Physician UnknownAutomated blood basophils/100 arodmqzblm0931-45-15 12: 14:00Identifier 706-2 Result Time 2019-01-03 12:14:00Unknown [...] = 711-2) Ordering Physician UnknownAutomated blood eosinophils/100 cbtkvsfkww5184-94-18 12:14:00Identifier 713-8 Result Time 2019-01-03 12:14:00Unknown Test Item Value Reference Range Comments Automated blood eosinophils/100 leukocytes 0.5 % Unknown Unknown F (test code = 713-8) Ordering Physician UnknownBlood lymphocytes automated count (number/volume)01-03 12:14:00Identifier 731-0 Result Time 2019-01-03 12:14:00Unknown Test Item Value Reference Range Comments Blood lymphocytes automated count 0.9 10^3/ul Unknown Unknown F (number/volume) (test code = 731-0) Ordering Physician UnknownAutomated blood lymphocytes/100 lmcjpetafi8454-99-87 12:14:00Identifier 736-9 Result Time 2019-01-03 12:14:00Unknown Test Item Value Reference Range Comments Automated blood lymphocytes/100 leukocytes 10.3 % Unknown Unknown F (test code = 736-9) Ordering Physician UnknownBlood monocytes automated count (number/volume)2018-12 12:14:00Identifier 742-7 Result Time 2019-01-03 12:14:00Unknown Test Item Value Reference Range Comments Blood monocytes automated count 0.3 10^3/ul Unknown Unknown F (number/volume) (test code = 742-7) Ordering Physician UnknownAutomated blood neutrophils/100 wujwvfklii2317-14-80 12:14:00Identifier 770-8 Result Time 2019-01-03 12:14:00Unknown Test [...] code = 771-6) Ordering Physician UnknownCT biopsy cbjsj8034-57-82 12:14:00Identifier [id number] Result Time 2019-01-03 12:14:00Unknown Test Item Value Reference Range Comments CT biopsy liver (test code = FJS2265) 7.8 10^3/ul Unknown Unknown F Ordering Physician Unknown
--- OUTSIDE RECORDS SUMMARY | 2019-01-29 16:26 | XMS REPORT ---
:1935 Author Organization [facility] Care Team Providers Name Role [...] Unknown Unknown Chlor Tab* Chlor Tab* 11-26 [place] 2018-02 Yes Unknown Unknown Unknown Fatty Acids [...] UnknownSerum or plasma calcium measurement (mass/volume)01-07 05:47:00Identifier 30160-5 Result Time 2019-01-07 05:47:00Unknown Test Item Value Reference Range Comments Serum or plasma calcium measurement 9.0 mg/dL Unknown Unknown F (mass/volume) (test code = 32192-6) Ordering Physician UnknownSerum or plasma carbon dioxide, [...] Ordering Physician UnknownSerum or plasma urea nitrogen/creatinine nvjuo7999-02- 11 05:47:00Identifier 3097-3 Result Time 2019-01-07 05:47:00Unknown Test Item Value Reference Range Comments Serum or plasma urea nitrogen/creatinine 17.2 Unknown Unknown F ratio (test code = 3097-3) Ordering Physician UnknownSerum or plasma anion svm2820-64-76 05:47: 00Identifier 55955-6 Result Time 2019-01-07 05:47:00Unknown Test Item Value Reference Range Comments Serum or plasma anion gap (test code = 7 mmol/L Unknown Unknown F 64316-7) Ordering Physician UnknownEstimated glomerular filtration rate (GFR) non- [place]o2426-00-47 05:47:00Identifier 68773-0 Result Time 2019-01-07 05: 47:00Unknown Test Item Value Reference Range Comments Estimated glomerular filtration rate (GFR) 53.4 Unknown Unknown F non- (test code = 39955-6) Ordering Physician UnknownAutomated blood platelet mean volume sgvtkounwqk6777- 11-08 04:18:00Identifier 55076-9 Result Time 2019-01-04 04:18:00Unknown Test Item Value Reference Range Comments Automated blood platelet mean volume 9.6 fL Unknown Unknown F measurement (test code = 64776-0) Ordering Physician UnknownAutomated blood leukocytes count corrected for nucleated erythrocytes (number/volume)2019-01-04 04:18:00Identifier 46035-3 Result Time 2019-01-04 04:18:00Unknown Test Item Value Reference Range Comments Automated blood leukocytes count 10.1 10^3/uL Unknown Unknown F corrected for nucleated erythrocytes (number/volume) (test code = 22534-9) Ordering Physician UnknownAutomated blood hematocrit (percentage)2019-01-04 04: [...] UnknownAutomated erythrocyte mean corpuscular hemoglobin concentration measurement (mass/rhu1380-97-62 04:18:00Identifier 786-4 Result Time 2019-01-04 04:18:00Unknown Test Item Value Reference Range Comments Automated erythrocyte mean corpuscular 34 g/dL Unknown Unknown F hemoglobin concentration measurement (mass/vol (test code = 786-4) Ordering Physician UnknownAutomated erythrocyte mean corpuscular yxyfpk8802-77- 08 04:18:00Identifier 787-2 Result Time 2019-01-04 04:18:00Unknown Test Item Value Reference Range Comments Automated erythrocyte mean corpuscular volume 91 fL Unknown Unknown F (test code = 787-2) Ordering Physician UnknownAutomated erythrocyte distribution width kzmvh5195-80- 08 04:18:00Identifier 788-0 Result Time 2019-01-04 04:18:00Unknown [...] Physician UnknownUrine urobilinogen measurement (units/volume) by test vuytx8017-25-42 15:54:00Identifier 55909-7 Result Time 2019-01-03 15:54: 00Unknown Test Item Value Reference Range Comments Urine urobilinogen measurement Negative Unknown Unknown F (units/volume) by test strip (test code = 14569-9) Ordering Physician UnknownUrine bacteria detection by automated argzmw2408-70- 07 15:54:00Identifier 82537-9 Result Time 2019-01-03 15:54:00Unknown Test Item Value Reference Range Comments Urine bacteria detection by automated Absent Unknown Unknown F method (test code = 99431-2) Ordering Physician UnknownUrine total bilirubin detection by automated test dwktv1034-68-70 15:54:00Identifier 15228-1 Result Time 2019-01-03 15:54: 00Unknown Test Item Value Reference Range Comments Urine total bilirubin detection by Negative Unknown Unknown F automated test strip (test code = 35036-0) Ordering Physician UnknownUrine clarity by refractometry xfptrmket1397-41-92 15: 54:00Identifier 86376-3 Result Time 2019-01-03 15:54:00Unknown Test Item Value Reference Range Comments Urine clarity by refractometry automated Clear Unknown Unknown F (test code = 74572-8) Ordering Physician UnknownColor of Urine by Vjja0529-47-01 15:54:00Identifier 31722-4 Result Time 2019-01-03 15:54:00Unknown Test Item Value Reference Range Comments Color of Urine by Auto (test code = Yellow Unknown Unknown F 87466-6) Ordering Physician UnknownUrine glucose detection by automated test bkaft5904-02 -07 15:54:00Identifier 92263-0 Result Time 2019-01-03 15:54:00Unknown Test Item Value Reference Range Comments Urine glucose detection by automated test Negative Unknown Unknown F strip (test code = 53025-3) Ordering Physician UnknownKetones [Mass/volume] in Urine by Automated test vqqth9054-77-36 15:54:00Identifier 20212-3 Result Time 2019-01-03 15:54: 00Unknown Test Item Value Reference Range Comments Ketones [Mass/volume] in Urine by Negative Unknown Unknown F Automated test strip (test code = 78698-5) Ordering Physician UnknownUrine nitrite detection by automated test slywg4052-80 -07 15:54:00Identifier 81964-5 Result Time 2019-01-03 15:54:00Unknown Test Item Value Reference Range Comments Urine nitrite detection by automated test Negative Unknown Unknown F strip (test code = 24570-0) Ordering Physician UnknownProtein [Mass/volume] in Urine by Automated test udtbs4177-12-91 15:54:00Identifier 79744-9 Result Time 2019-01-03 15:54: 00Unknown Test Item Value Reference Range Comments Protein [Mass/volume] in Urine by 1+(30 mg/dl) Unknown Unknown F Automated test strip (test code = 72095-2) Ordering Physician UnknownSpecific gravity of Urine by Refractometry larmixell0146-25-14 15:54:00Identifier 79100-3 Result Time 2019-01-03 15:54: 00Unknown Test Item Value Reference Range Comments Specific gravity of Urine by Refractometry 1.014 Unknown Unknown F automated (test code = 17205-9) Ordering Physician UnknownUrine erythrocytes detection by automated witmwm058801-03 15:54:00Identifier 15571-0 Result Time 2019-01-03 15:54:00Unknown Test Item Value Reference Range Comments Urine erythrocytes detection by 1+(3-5/hpf) Unknown Unknown F automated method (test code = 55387-1) Ordering Physician UnknownUrine leukocytes detection by automated qkkvwv7933-80- 07 15:54:00Identifier 30422-2 Result Time 2019-01-03 15:54:00Unknown Test Item Value Reference Range Comments Urine leukocytes detection by automated Absent Unknown Unknown F method (test code = 54718-4) Ordering Physician UnknownUrine hemoglobin detection by test bynru1201-07-31 15: 54:00Identifier 5794-3 Result Time 2019-01-03 15:54:00Unknown Test Item Value Reference Range Comments Urine hemoglobin detection by test strip Negative Unknown Unknown F (test code = 5794-3) Ordering Physician UnknownUrine leukocyte esterase detection by automated test mpcgn5727-92-80 15:54:00Identifier 16856-9 Result Time 2019-01-03 15:54: 00Unknown Test Item Value Reference Range Comments Urine leukocyte esterase detection by Negative Unknown Unknown F automated test strip (test code = 00769-3) Ordering Physician UnknownSerum or plasma troponin i.cardiac measurement (mass/ volume)2019-01-03 12:14:00Identifier 94659-6 Result Time 2019-01-03 12:14: 00Unknown Test Item Value Reference Range Comments Serum or plasma troponin i.cardiac 0.00 ng/mL Unknown Unknown F measurement (mass/volume) (test code = 73592-4) Ordering Physician UnknownSerum or plasma alanine aminotransferase measurement ( enzymatic activity/volume)2019-01-03 12:14:00Identifier 1742-6 Result Time 01-03 12:14:00Unknown Test Item Value Reference Range Comments Serum or plasma alanine aminotransferase 7 U/L Unknown Unknown F measurement (enzymatic activity/volume) (test code = 1742-6) Ordering Physician UnknownSerum or plasma albumin/globulin mass zoysu2797-87-92 12:14:00Identifier 1759-0 Result Time 2019-01-03 12:14:00Unknown Test [...] 3016-3) Ordering Physician UnknownAutomated blood nucleated erythrocytes ppdqrjsje0076- 11-07 12:14:00Identifier 01409-9 Result Time 2019-01-03 12:14:00Unknown Test Item Value Reference Range Comments Automated blood nucleated erythrocytes 0.0 Unknown Unknown F detection (test code = 82560-4) Ordering Physician UnknownAutomated blood monocytes/100 tswkfbigol2970-38-79 12: 14:00Identifier 5905-5 Result Time 2019-01-03 12:14:00Unknown Test Item Value Reference Range Comments Automated blood monocytes/100 leukocytes 3.6 % Unknown Unknown F (test code = 5905-5) Ordering Physician UnknownSerum or plasma albumin measurement by bromocresol green (BCG) dye binding method (up8679-69-64 12:14:00Identifier 93112-2 Result Time 2019-01-03 12:14:00Unknown Test Item Value Reference Range Comments Serum or plasma albumin measurement by 4.0 g/dL Unknown Unknown F bromocresol green (BCG) dye binding method (ma (test code = 08322-6) Ordering Physician UnknownSerum or plasma alkaline phosphatase [...] = 704-7) Ordering Physician UnknownAutomated blood basophils/100 dclndlpraw2189-82-11 12: 14:00Identifier 706-2 Result Time 2019-01-03 12:14:00Unknown [...] = 711-2) Ordering Physician UnknownAutomated blood eosinophils/100 vvzghbztry4258-39-89 12:14:00Identifier 713-8 Result Time 2019-01-03 12:14:00Unknown Test Item Value Reference Range Comments Automated blood eosinophils/100 leukocytes 0.5 % Unknown Unknown F (test code = 713-8) Ordering Physician UnknownBlood lymphocytes automated count (number/volume)01-03 12:14:00Identifier 731-0 Result Time 2019-01-03 12:14:00Unknown Test Item Value Reference Range Comments Blood lymphocytes automated count 0.9 10^3/ul Unknown Unknown F (number/volume) (test code = 731-0) Ordering Physician UnknownAutomated blood lymphocytes/100 rgmwmzhgko7991-02-93 12:14:00Identifier 736-9 Result Time 2019-01-03 12:14:00Unknown Test Item Value Reference Range Comments Automated blood lymphocytes/100 leukocytes 10.3 % Unknown Unknown F (test code = 736-9) Ordering Physician UnknownBlood monocytes automated count (number/volume)2018-12 12:14:00Identifier 742-7 Result Time 2019-01-03 12:14:00Unknown Test Item Value Reference Range Comments Blood monocytes automated count 0.3 10^3/ul Unknown Unknown F (number/volume) (test code = 742-7) Ordering Physician UnknownAutomated blood neutrophils/100 avkqvcyuat4927-83-72 12:14:00Identifier 770-8 Result Time 2019-01-03 12:14:00Unknown Test [...] code = 771-6) Ordering Physician UnknownCT biopsy xlsyp5341-54-86 12:14:00Identifier [id number] Result Time 2019-01-03 12:14:00Unknown Test Item Value Reference Range Comments CT biopsy liver (test code = BFY4269) 7.8 10^3/ul Unknown Unknown F Ordering Physician Unknown
--- OUTSIDE RECORDS SUMMARY | 2019-01-29 16:26 | XMS REPORT ---
:1935 Author Organization [facility] Care Team Providers Name Role Phone [...] Unknown Unknown Chlor Tab* Chlor Tab* 11-26 [place]-3 [place]-3 2018-02 Yes Unknown Unknown Unknown Fatty Acids [...] UnknownSerum or plasma calcium measurement (mass/volume)01-07 05:47:00Identifier 88591-6 Result Time 2019-01-07 05:47:00Unknown Test Item Value Reference Range Comments Serum or plasma calcium measurement 9.0 mg/dL Unknown Unknown F (mass/volume) (test code = 32268-8) Ordering Physician UnknownSerum or plasma carbon dioxide, [...] Ordering Physician UnknownSerum or plasma urea nitrogen/creatinine nmdwe5146-73- 11 05:47:00Identifier 3097-3 Result Time 2019-01-07 05:47:00Unknown Test Item Value Reference Range Comments Serum or plasma urea nitrogen/creatinine 17.2 Unknown Unknown F ratio (test code = 3097-3) Ordering Physician UnknownSerum or plasma anion dhb8576-59-60 05:47: 00Identifier 69011-6 Result Time 2019-01-07 05:47:00Unknown Test Item Value Reference Range Comments Serum or plasma anion gap (test code = 7 mmol/L Unknown Unknown F 87769-5) Ordering Physician UnknownEstimated glomerular filtration rate (GFR) non- Fikgxlwd5403-69-41 05:47:00Identifier 68552-5 Result Time 2019-01-07 05: 47:00Unknown Test Item Value Reference Range Comments Estimated glomerular filtration rate (GFR) 53.4 Unknown Unknown F non- (test code = 29487-6) Ordering Physician UnknownAutomated blood platelet mean volume upmitjszqmo0092- 11-08 04:18:00Identifier 95837-2 Result Time 2019-01-04 04:18:00Unknown Test Item Value Reference Range Comments Automated blood platelet mean volume 9.6 fL Unknown Unknown F measurement (test code = 26808-8) Ordering Physician UnknownAutomated blood leukocytes count corrected for nucleated erythrocytes (number/volume)2019-01-04 04:18:00Identifier 24679-6 Result Time 2019-01-04 04:18:00Unknown Test Item Value Reference Range Comments Automated blood leukocytes count 10.1 10^3/uL Unknown Unknown F corrected for nucleated erythrocytes (number/volume) (test code = 26575-7) Ordering Physician UnknownAutomated blood hematocrit (percentage)2019-01-04 04: [...] UnknownAutomated erythrocyte mean corpuscular hemoglobin concentration measurement (mass/ntf6506-19-36 04:18:00Identifier 786-4 Result Time 2019-01-04 04:18:00Unknown Test Item Value Reference Range Comments Automated erythrocyte mean corpuscular 34 g/dL Unknown Unknown F hemoglobin concentration measurement (mass/vol (test code = 786-4) Ordering Physician UnknownAutomated erythrocyte mean corpuscular xdwqcg7783-13- 08 04:18:00Identifier 787-2 Result Time 2019-01-04 04:18:00Unknown Test Item Value Reference Range Comments Automated erythrocyte mean corpuscular volume 91 fL Unknown Unknown F (test code = 787-2) Ordering Physician UnknownAutomated erythrocyte distribution width wjtce7503-84- 08 04:18:00Identifier 788-0 Result Time 2019-01-04 04:18:00Unknown [...] Physician UnknownUrine urobilinogen measurement (units/volume) by test iaonk8794-56-86 15:54:00Identifier 82369-3 Result Time 2019-01-03 15:54: 00Unknown Test Item Value Reference Range Comments Urine urobilinogen measurement Negative Unknown Unknown F (units/volume) by test strip (test code = 96664-0) Ordering Physician UnknownUrine bacteria detection by automated sqtvbf1657-47- 07 15:54:00Identifier 73976-9 Result Time 2019-01-03 15:54:00Unknown Test Item Value Reference Range Comments Urine bacteria detection by automated Absent Unknown Unknown F method (test code = 33269-1) Ordering Physician UnknownUrine total bilirubin detection by automated test vldha7939-66-84 15:54:00Identifier 39865-3 Result Time 2019-01-03 15:54: 00Unknown Test Item Value Reference Range Comments Urine total bilirubin detection by Negative Unknown Unknown F automated test strip (test code = 43528-5) Ordering Physician UnknownUrine clarity by refractometry apusvbwmr5888-04-96 15: 54:00Identifier 15113-6 Result Time 2019-01-03 15:54:00Unknown Test Item Value Reference Range Comments Urine clarity by refractometry automated Clear Unknown Unknown F (test code = 01503-2) Ordering Physician UnknownColor of Urine by Dchr1990-33-19 15:54:00Identifier 49587-5 Result Time 2019-01-03 15:54:00Unknown Test Item Value Reference Range Comments Color of Urine by Auto (test code = Yellow Unknown Unknown F 75086-7) Ordering Physician UnknownUrine glucose detection by automated test tvamz2734-16 -07 15:54:00Identifier 04256-6 Result Time 2019-01-03 15:54:00Unknown Test Item Value Reference Range Comments Urine glucose detection by automated test Negative Unknown Unknown F strip (test code = 80615-3) Ordering Physician UnknownKetones [Mass/volume] in Urine by Automated test khnlr9010-88-72 15:54:00Identifier 56976-6 Result Time 2019-01-03 15:54: 00Unknown Test Item Value Reference Range Comments Ketones [Mass/volume] in Urine by Negative Unknown Unknown F Automated test strip (test code = 84616-2) Ordering Physician UnknownUrine nitrite detection by automated test drnss0957-43 -07 15:54:00Identifier 05203-0 Result Time 2019-01-03 15:54:00Unknown Test Item Value Reference Range Comments Urine nitrite detection by automated test Negative Unknown Unknown F strip (test code = 60198-2) Ordering Physician UnknownProtein [Mass/volume] in Urine by Automated test cjtok1502-30-19 15:54:00Identifier 76537-9 Result Time 2019-01-03 15:54: 00Unknown Test Item Value Reference Range Comments Protein [Mass/volume] in Urine by 1+(30 mg/dl) Unknown Unknown F Automated test strip (test code = 69116-3) Ordering Physician UnknownSpecific gravity of Urine by Refractometry zrfbgffrb3472-52-17 15:54:00Identifier 68599-0 Result Time 2019-01-03 15:54: 00Unknown Test Item Value Reference Range Comments Specific gravity of Urine by Refractometry 1.014 Unknown Unknown F automated (test code = 94635-7) Ordering Physician UnknownUrine erythrocytes detection by automated prfzpu411301-03 15:54:00Identifier 19916-7 Result Time 2019-01-03 15:54:00Unknown Test Item Value Reference Range Comments Urine erythrocytes detection by 1+(3-5/hpf) Unknown Unknown F automated method (test code = 66850-0) Ordering Physician UnknownUrine leukocytes detection by automated qnlmoq1800-76- 07 15:54:00Identifier 04982-2 Result Time 2019-01-03 15:54:00Unknown Test Item Value Reference Range Comments Urine leukocytes detection by automated Absent Unknown Unknown F method (test code = 44288-9) Ordering Physician UnknownUrine hemoglobin detection by test psmcb8554-03-05 15: 54:00Identifier 5794-3 Result Time 2019-01-03 15:54:00Unknown Test Item Value Reference Range Comments Urine hemoglobin detection by test strip Negative Unknown Unknown F (test code = 5794-3) Ordering Physician UnknownUrine leukocyte esterase detection by automated test vyvll4658-94-71 15:54:00Identifier 00554-4 Result Time 2019-01-03 15:54: 00Unknown Test Item Value Reference Range Comments Urine leukocyte esterase detection by Negative Unknown Unknown F automated test strip (test code = 05861-7) Ordering Physician UnknownSerum or plasma troponin i.cardiac measurement (mass/ volume)2019-01-03 12:14:00Identifier 21549-6 Result Time 2019-01-03 12:14: 00Unknown Test Item Value Reference Range Comments Serum or plasma troponin i.cardiac 0.00 ng/mL Unknown Unknown F measurement (mass/volume) (test code = 50488-8) Ordering Physician UnknownSerum or plasma alanine aminotransferase measurement ( enzymatic activity/volume)2019-01-03 12:14:00Identifier 1742-6 Result Time 01-03 12:14:00Unknown Test Item Value Reference Range Comments Serum or plasma alanine aminotransferase 7 U/L Unknown Unknown F measurement (enzymatic activity/volume) (test code = 1742-6) Ordering Physician UnknownSerum or plasma albumin/globulin mass rnekx3792-74-56 12:14:00Identifier 1759-0 Result Time 2019-01-03 12:14:00Unknown Test [...] 3016-3) Ordering Physician UnknownAutomated blood nucleated erythrocytes uzdksmvkz3299- 11-07 12:14:00Identifier 60570-0 Result Time 2019-01-03 12:14:00Unknown Test Item Value Reference Range Comments Automated blood nucleated erythrocytes 0.0 Unknown Unknown F detection (test code = 52958-1) Ordering Physician UnknownAutomated blood monocytes/100 lkgrasleow8072-41-04 12: 14:00Identifier 5905-5 Result Time 2019-01-03 12:14:00Unknown Test Item Value Reference Range Comments Automated blood monocytes/100 leukocytes 3.6 % Unknown Unknown F (test code = 5905-5) Ordering Physician UnknownSerum or plasma albumin measurement by bromocresol green (BCG) dye binding method (ip8406-47-88 12:14:00Identifier 85352-2 Result Time 2019-01-03 12:14:00Unknown Test Item Value Reference Range Comments Serum or plasma albumin measurement by 4.0 g/dL Unknown Unknown F bromocresol green (BCG) dye binding method (ma (test code = 91521-3) Ordering Physician UnknownSerum or plasma alkaline phosphatase [...] = 704-7) Ordering Physician UnknownAutomated blood basophils/100 azehxexgpm4512-13-58 12: 14:00Identifier 706-2 Result Time 2019-01-03 12:14:00Unknown [...] = 711-2) Ordering Physician UnknownAutomated blood eosinophils/100 wzrpivgiwa7698-17-11 12:14:00Identifier 713-8 Result Time 2019-01-03 12:14:00Unknown Test Item Value Reference Range Comments Automated blood eosinophils/100 leukocytes 0.5 % Unknown Unknown F (test code = 713-8) Ordering Physician UnknownBlood lymphocytes automated count (number/volume)01-03 12:14:00Identifier 731-0 Result Time 2019-01-03 12:14:00Unknown Test Item Value Reference Range Comments Blood lymphocytes automated count 0.9 10^3/ul Unknown Unknown F (number/volume) (test code = 731-0) Ordering Physician UnknownAutomated blood lymphocytes/100 letltmatya1286-01-37 12:14:00Identifier 736-9 Result Time 2019-01-03 12:14:00Unknown Test Item Value Reference Range Comments Automated blood lymphocytes/100 leukocytes 10.3 % Unknown Unknown F (test code = 736-9) Ordering Physician UnknownBlood monocytes automated count (number/volume)2018-12 12:14:00Identifier 742-7 Result Time 2019-01-03 12:14:00Unknown Test Item Value Reference Range Comments Blood monocytes automated count 0.3 10^3/ul Unknown Unknown F (number/volume) (test code = 742-7) Ordering Physician UnknownAutomated blood neutrophils/100 hbjxtqzwte5364-79-22 12:14:00Identifier 770-8 Result Time 2019-01-03 12:14:00Unknown Test [...] code = 771-6) Ordering Physician UnknownCT biopsy pyucw8557-98-52 12:14:00Identifier [id number] Result Time 2019-01-03 12:14:00Unknown Test Item Value Reference Range Comments CT biopsy liver (test code = DLP7742) 7.8 10^3/ul Unknown Unknown F Ordering Physician Unknown
--- OUTSIDE RECORDS SUMMARY | 2019-01-29 16:26 | XMS REPORT ---
:1935 Author Organization [facility] Care Team Providers Name Role Phone Unavailable Unavailable Unavailable Problems This patient has no known problems. Allergies, Adverse Reactions, Alerts Allergy Name Allergy Status Severity Reaction(s) Onset Inactive Treating Comments Type Date Date Clinician codeine Base Active Unknown Reaction 2018-02 Ting Beam Ingredient Unknown 03-11 erythromycin Base Active Unknown Reaction 2018-02 Ting Beam base Ingredient Unknown 03-11 gabapentin Base Active Unknown Reaction 2018-02 Ting Beam Ingredient Unknown 03-11 Medications Ordered Filled Start Stop Current Ordering Indication Dosage Frequency Signature Comments Components Medication Medication Date Date Medication? Clinician (SIG) Name Name No Known No Known No None None None Medications Medications For This For This Patient Patient Procedures This patient has no known procedures. Results This patient has no known results.
--- OUTSIDE RECORDS SUMMARY | 2019-01-29 16:26 | XMS REPORT ---
:1935 Author Organization [facility] Care Team Providers Name Role Phone Unavailable [...] Unknown Unknown Chlor Tab* Chlor Tab* 11-26 [place]-3 [place]-3 2018-02 Yes Unknown Unknown Unknown Fatty Acids [...] UnknownSerum or plasma calcium measurement (mass/volume)01-07 05:47:00Identifier 79323-1 Result Time 2019-01-07 05:47:00Unknown Test Item Value Reference Range Comments Serum or plasma calcium measurement 9.0 mg/dL Unknown Unknown F (mass/volume) (test code = 78614-0) Ordering Physician UnknownSerum or plasma carbon dioxide, [...] Ordering Physician UnknownSerum or plasma urea nitrogen/creatinine ihwdl8984-69- 11 05:47:00Identifier 3097-3 Result Time 2019-01-07 05:47:00Unknown Test Item Value Reference Range Comments Serum or plasma urea nitrogen/creatinine 17.2 Unknown Unknown F ratio (test code = 3097-3) Ordering Physician UnknownSerum or plasma anion ohj9909-75-56 05:47: 00Identifier 96307-4 Result Time 2019-01-07 05:47:00Unknown Test Item Value Reference Range Comments Serum or plasma anion gap (test code = 7 mmol/L Unknown Unknown F 71927-3) Ordering Physician UnknownEstimated glomerular filtration rate (GFR) non- Yufgtmva8936-43-68 05:47:00Identifier 06535-3 Result Time 2019-01-07 05: 47:00Unknown Test Item Value Reference Range Comments Estimated glomerular filtration rate (GFR) 53.4 Unknown Unknown F non- (test code = 13670-0) Ordering Physician UnknownAutomated blood platelet mean volume jvcpgstsrhz8142- 11-08 04:18:00Identifier 16030-3 Result Time 2019-01-04 04:18:00Unknown Test Item Value Reference Range Comments Automated blood platelet mean volume 9.6 fL Unknown Unknown F measurement (test code = 10064-8) Ordering Physician UnknownAutomated blood leukocytes count corrected for nucleated erythrocytes (number/volume)2019-01-04 04:18:00Identifier 24571-8 Result Time 2019-01-04 04:18:00Unknown Test Item Value Reference Range Comments Automated blood leukocytes count 10.1 10^3/uL Unknown Unknown F corrected for nucleated erythrocytes (number/volume) (test code = 35926-6) Ordering Physician UnknownAutomated blood hematocrit (percentage)2019-01-04 04: [...] UnknownAutomated erythrocyte mean corpuscular hemoglobin concentration measurement (mass/vtv8383-88-38 04:18:00Identifier 786-4 Result Time 2019-01-04 04:18:00Unknown Test Item Value Reference Range Comments Automated erythrocyte mean corpuscular 34 g/dL Unknown Unknown F hemoglobin concentration measurement (mass/vol (test code = 786-4) Ordering Physician UnknownAutomated erythrocyte mean corpuscular xqgjbt6941-08- 08 04:18:00Identifier 787-2 Result Time 2019-01-04 04:18:00Unknown Test Item Value Reference Range Comments Automated erythrocyte mean corpuscular volume 91 fL Unknown Unknown F (test code = 787-2) Ordering Physician UnknownAutomated erythrocyte distribution width glboa1167-25- 08 04:18:00Identifier 788-0 Result Time 2019-01-04 04:18:00Unknown [...] Physician UnknownUrine urobilinogen measurement (units/volume) by test psgrg0302-11-24 15:54:00Identifier 87887-4 Result Time 2019-01-03 15:54: 00Unknown Test Item Value Reference Range Comments Urine urobilinogen measurement Negative Unknown Unknown F (units/volume) by test strip (test code = 25618-1) Ordering Physician UnknownUrine bacteria detection by automated jnzcyr5465-33- 07 15:54:00Identifier 32120-1 Result Time 2019-01-03 15:54:00Unknown Test Item Value Reference Range Comments Urine bacteria detection by automated Absent Unknown Unknown F method (test code = 60289-9) Ordering Physician UnknownUrine total bilirubin detection by automated test uiwjp8163-51-84 15:54:00Identifier 28263-0 Result Time 2019-01-03 15:54: 00Unknown Test Item Value Reference Range Comments Urine total bilirubin detection by Negative Unknown Unknown F automated test strip (test code = 40022-6) Ordering Physician UnknownUrine clarity by refractometry fluzurvip0888-58-60 15: 54:00Identifier 50186-0 Result Time 2019-01-03 15:54:00Unknown Test Item Value Reference Range Comments Urine clarity by refractometry automated Clear Unknown Unknown F (test code = 76582-9) Ordering Physician UnknownColor of Urine by Yijf6991-89-75 15:54:00Identifier 06917-1 Result Time 2019-01-03 15:54:00Unknown Test Item Value Reference Range Comments Color of Urine by Auto (test code = Yellow Unknown Unknown F 01317-6) Ordering Physician UnknownUrine glucose detection by automated test kwdtv8789-50 -07 15:54:00Identifier 21307-1 Result Time 2019-01-03 15:54:00Unknown Test Item Value Reference Range Comments Urine glucose detection by automated test Negative Unknown Unknown F strip (test code = 65354-5) Ordering Physician UnknownKetones [Mass/volume] in Urine by Automated test yodhu4926-52-69 15:54:00Identifier 02754-8 Result Time 2019-01-03 15:54: 00Unknown Test Item Value Reference Range Comments Ketones [Mass/volume] in Urine by Negative Unknown Unknown F Automated test strip (test code = 25876-3) Ordering Physician UnknownUrine nitrite detection by automated test wefet5338-64 -07 15:54:00Identifier 90415-4 Result Time 2019-01-03 15:54:00Unknown Test Item Value Reference Range Comments Urine nitrite detection by automated test Negative Unknown Unknown F strip (test code = 33979-8) Ordering Physician UnknownProtein [Mass/volume] in Urine by Automated test edwes1232-10-26 15:54:00Identifier 83133-0 Result Time 2019-01-03 15:54: 00Unknown Test Item Value Reference Range Comments Protein [Mass/volume] in Urine by 1+(30 mg/dl) Unknown Unknown F Automated test strip (test code = 51042-9) Ordering Physician UnknownSpecific gravity of Urine by Refractometry obtnpmkjh0553-88-96 15:54:00Identifier 08642-8 Result Time 2019-01-03 15:54: 00Unknown Test Item Value Reference Range Comments Specific gravity of Urine by Refractometry 1.014 Unknown Unknown F automated (test code = 61392-7) Ordering Physician UnknownUrine erythrocytes detection by automated shiieq441901-03 15:54:00Identifier 55094-6 Result Time 2019-01-03 15:54:00Unknown Test Item Value Reference Range Comments Urine erythrocytes detection by 1+(3-5/hpf) Unknown Unknown F automated method (test code = 75915-4) Ordering Physician UnknownUrine leukocytes detection by automated citcnn8237-71- 07 15:54:00Identifier 39337-9 Result Time 2019-01-03 15:54:00Unknown Test Item Value Reference Range Comments Urine leukocytes detection by automated Absent Unknown Unknown F method (test code = 74994-0) Ordering Physician UnknownUrine hemoglobin detection by test yqucu8113-91-21 15: 54:00Identifier 5794-3 Result Time 2019-01-03 15:54:00Unknown Test Item Value Reference Range Comments Urine hemoglobin detection by test strip Negative Unknown Unknown F (test code = 5794-3) Ordering Physician UnknownUrine leukocyte esterase detection by automated test kacha4608-62-96 15:54:00Identifier 70003-5 Result Time 2019-01-03 15:54: 00Unknown Test Item Value Reference Range Comments Urine leukocyte esterase detection by Negative Unknown Unknown F automated test strip (test code = 21392-2) Ordering Physician UnknownSerum or plasma troponin i.cardiac measurement (mass/ volume)2019-01-03 12:14:00Identifier 79968-5 Result Time 2019-01-03 12:14: 00Unknown Test Item Value Reference Range Comments Serum or plasma troponin i.cardiac 0.00 ng/mL Unknown Unknown F measurement (mass/volume) (test code = 44164-2) Ordering Physician UnknownSerum or plasma alanine aminotransferase measurement ( enzymatic activity/volume)2019-01-03 12:14:00Identifier 1742-6 Result Time 01-03 12:14:00Unknown Test Item Value Reference Range Comments Serum or plasma alanine aminotransferase 7 U/L Unknown Unknown F measurement (enzymatic activity/volume) (test code = 1742-6) Ordering Physician UnknownSerum or plasma albumin/globulin mass vaxeb6530-26-57 12:14:00Identifier 1759-0 Result Time 2019-01-03 12:14:00Unknown Test [...] 3016-3) Ordering Physician UnknownAutomated blood nucleated erythrocytes fjdqzxgmy8713- 11-07 12:14:00Identifier 41185-3 Result Time 2019-01-03 12:14:00Unknown Test Item Value Reference Range Comments Automated blood nucleated erythrocytes 0.0 Unknown Unknown F detection (test code = 05463-8) Ordering Physician UnknownAutomated blood monocytes/100 iofiaptgmp3975-42-83 12: 14:00Identifier 5905-5 Result Time 2019-01-03 12:14:00Unknown Test Item Value Reference Range Comments Automated blood monocytes/100 leukocytes 3.6 % Unknown Unknown F (test code = 5905-5) Ordering Physician UnknownSerum or plasma albumin measurement by bromocresol green (BCG) dye binding method ([id number] 12:14:00Identifier 89363-8 Result Time 2019-01-03 12:14:00Unknown Test Item Value Reference Range Comments Serum or plasma albumin measurement by 4.0 g/dL Unknown Unknown F bromocresol green (BCG) dye binding method (ma (test code = 18630-4) Ordering Physician UnknownSerum or plasma alkaline phosphatase [...] = 704-7) Ordering Physician UnknownAutomated blood basophils/100 bgbuivykrd5556-95-23 12: 14:00Identifier 706-2 Result Time 2019-01-03 12:14:00Unknown [...] = 711-2) Ordering Physician UnknownAutomated blood eosinophils/100 ctgypmilwk4131-08-87 12:14:00Identifier 713-8 Result Time 2019-01-03 12:14:00Unknown Test Item Value Reference Range Comments Automated blood eosinophils/100 leukocytes 0.5 % Unknown Unknown F (test code = 713-8) Ordering Physician UnknownBlood lymphocytes automated count (number/volume)01-03 12:14:00Identifier 731-0 Result Time 2019-01-03 12:14:00Unknown Test Item Value Reference Range Comments Blood lymphocytes automated count 0.9 10^3/ul Unknown Unknown F (number/volume) (test code = 731-0) Ordering Physician UnknownAutomated blood lymphocytes/100 uckcgxzuem1845-59-05 12:14:00Identifier 736-9 Result Time 2019-01-03 12:14:00Unknown Test Item Value Reference Range Comments Automated blood lymphocytes/100 leukocytes 10.3 % Unknown Unknown F (test code = 736-9) Ordering Physician UnknownBlood monocytes automated count (number/volume)2018-12 12:14:00Identifier 742-7 Result Time 2019-01-03 12:14:00Unknown Test Item Value Reference Range Comments Blood monocytes automated count 0.3 10^3/ul Unknown Unknown F (number/volume) (test code = 742-7) Ordering Physician UnknownAutomated blood neutrophils/100 ssmshfjylb9079-36-38 12:14:00Identifier 770-8 Result Time 2019-01-03 12:14:00Unknown Test [...] code = 771-6) Ordering Physician UnknownCT biopsy [id number] 12:14:00Identifier [id number] Result Time 2019-01-03 12:14:00Unknown Test Item Value Reference Range Comments CT biopsy liver (test code = XEB2065) 7.8 10^3/ul Unknown Unknown F Ordering Physician Unknown
--- OUTSIDE RECORDS SUMMARY | 2019-01-29 16:26 | XMS REPORT ---
:1935 Author Organization [facility] Care Team Providers Name Role Phone [...]
--- OUTSIDE RECORDS SUMMARY | 2019-01-29 16:26 | XMS REPORT | Summary of Care ---
:1935 Author Organization [facility] Address [address] [place] [address] Care Team Providers Name Role Phone Susan Hanley Primary Care Provider Reason for Visit Reason Comments Transitional Care Management [facility] - Afib Encounter Details Date Type Department Care Team Description 01/16/2019 Office Visit [facility] Susan Hanley MD Pre-operative clearance (Primary Dx); Medicine [address] PAF (paroxysmal atrial fibrillation) (HCC); [address] [place] [address] Nasopharyngeal mass; [place] [address] Hypertension, unspecified type [phone] Allergies Active Allergy Reactions Severity Noted Date Comments Codeine GI Reaction 03/13/2007 Erythromycin GI Reaction 03/13/2007 Methotrexate Other 01/16/2019 Pancytopenia Alc-Gabapentin GI Reaction 12/05/2008 Tramadol [facility] Reaction 01/16/2019 Delirium documented as of this encounter (statuses as of 01/16/2019) Medications Medication Sig Dispensed Refills Start Date [...] MOUTH EVERY Depression, DAY unspecified depression type Batson-3 Fatty Acids Take by 0 Active (FISH OIL ULTRA PO) mouth DAILY. simvastatin (ZOCOR) TAKE ONE 90 Tab 3 09/12/2018 Active 20 MG Oral TABLET BY TabIndications: MOUTH AT Mixed hyperlipidemia BEDTIME furosemide (LASIX) TAKE ONE 90 Tab 1 10/24/2018 Active 20 MG Oral TABLET BY TabIndications: MOUTH EVERY Essential DAY hypertension amitriptyline Take 1 Tab by 60 Tab 1 12/10/2018 Active (ELAVIL, ENDEP) 25 mouth EVERY MG Oral BEDTIME. TabIndications: Nonintractable headache, unspecified chronicity pattern, unspecified headache type carbamazepine Take 200 mg 0 01/09/2019 Active (TEGRETOL) 200 MG by mouth Oral Tab TWICE DAILY. amLodipine (NORVASC) Take 1 Tab by 60 Tab 1 01/16/2019 Active 2.5 MG Oral mouth TWICE TabIndications: DAILY. Hypertension, unspecified type tramadol (ULTRAM) 50 Take 1 Tab by 30 Tab 3 12/10/2018 01/16/2019 Discontinued MG Oral mouth EVERY TabIndications: SIX HOURS Nonintractable NEEDED (face headache, pain). Max unspecified Daily Amount: chronicity pattern, 4 Tabs. 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 Memory change 04/11/2017 Overview: Clock face - ~ 60% - Remembered 2/3 things 06/14 - Clock face 80% / MINIMENTAL STATUS EXAM 26 Depression with anxiety 04/24/2015 Giant cell arteritis 02/11/2013 Overview: Rheumatology Dr Matthews/Leida Ness DOCTOR OF AUDIOLOGY [facility] Methotrexate treatment Osteoporosis 02/11/2013 Overview: Bone density scan 2012 osteopenia Abnormal ECG 01/10/2013 Overview: ST segment changes in past chemical nuclear stress test negative myocardial infarction or ischemia [facility] 01/09 Fatty liver 03/24/2010 History of deep vein thrombosis 07/03/2008 Overview: L arm PAF (paroxysmal atrial fibrillation) 02/26/2007 Overview: Holter- /2018 - Only one 6 beat run of atrial fibrillation was noted at 10: 16 a.m.- Hyperlipidemia Hypertension Mitral regurgitation Overview: mild documented as of this encounter (statuses as of 01/16/2019) Resolved Problems Problem Noted Date Resolved Date Hip pain, right 08/23/2013 10/10/2015 BMI 29.0-29.9,adult 08/18/2010 08/22/2012 Mitral valve disorders(424.0) 02/26/2007 02/11/2013 Diverticulosis of colon (without mention of hemorrhage) 10/27/2005 10/10/2015 Degeneration of lumbar or lumbosacral intervertebral disc 10/27/20052012 Unspecified cardiovascular disease 10/27/2005 08/18/2010 documented as of this encounter (statuses as of 01/16/2019) Immunizations Name Administration Dates Next Due Depo [...] Sign Reading Time Taken Comments Blood Pressure 160/104 01/16/2019 3:53 PM EST Pulse 108 01/16/2019 3:53 PM EST Temperature - - Respiratory Rate - - Oxygen Saturation 97% 01/16/2019 3:53 PM EST Inhaled Oxygen Concentration - - Weight 78.8 kg (173 lb 11.2 oz) 01/16/2019 3:53 PM EST Height 160 cm (5' 3") 01/16/2019 3:53 PM EST Body Mass Index 30.77 01/16/2019 3:53 PM EST documented in this encounter Patient Instructions Patient InstructionsSusan Hanley MD - 01/16/2019 3:40 PM ESTPlan Add a new blood pressure medication - norvasc 2.5 mg twice daily ( may hold the second dose if blood pressure low ) Increase actetamonphen 1000 mg 3x day Use a cool cloth periodically on the head through the day- The am before surgery - Hold the furosemide / fish oil / folic acid - documented in this encounter Progress Notes Susan Hanley MD - 01/16/2019 3:40 PM EST TCM Statement. Review of the hospitalization: I am seeing for transition of care following hospitalization. 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 I reconciled the medications. I also reviewed the Transition of Care documentation done by staff. The tests that were not available at the time of discharge were reviewed. Additional tests which are not yet available include: Coordination of care. (delete one and this phrase) - I am satisfied that appropriate referrals are in place to deal with the problems identified during hospitalization, and that the patient has adequate community resources and support in place. - Additional testing related to hospitilization was requested today: yes See orders. I confirmed the patient's understanding of the diagnosis and plan of care. Specific education that was provided today: Patient Instructions Plan Add a new blood pressure medication - norvasc 2.5 mg twice daily ( may hold the second dose if blood pressure low ) Increase actetamonphen 1000 mg 3x day Use a cool cloth periodically on the head through the day- The am before surgery - Hold the furosemide / fish oil / folic acid - The current and discharge medications were reconciled by me, today The source document was hospital discharge summary NAME:Viola Patterson 1935: 1935 ENC Date: 01/16/2019 CC: Chief Complaint Patient presents with Transitional Care Management [facility] - Afib Viola Patterson is a 83-y.o. female accompanied by son Status post hospitalization at [facility] 1 week ago She is here for follow up for that hospitalization and a preop evualuation for a procedure tomorrow to biopsy a nasopharyngial mass Patient presented to [facility] with a unremitting headache which started 1 week after a fall hitting the back of her head . She was found on imaging in the ER to have a nasopharyngeal mass. Other diagnosis included HTN/ vertigo / falls / possible post concussion syndrome - She was reported to be in NSR but a Holter is outstandding from hospitalization aka the son Patient complaining of Of headache - especially over the left nondenominational Son says has had this type of headache for ~ 2 years- Has it for several days and can remit - Does not have visual changes- with the headache - Can have pain behind the neck - with this - Patient has no history of coronary artery disease - there has been afib noted in the past- But the only documentation on her chart in my office is a holter in 2018 that showed 6 beats of afib in 24 hours - All the EKG ( ~ 5 over the years ) show sinus vaelntin There is not mention of afib in the hosptial - a holter report is still outstanding Patient denies currently any chest pressure with exerition / shortness of breath / cough / faint Current Outpatient Medications Medication Sig amitriptyline (ELAVIL, ENDEP) 25 MG Oral Tab Take 1 Tab by mouth EVERY BEDTIME. amLodipine (NORVASC) 2.5 MG Oral Tab Take 1 Tab by mouth TWICE DAILY. carbamazepine (TEGRETOL) 200 MG Oral Tab Take 200 mg by mouth TWICE DAILY. Diclofenac Sodium 1 % Transdermal Gel Place 1 g onto skin THREE TIMES DAILY NEEDED (musclepain). foliC acid 1 MG Oral Tab Take 1 mg by mouth DAILY. furosemide (LASIX) 20 MG Oral Tab TAKE ONE TABLET BY MOUTH EVERY DAY metoprolol succinate (TOPROL XL) 25 MG Oral TABLET SR 24 HR Take 1 Tab by mouth DAILY. Batson-3 Fatty Acids (FISH OIL ULTRA PO) Take [...] Patient Active Problem List Diagnosis Date Noted Nasopharyngeal mass 01/16/201901/15 Rheumatoid arteritis ([facility]) 04/11/2017 Memory change 04/11/2017 Clock face - ~ 60% - Remembered 2/3 things 06/14 - Clock face 80% / MINIMENTAL STATUS EXAM 26 Depression with anxiety 04/24/2015 Giant cell arteritis ([facility]) 02/11/[address] Matthews/Leida Ness DOCTOR OF AUDIOLOGY [facility] Methotrexate treatment Osteoporosis 02/11/2013 Bone density scan 2011 osteopenia Abnormal ECG 01/10/2013 ST segment changes in past [facility] Fatty liver 03/24/2010 History of deep vein thrombosis 07/03/2008 L arm Hyperlipidemia Hypertension Mitral regurgitation mild PAF (paroxysmal atrial fibrillation) ([facility]) 02/26/2007 Holter- - Only one 6 beat run of atrial fibrillation was noted at 10: 16 a.m.- Family History Problem Relation Age of Onset [...] Comment: ocass Drug use: No OBJECTIVE: BP (!) 160/104 | Pulse 108 | Ht 5' 3" (1.6 m) | Wt 173 lb 11.2 oz (78.8 kg) | SpO2 97% | BMI 30.77 kg/m . Heent neg Neck no JVD, thyromegaly or bruit Lungs Clear CV tachy / regularly Abd soft, nontender, no organomegaly Ext no edema; no lesions; pulses intact Neuro: intellect intact ; motor including gait unremarkable A/P ICD-9-CM ICD-10-CM 1. Pre-operative clearance V72.84 Z01.818 AMBULATORY 12 LEAD EKG (GLOBAL) 2. PAF (paroxysmal atrial fibrillation) ([facility]) 427.31 I48.0 3. 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 Hypertension, unspecified type 401.9 I10 amLodipine (NORVASC) 2.5 MG Oral Tab The patient is relatively stable condition presently - she has none of the RCRI risk factors - she however does have quite elevated blood pressure Possibly on the basis of ongiong pain - Usually her heart is bradycardic slow so I would not like to add a beta jorge l - but will add calcium channel jorge l today to control for the perioperateive period - Patient Instructions Plan Add a new blood pressure medication - norvasc 2.5 mg twice daily ( may hold the second dose if blood pressure low ) Increase actetamonphen 1000 mg 3x day Use a cool cloth periodically on the head through the day- The am before surgery - Hold the furosemide / fish oil / folic acid - AUTHOR: Susan Hanley MD 17:04 01/16/2019 documented in this encounter Plan of Treatment Name Type Priority Associated Diagnoses Order Schedule AMBULATORY 12 LEAD EKG EKG Routine Pre-operative clearance Ordered: 2018 (GLOBAL) Health Maintenance Due Date Last Done Comments MEDICARE ANNUAL WELLNESS 11/29/2012 11/30/2011 VISIT INFLUENZA VACCINE (#1) 2018 11/28/2017, 11/11/2015, 11/25/2014, Additional history exists DEPRESSION SCREENING 01/17/2020 01/16/2019 FALL RISK ASSESSMENT 01/17/2020 01/16/2019, 01/16/2019 ZOSTER IMMUNIZATION SERIES 01/17/2020 Postponed from (1 of 2) 02/22/1984 (Vaccine not available) Colonoscopy 08/09/2020 08/10/2015 (Postponed), 09/10/2010, 09/10/2010, Additional history [...] Type Problems Progress Blood Pressure Blood Pressure 160/104 No Margarito, < 150/90 (01/16/2019 Ana, 3:53 PM EST) KAYCE Note: This is an individualized treatment [...] depression. Weight loss vs. 18 mo Lifestyle 11.3 (01/16/2019 3:53 PM No Susan Hanley MD max (lbs) >= 10 EST) Note: This is an individualized lifestyle goal [...] filedocumented in this encounter Visit Diagnoses Diagnosis Pre-operative clearance - Primary Preoperative examination, unspecified PAF (paroxysmal atrial fibrillation) (HCC) Atrial fibrillation Nasopharyngeal mass Unspecified disease of pharynx Hypertension, unspecified type documented in this encounter Insurance Payer Benefit Plan / Subscriber ID Effective Dates Phone Address Type Group AETNA MEDICARE AETNA MEDICARE xxxxxxxx 2017-[facility] ADVANTAGE ADVANTAGE t [facility] xxxxxxxxxxxx 2010-[facility] Blue t Cross/Blue Shield Guarantor Name Account Type Relation to Date of Phone Billing Patient Address Viola Patterson Personal/Family 1935 [address] [phone] [place], [place] ([place]) [id number] documented as of this encounter
--- OUTSIDE RECORDS SUMMARY | 2019-01-29 16:26 | XMS REPORT ---
:1935 Author Organization [facility] Care Team Providers Name Role Phone Unavailable [...] Unknown Unknown Chlor Tab* Chlor Tab* 11-26 [place]-3 [place]-3 2018-02 Yes Unknown Unknown Unknown Fatty Acids [...] UnknownSerum or plasma calcium measurement (mass/volume)01-07 05:47:00Identifier 75565-7 Result Time 2019-01-07 05:47:00Unknown Test Item Value Reference Range Comments Serum or plasma calcium measurement 9.0 mg/dL Unknown Unknown F (mass/volume) (test code = 00658-6) Ordering Physician UnknownSerum or plasma carbon dioxide, [...] Ordering Physician UnknownSerum or plasma urea nitrogen/creatinine yqtxd1688-00- 11 05:47:00Identifier 3097-3 Result Time 2019-01-07 05:47:00Unknown Test Item Value Reference Range Comments Serum or plasma urea nitrogen/creatinine 17.2 Unknown Unknown F ratio (test code = 3097-3) Ordering Physician UnknownSerum or plasma anion qca5926-35-04 05:47: 00Identifier 21878-6 Result Time 2019-01-07 05:47:00Unknown Test Item Value Reference Range Comments Serum or plasma anion gap (test code = 7 mmol/L Unknown Unknown F 06528-0) Ordering Physician UnknownEstimated glomerular filtration rate (GFR) non- Rmumvydw1310-34-20 05:47:00Identifier 34252-1 Result Time 2019-01-07 05: 47:00Unknown Test Item Value Reference Range Comments Estimated glomerular filtration rate (GFR) 53.4 Unknown Unknown F non- (test code = 58414-1) Ordering Physician UnknownAutomated blood platelet mean volume zcxeyrqjabc6604- 11-08 04:18:00Identifier 70680-7 Result Time 2019-01-04 04:18:00Unknown Test Item Value Reference Range Comments Automated blood platelet mean volume 9.6 fL Unknown Unknown F measurement (test code = 95602-3) Ordering Physician UnknownAutomated blood leukocytes count corrected for nucleated erythrocytes (number/volume)2019-01-04 04:18:00Identifier 53647-0 Result Time 2019-01-04 04:18:00Unknown Test Item Value Reference Range Comments Automated blood leukocytes count 10.1 10^3/uL Unknown Unknown F corrected for nucleated erythrocytes (number/volume) (test code = 18139-6) Ordering Physician UnknownAutomated blood hematocrit (percentage)2019-01-04 04: [...] UnknownAutomated erythrocyte mean corpuscular hemoglobin concentration measurement (mass/dtg1125-13-95 04:18:00Identifier 786-4 Result Time 2019-01-04 04:18:00Unknown Test Item Value Reference Range Comments Automated erythrocyte mean corpuscular 34 g/dL Unknown Unknown F hemoglobin concentration measurement (mass/vol (test code = 786-4) Ordering Physician UnknownAutomated erythrocyte mean corpuscular nvcarx2126-24- 08 04:18:00Identifier 787-2 Result Time 2019-01-04 04:18:00Unknown Test Item Value Reference Range Comments Automated erythrocyte mean corpuscular volume 91 fL Unknown Unknown F (test code = 787-2) Ordering Physician UnknownAutomated erythrocyte distribution width hietd7317-15- 08 04:18:00Identifier 788-0 Result Time 2019-01-04 04:18:00Unknown [...] Physician UnknownUrine urobilinogen measurement (units/volume) by test cmxrq5294-47-14 15:54:00Identifier 15780-6 Result Time 2019-01-03 15:54: 00Unknown Test Item Value Reference Range Comments Urine urobilinogen measurement Negative Unknown Unknown F (units/volume) by test strip (test code = 91783-3) Ordering Physician UnknownUrine bacteria detection by automated uefzxm1109-84- 07 15:54:00Identifier 17941-9 Result Time 2019-01-03 15:54:00Unknown Test Item Value Reference Range Comments Urine bacteria detection by automated Absent Unknown Unknown F method (test code = 82457-7) Ordering Physician UnknownUrine total bilirubin detection by automated test bgyls6074-03-93 15:54:00Identifier 32763-8 Result Time 2019-01-03 15:54: 00Unknown Test Item Value Reference Range Comments Urine total bilirubin detection by Negative Unknown Unknown F automated test strip (test code = 35223-4) Ordering Physician UnknownUrine clarity by refractometry tqpzpifvz2131-82-56 15: 54:00Identifier 76996-8 Result Time 2019-01-03 15:54:00Unknown Test Item Value Reference Range Comments Urine clarity by refractometry automated Clear Unknown Unknown F (test code = 31773-4) Ordering Physician UnknownColor of Urine by Zuxs5788-24-64 15:54:00Identifier 70754-5 Result Time 2019-01-03 15:54:00Unknown Test Item Value Reference Range Comments Color of Urine by Auto (test code = Yellow Unknown Unknown F 72780-3) Ordering Physician UnknownUrine glucose detection by automated test sjtdk6228-08 -07 15:54:00Identifier 57003-1 Result Time 2019-01-03 15:54:00Unknown Test Item Value Reference Range Comments Urine glucose detection by automated test Negative Unknown Unknown F strip (test code = 12036-9) Ordering Physician UnknownKetones [Mass/volume] in Urine by Automated test ykhfg5130-48-97 15:54:00Identifier 65842-9 Result Time 2019-01-03 15:54: 00Unknown Test Item Value Reference Range Comments Ketones [Mass/volume] in Urine by Negative Unknown Unknown F Automated test strip (test code = 08640-6) Ordering Physician UnknownUrine nitrite detection by automated test kgghf6847-97 -07 15:54:00Identifier 31545-9 Result Time 2019-01-03 15:54:00Unknown Test Item Value Reference Range Comments Urine nitrite detection by automated test Negative Unknown Unknown F strip (test code = 64059-5) Ordering Physician UnknownProtein [Mass/volume] in Urine by Automated test pvibx7909-99-78 15:54:00Identifier 65989-3 Result Time 2019-01-03 15:54: 00Unknown Test Item Value Reference Range Comments Protein [Mass/volume] in Urine by 1+(30 mg/dl) Unknown Unknown F Automated test strip (test code = 89748-9) Ordering Physician UnknownSpecific gravity of Urine by Refractometry oasxzgewu6638-57-82 15:54:00Identifier 41164-6 Result Time 2019-01-03 15:54: 00Unknown Test Item Value Reference Range Comments Specific gravity of Urine by Refractometry 1.014 Unknown Unknown F automated (test code = 25442-7) Ordering Physician UnknownUrine erythrocytes detection by automated ljaczj352101-03 15:54:00Identifier 61574-8 Result Time 2019-01-03 15:54:00Unknown Test Item Value Reference Range Comments Urine erythrocytes detection by 1+(3-5/hpf) Unknown Unknown F automated method (test code = 14224-6) Ordering Physician UnknownUrine leukocytes detection by automated beycjq6275-65- 07 15:54:00Identifier 52024-0 Result Time 2019-01-03 15:54:00Unknown Test Item Value Reference Range Comments Urine leukocytes detection by automated Absent Unknown Unknown F method (test code = 13242-9) Ordering Physician UnknownUrine hemoglobin detection by test aafrv0555-76-58 15: 54:00Identifier 5794-3 Result Time 2019-01-03 15:54:00Unknown Test Item Value Reference Range Comments Urine hemoglobin detection by test strip Negative Unknown Unknown F (test code = 5794-3) Ordering Physician UnknownUrine leukocyte esterase detection by automated test zxwsu9344-83-59 15:54:00Identifier 90835-3 Result Time 2019-01-03 15:54: 00Unknown Test Item Value Reference Range Comments Urine leukocyte esterase detection by Negative Unknown Unknown F automated test strip (test code = 80048-6) Ordering Physician UnknownSerum or plasma troponin i.cardiac measurement (mass/ volume)2019-01-03 12:14:00Identifier 39039-1 Result Time 2019-01-03 12:14: 00Unknown Test Item Value Reference Range Comments Serum or plasma troponin i.cardiac 0.00 ng/mL Unknown Unknown F measurement (mass/volume) (test code = 45230-8) Ordering Physician UnknownSerum or plasma alanine aminotransferase measurement ( enzymatic activity/volume)2019-01-03 12:14:00Identifier 1742-6 Result Time 01-03 12:14:00Unknown Test Item Value Reference Range Comments Serum or plasma alanine aminotransferase 7 U/L Unknown Unknown F measurement (enzymatic activity/volume) (test code = 1742-6) Ordering Physician UnknownSerum or plasma albumin/globulin mass ydfbp1643-49-10 12:14:00Identifier 1759-0 Result Time 2019-01-03 12:14:00Unknown Test [...] 3016-3) Ordering Physician UnknownAutomated blood nucleated erythrocytes xihejrcww3290- 11-07 12:14:00Identifier 09656-9 Result Time 2019-01-03 12:14:00Unknown Test Item Value Reference Range Comments Automated blood nucleated erythrocytes 0.0 Unknown Unknown F detection (test code = 60566-9) Ordering Physician UnknownAutomated blood monocytes/100 jfzxyetmnr9690-51-03 12: 14:00Identifier 5905-5 Result Time 2019-01-03 12:14:00Unknown Test Item Value Reference Range Comments Automated blood monocytes/100 leukocytes 3.6 % Unknown Unknown F (test code = 5905-5) Ordering Physician UnknownSerum or plasma albumin measurement by bromocresol green (BCG) dye binding method (gy7243-03-45 12:14:00Identifier 64969-2 Result Time 2019-01-03 12:14:00Unknown Test Item Value Reference Range Comments Serum or plasma albumin measurement by 4.0 g/dL Unknown Unknown F bromocresol green (BCG) dye binding method (ma (test code = 86678-7) Ordering Physician UnknownSerum or plasma alkaline phosphatase [...] = 704-7) Ordering Physician UnknownAutomated blood basophils/100 rqxzprwmgv4401-78-25 12: 14:00Identifier 706-2 Result Time 2019-01-03 12:14:00Unknown [...] = 711-2) Ordering Physician UnknownAutomated blood eosinophils/100 fptnrqjzkb0533-82-24 12:14:00Identifier 713-8 Result Time 2019-01-03 12:14:00Unknown Test Item Value Reference Range Comments Automated blood eosinophils/100 leukocytes 0.5 % Unknown Unknown F (test code = 713-8) Ordering Physician UnknownBlood lymphocytes automated count (number/volume)01-03 12:14:00Identifier 731-0 Result Time 2019-01-03 12:14:00Unknown Test Item Value Reference Range Comments Blood lymphocytes automated count 0.9 10^3/ul Unknown Unknown F (number/volume) (test code = 731-0) Ordering Physician UnknownAutomated blood lymphocytes/100 vncdqxyrbx1153-90-03 12:14:00Identifier 736-9 Result Time 2019-01-03 12:14:00Unknown Test Item Value Reference Range Comments Automated blood lymphocytes/100 leukocytes 10.3 % Unknown Unknown F (test code = 736-9) Ordering Physician UnknownBlood monocytes automated count (number/volume)2018-12 12:14:00Identifier 742-7 Result Time 2019-01-03 12:14:00Unknown Test Item Value Reference Range Comments Blood monocytes automated count 0.3 10^3/ul Unknown Unknown F (number/volume) (test code = 742-7) Ordering Physician UnknownAutomated blood neutrophils/100 gihpkbmzjn1740-74-15 12:14:00Identifier 770-8 Result Time 2019-01-03 12:14:00Unknown Test [...] code = 771-6) Ordering Physician UnknownCT biopsy howjt3296-65-82 12:14:00Identifier [id number] Result Time 2019-01-03 12:14:00Unknown Test Item Value Reference Range Comments CT biopsy liver (test code = PUI9944) 7.8 10^3/ul Unknown Unknown F Ordering Physician Unknown
--- OUTSIDE RECORDS SUMMARY | 2019-01-29 16:26 | XMS REPORT ---
:1935 Author Organization [facility] Care Team Providers Name Role Phone Unavailable [...] Unknown Unknown Chlor Tab* Chlor Tab* 11-26 [place]-3 [place]-3 2018-02 Yes Unknown Unknown Unknown Fatty Acids [...] UnknownSerum or plasma calcium measurement (mass/volume)01-07 05:47:00Identifier 91934-1 Result Time 2019-01-07 05:47:00Unknown Test Item Value Reference Range Comments Serum or plasma calcium measurement 9.0 mg/dL Unknown Unknown F (mass/volume) (test code = 55144-0) Ordering Physician UnknownSerum or plasma carbon dioxide, [...] Ordering Physician UnknownSerum or plasma urea nitrogen/creatinine prbes7104-43- 11 05:47:00Identifier 3097-3 Result Time 2019-01-07 05:47:00Unknown Test Item Value Reference Range Comments Serum or plasma urea nitrogen/creatinine 17.2 Unknown Unknown F ratio (test code = 3097-3) Ordering Physician UnknownSerum or plasma anion njo7027-85-84 05:47: 00Identifier 55324-1 Result Time 2019-01-07 05:47:00Unknown Test Item Value Reference Range Comments Serum or plasma anion gap (test code = 7 mmol/L Unknown Unknown F 21158-1) Ordering Physician UnknownEstimated glomerular filtration rate (GFR) non- Eujlsjaz3556-34-96 05:47:00Identifier 01018-6 Result Time 2019-01-07 05: 47:00Unknown Test Item Value Reference Range Comments Estimated glomerular filtration rate (GFR) 53.4 Unknown Unknown F non- (test code = 61905-5) Ordering Physician UnknownAutomated blood platelet mean volume xhdzsupddnt1059- 11-08 04:18:00Identifier 31379-5 Result Time 2019-01-04 04:18:00Unknown Test Item Value Reference Range Comments Automated blood platelet mean volume 9.6 fL Unknown Unknown F measurement (test code = 77696-1) Ordering Physician UnknownAutomated blood leukocytes count corrected for nucleated erythrocytes (number/volume)2019-01-04 04:18:00Identifier 93253-5 Result Time 2019-01-04 04:18:00Unknown Test Item Value Reference Range Comments Automated blood leukocytes count 10.1 10^3/uL Unknown Unknown F corrected for nucleated erythrocytes (number/volume) (test code = 70938-1) Ordering Physician UnknownAutomated blood hematocrit (percentage)2019-01-04 04: [...] UnknownAutomated erythrocyte mean corpuscular hemoglobin concentration measurement (mass/eql8632-38-00 04:18:00Identifier 786-4 Result Time 2019-01-04 04:18:00Unknown Test Item Value Reference Range Comments Automated erythrocyte mean corpuscular 34 g/dL Unknown Unknown F hemoglobin concentration measurement (mass/vol (test code = 786-4) Ordering Physician UnknownAutomated erythrocyte mean corpuscular ubkttv5197-90- 08 04:18:00Identifier 787-2 Result Time 2019-01-04 04:18:00Unknown Test Item Value Reference Range Comments Automated erythrocyte mean corpuscular volume 91 fL Unknown Unknown F (test code = 787-2) Ordering Physician UnknownAutomated erythrocyte distribution width ttsod3398-19- 08 04:18:00Identifier 788-0 Result Time 2019-01-04 04:18:00Unknown [...] Physician UnknownUrine urobilinogen measurement (units/volume) by test nivfp8612-26-69 15:54:00Identifier 72472-2 Result Time 2019-01-03 15:54: 00Unknown Test Item Value Reference Range Comments Urine urobilinogen measurement Negative Unknown Unknown F (units/volume) by test strip (test code = 76400-6) Ordering Physician UnknownUrine bacteria detection by automated irlxfl6929-97- 07 15:54:00Identifier 64476-8 Result Time 2019-01-03 15:54:00Unknown Test Item Value Reference Range Comments Urine bacteria detection by automated Absent Unknown Unknown F method (test code = 09472-7) Ordering Physician UnknownUrine total bilirubin detection by automated test xuzpu9808-69-00 15:54:00Identifier 25946-0 Result Time 2019-01-03 15:54: 00Unknown Test Item Value Reference Range Comments Urine total bilirubin detection by Negative Unknown Unknown F automated test strip (test code = 91403-0) Ordering Physician UnknownUrine clarity by refractometry ijmibrxkw3917-88-34 15: 54:00Identifier 51210-8 Result Time 2019-01-03 15:54:00Unknown Test Item Value Reference Range Comments Urine clarity by refractometry automated Clear Unknown Unknown F (test code = 20268-3) Ordering Physician UnknownColor of Urine by Egyh2054-99-37 15:54:00Identifier 71174-4 Result Time 2019-01-03 15:54:00Unknown Test Item Value Reference Range Comments Color of Urine by Auto (test code = Yellow Unknown Unknown F 79018-9) Ordering Physician UnknownUrine glucose detection by automated test aidpq4018-96 -07 15:54:00Identifier 63541-2 Result Time 2019-01-03 15:54:00Unknown Test Item Value Reference Range Comments Urine glucose detection by automated test Negative Unknown Unknown F strip (test code = 56227-0) Ordering Physician UnknownKetones [Mass/volume] in Urine by Automated test mnhcy5686-64-69 15:54:00Identifier 17113-1 Result Time 2019-01-03 15:54: 00Unknown Test Item Value Reference Range Comments Ketones [Mass/volume] in Urine by Negative Unknown Unknown F Automated test strip (test code = 85420-8) Ordering Physician UnknownUrine nitrite detection by automated test srovl7555-72 -07 15:54:00Identifier 92819-2 Result Time 2019-01-03 15:54:00Unknown Test Item Value Reference Range Comments Urine nitrite detection by automated test Negative Unknown Unknown F strip (test code = 73590-3) Ordering Physician UnknownProtein [Mass/volume] in Urine by Automated test sjcpy1195-18-18 15:54:00Identifier 27809-1 Result Time 2019-01-03 15:54: 00Unknown Test Item Value Reference Range Comments Protein [Mass/volume] in Urine by 1+(30 mg/dl) Unknown Unknown F Automated test strip (test code = 73529-9) Ordering Physician UnknownSpecific gravity of Urine by Refractometry enpvybeee8324-23-93 15:54:00Identifier 93262-1 Result Time 2019-01-03 15:54: 00Unknown Test Item Value Reference Range Comments Specific gravity of Urine by Refractometry 1.014 Unknown Unknown F automated (test code = 61825-6) Ordering Physician UnknownUrine erythrocytes detection by automated xrvnjl316401-03 15:54:00Identifier 19043-2 Result Time 2019-01-03 15:54:00Unknown Test Item Value Reference Range Comments Urine erythrocytes detection by 1+(3-5/hpf) Unknown Unknown F automated method (test code = 45162-0) Ordering Physician UnknownUrine leukocytes detection by automated dnrkhp6654-19- 07 15:54:00Identifier 43590-3 Result Time 2019-01-03 15:54:00Unknown Test Item Value Reference Range Comments Urine leukocytes detection by automated Absent Unknown Unknown F method (test code = 23617-6) Ordering Physician UnknownUrine hemoglobin detection by test vkdxm4036-94-47 15: 54:00Identifier 5794-3 Result Time 2019-01-03 15:54:00Unknown Test Item Value Reference Range Comments Urine hemoglobin detection by test strip Negative Unknown Unknown F (test code = 5794-3) Ordering Physician UnknownUrine leukocyte esterase detection by automated test lszqr5118-36-70 15:54:00Identifier 72716-9 Result Time 2019-01-03 15:54: 00Unknown Test Item Value Reference Range Comments Urine leukocyte esterase detection by Negative Unknown Unknown F automated test strip (test code = 32509-1) Ordering Physician UnknownSerum or plasma troponin i.cardiac measurement (mass/ volume)2019-01-03 12:14:00Identifier 32232-8 Result Time 2019-01-03 12:14: 00Unknown Test Item Value Reference Range Comments Serum or plasma troponin i.cardiac 0.00 ng/mL Unknown Unknown F measurement (mass/volume) (test code = 05138-1) Ordering Physician UnknownSerum or plasma alanine aminotransferase measurement ( enzymatic activity/volume)2019-01-03 12:14:00Identifier 1742-6 Result Time 01-03 12:14:00Unknown Test Item Value Reference Range Comments Serum or plasma alanine aminotransferase 7 U/L Unknown Unknown F measurement (enzymatic activity/volume) (test code = 1742-6) Ordering Physician UnknownSerum or plasma albumin/globulin mass hiwhu9792-00-15 12:14:00Identifier 1759-0 Result Time 2019-01-03 12:14:00Unknown Test [...] 3016-3) Ordering Physician UnknownAutomated blood nucleated erythrocytes hmymjpbpf3782- 11-07 12:14:00Identifier 29129-8 Result Time 2019-01-03 12:14:00Unknown Test Item Value Reference Range Comments Automated blood nucleated erythrocytes 0.0 Unknown Unknown F detection (test code = 32557-0) Ordering Physician UnknownAutomated blood monocytes/100 jvoeastjcn9289-53-90 12: 14:00Identifier 5905-5 Result Time 2019-01-03 12:14:00Unknown Test Item Value Reference Range Comments Automated blood monocytes/100 leukocytes 3.6 % Unknown Unknown F (test code = 5905-5) Ordering Physician UnknownSerum or plasma albumin measurement by bromocresol green (BCG) dye binding method (nj7691-60-38 12:14:00Identifier 23266-4 Result Time 2019-01-03 12:14:00Unknown Test Item Value Reference Range Comments Serum or plasma albumin measurement by 4.0 g/dL Unknown Unknown F bromocresol green (BCG) dye binding method (ma (test code = 57055-3) Ordering Physician UnknownSerum or plasma alkaline phosphatase [...] = 704-7) Ordering Physician UnknownAutomated blood basophils/100 jetqzpqtgj8502-92-14 12: 14:00Identifier 706-2 Result Time 2019-01-03 12:14:00Unknown [...] = 711-2) Ordering Physician UnknownAutomated blood eosinophils/100 wovhtjsvhf8482-93-16 12:14:00Identifier 713-8 Result Time 2019-01-03 12:14:00Unknown Test Item Value Reference Range Comments Automated blood eosinophils/100 leukocytes 0.5 % Unknown Unknown F (test code = 713-8) Ordering Physician UnknownBlood lymphocytes automated count (number/volume)01-03 12:14:00Identifier 731-0 Result Time 2019-01-03 12:14:00Unknown Test Item Value Reference Range Comments Blood lymphocytes automated count 0.9 10^3/ul Unknown Unknown F (number/volume) (test code = 731-0) Ordering Physician UnknownAutomated blood lymphocytes/100 yybcvuyqfz7338-82-84 12:14:00Identifier 736-9 Result Time 2019-01-03 12:14:00Unknown Test Item Value Reference Range Comments Automated blood lymphocytes/100 leukocytes 10.3 % Unknown Unknown F (test code = 736-9) Ordering Physician UnknownBlood monocytes automated count (number/volume)2018-12 12:14:00Identifier 742-7 Result Time 2019-01-03 12:14:00Unknown Test Item Value Reference Range Comments Blood monocytes automated count 0.3 10^3/ul Unknown Unknown F (number/volume) (test code = 742-7) Ordering Physician UnknownAutomated blood neutrophils/100 focczrvdtw5500-59-66 12:14:00Identifier 770-8 Result Time 2019-01-03 12:14:00Unknown Test [...] code = 771-6) Ordering Physician UnknownCT biopsy fdnuy3260-87-42 12:14:00Identifier [id number] Result Time 2019-01-03 12:14:00Unknown Test Item Value Reference Range Comments CT biopsy liver (test code = RRL7090) 7.8 10^3/ul Unknown Unknown F Ordering Physician Unknown
--- OUTSIDE RECORDS SUMMARY | 2019-01-29 16:26 | XMS REPORT ---
[...] Unknown Unknown Chlor Tab* Chlor Tab* 11-26 [place]-3 [place]-3 2018-02 Yes Unknown Unknown Unknown Fatty [...] UnknownSerum or plasma calcium measurement (mass/volume)01-07 05:47:00Identifier 63754-7 Result Time 2019-01-07 05:47:00Unknown Test Item Value Reference Range Comments Serum or plasma calcium measurement 9.0 mg/dL Unknown Unknown F (mass/volume) (test code = 39369-6) Ordering Physician UnknownSerum or plasma carbon dioxide, [...] Ordering Physician UnknownSerum or plasma urea nitrogen/creatinine iyugl2758-68- 11 05:47:00Identifier 3097-3 Result Time 2019-01-07 05:47:00Unknown Test Item Value Reference Range Comments Serum or plasma urea nitrogen/creatinine 17.2 Unknown Unknown F ratio (test code = 3097-3) Ordering Physician UnknownSerum or plasma anion ths3294-58-46 05:47: 00Identifier 35490-4 Result Time 2019-01-07 05:47:00Unknown Test Item Value Reference Range Comments Serum or plasma anion gap (test code = 7 mmol/L Unknown Unknown F 08690-5) Ordering Physician UnknownEstimated glomerular filtration rate (GFR) non- Vipsjstg0577-36-35 05:47:00Identifier 98689-0 Result Time 2019-01-07 05: 47:00Unknown Test Item Value Reference Range Comments Estimated glomerular filtration rate (GFR) 53.4 Unknown Unknown F non- (test code = 63856-8) Ordering Physician UnknownAutomated blood platelet mean volume yznlhacjquv5426- 11-08 04:18:00Identifier 50341-9 Result Time 2019-01-04 04:18:00Unknown Test Item Value Reference Range Comments Automated blood platelet mean volume 9.6 fL Unknown Unknown F measurement (test code = 56758-2) Ordering Physician UnknownAutomated blood leukocytes count corrected for nucleated erythrocytes (number/volume)2019-01-04 04:18:00Identifier 50223-7 Result Time 2019-01-04 04:18:00Unknown Test Item Value Reference Range Comments Automated blood leukocytes count 10.1 10^3/uL Unknown Unknown F corrected for nucleated erythrocytes (number/volume) (test code = 90811-6) Ordering Physician UnknownAutomated blood hematocrit (percentage)2019-01-04 04: [...] UnknownAutomated erythrocyte mean corpuscular hemoglobin concentration measurement (mass/aze8028-49-47 04:18:00Identifier 786-4 Result Time 2019-01-04 04:18:00Unknown Test Item Value Reference Range Comments Automated erythrocyte mean corpuscular 34 g/dL Unknown Unknown F hemoglobin concentration measurement (mass/vol (test code = 786-4) Ordering Physician UnknownAutomated erythrocyte mean corpuscular kfpkpy5753-22- 08 04:18:00Identifier 787-2 Result Time 2019-01-04 04:18:00Unknown Test Item Value Reference Range Comments Automated erythrocyte mean corpuscular volume 91 fL Unknown Unknown F (test code = 787-2) Ordering Physician UnknownAutomated erythrocyte distribution width dcvdx7739-79- 08 04:18:00Identifier 788-0 Result Time 2019-01-04 04:18:00Unknown [...] Physician UnknownUrine urobilinogen measurement (units/volume) by test vguso1917-24-18 15:54:00Identifier 57434-1 Result Time 2019-01-03 15:54: 00Unknown Test Item Value Reference Range Comments Urine urobilinogen measurement Negative Unknown Unknown F (units/volume) by test strip (test code = 99607-3) Ordering Physician UnknownUrine bacteria detection by automated auzwni2138-93- 07 15:54:00Identifier 74969-3 Result Time 2019-01-03 15:54:00Unknown Test Item Value Reference Range Comments Urine bacteria detection by automated Absent Unknown Unknown F method (test code = 06918-7) Ordering Physician UnknownUrine total bilirubin detection by automated test mqvrj5892-34-57 15:54:00Identifier 72535-6 Result Time 2019-01-03 15:54: 00Unknown Test Item Value Reference Range Comments Urine total bilirubin detection by Negative Unknown Unknown F automated test strip (test code = 63987-4) Ordering Physician UnknownUrine clarity by refractometry entfmvfmm0181-95-05 15: 54:00Identifier 03841-1 Result Time 2019-01-03 15:54:00Unknown Test Item Value Reference Range Comments Urine clarity by refractometry automated Clear Unknown Unknown F (test code = 87823-3) Ordering Physician UnknownColor of Urine by Paxa7533-24-16 15:54:00Identifier 76575-7 Result Time 2019-01-03 15:54:00Unknown Test Item Value Reference Range Comments Color of Urine by Auto (test code = Yellow Unknown Unknown F 26864-1) Ordering Physician UnknownUrine glucose detection by automated test vqcth4489-49 -07 15:54:00Identifier 48188-1 Result Time 2019-01-03 15:54:00Unknown Test Item Value Reference Range Comments Urine glucose detection by automated test Negative Unknown Unknown F strip (test code = 32838-5) Ordering Physician UnknownKetones [Mass/volume] in Urine by Automated test tlmau1037-01-21 15:54:00Identifier 12649-2 Result Time 2019-01-03 15:54: 00Unknown Test Item Value Reference Range Comments Ketones [Mass/volume] in Urine by Negative Unknown Unknown F Automated test strip (test code = 30686-7) Ordering Physician UnknownUrine nitrite detection by automated test mnqip9979-44 -07 15:54:00Identifier 70841-7 Result Time 2019-01-03 15:54:00Unknown Test Item Value Reference Range Comments Urine nitrite detection by automated test Negative Unknown Unknown F strip (test code = 12443-1) Ordering Physician UnknownProtein [Mass/volume] in Urine by Automated test knuxo9465-01-08 15:54:00Identifier 91238-6 Result Time 2019-01-03 15:54: 00Unknown Test Item Value Reference Range Comments Protein [Mass/volume] in Urine by 1+(30 mg/dl) Unknown Unknown F Automated test strip (test code = 76408-6) Ordering Physician UnknownSpecific gravity of Urine by Refractometry atdgtqvjc7898-23-63 15:54:00Identifier 67510-8 Result Time 2019-01-03 15:54: 00Unknown Test Item Value Reference Range Comments Specific gravity of Urine by Refractometry 1.014 Unknown Unknown F automated (test code = 88305-6) Ordering Physician UnknownUrine erythrocytes detection by automated mkxrbv257601-03 15:54:00Identifier 15154-9 Result Time 2019-01-03 15:54:00Unknown Test Item Value Reference Range Comments Urine erythrocytes detection by 1+(3-5/hpf) Unknown Unknown F automated method (test code = 71162-5) Ordering Physician UnknownUrine leukocytes detection by automated uidfiu3440-21- 07 15:54:00Identifier 30671-3 Result Time 2019-01-03 15:54:00Unknown Test Item Value Reference Range Comments Urine leukocytes detection by automated Absent Unknown Unknown F method (test code = 66327-3) Ordering Physician UnknownUrine hemoglobin detection by test rklea6825-35-92 15: 54:00Identifier 5794-3 Result Time 2019-01-03 15:54:00Unknown Test Item Value Reference Range Comments Urine hemoglobin detection by test strip Negative Unknown Unknown F (test code = 5794-3) Ordering Physician UnknownUrine leukocyte esterase detection by automated test gvahj6640-89-69 15:54:00Identifier 06244-7 Result Time 2019-01-03 15:54: 00Unknown Test Item Value Reference Range Comments Urine leukocyte esterase detection by Negative Unknown Unknown F automated test strip (test code = 51788-5) Ordering Physician UnknownSerum or plasma troponin i.cardiac measurement (mass/ volume)2019-01-03 12:14:00Identifier 29600-8 Result Time 2019-01-03 12:14: 00Unknown Test Item Value Reference Range Comments Serum or plasma troponin i.cardiac 0.00 ng/mL Unknown Unknown F measurement (mass/volume) (test code = 25853-1) Ordering Physician UnknownSerum or plasma alanine aminotransferase measurement ( enzymatic activity/volume)2019-01-03 12:14:00Identifier 1742-6 Result Time 01-03 12:14:00Unknown Test Item Value Reference Range Comments Serum or plasma alanine aminotransferase 7 U/L Unknown Unknown F measurement (enzymatic activity/volume) (test code = 1742-6) Ordering Physician UnknownSerum or plasma albumin/globulin mass xynnq8787-06-93 12:14:00Identifier 1759-0 Result Time 2019-01-03 12:14:00Unknown Test [...] 3016-3) Ordering Physician UnknownAutomated blood nucleated erythrocytes rfkhxuldn0230- 11-07 12:14:00Identifier 84191-3 Result Time 2019-01-03 12:14:00Unknown Test Item Value Reference Range Comments Automated blood nucleated erythrocytes 0.0 Unknown Unknown F detection (test code = 04793-5) Ordering Physician UnknownAutomated blood monocytes/100 tdumsnlzjl4136-12-16 12: 14:00Identifier 5905-5 Result Time 2019-01-03 12:14:00Unknown Test Item Value Reference Range Comments Automated blood monocytes/100 leukocytes 3.6 % Unknown Unknown F (test code = 5905-5) Ordering Physician UnknownSerum or plasma albumin measurement by bromocresol green (BCG) dye binding method (ue4337-53-79 12:14:00Identifier 23066-3 Result Time 2019-01-03 12:14:00Unknown Test Item Value Reference Range Comments Serum or plasma albumin measurement by 4.0 g/dL Unknown Unknown F bromocresol green (BCG) dye binding method (ma (test code = 69947-1) Ordering Physician UnknownSerum or plasma alkaline phosphatase [...] = 704-7) Ordering Physician UnknownAutomated blood basophils/100 ftqrcehtzo6452-53-12 12: 14:00Identifier 706-2 Result Time 2019-01-03 12:14:00Unknown [...] = 711-2) Ordering Physician UnknownAutomated blood eosinophils/100 lsuauoownm4370-28-96 12:14:00Identifier 713-8 Result Time 2019-01-03 12:14:00Unknown Test Item Value Reference Range Comments Automated blood eosinophils/100 leukocytes 0.5 % Unknown Unknown F (test code = 713-8) Ordering Physician UnknownBlood lymphocytes automated count (number/volume)01-03 12:14:00Identifier 731-0 Result Time 2019-01-03 12:14:00Unknown Test Item Value Reference Range Comments Blood lymphocytes automated count 0.9 10^3/ul Unknown Unknown F (number/volume) (test code = 731-0) Ordering Physician UnknownAutomated blood lymphocytes/100 byoavttyax2216-14-37 12:14:00Identifier 736-9 Result Time 2019-01-03 12:14:00Unknown Test Item Value Reference Range Comments Automated blood lymphocytes/100 leukocytes 10.3 % Unknown Unknown F (test code = 736-9) Ordering Physician UnknownBlood monocytes automated count (number/volume)2018-12 12:14:00Identifier 742-7 Result Time 2019-01-03 12:14:00Unknown Test Item Value Reference Range Comments Blood monocytes automated count 0.3 10^3/ul Unknown Unknown F (number/volume) (test code = 742-7) Ordering Physician UnknownAutomated blood neutrophils/100 ymmvorjyuo8329-02-70 12:14:00Identifier 770-8 Result Time 2019-01-03 12:14:00Unknown Test [...] code = 771-6) Ordering Physician UnknownCT biopsy kacmt6740-96-54 12:14:00Identifier [id number] Result Time 2019-01-03 12:14:00Unknown Test Item Value Reference Range Comments CT biopsy liver (test code = KGZ0283) 7.8 10^3/ul Unknown Unknown F Ordering Physician Unknown
--- OUTSIDE RECORDS SUMMARY | 2019-01-29 16:26 | XMS REPORT ---
[...] Unknown Unknown Chlor Tab* Chlor Tab* 11-26 [place]-3 [place]-3 2018-02 Yes Unknown Unknown Unknown Fatty Acids [...] UnknownSerum or plasma calcium measurement (mass/volume)01-07 05:47:00Identifier 23911-0 Result Time 2019-01-07 05:47:00Unknown Test Item Value Reference Range Comments Serum or plasma calcium measurement 9.0 mg/dL Unknown Unknown F (mass/volume) (test code = 13618-7) Ordering Physician UnknownSerum or plasma carbon dioxide, [...] Ordering Physician UnknownSerum or plasma urea nitrogen/creatinine aeayr7009-34- 11 05:47:00Identifier 3097-3 Result Time 2019-01-07 05:47:00Unknown Test Item Value Reference Range Comments Serum or plasma urea nitrogen/creatinine 17.2 Unknown Unknown F ratio (test code = 3097-3) Ordering Physician UnknownSerum or plasma anion ltx2123-45-20 05:47: 00Identifier 77808-5 Result Time 2019-01-07 05:47:00Unknown Test Item Value Reference Range Comments Serum or plasma anion gap (test code = 7 mmol/L Unknown Unknown F 09606-3) Ordering Physician UnknownEstimated glomerular filtration rate (GFR) non- Ktneqnxz8549-10-68 05:47:00Identifier 78084-8 Result Time 2019-01-07 05: 47:00Unknown Test Item Value Reference Range Comments Estimated glomerular filtration rate (GFR) 53.4 Unknown Unknown F non- (test code = 08571-9) Ordering Physician UnknownAutomated blood platelet mean volume wzarglmpuuj6172- 11-08 04:18:00Identifier 25873-5 Result Time 2019-01-04 04:18:00Unknown Test Item Value Reference Range Comments Automated blood platelet mean volume 9.6 fL Unknown Unknown F measurement (test code = 16812-6) Ordering Physician UnknownAutomated blood leukocytes count corrected for nucleated erythrocytes (number/volume)2019-01-04 04:18:00Identifier 29078-5 Result Time 2019-01-04 04:18:00Unknown Test Item Value Reference Range Comments Automated blood leukocytes count 10.1 10^3/uL Unknown Unknown F corrected for nucleated erythrocytes (number/volume) (test code = 56328-6) Ordering Physician UnknownAutomated blood hematocrit (percentage)2019-01-04 04: [...] UnknownAutomated erythrocyte mean corpuscular hemoglobin concentration measurement (mass/cas5257-76-71 04:18:00Identifier 786-4 Result Time 2019-01-04 04:18:00Unknown Test Item Value Reference Range Comments Automated erythrocyte mean corpuscular 34 g/dL Unknown Unknown F hemoglobin concentration measurement (mass/vol (test code = 786-4) Ordering Physician UnknownAutomated erythrocyte mean corpuscular godqiz5836-02- 08 04:18:00Identifier 787-2 Result Time 2019-01-04 04:18:00Unknown Test Item Value Reference Range Comments Automated erythrocyte mean corpuscular volume 91 fL Unknown Unknown F (test code = 787-2) Ordering Physician UnknownAutomated erythrocyte distribution width dgqtk8780-91- 08 04:18:00Identifier 788-0 Result Time 2019-01-04 04:18:00Unknown [...] Physician UnknownUrine urobilinogen measurement (units/volume) by test etbeq5767-17-80 15:54:00Identifier 86393-9 Result Time 2019-01-03 15:54: 00Unknown Test Item Value Reference Range Comments Urine urobilinogen measurement Negative Unknown Unknown F (units/volume) by test strip (test code = 68136-5) Ordering Physician UnknownUrine bacteria detection by automated barajd8578-74- 07 15:54:00Identifier 67128-8 Result Time 2019-01-03 15:54:00Unknown Test Item Value Reference Range Comments Urine bacteria detection by automated Absent Unknown Unknown F method (test code = 62866-3) Ordering Physician UnknownUrine total bilirubin detection by automated test eepkn2337-25-66 15:54:00Identifier 97610-9 Result Time 2019-01-03 15:54: 00Unknown Test Item Value Reference Range Comments Urine total bilirubin detection by Negative Unknown Unknown F automated test strip (test code = 26133-9) Ordering Physician UnknownUrine clarity by refractometry emruivxxt1387-18-74 15: 54:00Identifier 45941-3 Result Time 2019-01-03 15:54:00Unknown Test Item Value Reference Range Comments Urine clarity by refractometry automated Clear Unknown Unknown F (test code = 12454-0) Ordering Physician UnknownColor of Urine by Izss8420-69-48 15:54:00Identifier 17638-9 Result Time 2019-01-03 15:54:00Unknown Test Item Value Reference Range Comments Color of Urine by Auto (test code = Yellow Unknown Unknown F 28713-6) Ordering Physician UnknownUrine glucose detection by automated test gxtdd7091-05 -07 15:54:00Identifier 37678-6 Result Time 2019-01-03 15:54:00Unknown Test Item Value Reference Range Comments Urine glucose detection by automated test Negative Unknown Unknown F strip (test code = 20479-5) Ordering Physician UnknownKetones [Mass/volume] in Urine by Automated test emmpw4361-28-57 15:54:00Identifier 68090-4 Result Time 2019-01-03 15:54: 00Unknown Test Item Value Reference Range Comments Ketones [Mass/volume] in Urine by Negative Unknown Unknown F Automated test strip (test code = 20618-9) Ordering Physician UnknownUrine nitrite detection by automated test vyjgd2738-24 -07 15:54:00Identifier 71118-3 Result Time 2019-01-03 15:54:00Unknown Test Item Value Reference Range Comments Urine nitrite detection by automated test Negative Unknown Unknown F strip (test code = 59601-2) Ordering Physician UnknownProtein [Mass/volume] in Urine by Automated test twbvz7546-23-93 15:54:00Identifier 82611-9 Result Time 2019-01-03 15:54: 00Unknown Test Item Value Reference Range Comments Protein [Mass/volume] in Urine by 1+(30 mg/dl) Unknown Unknown F Automated test strip (test code = 87628-7) Ordering Physician UnknownSpecific gravity of Urine by Refractometry ypqbvnxhy2953-51-79 15:54:00Identifier 89285-6 Result Time 2019-01-03 15:54: 00Unknown Test Item Value Reference Range Comments Specific gravity of Urine by Refractometry 1.014 Unknown Unknown F automated (test code = 57597-4) Ordering Physician UnknownUrine erythrocytes detection by automated nrysen194901-03 15:54:00Identifier 35264-0 Result Time 2019-01-03 15:54:00Unknown Test Item Value Reference Range Comments Urine erythrocytes detection by 1+(3-5/hpf) Unknown Unknown F automated method (test code = 52130-8) Ordering Physician UnknownUrine leukocytes detection by automated qqdnpy3760-79- 07 15:54:00Identifier 58466-7 Result Time 2019-01-03 15:54:00Unknown Test Item Value Reference Range Comments Urine leukocytes detection by automated Absent Unknown Unknown F method (test code = 98929-3) Ordering Physician UnknownUrine hemoglobin detection by test nqmda0911-99-77 15: 54:00Identifier 5794-3 Result Time 2019-01-03 15:54:00Unknown Test Item Value Reference Range Comments Urine hemoglobin detection by test strip Negative Unknown Unknown F (test code = 5794-3) Ordering Physician UnknownUrine leukocyte esterase detection by automated test hkuxb5372-65-81 15:54:00Identifier 61739-7 Result Time 2019-01-03 15:54: 00Unknown Test Item Value Reference Range Comments Urine leukocyte esterase detection by Negative Unknown Unknown F automated test strip (test code = 32716-3) Ordering Physician UnknownSerum or plasma troponin i.cardiac measurement (mass/ volume)2019-01-03 12:14:00Identifier 24470-6 Result Time 2019-01-03 12:14: 00Unknown Test Item Value Reference Range Comments Serum or plasma troponin i.cardiac 0.00 ng/mL Unknown Unknown F measurement (mass/volume) (test code = 68734-5) Ordering Physician UnknownSerum or plasma alanine aminotransferase measurement ( enzymatic activity/volume)2019-01-03 12:14:00Identifier 1742-6 Result Time 01-03 12:14:00Unknown Test Item Value Reference Range Comments Serum or plasma alanine aminotransferase 7 U/L Unknown Unknown F measurement (enzymatic activity/volume) (test code = 1742-6) Ordering Physician UnknownSerum or plasma albumin/globulin mass itzaj5088-72-95 12:14:00Identifier 1759-0 Result Time 2019-01-03 12:14:00Unknown Test [...] 3016-3) Ordering Physician UnknownAutomated blood nucleated erythrocytes ezfdvddzg3682- 11-07 12:14:00Identifier 01971-6 Result Time 2019-01-03 12:14:00Unknown Test Item Value Reference Range Comments Automated blood nucleated erythrocytes 0.0 Unknown Unknown F detection (test code = 96900-7) Ordering Physician UnknownAutomated blood monocytes/100 nenabryget2809-24-10 12: 14:00Identifier 5905-5 Result Time 2019-01-03 12:14:00Unknown Test Item Value Reference Range Comments Automated blood monocytes/100 leukocytes 3.6 % Unknown Unknown F (test code = 5905-5) Ordering Physician UnknownSerum or plasma albumin measurement by bromocresol green (BCG) dye binding method (yi0821-47-46 12:14:00Identifier 61320-1 Result Time 2019-01-03 12:14:00Unknown Test Item Value Reference Range Comments Serum or plasma albumin measurement by 4.0 g/dL Unknown Unknown F bromocresol green (BCG) dye binding method (ma (test code = 66400-8) Ordering Physician UnknownSerum or plasma alkaline phosphatase [...] = 704-7) Ordering Physician UnknownAutomated blood basophils/100 iqxlczycbg6510-94-86 12: 14:00Identifier 706-2 Result Time 2019-01-03 12:14:00Unknown [...] = 711-2) Ordering Physician UnknownAutomated blood eosinophils/100 qfhiwjqnrq6395-91-64 12:14:00Identifier 713-8 Result Time 2019-01-03 12:14:00Unknown Test Item Value Reference Range Comments Automated blood eosinophils/100 leukocytes 0.5 % Unknown Unknown F (test code = 713-8) Ordering Physician UnknownBlood lymphocytes automated count (number/volume)01-03 12:14:00Identifier 731-0 Result Time 2019-01-03 12:14:00Unknown Test Item Value Reference Range Comments Blood lymphocytes automated count 0.9 10^3/ul Unknown Unknown F (number/volume) (test code = 731-0) Ordering Physician UnknownAutomated blood lymphocytes/100 cprhntypyi3665-47-78 12:14:00Identifier 736-9 Result Time 2019-01-03 12:14:00Unknown Test Item Value Reference Range Comments Automated blood lymphocytes/100 leukocytes 10.3 % Unknown Unknown F (test code = 736-9) Ordering Physician UnknownBlood monocytes automated count (number/volume)2018-12 12:14:00Identifier 742-7 Result Time 2019-01-03 12:14:00Unknown Test Item Value Reference Range Comments Blood monocytes automated count 0.3 10^3/ul Unknown Unknown F (number/volume) (test code = 742-7) Ordering Physician UnknownAutomated blood neutrophils/100 xxldrjqxyr7734-21-66 12:14:00Identifier 770-8 Result Time 2019-01-03 12:14:00Unknown Test [...] code = 771-6) Ordering Physician UnknownCT biopsy mhqew2711-06-11 12:14:00Identifier [id number] Result Time 2019-01-03 12:14:00Unknown Test Item Value Reference Range Comments CT biopsy liver (test code = EPX8104) 7.8 10^3/ul Unknown Unknown F Ordering Physician Unknown
--- OUTSIDE RECORDS SUMMARY | 2019-01-29 16:26 | XMS REPORT ---
:1935 Author Organization [facility] Care Team Providers Name Role Phone [...] Unknown Unknown Chlor Tab* Chlor Tab* 11-26 [place]-3 [place]-3 2018-02 Yes Unknown Unknown Unknown Fatty Acids [...] UnknownSerum or plasma calcium measurement (mass/volume)01-07 05:47:00Identifier 24702-1 Result Time 2019-01-07 05:47:00Unknown Test Item Value Reference Range Comments Serum or plasma calcium measurement 9.0 mg/dL Unknown Unknown F (mass/volume) (test code = 00518-9) Ordering Physician UnknownSerum or plasma carbon dioxide, [...] Ordering Physician UnknownSerum or plasma urea nitrogen/creatinine jqwxy4363-11- 11 05:47:00Identifier 3097-3 Result Time 2019-01-07 05:47:00Unknown Test Item Value Reference Range Comments Serum or plasma urea nitrogen/creatinine 17.2 Unknown Unknown F ratio (test code = 3097-3) Ordering Physician UnknownSerum or plasma anion izb2312-32-44 05:47: 00Identifier 09499-4 Result Time 2019-01-07 05:47:00Unknown Test Item Value Reference Range Comments Serum or plasma anion gap (test code = 7 mmol/L Unknown Unknown F 85396-9) Ordering Physician UnknownEstimated glomerular filtration rate (GFR) non- Ztbgcwjd9817-00-10 05:47:00Identifier 16802-3 Result Time 2019-01-07 05: 47:00Unknown Test Item Value Reference Range Comments Estimated glomerular filtration rate (GFR) 53.4 Unknown Unknown F non- (test code = 24358-7) Ordering Physician UnknownAutomated blood platelet mean volume swozpntckem3128- 11-08 04:18:00Identifier 58773-4 Result Time 2019-01-04 04:18:00Unknown Test Item Value Reference Range Comments Automated blood platelet mean volume 9.6 fL Unknown Unknown F measurement (test code = 90453-8) Ordering Physician UnknownAutomated blood leukocytes count corrected for nucleated erythrocytes (number/volume)2019-01-04 04:18:00Identifier 61551-9 Result Time 2019-01-04 04:18:00Unknown Test Item Value Reference Range Comments Automated blood leukocytes count 10.1 10^3/uL Unknown Unknown F corrected for nucleated erythrocytes (number/volume) (test code = 39804-5) Ordering Physician UnknownAutomated blood hematocrit (percentage)2019-01-04 04: [...] UnknownAutomated erythrocyte mean corpuscular hemoglobin concentration measurement (mass/rkk2796-31-98 04:18:00Identifier 786-4 Result Time 2019-01-04 04:18:00Unknown Test Item Value Reference Range Comments Automated erythrocyte mean corpuscular 34 g/dL Unknown Unknown F hemoglobin concentration measurement (mass/vol (test code = 786-4) Ordering Physician UnknownAutomated erythrocyte mean corpuscular hxkkes1387-07- 08 04:18:00Identifier 787-2 Result Time 2019-01-04 04:18:00Unknown Test Item Value Reference Range Comments Automated erythrocyte mean corpuscular volume 91 fL Unknown Unknown F (test code = 787-2) Ordering Physician UnknownAutomated erythrocyte distribution width wpfmv9566-59- 08 04:18:00Identifier 788-0 Result Time 2019-01-04 04:18:00Unknown [...] Physician UnknownUrine urobilinogen measurement (units/volume) by test nkfpf7862-99-00 15:54:00Identifier 49191-5 Result Time 2019-01-03 15:54: 00Unknown Test Item Value Reference Range Comments Urine urobilinogen measurement Negative Unknown Unknown F (units/volume) by test strip (test code = 34491-4) Ordering Physician UnknownUrine bacteria detection by automated jimhws5014-60- 07 15:54:00Identifier 38663-6 Result Time 2019-01-03 15:54:00Unknown Test Item Value Reference Range Comments Urine bacteria detection by automated Absent Unknown Unknown F method (test code = 53020-7) Ordering Physician UnknownUrine total bilirubin detection by automated test dtrjd9416-40-14 15:54:00Identifier 30233-6 Result Time 2019-01-03 15:54: 00Unknown Test Item Value Reference Range Comments Urine total bilirubin detection by Negative Unknown Unknown F automated test strip (test code = 77571-4) Ordering Physician UnknownUrine clarity by refractometry wreecrolx2743-41-77 15: 54:00Identifier 66246-0 Result Time 2019-01-03 15:54:00Unknown Test Item Value Reference Range Comments Urine clarity by refractometry automated Clear Unknown Unknown F (test code = 79312-0) Ordering Physician UnknownColor of Urine by Timl6039-45-29 15:54:00Identifier 36927-1 Result Time 2019-01-03 15:54:00Unknown Test Item Value Reference Range Comments Color of Urine by Auto (test code = Yellow Unknown Unknown F 08903-1) Ordering Physician UnknownUrine glucose detection by automated test kaihn3584-70 -07 15:54:00Identifier 16997-0 Result Time 2019-01-03 15:54:00Unknown Test Item Value Reference Range Comments Urine glucose detection by automated test Negative Unknown Unknown F strip (test code = 67022-2) Ordering Physician UnknownKetones [Mass/volume] in Urine by Automated test lktor8712-11-89 15:54:00Identifier 34216-0 Result Time 2019-01-03 15:54: 00Unknown Test Item Value Reference Range Comments Ketones [Mass/volume] in Urine by Negative Unknown Unknown F Automated test strip (test code = 16256-7) Ordering Physician UnknownUrine nitrite detection by automated test zskqf1421-30 -07 15:54:00Identifier 04682-1 Result Time 2019-01-03 15:54:00Unknown Test Item Value Reference Range Comments Urine nitrite detection by automated test Negative Unknown Unknown F strip (test code = 45044-5) Ordering Physician UnknownProtein [Mass/volume] in Urine by Automated test cvzog8873-98-04 15:54:00Identifier 89781-8 Result Time 2019-01-03 15:54: 00Unknown Test Item Value Reference Range Comments Protein [Mass/volume] in Urine by 1+(30 mg/dl) Unknown Unknown F Automated test strip (test code = 49225-2) Ordering Physician UnknownSpecific gravity of Urine by Refractometry elysvbvyp7211-35-20 15:54:00Identifier 58864-9 Result Time 2019-01-03 15:54: 00Unknown Test Item Value Reference Range Comments Specific gravity of Urine by Refractometry 1.014 Unknown Unknown F automated (test code = 42541-0) Ordering Physician UnknownUrine erythrocytes detection by automated kljawj304701-03 15:54:00Identifier 04079-6 Result Time 2019-01-03 15:54:00Unknown Test Item Value Reference Range Comments Urine erythrocytes detection by 1+(3-5/hpf) Unknown Unknown F automated method (test code = 65780-6) Ordering Physician UnknownUrine leukocytes detection by automated mceluv7458-44- 07 15:54:00Identifier 33249-7 Result Time 2019-01-03 15:54:00Unknown Test Item Value Reference Range Comments Urine leukocytes detection by automated Absent Unknown Unknown F method (test code = 30682-2) Ordering Physician UnknownUrine hemoglobin detection by test eggbj5832-98-74 15: 54:00Identifier 5794-3 Result Time 2019-01-03 15:54:00Unknown Test Item Value Reference Range Comments Urine hemoglobin detection by test strip Negative Unknown Unknown F (test code = 5794-3) Ordering Physician UnknownUrine leukocyte esterase detection by automated test ajtdt1898-07-98 15:54:00Identifier 15744-4 Result Time 2019-01-03 15:54: 00Unknown Test Item Value Reference Range Comments Urine leukocyte esterase detection by Negative Unknown Unknown F automated test strip (test code = 39386-8) Ordering Physician UnknownSerum or plasma troponin i.cardiac measurement (mass/ volume)2019-01-03 12:14:00Identifier 43243-8 Result Time 2019-01-03 12:14: 00Unknown Test Item Value Reference Range Comments Serum or plasma troponin i.cardiac 0.00 ng/mL Unknown Unknown F measurement (mass/volume) (test code = 53730-2) Ordering Physician UnknownSerum or plasma alanine aminotransferase measurement ( enzymatic activity/volume)2019-01-03 12:14:00Identifier 1742-6 Result Time 01-03 12:14:00Unknown Test Item Value Reference Range Comments Serum or plasma alanine aminotransferase 7 U/L Unknown Unknown F measurement (enzymatic activity/volume) (test code = 1742-6) Ordering Physician UnknownSerum or plasma albumin/globulin mass qifcg6328-02-51 12:14:00Identifier 1759-0 Result Time 2019-01-03 12:14:00Unknown Test [...] 3016-3) Ordering Physician UnknownAutomated blood nucleated erythrocytes tfxaseogy9086- 11-07 12:14:00Identifier 43791-9 Result Time 2019-01-03 12:14:00Unknown Test Item Value Reference Range Comments Automated blood nucleated erythrocytes 0.0 Unknown Unknown F detection (test code = 19578-6) Ordering Physician UnknownAutomated blood monocytes/100 sbpdgieeqs3023-80-50 12: 14:00Identifier 5905-5 Result Time 2019-01-03 12:14:00Unknown Test Item Value Reference Range Comments Automated blood monocytes/100 leukocytes 3.6 % Unknown Unknown F (test code = 5905-5) Ordering Physician UnknownSerum or plasma albumin measurement by bromocresol green (BCG) dye binding method (mf1115-52-08 12:14:00Identifier 98505-2 Result Time 2019-01-03 12:14:00Unknown Test Item Value Reference Range Comments Serum or plasma albumin measurement by 4.0 g/dL Unknown Unknown F bromocresol green (BCG) dye binding method (ma (test code = 76852-3) Ordering Physician UnknownSerum or plasma alkaline phosphatase [...] = 704-7) Ordering Physician UnknownAutomated blood basophils/100 ydaqlcnesj9054-39-08 12: 14:00Identifier 706-2 Result Time 2019-01-03 12:14:00Unknown [...] = 711-2) Ordering Physician UnknownAutomated blood eosinophils/100 npjxkdbtza6794-54-76 12:14:00Identifier 713-8 Result Time 2019-01-03 12:14:00Unknown Test Item Value Reference Range Comments Automated blood eosinophils/100 leukocytes 0.5 % Unknown Unknown F (test code = 713-8) Ordering Physician UnknownBlood lymphocytes automated count (number/volume)01-03 12:14:00Identifier 731-0 Result Time 2019-01-03 12:14:00Unknown Test Item Value Reference Range Comments Blood lymphocytes automated count 0.9 10^3/ul Unknown Unknown F (number/volume) (test code = 731-0) Ordering Physician UnknownAutomated blood lymphocytes/100 xednupphja9931-40-69 12:14:00Identifier 736-9 Result Time 2019-01-03 12:14:00Unknown Test Item Value Reference Range Comments Automated blood lymphocytes/100 leukocytes 10.3 % Unknown Unknown F (test code = 736-9) Ordering Physician UnknownBlood monocytes automated count (number/volume)2018-12 12:14:00Identifier 742-7 Result Time 2019-01-03 12:14:00Unknown Test Item Value Reference Range Comments Blood monocytes automated count 0.3 10^3/ul Unknown Unknown F (number/volume) (test code = 742-7) Ordering Physician UnknownAutomated blood neutrophils/100 elmncguczc5897-23-14 12:14:00Identifier 770-8 Result Time 2019-01-03 12:14:00Unknown Test [...] code = 771-6) Ordering Physician UnknownCT biopsy ijavd9245-82-84 12:14:00Identifier [id number] Result Time 2019-01-03 12:14:00Unknown Test Item Value Reference Range Comments CT biopsy liver (test code = QGK0671) 7.8 10^3/ul Unknown Unknown F Ordering Physician Unknown
--- OUTSIDE RECORDS SUMMARY | 2019-01-29 16:26 | XMS REPORT | Continuity of Care Document ---
:1935 External Reference #:[id number] Author Name Valentín Lu MD Address [address] [place] [address] Care Team Providers Name Role Phone Susan Hanley M.D. - Internal Care Team Information Author [phone] Medicine Problems Active Problems Provider Date Essential hypertension Valentín Lu MD Onset: 01/15/2019 Social History Type Date Description Comments Sex Unknown Allergies, Adverse Reactions, Alerts Active Allergies Reaction Severity Comments Date Gabapentin 01/15/2019 Erythromycin 01/15/2019 Codeine 01/15/2019 Inactive Allergies NKDA 01/10/2019 Medications Active Medications SIG Qnty Indications Ordering Provider Date Carbamazepine Unknown 200mg Tablets Simvastatin Take One Tablet Unknown 20mg Tablets By Mouth AT Bedtime Furosemide Take One Tablet Unknown 20mg Tablets By Mouth Every Day Metoprolol Succinate ER Susan Hanley, M.D. 25mg Tablets ER 24HR Amitriptyline HCL Take One Tablet Unknown 25mg By Mouth AT Tablets Bedtime Sertraline HCL Take One Tablet Unknown 50mg Tablets By Mouth Every Day Potassium Chloride Susan Salvador, ER M.D. 20Meq Tablets ER Ondansetron prn Unknown 4mg Tablets Dispers Acetaminophen ER as needed Unknown 650mg Tablets ER Amlodipine Besylate daily Unknown 5mg Tablets Folic Acid daily Unknown 1mg Tablets Nystatin as needed Unknown 350806Tskv/GM Powder [place] 3 as directed Unknown 1000mg Capsules Immunizations Description No Information Available Vital Signs Date Vital Result Comment 01/15/2019 1:34pm Weight 172.00 lb Weight 78.019 kg Height 64 inches 5'4" Height in cm's 162.6 cm BMI (Body Mass Index) 29.5 kg/m2 Results Description No Information Available Procedures Date Code Description Status 01/15/2019 25744 Nasopharyngoscopy Completed 01/14/2019 96861 Fiberoptic Laryngoscopy Completed Medical Devices Description No Information Available Encounters Description No Information Available Assessments Date Code Description Provider 01/15/2019 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 pharynx Plan of Treatment Future Appointment(s):01/29/2019 10:15 am - Valentín Lu MD at [place], After 02/27/810 9:15 am - Valentín Lu MD at [facility] O R103/17/2018 - Valentín Lu, MDD37.05 Neoplasm of uncertain behavior of pharynx Functional Status Description No Information Available Mental Status Description No Information Available Referrals Description No Information Available
--- OUTSIDE RECORDS SUMMARY | 2019-01-29 16:26 | XMS REPORT ---
:1935 Author Organization [facility] Care Team Providers Name Role Phone [...] Unknown Unknown Chlor Tab* Chlor Tab* 11-26 [place]-3 [place]-3 2018-02 Yes Unknown Unknown Unknown Fatty Acids [...] UnknownSerum or plasma calcium measurement (mass/volume)01-07 05:47:00Identifier 67067-4 Result Time 2019-01-07 05:47:00Unknown Test Item Value Reference Range Comments Serum or plasma calcium measurement 9.0 mg/dL Unknown Unknown F (mass/volume) (test code = 02485-7) Ordering Physician UnknownSerum or plasma carbon dioxide, [...] Ordering Physician UnknownSerum or plasma urea nitrogen/creatinine krlxn6341-36- 11 05:47:00Identifier 3097-3 Result Time 2019-01-07 05:47:00Unknown Test Item Value Reference Range Comments Serum or plasma urea nitrogen/creatinine 17.2 Unknown Unknown F ratio (test code = 3097-3) Ordering Physician UnknownSerum or plasma anion wfl2986-80-43 05:47: 00Identifier 82190-3 Result Time 2019-01-07 05:47:00Unknown Test Item Value Reference Range Comments Serum or plasma anion gap (test code = 7 mmol/L Unknown Unknown F 94248-2) Ordering Physician UnknownEstimated glomerular filtration rate (GFR) non- Pfjiovxb6173-62-66 05:47:00Identifier 33029-4 Result Time 2019-01-07 05: 47:00Unknown Test Item Value Reference Range Comments Estimated glomerular filtration rate (GFR) 53.4 Unknown Unknown F non- (test code = 90278-0) Ordering Physician UnknownAutomated blood platelet mean volume zekeshveupq6087- 11-08 04:18:00Identifier 70216-9 Result Time 2019-01-04 04:18:00Unknown Test Item Value Reference Range Comments Automated blood platelet mean volume 9.6 fL Unknown Unknown F measurement (test code = 76128-7) Ordering Physician UnknownAutomated blood leukocytes count corrected for nucleated erythrocytes (number/volume)2019-01-04 04:18:00Identifier 91865-0 Result Time 2019-01-04 04:18:00Unknown Test Item Value Reference Range Comments Automated blood leukocytes count 10.1 10^3/uL Unknown Unknown F corrected for nucleated erythrocytes (number/volume) (test code = 08011-7) Ordering Physician UnknownAutomated blood hematocrit (percentage)2019-01-04 04: [...] UnknownAutomated erythrocyte mean corpuscular hemoglobin concentration measurement (mass/gfn2782-19-54 04:18:00Identifier 786-4 Result Time 2019-01-04 04:18:00Unknown Test Item Value Reference Range Comments Automated erythrocyte mean corpuscular 34 g/dL Unknown Unknown F hemoglobin concentration measurement (mass/vol (test code = 786-4) Ordering Physician UnknownAutomated erythrocyte mean corpuscular biyshb7803-62- 08 04:18:00Identifier 787-2 Result Time 2019-01-04 04:18:00Unknown Test Item Value Reference Range Comments Automated erythrocyte mean corpuscular volume 91 fL Unknown Unknown F (test code = 787-2) Ordering Physician UnknownAutomated erythrocyte distribution width qkrfz4050-69- 08 04:18:00Identifier 788-0 Result Time 2019-01-04 04:18:00Unknown [...] Physician UnknownUrine urobilinogen measurement (units/volume) by test jedgu8779-41-87 15:54:00Identifier 77867-5 Result Time 2019-01-03 15:54: 00Unknown Test Item Value Reference Range Comments Urine urobilinogen measurement Negative Unknown Unknown F (units/volume) by test strip (test code = 94836-4) Ordering Physician UnknownUrine bacteria detection by automated pypqvy1086-20- 07 15:54:00Identifier 43440-0 Result Time 2019-01-03 15:54:00Unknown Test Item Value Reference Range Comments Urine bacteria detection by automated Absent Unknown Unknown F method (test code = 40981-2) Ordering Physician UnknownUrine total bilirubin detection by automated test gxiku1418-50-88 15:54:00Identifier 23766-8 Result Time 2019-01-03 15:54: 00Unknown Test Item Value Reference Range Comments Urine total bilirubin detection by Negative Unknown Unknown F automated test strip (test code = 75598-9) Ordering Physician UnknownUrine clarity by refractometry qyiykutxr3950-02-61 15: 54:00Identifier 28778-0 Result Time 2019-01-03 15:54:00Unknown Test Item Value Reference Range Comments Urine clarity by refractometry automated Clear Unknown Unknown F (test code = 83711-3) Ordering Physician UnknownColor of Urine by Fflp0022-41-30 15:54:00Identifier 35166-1 Result Time 2019-01-03 15:54:00Unknown Test Item Value Reference Range Comments Color of Urine by Auto (test code = Yellow Unknown Unknown F 62752-4) Ordering Physician UnknownUrine glucose detection by automated test rkiyo0427-11 -07 15:54:00Identifier 28114-1 Result Time 2019-01-03 15:54:00Unknown Test Item Value Reference Range Comments Urine glucose detection by automated test Negative Unknown Unknown F strip (test code = 77440-9) Ordering Physician UnknownKetones [Mass/volume] in Urine by Automated test mridu0530-83-71 15:54:00Identifier 73117-1 Result Time 2019-01-03 15:54: 00Unknown Test Item Value Reference Range Comments Ketones [Mass/volume] in Urine by Negative Unknown Unknown F Automated test strip (test code = 53633-9) Ordering Physician UnknownUrine nitrite detection by automated test bhkoh3267-12 -07 15:54:00Identifier 08467-7 Result Time 2019-01-03 15:54:00Unknown Test Item Value Reference Range Comments Urine nitrite detection by automated test Negative Unknown Unknown F strip (test code = 76758-0) Ordering Physician UnknownProtein [Mass/volume] in Urine by Automated test naois6650-13-86 15:54:00Identifier 93306-6 Result Time 2019-01-03 15:54: 00Unknown Test Item Value Reference Range Comments Protein [Mass/volume] in Urine by 1+(30 mg/dl) Unknown Unknown F Automated test strip (test code = 45409-1) Ordering Physician UnknownSpecific gravity of Urine by Refractometry wintvvsnh0646-28-24 15:54:00Identifier 15996-3 Result Time 2019-01-03 15:54: 00Unknown Test Item Value Reference Range Comments Specific gravity of Urine by Refractometry 1.014 Unknown Unknown F automated (test code = 43319-7) Ordering Physician UnknownUrine erythrocytes detection by automated gpyeyg502301-03 15:54:00Identifier 14544-1 Result Time 2019-01-03 15:54:00Unknown Test Item Value Reference Range Comments Urine erythrocytes detection by 1+(3-5/hpf) Unknown Unknown F automated method (test code = 15409-7) Ordering Physician UnknownUrine leukocytes detection by automated bkrgld0749-95- 07 15:54:00Identifier 88173-3 Result Time 2019-01-03 15:54:00Unknown Test Item Value Reference Range Comments Urine leukocytes detection by automated Absent Unknown Unknown F method (test code = 42541-2) Ordering Physician UnknownUrine hemoglobin detection by test fywma1848-35-36 15: 54:00Identifier 5794-3 Result Time 2019-01-03 15:54:00Unknown Test Item Value Reference Range Comments Urine hemoglobin detection by test strip Negative Unknown Unknown F (test code = 5794-3) Ordering Physician UnknownUrine leukocyte esterase detection by automated test zqgqe8294-48-35 15:54:00Identifier 52947-3 Result Time 2019-01-03 15:54: 00Unknown Test Item Value Reference Range Comments Urine leukocyte esterase detection by Negative Unknown Unknown F automated test strip (test code = 25617-0) Ordering Physician UnknownSerum or plasma troponin i.cardiac measurement (mass/ volume)2019-01-03 12:14:00Identifier 86932-4 Result Time 2019-01-03 12:14: 00Unknown Test Item Value Reference Range Comments Serum or plasma troponin i.cardiac 0.00 ng/mL Unknown Unknown F measurement (mass/volume) (test code = 26848-5) Ordering Physician UnknownSerum or plasma alanine aminotransferase measurement ( enzymatic activity/volume)2019-01-03 12:14:00Identifier 1742-6 Result Time 01-03 12:14:00Unknown Test Item Value Reference Range Comments Serum or plasma alanine aminotransferase 7 U/L Unknown Unknown F measurement (enzymatic activity/volume) (test code = 1742-6) Ordering Physician UnknownSerum or plasma albumin/globulin mass oshey0083-37-41 12:14:00Identifier 1759-0 Result Time 2019-01-03 12:14:00Unknown Test [...] 3016-3) Ordering Physician UnknownAutomated blood nucleated erythrocytes wgvwmdjuo4770- 11-07 12:14:00Identifier 62572-1 Result Time 2019-01-03 12:14:00Unknown Test Item Value Reference Range Comments Automated blood nucleated erythrocytes 0.0 Unknown Unknown F detection (test code = 42087-9) Ordering Physician UnknownAutomated blood monocytes/100 euebbqgckt4974-79-64 12: 14:00Identifier 5905-5 Result Time 2019-01-03 12:14:00Unknown Test Item Value Reference Range Comments Automated blood monocytes/100 leukocytes 3.6 % Unknown Unknown F (test code = 5905-5) Ordering Physician UnknownSerum or plasma albumin measurement by bromocresol green (BCG) dye binding method (yg5442-56-85 12:14:00Identifier 24122-8 Result Time 2019-01-03 12:14:00Unknown Test Item Value Reference Range Comments Serum or plasma albumin measurement by 4.0 g/dL Unknown Unknown F bromocresol green (BCG) dye binding method (ma (test code = 87665-8) Ordering Physician UnknownSerum or plasma alkaline phosphatase [...] = 704-7) Ordering Physician UnknownAutomated blood basophils/100 tqnuhlpkfs2936-22-66 12: 14:00Identifier 706-2 Result Time 2019-01-03 12:14:00Unknown [...] = 711-2) Ordering Physician UnknownAutomated blood eosinophils/100 qtulyyfvqx9975-52-45 12:14:00Identifier 713-8 Result Time 2019-01-03 12:14:00Unknown Test Item Value Reference Range Comments Automated blood eosinophils/100 leukocytes 0.5 % Unknown Unknown F (test code = 713-8) Ordering Physician UnknownBlood lymphocytes automated count (number/volume)01-03 12:14:00Identifier 731-0 Result Time 2019-01-03 12:14:00Unknown Test Item Value Reference Range Comments Blood lymphocytes automated count 0.9 10^3/ul Unknown Unknown F (number/volume) (test code = 731-0) Ordering Physician UnknownAutomated blood lymphocytes/100 iddpipebko9529-64-19 12:14:00Identifier 736-9 Result Time 2019-01-03 12:14:00Unknown Test Item Value Reference Range Comments Automated blood lymphocytes/100 leukocytes 10.3 % Unknown Unknown F (test code = 736-9) Ordering Physician UnknownBlood monocytes automated count (number/volume)2018-12 12:14:00Identifier 742-7 Result Time 2019-01-03 12:14:00Unknown Test Item Value Reference Range Comments Blood monocytes automated count 0.3 10^3/ul Unknown Unknown F (number/volume) (test code = 742-7) Ordering Physician UnknownAutomated blood neutrophils/100 kcveohmqum3974-57-82 12:14:00Identifier 770-8 Result Time 2019-01-03 12:14:00Unknown Test [...] code = 771-6) Ordering Physician UnknownCT biopsy kzhao1200-06-98 12:14:00Identifier [id number] Result Time 2019-01-03 12:14:00Unknown Test Item Value Reference Range Comments CT biopsy liver (test code = DSA3726) 7.8 10^3/ul Unknown Unknown F Ordering Physician Unknown
--- OUTSIDE RECORDS SUMMARY | 2019-01-29 16:26 | XMS REPORT ---
:1935 Author Organization [facility] Care Team Providers Name Role Phone [...] Unknown Unknown Chlor Tab* Chlor Tab* 11-26 [place]-3 [place]-3 2018-02 Yes Unknown Unknown Unknown Fatty Acids [...] UnknownSerum or plasma calcium measurement (mass/volume)01-07 05:47:00Identifier 12977-4 Result Time 2019-01-07 05:47:00Unknown Test Item Value Reference Range Comments Serum or plasma calcium measurement 9.0 mg/dL Unknown Unknown F (mass/volume) (test code = 54894-5) Ordering Physician UnknownSerum or plasma carbon dioxide, [...] Ordering Physician UnknownSerum or plasma urea nitrogen/creatinine qdbix0910-52- 11 05:47:00Identifier 3097-3 Result Time 2019-01-07 05:47:00Unknown Test Item Value Reference Range Comments Serum or plasma urea nitrogen/creatinine 17.2 Unknown Unknown F ratio (test code = 3097-3) Ordering Physician UnknownSerum or plasma anion nhw3437-17-99 05:47: 00Identifier 00036-9 Result Time 2019-01-07 05:47:00Unknown Test Item Value Reference Range Comments Serum or plasma anion gap (test code = 7 mmol/L Unknown Unknown F 76971-2) Ordering Physician UnknownEstimated glomerular filtration rate (GFR) non- Daboeeag5630-25-66 05:47:00Identifier 41721-2 Result Time 2019-01-07 05: 47:00Unknown Test Item Value Reference Range Comments Estimated glomerular filtration rate (GFR) 53.4 Unknown Unknown F non- (test code = 08439-8) Ordering Physician UnknownAutomated blood platelet mean volume hlyfpqggxxn3120- 11-08 04:18:00Identifier 11155-1 Result Time 2019-01-04 04:18:00Unknown Test Item Value Reference Range Comments Automated blood platelet mean volume 9.6 fL Unknown Unknown F measurement (test code = 03601-9) Ordering Physician UnknownAutomated blood leukocytes count corrected for nucleated erythrocytes (number/volume)2019-01-04 04:18:00Identifier 49897-4 Result Time 2019-01-04 04:18:00Unknown Test Item Value Reference Range Comments Automated blood leukocytes count 10.1 10^3/uL Unknown Unknown F corrected for nucleated erythrocytes (number/volume) (test code = 17869-8) Ordering Physician UnknownAutomated blood hematocrit (percentage)2019-01-04 04: [...] UnknownAutomated erythrocyte mean corpuscular hemoglobin concentration measurement (mass/ydt5927-87-68 04:18:00Identifier 786-4 Result Time 2019-01-04 04:18:00Unknown Test Item Value Reference Range Comments Automated erythrocyte mean corpuscular 34 g/dL Unknown Unknown F hemoglobin concentration measurement (mass/vol (test code = 786-4) Ordering Physician UnknownAutomated erythrocyte mean corpuscular zgojmw6543-04- 08 04:18:00Identifier 787-2 Result Time 2019-01-04 04:18:00Unknown Test Item Value Reference Range Comments Automated erythrocyte mean corpuscular volume 91 fL Unknown Unknown F (test code = 787-2) Ordering Physician UnknownAutomated erythrocyte distribution width mtigb7352-48- 08 04:18:00Identifier 788-0 Result Time 2019-01-04 04:18:00Unknown [...] Physician UnknownUrine urobilinogen measurement (units/volume) by test ozynv4605-22-51 15:54:00Identifier 30992-3 Result Time 2019-01-03 15:54: 00Unknown Test Item Value Reference Range Comments Urine urobilinogen measurement Negative Unknown Unknown F (units/volume) by test strip (test code = 33665-6) Ordering Physician UnknownUrine bacteria detection by automated yycsww5137-51- 07 15:54:00Identifier 14859-2 Result Time 2019-01-03 15:54:00Unknown Test Item Value Reference Range Comments Urine bacteria detection by automated Absent Unknown Unknown F method (test code = 40433-4) Ordering Physician UnknownUrine total bilirubin detection by automated test xltdm1349-16-20 15:54:00Identifier 04321-6 Result Time 2019-01-03 15:54: 00Unknown Test Item Value Reference Range Comments Urine total bilirubin detection by Negative Unknown Unknown F automated test strip (test code = 52170-1) Ordering Physician UnknownUrine clarity by refractometry dudpmfpbb0309-32-04 15: 54:00Identifier 77999-6 Result Time 2019-01-03 15:54:00Unknown Test Item Value Reference Range Comments Urine clarity by refractometry automated Clear Unknown Unknown F (test code = 73514-6) Ordering Physician UnknownColor of Urine by Npll6688-50-24 15:54:00Identifier 08906-6 Result Time 2019-01-03 15:54:00Unknown Test Item Value Reference Range Comments Color of Urine by Auto (test code = Yellow Unknown Unknown F 45189-9) Ordering Physician UnknownUrine glucose detection by automated test lrjpv9714-06 -07 15:54:00Identifier 34877-9 Result Time 2019-01-03 15:54:00Unknown Test Item Value Reference Range Comments Urine glucose detection by automated test Negative Unknown Unknown F strip (test code = 67969-4) Ordering Physician UnknownKetones [Mass/volume] in Urine by Automated test meoht8999-48-11 15:54:00Identifier 21657-2 Result Time 2019-01-03 15:54: 00Unknown Test Item Value Reference Range Comments Ketones [Mass/volume] in Urine by Negative Unknown Unknown F Automated test strip (test code = 31230-3) Ordering Physician UnknownUrine nitrite detection by automated test ridep8085-26 -07 15:54:00Identifier 25933-6 Result Time 2019-01-03 15:54:00Unknown Test Item Value Reference Range Comments Urine nitrite detection by automated test Negative Unknown Unknown F strip (test code = 21489-2) Ordering Physician UnknownProtein [Mass/volume] in Urine by Automated test isaom6507-81-00 15:54:00Identifier 09330-8 Result Time 2019-01-03 15:54: 00Unknown Test Item Value Reference Range Comments Protein [Mass/volume] in Urine by 1+(30 mg/dl) Unknown Unknown F Automated test strip (test code = 31311-9) Ordering Physician UnknownSpecific gravity of Urine by Refractometry jhxuvevwf0353-02-93 15:54:00Identifier 07126-2 Result Time 2019-01-03 15:54: 00Unknown Test Item Value Reference Range Comments Specific gravity of Urine by Refractometry 1.014 Unknown Unknown F automated (test code = 03639-8) Ordering Physician UnknownUrine erythrocytes detection by automated wcmyri833901-03 15:54:00Identifier 63460-0 Result Time 2019-01-03 15:54:00Unknown Test Item Value Reference Range Comments Urine erythrocytes detection by 1+(3-5/hpf) Unknown Unknown F automated method (test code = 55452-4) Ordering Physician UnknownUrine leukocytes detection by automated oirfna9990-66- 07 15:54:00Identifier 47574-5 Result Time 2019-01-03 15:54:00Unknown Test Item Value Reference Range Comments Urine leukocytes detection by automated Absent Unknown Unknown F method (test code = 32322-1) Ordering Physician UnknownUrine hemoglobin detection by test pkukj0104-46-45 15: 54:00Identifier 5794-3 Result Time 2019-01-03 15:54:00Unknown Test Item Value Reference Range Comments Urine hemoglobin detection by test strip Negative Unknown Unknown F (test code = 5794-3) Ordering Physician UnknownUrine leukocyte esterase detection by automated test rplkq7515-58-21 15:54:00Identifier 45465-0 Result Time 2019-01-03 15:54: 00Unknown Test Item Value Reference Range Comments Urine leukocyte esterase detection by Negative Unknown Unknown F automated test strip (test code = 51068-3) Ordering Physician UnknownSerum or plasma troponin i.cardiac measurement (mass/ volume)2019-01-03 12:14:00Identifier 24796-5 Result Time 2019-01-03 12:14: 00Unknown Test Item Value Reference Range Comments Serum or plasma troponin i.cardiac 0.00 ng/mL Unknown Unknown F measurement (mass/volume) (test code = 07457-7) Ordering Physician UnknownSerum or plasma alanine aminotransferase measurement ( enzymatic activity/volume)2019-01-03 12:14:00Identifier 1742-6 Result Time 01-03 12:14:00Unknown Test Item Value Reference Range Comments Serum or plasma alanine aminotransferase 7 U/L Unknown Unknown F measurement (enzymatic activity/volume) (test code = 1742-6) Ordering Physician UnknownSerum or plasma albumin/globulin mass ymnjq5604-63-69 12:14:00Identifier 1759-0 Result Time 2019-01-03 12:14:00Unknown Test [...] 3016-3) Ordering Physician UnknownAutomated blood nucleated erythrocytes lbjennnzh3804- 11-07 12:14:00Identifier 94513-7 Result Time 2019-01-03 12:14:00Unknown Test Item Value Reference Range Comments Automated blood nucleated erythrocytes 0.0 Unknown Unknown F detection (test code = 79316-8) Ordering Physician UnknownAutomated blood monocytes/100 uvqjmbmttq3025-44-36 12: 14:00Identifier 5905-5 Result Time 2019-01-03 12:14:00Unknown Test Item Value Reference Range Comments Automated blood monocytes/100 leukocytes 3.6 % Unknown Unknown F (test code = 5905-5) Ordering Physician UnknownSerum or plasma albumin measurement by bromocresol green (BCG) dye binding method (uk3361-61-38 12:14:00Identifier 41427-5 Result Time 2019-01-03 12:14:00Unknown Test Item Value Reference Range Comments Serum or plasma albumin measurement by 4.0 g/dL Unknown Unknown F bromocresol green (BCG) dye binding method (ma (test code = 04867-4) Ordering Physician UnknownSerum or plasma alkaline phosphatase [...] = 704-7) Ordering Physician UnknownAutomated blood basophils/100 meowavpukw3135-38-67 12: 14:00Identifier 706-2 Result Time 2019-01-03 12:14:00Unknown [...] = 711-2) Ordering Physician UnknownAutomated blood eosinophils/100 vxujkwbuks1674-09-45 12:14:00Identifier 713-8 Result Time 2019-01-03 12:14:00Unknown Test Item Value Reference Range Comments Automated blood eosinophils/100 leukocytes 0.5 % Unknown Unknown F (test code = 713-8) Ordering Physician UnknownBlood lymphocytes automated count (number/volume)01-03 12:14:00Identifier 731-0 Result Time 2019-01-03 12:14:00Unknown Test Item Value Reference Range Comments Blood lymphocytes automated count 0.9 10^3/ul Unknown Unknown F (number/volume) (test code = 731-0) Ordering Physician UnknownAutomated blood lymphocytes/100 qgnekowozn1343-42-72 12:14:00Identifier 736-9 Result Time 2019-01-03 12:14:00Unknown Test Item Value Reference Range Comments Automated blood lymphocytes/100 leukocytes 10.3 % Unknown Unknown F (test code = 736-9) Ordering Physician UnknownBlood monocytes automated count (number/volume)2018-12 12:14:00Identifier 742-7 Result Time 2019-01-03 12:14:00Unknown Test Item Value Reference Range Comments Blood monocytes automated count 0.3 10^3/ul Unknown Unknown F (number/volume) (test code = 742-7) Ordering Physician UnknownAutomated blood neutrophils/100 dlxngchnbv7411-17-07 12:14:00Identifier 770-8 Result Time 2019-01-03 12:14:00Unknown Test [...] code = 771-6) Ordering Physician UnknownCT biopsy fmosv6909-72-35 12:14:00Identifier USV5986 Result Time 2019-01-03 12:14:00Unknown Test Item Value Reference Range Comments CT biopsy liver (test code = CKY7385) 7.8 10^3/ul Unknown Unknown F Ordering Physician Unknown
--- OUTSIDE RECORDS SUMMARY | 2019-01-29 16:26 | XMS REPORT ---
:1935 Author Organization [facility] Care Team Providers Name Role [...] Unknown Unknown Chlor Tab* Chlor Tab* 11-26 [place]-3 [place]-3 2018-02 Yes Unknown Unknown Unknown Fatty Acids [...] UnknownSerum or plasma calcium measurement (mass/volume)01-07 05:47:00Identifier 70721-6 Result Time 2019-01-07 05:47:00Unknown Test Item Value Reference Range Comments Serum or plasma calcium measurement 9.0 mg/dL Unknown Unknown F (mass/volume) (test code = 25674-5) Ordering Physician UnknownSerum or plasma carbon dioxide, [...] Ordering Physician UnknownSerum or plasma urea nitrogen/creatinine njgou6539-41- 11 05:47:00Identifier 3097-3 Result Time 2019-01-07 05:47:00Unknown Test Item Value Reference Range Comments Serum or plasma urea nitrogen/creatinine 17.2 Unknown Unknown F ratio (test code = 3097-3) Ordering Physician UnknownSerum or plasma anion jtr8008-33-42 05:47: 00Identifier 16916-8 Result Time 2019-01-07 05:47:00Unknown Test Item Value Reference Range Comments Serum or plasma anion gap (test code = 7 mmol/L Unknown Unknown F 43882-3) Ordering Physician UnknownEstimated glomerular filtration rate (GFR) non- Ouaesvcq6462-44-83 05:47:00Identifier 33115-2 Result Time 2019-01-07 05: 47:00Unknown Test Item Value Reference Range Comments Estimated glomerular filtration rate (GFR) 53.4 Unknown Unknown F non- (test code = 03840-6) Ordering Physician UnknownAutomated blood platelet mean volume dqqvfvoxcxx6499- 11-08 04:18:00Identifier 99034-7 Result Time 2019-01-04 04:18:00Unknown Test Item Value Reference Range Comments Automated blood platelet mean volume 9.6 fL Unknown Unknown F measurement (test code = 49098-2) Ordering Physician UnknownAutomated blood leukocytes count corrected for nucleated erythrocytes (number/volume)2019-01-04 04:18:00Identifier 64615-3 Result Time 2019-01-04 04:18:00Unknown Test Item Value Reference Range Comments Automated blood leukocytes count 10.1 10^3/uL Unknown Unknown F corrected for nucleated erythrocytes (number/volume) (test code = 55218-9) Ordering Physician UnknownAutomated blood hematocrit (percentage)2019-01-04 04: [...] UnknownAutomated erythrocyte mean corpuscular hemoglobin concentration measurement (mass/kmo8257-61-86 04:18:00Identifier 786-4 Result Time 2019-01-04 04:18:00Unknown Test Item Value Reference Range Comments Automated erythrocyte mean corpuscular 34 g/dL Unknown Unknown F hemoglobin concentration measurement (mass/vol (test code = 786-4) Ordering Physician UnknownAutomated erythrocyte mean corpuscular miwvth3984-37- 08 04:18:00Identifier 787-2 Result Time 2019-01-04 04:18:00Unknown Test Item Value Reference Range Comments Automated erythrocyte mean corpuscular volume 91 fL Unknown Unknown F (test code = 787-2) Ordering Physician UnknownAutomated erythrocyte distribution width veypg4402-50- 08 04:18:00Identifier 788-0 Result Time 2019-01-04 04:18:00Unknown [...] Physician UnknownUrine urobilinogen measurement (units/volume) by test bljhl9053-35-66 15:54:00Identifier 15523-6 Result Time 2019-01-03 15:54: 00Unknown Test Item Value Reference Range Comments Urine urobilinogen measurement Negative Unknown Unknown F (units/volume) by test strip (test code = 41867-1) Ordering Physician UnknownUrine bacteria detection by automated qccwtj2467-78- 07 15:54:00Identifier 91316-8 Result Time 2019-01-03 15:54:00Unknown Test Item Value Reference Range Comments Urine bacteria detection by automated Absent Unknown Unknown F method (test code = 77172-8) Ordering Physician UnknownUrine total bilirubin detection by automated test rvapy8291-08-99 15:54:00Identifier 61158-4 Result Time 2019-01-03 15:54: 00Unknown Test Item Value Reference Range Comments Urine total bilirubin detection by Negative Unknown Unknown F automated test strip (test code = 49077-1) Ordering Physician UnknownUrine clarity by refractometry uhhflesvl8889-88-21 15: 54:00Identifier 29035-9 Result Time 2019-01-03 15:54:00Unknown Test Item Value Reference Range Comments Urine clarity by refractometry automated Clear Unknown Unknown F (test code = 86839-6) Ordering Physician UnknownColor of Urine by Kxbb6482-42-58 15:54:00Identifier 55538-0 Result Time 2019-01-03 15:54:00Unknown Test Item Value Reference Range Comments Color of Urine by Auto (test code = Yellow Unknown Unknown F 24204-0) Ordering Physician UnknownUrine glucose detection by automated test ichyb2397-00 -07 15:54:00Identifier 79278-4 Result Time 2019-01-03 15:54:00Unknown Test Item Value Reference Range Comments Urine glucose detection by automated test Negative Unknown Unknown F strip (test code = 36921-8) Ordering Physician UnknownKetones [Mass/volume] in Urine by Automated test qglij0792-35-89 15:54:00Identifier 43961-3 Result Time 2019-01-03 15:54: 00Unknown Test Item Value Reference Range Comments Ketones [Mass/volume] in Urine by Negative Unknown Unknown F Automated test strip (test code = 74344-9) Ordering Physician UnknownUrine nitrite detection by automated test bpxjp4515-89 -07 15:54:00Identifier 69859-5 Result Time 2019-01-03 15:54:00Unknown Test Item Value Reference Range Comments Urine nitrite detection by automated test Negative Unknown Unknown F strip (test code = 44492-1) Ordering Physician UnknownProtein [Mass/volume] in Urine by Automated test vhvjj0086-16-85 15:54:00Identifier 27935-5 Result Time 2019-01-03 15:54: 00Unknown Test Item Value Reference Range Comments Protein [Mass/volume] in Urine by 1+(30 mg/dl) Unknown Unknown F Automated test strip (test code = 98989-8) Ordering Physician UnknownSpecific gravity of Urine by Refractometry dmplxrcpd9484-64-43 15:54:00Identifier 82099-8 Result Time 2019-01-03 15:54: 00Unknown Test Item Value Reference Range Comments Specific gravity of Urine by Refractometry 1.014 Unknown Unknown F automated (test code = 47096-5) Ordering Physician UnknownUrine erythrocytes detection by automated lzzidy564101-03 15:54:00Identifier 51579-4 Result Time 2019-01-03 15:54:00Unknown Test Item Value Reference Range Comments Urine erythrocytes detection by 1+(3-5/hpf) Unknown Unknown F automated method (test code = 51824-3) Ordering Physician UnknownUrine leukocytes detection by automated ujkcap7830-69- 07 15:54:00Identifier 34985-2 Result Time 2019-01-03 15:54:00Unknown Test Item Value Reference Range Comments Urine leukocytes detection by automated Absent Unknown Unknown F method (test code = 83750-9) Ordering Physician UnknownUrine hemoglobin detection by test dkgyt2478-22-05 15: 54:00Identifier 5794-3 Result Time 2019-01-03 15:54:00Unknown Test Item Value Reference Range Comments Urine hemoglobin detection by test strip Negative Unknown Unknown F (test code = 5794-3) Ordering Physician UnknownUrine leukocyte esterase detection by automated test qpjzf2541-68-15 15:54:00Identifier 04643-0 Result Time 2019-01-03 15:54: 00Unknown Test Item Value Reference Range Comments Urine leukocyte esterase detection by Negative Unknown Unknown F automated test strip (test code = 27516-2) Ordering Physician UnknownSerum or plasma troponin i.cardiac measurement (mass/ volume)2019-01-03 12:14:00Identifier 80924-5 Result Time 2019-01-03 12:14: 00Unknown Test Item Value Reference Range Comments Serum or plasma troponin i.cardiac 0.00 ng/mL Unknown Unknown F measurement (mass/volume) (test code = 05769-8) Ordering Physician UnknownSerum or plasma alanine aminotransferase measurement ( enzymatic activity/volume)2019-01-03 12:14:00Identifier 1742-6 Result Time 01-03 12:14:00Unknown Test Item Value Reference Range Comments Serum or plasma alanine aminotransferase 7 U/L Unknown Unknown F measurement (enzymatic activity/volume) (test code = 1742-6) Ordering Physician UnknownSerum or plasma albumin/globulin mass qrjww2785-90-78 12:14:00Identifier 1759-0 Result Time 2019-01-03 12:14:00Unknown Test [...] 3016-3) Ordering Physician UnknownAutomated blood nucleated erythrocytes mrzqmcvps1364- 11-07 12:14:00Identifier 17879-9 Result Time 2019-01-03 12:14:00Unknown Test Item Value Reference Range Comments Automated blood nucleated erythrocytes 0.0 Unknown Unknown F detection (test code = 27917-6) Ordering Physician UnknownAutomated blood monocytes/100 pjsuibwmjd1858-04-60 12: 14:00Identifier 5905-5 Result Time 2019-01-03 12:14:00Unknown Test Item Value Reference Range Comments Automated blood monocytes/100 leukocytes 3.6 % Unknown Unknown F (test code = 5905-5) Ordering Physician UnknownSerum or plasma albumin measurement by bromocresol green (BCG) dye binding method (gy5733-09-69 12:14:00Identifier 77864-4 Result Time 2019-01-03 12:14:00Unknown Test Item Value Reference Range Comments Serum or plasma albumin measurement by 4.0 g/dL Unknown Unknown F bromocresol green (BCG) dye binding method (ma (test code = 68538-0) Ordering Physician UnknownSerum or plasma alkaline phosphatase [...] = 704-7) Ordering Physician UnknownAutomated blood basophils/100 lwffiozpnd3511-66-59 12: 14:00Identifier 706-2 Result Time 2019-01-03 12:14:00Unknown [...] = 711-2) Ordering Physician UnknownAutomated blood eosinophils/100 ctirmvaede9717-39-47 12:14:00Identifier 713-8 Result Time 2019-01-03 12:14:00Unknown Test Item Value Reference Range Comments Automated blood eosinophils/100 leukocytes 0.5 % Unknown Unknown F (test code = 713-8) Ordering Physician UnknownBlood lymphocytes automated count (number/volume)01-03 12:14:00Identifier 731-0 Result Time 2019-01-03 12:14:00Unknown Test Item Value Reference Range Comments Blood lymphocytes automated count 0.9 10^3/ul Unknown Unknown F (number/volume) (test code = 731-0) Ordering Physician UnknownAutomated blood lymphocytes/100 dtclmpbsxa3487-95-83 12:14:00Identifier 736-9 Result Time 2019-01-03 12:14:00Unknown Test Item Value Reference Range Comments Automated blood lymphocytes/100 leukocytes 10.3 % Unknown Unknown F (test code = 736-9) Ordering Physician UnknownBlood monocytes automated count (number/volume)2018-12 12:14:00Identifier 742-7 Result Time 2019-01-03 12:14:00Unknown Test Item Value Reference Range Comments Blood monocytes automated count 0.3 10^3/ul Unknown Unknown F (number/volume) (test code = 742-7) Ordering Physician UnknownAutomated blood neutrophils/100 ditzqjsygp2934-90-91 12:14:00Identifier 770-8 Result Time 2019-01-03 12:14:00Unknown Test [...] code = 771-6) Ordering Physician UnknownCT biopsy mtsui0737-55-01 12:14:00Identifier ITT0286 Result Time 2019-01-03 12:14:00Unknown Test Item Value Reference Range Comments CT biopsy liver (test code = MLC6667) 7.8 10^3/ul Unknown Unknown F Ordering Physician Unknown
--- OUTSIDE RECORDS SUMMARY | 2019-01-29 16:26 | XMS REPORT ---
:1935 Author Organization [facility] Care Team Providers Name Role Phone [...] Unknown Unknown Chlor Tab* Chlor Tab* 11-26 [place]-3 [place]-3 2018-02 Yes Unknown Unknown Unknown Fatty Acids [...] UnknownSerum or plasma calcium measurement (mass/volume)01-07 05:47:00Identifier 19602-4 Result Time 2019-01-07 05:47:00Unknown Test Item Value Reference Range Comments Serum or plasma calcium measurement 9.0 mg/dL Unknown Unknown F (mass/volume) (test code = 60219-6) Ordering Physician UnknownSerum or plasma carbon dioxide, [...] Ordering Physician UnknownSerum or plasma urea nitrogen/creatinine nvnou9906-69- 11 05:47:00Identifier 3097-3 Result Time 2019-01-07 05:47:00Unknown Test Item Value Reference Range Comments Serum or plasma urea nitrogen/creatinine 17.2 Unknown Unknown F ratio (test code = 3097-3) Ordering Physician UnknownSerum or plasma anion gih3630-48-39 05:47: 00Identifier 58848-2 Result Time 2019-01-07 05:47:00Unknown Test Item Value Reference Range Comments Serum or plasma anion gap (test code = 7 mmol/L Unknown Unknown F 21820-9) Ordering Physician UnknownEstimated glomerular filtration rate (GFR) non- Ejfezkjf7443-60-13 05:47:00Identifier 58310-0 Result Time 2019-01-07 05: 47:00Unknown Test Item Value Reference Range Comments Estimated glomerular filtration rate (GFR) 53.4 Unknown Unknown F non- (test code = 68617-0) Ordering Physician UnknownAutomated blood platelet mean volume xfqhelfohjw6485- 11-08 04:18:00Identifier 77256-4 Result Time 2019-01-04 04:18:00Unknown Test Item Value Reference Range Comments Automated blood platelet mean volume 9.6 fL Unknown Unknown F measurement (test code = 85692-0) Ordering Physician UnknownAutomated blood leukocytes count corrected for nucleated erythrocytes (number/volume)2019-01-04 04:18:00Identifier 64471-5 Result Time 2019-01-04 04:18:00Unknown Test Item Value Reference Range Comments Automated blood leukocytes count 10.1 10^3/uL Unknown Unknown F corrected for nucleated erythrocytes (number/volume) (test code = 39120-0) Ordering Physician UnknownAutomated blood hematocrit (percentage)2019-01-04 04: [...] UnknownAutomated erythrocyte mean corpuscular hemoglobin concentration measurement (mass/lca6058-49-58 04:18:00Identifier 786-4 Result Time 2019-01-04 04:18:00Unknown Test Item Value Reference Range Comments Automated erythrocyte mean corpuscular 34 g/dL Unknown Unknown F hemoglobin concentration measurement (mass/vol (test code = 786-4) Ordering Physician UnknownAutomated erythrocyte mean corpuscular otqotd2645-49- 08 04:18:00Identifier 787-2 Result Time 2019-01-04 04:18:00Unknown Test Item Value Reference Range Comments Automated erythrocyte mean corpuscular volume 91 fL Unknown Unknown F (test code = 787-2) Ordering Physician UnknownAutomated erythrocyte distribution width xasei5124-54- 08 04:18:00Identifier 788-0 Result Time 2019-01-04 04:18:00Unknown [...] Physician UnknownUrine urobilinogen measurement (units/volume) by test gssgu3798-68-40 15:54:00Identifier 71801-2 Result Time 2019-01-03 15:54: 00Unknown Test Item Value Reference Range Comments Urine urobilinogen measurement Negative Unknown Unknown F (units/volume) by test strip (test code = 77309-6) Ordering Physician UnknownUrine bacteria detection by automated wsvbvl2708-15- 07 15:54:00Identifier 40308-8 Result Time 2019-01-03 15:54:00Unknown Test Item Value Reference Range Comments Urine bacteria detection by automated Absent Unknown Unknown F method (test code = 13503-4) Ordering Physician UnknownUrine total bilirubin detection by automated test lxlkl4429-60-63 15:54:00Identifier 44034-2 Result Time 2019-01-03 15:54: 00Unknown Test Item Value Reference Range Comments Urine total bilirubin detection by Negative Unknown Unknown F automated test strip (test code = 03818-7) Ordering Physician UnknownUrine clarity by refractometry cdtvwwxkl8325-33-96 15: 54:00Identifier 24000-0 Result Time 2019-01-03 15:54:00Unknown Test Item Value Reference Range Comments Urine clarity by refractometry automated Clear Unknown Unknown F (test code = 88435-8) Ordering Physician UnknownColor of Urine by Qhoe4504-48-23 15:54:00Identifier 87220-3 Result Time 2019-01-03 15:54:00Unknown Test Item Value Reference Range Comments Color of Urine by Auto (test code = Yellow Unknown Unknown F 28532-7) Ordering Physician UnknownUrine glucose detection by automated test lypon2977-92 -07 15:54:00Identifier 71485-4 Result Time 2019-01-03 15:54:00Unknown Test Item Value Reference Range Comments Urine glucose detection by automated test Negative Unknown Unknown F strip (test code = 78956-3) Ordering Physician UnknownKetones [Mass/volume] in Urine by Automated test tzgsy6852-67-30 15:54:00Identifier 50931-1 Result Time 2019-01-03 15:54: 00Unknown Test Item Value Reference Range Comments Ketones [Mass/volume] in Urine by Negative Unknown Unknown F Automated test strip (test code = 29552-1) Ordering Physician UnknownUrine nitrite detection by automated test qwpjr5474-28 -07 15:54:00Identifier 77413-6 Result Time 2019-01-03 15:54:00Unknown Test Item Value Reference Range Comments Urine nitrite detection by automated test Negative Unknown Unknown F strip (test code = 59608-7) Ordering Physician UnknownProtein [Mass/volume] in Urine by Automated test yxobc7277-49-76 15:54:00Identifier 28612-8 Result Time 2019-01-03 15:54: 00Unknown Test Item Value Reference Range Comments Protein [Mass/volume] in Urine by 1+(30 mg/dl) Unknown Unknown F Automated test strip (test code = 92685-3) Ordering Physician UnknownSpecific gravity of Urine by Refractometry kgbytgjxy8331-77-10 15:54:00Identifier 03814-0 Result Time 2019-01-03 15:54: 00Unknown Test Item Value Reference Range Comments Specific gravity of Urine by Refractometry 1.014 Unknown Unknown F automated (test code = 21050-5) Ordering Physician UnknownUrine erythrocytes detection by automated zwdlka944301-03 15:54:00Identifier 23557-8 Result Time 2019-01-03 15:54:00Unknown Test Item Value Reference Range Comments Urine erythrocytes detection by 1+(3-5/hpf) Unknown Unknown F automated method (test code = 52234-8) Ordering Physician UnknownUrine leukocytes detection by automated mdwzbe8188-30- 07 15:54:00Identifier 97498-0 Result Time 2019-01-03 15:54:00Unknown Test Item Value Reference Range Comments Urine leukocytes detection by automated Absent Unknown Unknown F method (test code = 40404-5) Ordering Physician UnknownUrine hemoglobin detection by test bbhxa8181-38-36 15: 54:00Identifier 5794-3 Result Time 2019-01-03 15:54:00Unknown Test Item Value Reference Range Comments Urine hemoglobin detection by test strip Negative Unknown Unknown F (test code = 5794-3) Ordering Physician UnknownUrine leukocyte esterase detection by automated test iobgs9312-43-86 15:54:00Identifier 83557-6 Result Time 2019-01-03 15:54: 00Unknown Test Item Value Reference Range Comments Urine leukocyte esterase detection by Negative Unknown Unknown F automated test strip (test code = 97740-7) Ordering Physician UnknownSerum or plasma troponin i.cardiac measurement (mass/ volume)2019-01-03 12:14:00Identifier 12241-6 Result Time 2019-01-03 12:14: 00Unknown Test Item Value Reference Range Comments Serum or plasma troponin i.cardiac 0.00 ng/mL Unknown Unknown F measurement (mass/volume) (test code = 54958-5) Ordering Physician UnknownSerum or plasma alanine aminotransferase measurement ( enzymatic activity/volume)2019-01-03 12:14:00Identifier 1742-6 Result Time 01-03 12:14:00Unknown Test Item Value Reference Range Comments Serum or plasma alanine aminotransferase 7 U/L Unknown Unknown F measurement (enzymatic activity/volume) (test code = 1742-6) Ordering Physician UnknownSerum or plasma albumin/globulin mass xoamm9139-83-35 12:14:00Identifier 1759-0 Result Time 2019-01-03 12:14:00Unknown Test [...] 3016-3) Ordering Physician UnknownAutomated blood nucleated erythrocytes enhbhsabr9991- 11-07 12:14:00Identifier 19460-0 Result Time 2019-01-03 12:14:00Unknown Test Item Value Reference Range Comments Automated blood nucleated erythrocytes 0.0 Unknown Unknown F detection (test code = 67404-8) Ordering Physician UnknownAutomated blood monocytes/100 kpvnazvzrv5546-70-55 12: 14:00Identifier 5905-5 Result Time 2019-01-03 12:14:00Unknown Test Item Value Reference Range Comments Automated blood monocytes/100 leukocytes 3.6 % Unknown Unknown F (test code = 5905-5) Ordering Physician UnknownSerum or plasma albumin measurement by bromocresol green (BCG) dye binding method (ff7755-49-57 12:14:00Identifier 15916-6 Result Time 2019-01-03 12:14:00Unknown Test Item Value Reference Range Comments Serum or plasma albumin measurement by 4.0 g/dL Unknown Unknown F bromocresol green (BCG) dye binding method (ma (test code = 11605-8) Ordering Physician UnknownSerum or plasma alkaline phosphatase [...] = 704-7) Ordering Physician UnknownAutomated blood basophils/100 kqqbyebdkq9347-77-75 12: 14:00Identifier 706-2 Result Time 2019-01-03 12:14:00Unknown [...] = 711-2) Ordering Physician UnknownAutomated blood eosinophils/100 xkeeykhobk6639-15-12 12:14:00Identifier 713-8 Result Time 2019-01-03 12:14:00Unknown Test Item Value Reference Range Comments Automated blood eosinophils/100 leukocytes 0.5 % Unknown Unknown F (test code = 713-8) Ordering Physician UnknownBlood lymphocytes automated count (number/volume)01-03 12:14:00Identifier 731-0 Result Time 2019-01-03 12:14:00Unknown Test Item Value Reference Range Comments Blood lymphocytes automated count 0.9 10^3/ul Unknown Unknown F (number/volume) (test code = 731-0) Ordering Physician UnknownAutomated blood lymphocytes/100 nsnxaaciub5700-35-92 12:14:00Identifier 736-9 Result Time 2019-01-03 12:14:00Unknown Test Item Value Reference Range Comments Automated blood lymphocytes/100 leukocytes 10.3 % Unknown Unknown F (test code = 736-9) Ordering Physician UnknownBlood monocytes automated count (number/volume)2018-12 12:14:00Identifier 742-7 Result Time 2019-01-03 12:14:00Unknown Test Item Value Reference Range Comments Blood monocytes automated count 0.3 10^3/ul Unknown Unknown F (number/volume) (test code = 742-7) Ordering Physician UnknownAutomated blood neutrophils/100 evxuqktikw7760-23-36 12:14:00Identifier 770-8 Result Time 2019-01-03 12:14:00Unknown Test [...] code = 771-6) Ordering Physician UnknownCT biopsy jlhje0836-49-92 12:14:00Identifier [id number] Result Time 2019-01-03 12:14:00Unknown Test Item Value Reference Range Comments CT biopsy liver (test code = LIU8008) 7.8 10^3/ul Unknown Unknown F Ordering Physician Unknown
--- OUTSIDE RECORDS SUMMARY | 2019-01-29 16:26 | XMS REPORT ---
:1935 Author Organization [facility] Care Team Providers Name Role [...]
--- OUTSIDE RECORDS SUMMARY | 2019-01-29 16:26 | XMS REPORT ---
:1935 Author Organization [facility] Care Team Providers Name Role Phone Unavailable [...] Unknown Unknown Chlor Tab* Chlor Tab* 11-26 [place]-3 [place]-3 2018-02 Yes Unknown Unknown Unknown Fatty Acids [...] UnknownSerum or plasma calcium measurement (mass/volume)01-07 05:47:00Identifier 33826-5 Result Time 2019-01-07 05:47:00Unknown Test Item Value Reference Range Comments Serum or plasma calcium measurement 9.0 mg/dL Unknown Unknown F (mass/volume) (test code = 35294-1) Ordering Physician UnknownSerum or plasma carbon dioxide, [...] Ordering Physician UnknownSerum or plasma urea nitrogen/creatinine gingr7323-69- 11 05:47:00Identifier 3097-3 Result Time 2019-01-07 05:47:00Unknown Test Item Value Reference Range Comments Serum or plasma urea nitrogen/creatinine 17.2 Unknown Unknown F ratio (test code = 3097-3) Ordering Physician UnknownSerum or plasma anion gwu1151-55-77 05:47: 00Identifier 82220-9 Result Time 2019-01-07 05:47:00Unknown Test Item Value Reference Range Comments Serum or plasma anion gap (test code = 7 mmol/L Unknown Unknown F 02850-8) Ordering Physician UnknownEstimated glomerular filtration rate (GFR) non- Dqxwcvtf5635-68-65 05:47:00Identifier 20485-7 Result Time 2019-01-07 05: 47:00Unknown Test Item Value Reference Range Comments Estimated glomerular filtration rate (GFR) 53.4 Unknown Unknown F non- (test code = 77394-6) Ordering Physician UnknownAutomated blood platelet mean volume xjvoatqdfmk3635- 11-08 04:18:00Identifier 89702-4 Result Time 2019-01-04 04:18:00Unknown Test Item Value Reference Range Comments Automated blood platelet mean volume 9.6 fL Unknown Unknown F measurement (test code = 07644-3) Ordering Physician UnknownAutomated blood leukocytes count corrected for nucleated erythrocytes (number/volume)2019-01-04 04:18:00Identifier 49720-7 Result Time 2019-01-04 04:18:00Unknown Test Item Value Reference Range Comments Automated blood leukocytes count 10.1 10^3/uL Unknown Unknown F corrected for nucleated erythrocytes (number/volume) (test code = 32750-0) Ordering Physician UnknownAutomated blood hematocrit (percentage)2019-01-04 04: [...] UnknownAutomated erythrocyte mean corpuscular hemoglobin concentration measurement (mass/fpm5149-10-05 04:18:00Identifier 786-4 Result Time 2019-01-04 04:18:00Unknown Test Item Value Reference Range Comments Automated erythrocyte mean corpuscular 34 g/dL Unknown Unknown F hemoglobin concentration measurement (mass/vol (test code = 786-4) Ordering Physician UnknownAutomated erythrocyte mean corpuscular zyohqz5837-11- 08 04:18:00Identifier 787-2 Result Time 2019-01-04 04:18:00Unknown Test Item Value Reference Range Comments Automated erythrocyte mean corpuscular volume 91 fL Unknown Unknown F (test code = 787-2) Ordering Physician UnknownAutomated erythrocyte distribution width tddcr8082-84- 08 04:18:00Identifier 788-0 Result Time 2019-01-04 04:18:00Unknown [...] Physician UnknownUrine urobilinogen measurement (units/volume) by test xtosy2249-91-49 15:54:00Identifier 81784-9 Result Time 2019-01-03 15:54: 00Unknown Test Item Value Reference Range Comments Urine urobilinogen measurement Negative Unknown Unknown F (units/volume) by test strip (test code = 87685-8) Ordering Physician UnknownUrine bacteria detection by automated dqdyis0282-49- 07 15:54:00Identifier 90998-1 Result Time 2019-01-03 15:54:00Unknown Test Item Value Reference Range Comments Urine bacteria detection by automated Absent Unknown Unknown F method (test code = 02435-5) Ordering Physician UnknownUrine total bilirubin detection by automated test gukbk9756-24-72 15:54:00Identifier 00823-9 Result Time 2019-01-03 15:54: 00Unknown Test Item Value Reference Range Comments Urine total bilirubin detection by Negative Unknown Unknown F automated test strip (test code = 02319-8) Ordering Physician UnknownUrine clarity by refractometry aktorxiba6754-21-12 15: 54:00Identifier 05466-7 Result Time 2019-01-03 15:54:00Unknown Test Item Value Reference Range Comments Urine clarity by refractometry automated Clear Unknown Unknown F (test code = 23990-7) Ordering Physician UnknownColor of Urine by Fewf8856-00-84 15:54:00Identifier 79575-8 Result Time 2019-01-03 15:54:00Unknown Test Item Value Reference Range Comments Color of Urine by Auto (test code = Yellow Unknown Unknown F 87815-0) Ordering Physician UnknownUrine glucose detection by automated test cyzoh5201-18 -07 15:54:00Identifier 73804-8 Result Time 2019-01-03 15:54:00Unknown Test Item Value Reference Range Comments Urine glucose detection by automated test Negative Unknown Unknown F strip (test code = 73343-1) Ordering Physician UnknownKetones [Mass/volume] in Urine by Automated test dnyir2940-44-58 15:54:00Identifier 96184-1 Result Time 2019-01-03 15:54: 00Unknown Test Item Value Reference Range Comments Ketones [Mass/volume] in Urine by Negative Unknown Unknown F Automated test strip (test code = 37609-6) Ordering Physician UnknownUrine nitrite detection by automated test xuobi7537-09 -07 15:54:00Identifier 42993-2 Result Time 2019-01-03 15:54:00Unknown Test Item Value Reference Range Comments Urine nitrite detection by automated test Negative Unknown Unknown F strip (test code = 95488-3) Ordering Physician UnknownProtein [Mass/volume] in Urine by Automated test eurik0910-09-86 15:54:00Identifier 97110-0 Result Time 2019-01-03 15:54: 00Unknown Test Item Value Reference Range Comments Protein [Mass/volume] in Urine by 1+(30 mg/dl) Unknown Unknown F Automated test strip (test code = 98741-3) Ordering Physician UnknownSpecific gravity of Urine by Refractometry yxcijbhzy7579-66-79 15:54:00Identifier 16189-5 Result Time 2019-01-03 15:54: 00Unknown Test Item Value Reference Range Comments Specific gravity of Urine by Refractometry 1.014 Unknown Unknown F automated (test code = 67473-3) Ordering Physician UnknownUrine erythrocytes detection by automated wjmncb486001-03 15:54:00Identifier 40672-2 Result Time 2019-01-03 15:54:00Unknown Test Item Value Reference Range Comments Urine erythrocytes detection by 1+(3-5/hpf) Unknown Unknown F automated method (test code = 85237-7) Ordering Physician UnknownUrine leukocytes detection by automated huhqiu6307-15- 07 15:54:00Identifier 69727-3 Result Time 2019-01-03 15:54:00Unknown Test Item Value Reference Range Comments Urine leukocytes detection by automated Absent Unknown Unknown F method (test code = 32288-0) Ordering Physician UnknownUrine hemoglobin detection by test itzql6933-71-60 15: 54:00Identifier 5794-3 Result Time 2019-01-03 15:54:00Unknown Test Item Value Reference Range Comments Urine hemoglobin detection by test strip Negative Unknown Unknown F (test code = 5794-3) Ordering Physician UnknownUrine leukocyte esterase detection by automated test gpnho2756-43-90 15:54:00Identifier 42872-1 Result Time 2019-01-03 15:54: 00Unknown Test Item Value Reference Range Comments Urine leukocyte esterase detection by Negative Unknown Unknown F automated test strip (test code = 96518-1) Ordering Physician UnknownSerum or plasma troponin i.cardiac measurement (mass/ volume)2019-01-03 12:14:00Identifier 56921-2 Result Time 2019-01-03 12:14: 00Unknown Test Item Value Reference Range Comments Serum or plasma troponin i.cardiac 0.00 ng/mL Unknown Unknown F measurement (mass/volume) (test code = 60522-6) Ordering Physician UnknownSerum or plasma alanine aminotransferase measurement ( enzymatic activity/volume)2019-01-03 12:14:00Identifier 1742-6 Result Time 01-03 12:14:00Unknown Test Item Value Reference Range Comments Serum or plasma alanine aminotransferase 7 U/L Unknown Unknown F measurement (enzymatic activity/volume) (test code = 1742-6) Ordering Physician UnknownSerum or plasma albumin/globulin mass czfea4880-17-13 12:14:00Identifier 1759-0 Result Time 2019-01-03 12:14:00Unknown Test [...] 3016-3) Ordering Physician UnknownAutomated blood nucleated erythrocytes duzgssvpr4377- 11-07 12:14:00Identifier 39108-7 Result Time 2019-01-03 12:14:00Unknown Test Item Value Reference Range Comments Automated blood nucleated erythrocytes 0.0 Unknown Unknown F detection (test code = 36089-3) Ordering Physician UnknownAutomated blood monocytes/100 jcxngkukgh0991-95-90 12: 14:00Identifier 5905-5 Result Time 2019-01-03 12:14:00Unknown Test Item Value Reference Range Comments Automated blood monocytes/100 leukocytes 3.6 % Unknown Unknown F (test code = 5905-5) Ordering Physician UnknownSerum or plasma albumin measurement by bromocresol green (BCG) dye binding method (ao7170-15-55 12:14:00Identifier 63009-1 Result Time 2019-01-03 12:14:00Unknown Test Item Value Reference Range Comments Serum or plasma albumin measurement by 4.0 g/dL Unknown Unknown F bromocresol green (BCG) dye binding method (ma (test code = 83290-4) Ordering Physician UnknownSerum or plasma alkaline phosphatase [...] = 704-7) Ordering Physician UnknownAutomated blood basophils/100 eilcgnquou1005-03-07 12: 14:00Identifier 706-2 Result Time 2019-01-03 12:14:00Unknown [...] = 711-2) Ordering Physician UnknownAutomated blood eosinophils/100 kcjdspkesw2487-24-15 12:14:00Identifier 713-8 Result Time 2019-01-03 12:14:00Unknown Test Item Value Reference Range Comments Automated blood eosinophils/100 leukocytes 0.5 % Unknown Unknown F (test code = 713-8) Ordering Physician UnknownBlood lymphocytes automated count (number/volume)01-03 12:14:00Identifier 731-0 Result Time 2019-01-03 12:14:00Unknown Test Item Value Reference Range Comments Blood lymphocytes automated count 0.9 10^3/ul Unknown Unknown F (number/volume) (test code = 731-0) Ordering Physician UnknownAutomated blood lymphocytes/100 rrmvylaoft8662-34-28 12:14:00Identifier 736-9 Result Time 2019-01-03 12:14:00Unknown Test Item Value Reference Range Comments Automated blood lymphocytes/100 leukocytes 10.3 % Unknown Unknown F (test code = 736-9) Ordering Physician UnknownBlood monocytes automated count (number/volume)2018-12 12:14:00Identifier 742-7 Result Time 2019-01-03 12:14:00Unknown Test Item Value Reference Range Comments Blood monocytes automated count 0.3 10^3/ul Unknown Unknown F (number/volume) (test code = 742-7) Ordering Physician UnknownAutomated blood neutrophils/100 dnzcurwucc6853-15-45 12:14:00Identifier 770-8 Result Time 2019-01-03 12:14:00Unknown Test [...] code = 771-6) Ordering Physician UnknownCT biopsy bqxtc2205-92-91 12:14:00Identifier [id number] Result Time 2019-01-03 12:14:00Unknown Test Item Value Reference Range Comments CT biopsy liver (test code = LQK6517) 7.8 10^3/ul Unknown Unknown F Ordering Physician Unknown
[2019-01-29] MEDS: Enoxaparin(*) 40 MG/0.4 ML SYR SUBCUT SCH (20:27)
[2019-01-29] MEDS: Atorvastatin* 10 MG TAB PO SCH (20:28)
[2019-01-29] MEDS: Amitriptyline TAB* 25 MG PO SCH (20:28)
[2019-01-30] MEDS: NS 0.9% 1000 ML** 1,000 ML IV SCH ×3 (03:15→21:07)
[2019-01-30] MEDS: Morphine INJ* 2 MG/ML 1 ML SYRINGE (TWO MG - NEW SYRINGE VERSION) IV PRN ×2 (05:20→23:06)
[2019-01-30] MEDS: Folic Acid TAB* 1 MG PO SCH (09:00)
[2019-01-30] MEDS: Metoprolol Succinate XL TAB* 25 MG PO SCH (09:00)
[2019-01-30] MEDS: amLODIPine TAB* 5 MG PO SCH ×2 (09:00→22:22)
[2019-01-30] MEDS: predniSONE TAB* 20 MG PO SCH (09:00)
[2019-01-30] MEDS: Sertraline* 50 MG TAB PO SCH (09:00)
[2019-01-30] MEDS: Acetaminophen TAB* 325 MG PO SCH ×3 (09:01→22:21)
[2019-01-30] MEDS: carBAMazepine TAB(*) 200 MG PO SCH ×2 (09:02→22:21)
[2019-01-30] MEDS: Ketorolac INJ* 15 MG/ML 1 ML VIAL IV PUSH PRN (09:16)
--- NOTE | 2019-01-30 10:53 | PN ---
Progress Note - Progress Note Date of Service: 01/30/19 SOAP: Subjective: clearly confused. thinks it is 1984 and she lives with her 83 yo father. unwilling to budge on this. reports pain better though still getting left temporal headaches. Objective: Vital Signs Temp Pulse Resp BP Pulse Ox 97.3 F 66 17 158/81 91 01/30/19 07:35 01/30/19 07:35 01/30/19 07:35 01/30/19 07:35 01/30/19 07:35 sitting up in nad perr eomi op moist cta bl s1 s2 soft nt +bs no clear palpable mass in sitting position no le edema pleasant but clearly confused Acetaminophen (Tylenol Tab*) 975 mg PO TID [facility] Last Admin: 01/30/19 09:01 Dose: 975 mg Amitriptyline HCl (Elavil Tab*) 25 mg PO BEDTIME [facility] Last Admin: 01/29/19 20:28 Dose: 25 mg Amlodipine Besylate (Norvasc Tab*) 5 mg PO BID [facility] Last Admin: 01/30/19 09:00 Dose: 5 mg Atorvastatin Calcium (Lipitor*) 10 mg PO BEDTIME [facility] Last Admin: 01/29/19 20:28 Dose: 10 mg Carbamazepine (Tegretol Tab(*)) 200 mg PO BID [facility] Last Admin: 01/30/19 09:02 Dose: 200 mg Enoxaparin Sodium (Lovenox(*)) 40 mg SUBCUT 2100 [facility] Last Admin: 01/29/19 20:27 Dose: 40 mg Folic Acid (Folvite Tab*) 1 mg PO QAM [facility] Last Admin: 01/30/19 09:00 Dose: 1 mg Hydralazine HCl (Apresoline Iv*) 5 mg IV SLOW PU Q6H PRN PRN Reason: Systolic Bp Greater Than: 170 Sodium Chloride (Ns 0.9% 1000 Ml) 1,000 mls @ 125 mls/hr IV PER RATE [facility] Last Admin: 01/30/19 03:15 Dose: 125 mls/hr Ketorolac Tromethamine (Toradol Inj*) 15 mg IV PUSH Q6H PRN PRN Reason: PAIN - MODERATE Last Admin: 01/30/19 09:16 Dose: 15 mg Metoprolol Succinate (Toprol Xl Tab*) 25 mg PO QAM [facility] Last Admin: 01/30/19 09:00 Dose: 25 mg Morphine Sulfate (Morphine Inj (Syringe))*) 2 mg IV Q4H PRN PRN Reason: PAIN - SEVERE Last Admin: 01/30/19 05:20 Dose: 2 mg Ondansetron HCl (Zofran Inj*) 4 mg IV Q4H PRN PRN Reason: NAUSEA/VOMITING Prednisone (Deltasone Tab*) 40 mg PO DAILY [facility] Last Admin: 01/30/19 09:00 Dose: 40 mg Sertraline HCl (Zoloft*) 50 mg PO QAM [facility] Last Admin: 01/30/19 09:00 Dose: 50 mg Assessment: 83 yo female with a 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 She has evidence of additional disease below the diaphragm, though it is not clear to me if this is a separate process or not. She does not seem inclined to have treatment for her known head and neck cancer, and with her dementia and performance status, this seems appropriate. If that is the case I am not sure that biopsying her abdominal mass makes sense. I did review the concept of hospice with her, which she seems open to, though I am not sure how much she understands this. I did put a call into her son Oumar and left a message. I will investigate further why she is on prednisone 40 mg, which seems to have been started on this admission, though no clear documentation as to why. Also, elevated carbon monoxide level from ER noted. Again, not clear why ordered though will discuss with son making sure they have monitor in her residence if there is anyone else living there. Plan: 1. Hypertensive urgency - resolved, likely being driven by pain 2. BECKFORD - secondary to malignancy - cont amitriptyine and trileptal for now - reportedly poor tolerance to tramadol, so hesitant to try more potent opiates, but cont morphine IV prn as she did seem to do well with that in the ER 3. Squamous cell carcinoma of the nasopharynx - she does not appear to have an appropriate performance status to consider palliative or curative intent chemotherapy at this time - plan to discuss further at tumor board today Dispo: will require long-term SNF placement, likely with hospice, though need to discuss with son/family
--- NOTE | 2019-01-30 15:04 | CONSULT ---
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 PMH is significant for HTN, dementia, afib and hyperlipidemia. PSHx non smoker, no etoh, no drugs lives with her . Studies chest CT-L upper quandrant large soft tissue densities 2 cm splenic lesion, multiple renal cysts no mets in chest, H/H 11.3/34, BUN/Cr 17/.92, egfr 18.5 and alb 3.7. Pt was admitted for hypertensive emergency with systolic in the 200's and pain control of her headaches. Pt has been admitted 01/03-01/09 s/ p fall, and has had 2 ER visits. All history is from the pt, family and medical record. Lab Values: Laboratory Last Values WBC 10.1 10^3/uL (3.5-10.8) 01/29/19 06:31 RBC 3.61 10^6 /uL (3.70-4.87) L 01/29/19 06:31 Hgb 11.3 g/dL (12.0-16.0) L 01/29/19 06:31 Hct 34 % (35-47) L 01/29/19 06:31 MCV 93 fL (80-97) 01/29/19 06:31 MCH 31 pg (27-31) 01/29/19 06:31 MCHC 34 g/dL (31-36) 01/29/19 06:31 RDW 16 % (10-15) H 01/29/19 06:31 Plt Count 224 10^3/uL (150-450) 01/29/19 06:31 MPV 9.3 fL (7.4-10.4) 01/29/19 06:31 Neut % (Auto) 87.5 % 01/29/19 06:31 Lymph % (Auto) 9.7 % 01/29/19 06:31 Vermilion % (Auto) 2.5 % 01/29/19 06:31 Eos % (Auto) 0.0 % 01/29/19 06:31 Baso % (Auto) 0.3 % 01/29/19 06:31 Absolute Neuts (auto) 8.8 10^3/ul (1.5-7.7) H 01/29/19 06:31 Absolute Lymphs (auto) 1.0 10^3/ul (1.0-4.8) 01/29/19 06:31 Absolute Monos (auto) 0.3 10^3/ul (0-0.8) 01/29/19 06:31 Absolute Eos (auto) 0.0 10^3/ul (0-0.6) 01/29/19 06:31 Absolute Basos (auto) 0.0 10^3/ul (0-0.2) 01/29/19 06:31 Absolute Nucleated RBC 0.0 10^3/ul 01/29/19 06:31 Nucleated RBC % 0.1 01/29/19 06:31 ESR 100 mm/Hr (0-29) H 01/28/19 15:13 Carbon Monoxide Screen 4.7 % (<4.0) H 01/28/19 15:13 Sodium 137 mmol/L (135-145) 01/29/19 06:31 Potassium 4.2 mmol/L (3.5-5.0) 01/29/19 06:31 Chloride 105 mmol/L (101-111) 01/29/19 06:31 Carbon Dioxide 25 mmol/L (22-32) 01/29/19 06:31 Anion Gap 7 mmol/L (2-11) 01/29/19 06:31 BUN 17 mg/dL (6-24) 01/29/19 06:31 Creatinine 0.92 mg/dL (0.51-0.95) 01/29/19 06:31 Est GFR ( Amer) 70.4 (>60) 01/29/19 06:31 Est GFR (Non-Af Amer) 58.2 (>60) 01/29/19 06:31 BUN/Creatinine Ratio 18.5 (8-20) 01/29/19 06:31 Glucose 111 mg/dL (70-100) H 01/29/19 06:31 Calcium 8.9 mg/dL (8.6-10.3) 01/29/19 06:31 Total Bilirubin 0.50 mg/dL (0.2-1.0) 01/28/19 15:13 AST 17 U/L (13-39) 01/28/19 15:13 ALT 11 U/L (7-52) 01/28/19 15:13 Alkaline Phosphatase 96 U/L (34-104) 01/28/19 15:13 Total Protein 7.6 g/dL (6.4-8.9) 01/28/19 15:13 Albumin 3.7 g/dL (3.2-5.2) 01/28/19 15:13 Globulin 3.9 g/dL (2-4) 01/28/19 15:13 Albumin/Globulin Ratio 0.9 (1-3) L 01/28/19 15:13 Urine Color Yellow 01/29/19 07:10 Urine Appearance Clear 01/29/19 07:10 Urine pH 6.0 (5-9) 01/29/19 07:10 Ur Specific Wheeler 1.015 (1.010-1.030) 01/29/19 07:10 Urine Protein Negative (Negative) 01/29/19 07:10 Urine Ketones Negative (Negative) 01/29/19 07:10 Urine Blood 1+ (Negative) A 01/29/19 07:10 Urine Nitrate Negative (Negative) 01/29/19 07:10 Urine Bilirubin Negative (Negative) 01/29/19 07:10 Urine Urobilinogen Negative (Negative) 01/29/19 07:10 Ur Leukocyte Esterase Negative (Negative) 01/29/19 07:10 Urine WBC (Auto) Trace(0-5/hpf) (Absent) 01/29/19 07:10 Urine RBC (Auto) Trace(0-2/hpf) (Absent) 01/29/19 07:10 Ur Squamous Epith Cells Present (Absent) A 01/29/19 07:10 Urine Bacteria Absent (Absent) 01/29/19 07:10 Urine Glucose Negative (Negative) 01/29/19 07:10 - Objective Active Medications: Acetaminophen (Tylenol Tab*) 975 mg PO TID [facility] Last Admin: 01/30/19 14:45 Dose: 975 mg Amitriptyline HCl (Elavil Tab*) 25 mg PO BEDTIME [facility] Last Admin: 01/29/19 20:28 Dose: 25 mg Amlodipine Besylate (Norvasc Tab*) 5 mg PO BID [facility] Last Admin: 01/30/19 09:00 Dose: 5 mg Atorvastatin Calcium (Lipitor*) 10 mg PO BEDTIME [facility] Last Admin: 01/29/19 20:28 Dose: 10 mg Carbamazepine (Tegretol Tab(*)) 200 mg PO BID [facility] Last Admin: 01/30/19 09:02 Dose: 200 mg Enoxaparin Sodium (Lovenox(*)) 40 mg SUBCUT 2100 [facility] Last Admin: 01/29/19 20:27 Dose: 40 mg Folic Acid (Folvite Tab*) 1 mg PO QAM [facility] Last Admin: 01/30/19 09:00 Dose: 1 mg Hydralazine HCl (Apresoline Iv*) 5 mg IV SLOW PU Q6H PRN PRN Reason: Systolic Bp Greater Than: 170 Sodium Chloride (Ns 0.9% 1000 Ml) 1,000 mls @ 125 mls/hr IV PER RATE [facility] Last Admin: 01/30/19 12:00 Dose: 125 mls/hr Ketorolac Tromethamine (Toradol Inj*) 15 mg IV PUSH Q6H PRN PRN Reason: PAIN - MODERATE Last Admin: 01/30/19 09:16 Dose: 15 mg Metoprolol Succinate (Toprol Xl Tab*) 25 mg PO QAM [facility] Last Admin: 01/30/19 09:00 Dose: 25 mg Morphine Sulfate (Morphine Inj (Syringe))*) 2 mg IV Q4H PRN PRN Reason: PAIN - SEVERE Last Admin: 01/30/19 05:20 Dose: 2 mg Ondansetron HCl (Zofran Inj*) 4 mg IV Q4H PRN PRN Reason: NAUSEA/VOMITING Prednisone (Deltasone Tab*) 40 mg PO DAILY [facility] Last Admin: 01/30/19 09:00 Dose: 40 mg Sertraline HCl (Zoloft*) 50 mg PO QAM [facility] Last Admin: 01/30/19 09:00 Dose: 50 mg Vital Signs: Vital Signs: Temp Pulse Resp BP Pulse Ox 97.7 F 69 16 143/91 94 01/30/19 14:52 01/30/19 14:52 01/30/19 14:52 01/30/19 14:52 01/30/19 14:52 Patient Weight: Weight 74.843 kg Intake and Output: Intake & Output 01/28/19 01/29/19 01/30/19 01/31/19 06:59 06:59 06:59 06:59 Intake Total 0 2079 1984 Output Total 749 427 5286 Balance -250 0 885 Weight 75.07 kg 74.843 kg Intake: IV Fluids 1960 985 Oral 0 120 1000 Output: Urine 986 406 9723 Other: Estimated Void Medium Small Large # Bowel Movements 3 Estimated Stool Amount Medium # Voids 1 2 1 ADLs: Meal Record Start: 01/28/19 20: 16 Freq: DAILY@0900,1400,1800 Status: Active Protocol: Created 01/28/19 20:16 System (Rec: 01/28/19 20:16 System [id number]) Document 01/29/19 09:00 [id number] (Rec: 01/29/19 13:59 [id number] MED-C11) Document 01/29/19 13:59 [id number] (Rec: 01/29/19 14:01 [id number] MED-C11) Document 01/29/19 18:00 [id number] (Rec: 01/30/19 01:09 [id number] MED-C09) Document 01/30/19 09:00 [id number] (Rec: 01/30/19 11:11 [id number] MED-C09) Document 01/30/19 14:00 [id number] (Rec: 01/30/19 14:23 [id number] MED-C11) Intake and Output Start: 01/28/19 14: 38 Freq: Status: Complete Protocol: Created 01/28/19 14:38 System (Rec: 01/28/19 14:38 System [id number]) Intake and Output Start: 01/28/19 20: 16 Freq: DAILY@0600,1400,2200 Status: Active Protocol: Created 01/28/19 20:16 System (Rec: 01/28/19 20:16 System [id number]) Document 01/29/19 05:33 [id number] (Rec: 01/29/19 05:37 [id number] MED-C16) Document 01/29/19 13:59 [id number] (Rec: 01/29/19 14:01 [id number] MED-C11) Document 01/29/19 22:00 [id number] (Rec: 01/30/19 01:10 [id number] MED-C09) Document 01/30/19 05:23 [id number] (Rec: 01/30/19 05:24 [id number] MED-C09) Document 01/30/19 14:00 [id number] (Rec: 01/30/19 14:23 [id number] MED-C11) Head: Normal Eyes: No Scleral Icterus Ears/Nose/Mouth/Throat: NL Teeth, Lips, Gums Neck: NL Appearance and Movements; NL JVP Cardiovascular: NL Sounds; No Murmurs; No JVD Respiratory: Symmetrical Chest Expansion and Respiratory Effort Abdominal: NL Sounds; No Tenderness; No Distention Extremities: No Edema Neurological: Alert and Oriented x 3 - Assessment Assessment: 83yo female with 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 Pt and want pt to go home and are interested in hospice. Information and brochure given about hospice. They don't need a bed or a commode and no oxygen. Case management will send referral. Their biggest concern is headache pain control. Pt is on tegretol, prednisone, toradol, tylenol and amitriptyline for headache pain.We did discuss the other options on SNF and residence but they are not interested as of now. We also discussed MOLST form and pt elected no CPR, no intubation and no feeding tube. Copy given to family. Family is sad but willing to help make going home feasible. After seeing family pt was seen by radiation oncology and has elected to try radiation to help shrink tumor and lessen headache pain, will hold on hospice referral for now. 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 KPS 50%, PPS 50% - Time On Unit Date of Evaluation: 01/30/19 Hospice Consult Time in: 14:00 Hospice Consult Time Out: 15:00 Hospice Consult Time Total: 60 > 50% of Time Spend In Counseling or Coordinating Care: Yes
[2019-01-30] MEDS: Enoxaparin(*) 40 MG/0.4 ML SYR SUBCUT SCH (22:21)
[2019-01-30] MEDS: Amitriptyline TAB* 25 MG PO SCH (22:22)
[2019-01-30] MEDS: Atorvastatin* 10 MG TAB PO SCH (22:22)
--- NOTE | 2019-01-31 00:23 | RADMED ---
CC: Dr. Cannon; Dr. Susan Hanley; Dr. Qi Fairchild * RADIATION ONCOLOGY INPATIENT CONSULTATION NOTE: DATE OF CONSULT: 01/29/19 PRIMARY CARE PHYSICIAN: Dr. Susan Hanley DIAGNOSIS: Nasopharyngeal squamous cell carcinoma. HISTORY OF PRESENT ILLNESS: Viola Patterson is an 83-year-old woman with a history of headaches going back approximately 1 year. They progressed over time and came to medical attention prompting evaluation including brain MRI performed on 01/03/19, which identifies destructive left nasopharyngeal mass invading the skull base. Biopsy was performed on 01/18/19, pathology confirming invasive moderately differentiated squamous cell carcinoma. She was planned for additional evaluation and was scheduled to see me for outpatient consultation regarding radiation therapy, but has had intractable headache and is admitted to the hospital. CT scan of the chest, abdomen, and pelvis performed on 01/29/19 identifies nearly 10 cm left upper abdominal mass of unknown etiology, new compared to CT from August 2017. Despite inpatient pain management, she has significant ongoing difficulties with headache, and is referred for consideration of palliative radiation therapy. PAST MEDICAL HISTORY: 1. Nasopharyngeal squamous cell carcinoma as in the history of present illness. 2. History of dementia. 3. Hypertension. 4. Atrial fibrillation. 5. Hyperlipidemia. MEDICATIONS: As per the inpatient record. ALLERGIES: CODEINE, ERYTHROMYCIN, GABAPENTIN, TRAMADOL. FAMILY HISTORY: Significant for her mother with [employer] cancer and a brother with lung cancer. SOCIAL HISTORY: She is accompanied by her son and her who are quite supportive. She is a nonsmoker, and does not drink alcohol. REVIEW OF SYSTEMS: A complete review of systems is asked of the patient, significant for her head pain and no other symptomatic complaints or concerns. PHYSICAL EXAM: Vital Signs: Temperature 97.8, pulse rate 85, respiratory rate 18, oxygen saturation 94% on room air, blood pressure 149/82. General: She is awake and alert. Disoriented at her baseline. No acute distress. Normocephalic, atraumatic. Sclerae anicteric. Neck: Supple. Full range of motion. Midline trachea. No mass palpable in the neck. Lungs: With coarse rhonchi. Cardiovascular: S1, S2 regular. Abdomen: Soft, nontender. PATHOLOGY AND RADIOLOGY: Reviewed, as in the history of present illness. ASSESSMENT AND PLAN: Viola Patterson is an 83-year-old woman who was recently diagnosed with squamous cell carcinoma of the nasopharynx, with skull base invasion and uncontrolled pain. I did review her history as well as the pathologic and radiographic findings, and discussed this at some length with the patient and her family, as they are already well informed and familiar. We reviewed the natural history of nasopharyngeal cancer, and considerations for management, additional evaluation, and definitive treatment and concern for her performance status, quality of life, and overall prognosis, with an uncertain etiology 10 cm mass discovered in the abdomen in addition to her known nasopharyngeal squamous cell carcinoma. She is not considered a candidate for chemotherapy, but multidisciplinary evaluation will be had at tumor board tomorrow. She most likely would be a candidate for a short course of palliative radiation therapy to improve pain control followed by hospice versus consideration of hospice at this stage. I did answer the patient and her family 's questions to the best of my ability and will follow up with them after multidisciplinary oncology board review tomorrow. ADDENDUM: 01/30/19: Multidisciplinary oncology board review with suggestion for hospice versus short course palliative radiation therapy followed by hospice. I did review this with the patient and her family in some detail and with regard to palliative radiation therapy, I explained the logistics and rationale for treatment, risks, benefits, and alternatives as well as the acute and long-term frequent and uncommon toxicities. The patient herself indicates that she would consider and would like to proceed with palliative radiation therapy if there is likelihood to improve her pain. The patient's and son would agree with this plan, and I will follow up with her tomorrow for consideration of CT simulation to facilitate treatment planning. For her situation, I recommend 2000 cGy at 400 cGy per fraction, tentative treatment start date 02/04/19. Radiation therapy can be undertaken on an inpatient or outpatient basis based on her medical management and the patient's and family's wishes and logistics, and radiation therapy can be discontinued if she does not tolerate or elects against at any point in favor of hospice, and I did discuss with Dr. Qi Fairchild from palliative care as well. [id number]/[facility] #: [id number] B[facility] DAVID HOSPITALGretel
[2019-01-31] MEDS: hydrALAZINE IV* 20 MG/ML VIAL IV SLOW PU PRN ×2 (00:30→16:17)
[2019-01-31] MEDS: Ketorolac INJ* 15 MG/ML 1 ML VIAL IV PUSH PRN (07:34)
[2019-01-31] MEDS: Metoprolol Succinate XL TAB* 25 MG PO SCH (07:39)
[2019-01-31] MEDS: Acetaminophen TAB* 325 MG PO SCH ×3 (07:39→21:31)
[2019-01-31] MEDS: Folic Acid TAB* 1 MG PO SCH (07:39)
[2019-01-31] MEDS: carBAMazepine TAB(*) 200 MG PO SCH ×2 (07:40→21:22)
[2019-01-31] MEDS: Sertraline* 50 MG TAB PO SCH (07:40)
[2019-01-31] MEDS: amLODIPine TAB* 5 MG PO SCH ×2 (07:40→21:21)
[2019-01-31] MEDS: predniSONE TAB* 20 MG PO SCH (07:40)
--- NOTE | 2019-01-31 12:36 | PN ---
Progress Note - Progress Note Date of Service: 01/31/19 SOAP: Subjective: [Reports that she feels ok this morning. Very lethargic, but feels like she slept well. No BECKFORD at this time. She has been getting good relief from prn IV toradol.] Objective: [ Vital Signs: Temp Pulse Resp BP Pulse Ox 97.7 F 65 16 132/92 95 01/31/19 07:15 01/31/19 07:15 01/31/19 07:43 01/31/19 08:23 01/31/19 07:15 Acetaminophen (Tylenol Tab*) 975 mg PO TID [facility] Last Admin: 01/31/19 07:39 Dose: 975 mg Amitriptyline HCl (Elavil Tab*) 25 mg PO BEDTIME [facility] Last Admin: 01/30/19 22:22 Dose: 25 mg Amlodipine Besylate (Norvasc Tab*) 5 mg PO BID [facility] Last Admin: 01/31/19 07:40 Dose: 5 mg Atorvastatin Calcium (Lipitor*) 10 mg PO BEDTIME [facility] Last Admin: 01/30/19 22:22 Dose: 10 mg Carbamazepine (Tegretol Tab(*)) 200 mg PO BID [facility] Last Admin: 01/31/19 07:40 Dose: 200 mg Enoxaparin Sodium (Lovenox(*)) 40 mg SUBCUT 2100 [facility] Last Admin: 01/30/19 22:21 Dose: 40 mg Folic Acid (Folvite Tab*) 1 mg PO QAM [facility] Last Admin: 01/31/19 07:39 Dose: 1 mg Hydralazine HCl (Apresoline Iv*) 5 mg IV SLOW PU Q6H PRN PRN Reason: Systolic Bp Greater Than: 170 Last Admin: 01/31/19 00:30 Dose: 5 mg Sodium Chloride (Ns 0.9% 1000 Ml) 1,000 mls @ 125 mls/hr IV PER RATE [facility] Last Admin: 01/30/19 21:07 Dose: 125 mls/hr Ketorolac Tromethamine (Toradol Tab *) 10 mg PO Q6H PRN PRN Reason: PAIN - MILD Metoprolol Succinate (Toprol Xl Tab*) 25 mg PO QAM [facility] Last Admin: 01/31/19 07:39 Dose: 25 mg Morphine Sulfate (Morphine Inj (Syringe))*) 2 mg IV Q4H PRN PRN Reason: PAIN - SEVERE Last Admin: 01/30/19 23:06 Dose: 2 mg Morphine Sulfate (Morphine Oral Concentrate*) 5 mg SL Q2H PRN PRN Reason: PAIN - MODERATE Ondansetron HCl (Zofran Inj*) 4 mg IV Q4H PRN PRN Reason: NAUSEA/VOMITING Sertraline HCl (Zoloft*) 50 mg PO QAM [facility] Last Admin: 01/31/19 07:40 Dose: 50 mg Exam: Gen: frail and lethargic appearing but in NAD and holds an appropriate conversation HEENT: MMM CV: RRR, no m/r/g Resp: CTA, no w/c/r Abd: soft nonTTP Ext: no edema Assessment: 83 yo female with a 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 She now has evidence of additional disease below the diaphragm, though it is not clear if this is a separate process or not. She is not inclined, nor does she seem fit for chemotherapy. After discussion with multidisciplinary team as well as patient and family, the plan is to move forward with palliative RT to the sinus lesion in hopes of improving her pain. Plan: 1. Hypertensive urgency - resolved, likely being driven by pain 2. BECKFORD - secondary to malignancy - cont amitriptyine and trileptal for now - reportedly poor tolerance to tramadol, so hesitant to try more potent opiates although has done ok with the couple of doses of morphine she has received - she has been responding well to IV toradol - trial po toradol and prn oral morphine and assess pain control on that regimen 3. Squamous cell carcinoma of the nasopharynx, possibly metastatic v second primary malignancy - plan palliative RT, sim today and treatment over 5 fractions next week Dispo: plan for home hospice following XRT. Son and are motivated to try to care for her at home rather than SNF. Possible dc home tomorrow
[2019-01-31] MEDS: NS 0.9% 1000 ML** 1,000 ML IV SCH ×2 (15:35→23:37)
[2019-01-31] MEDS: Ketorolac TAB * 10 MG TAB PO PRN (19:55)
[2019-01-31] MEDS: Atorvastatin* 10 MG TAB PO SCH (21:22)
[2019-01-31] MEDS: Amitriptyline TAB* 25 MG PO SCH (21:23)
[2019-01-31] MEDS: Enoxaparin(*) 40 MG/0.4 ML SYR SUBCUT SCH (21:31)
[2019-02-01] MEDS: Ketorolac TAB * 10 MG TAB PO PRN ×3 (03:51→21:00)
[2019-02-01] MEDS: Sertraline* 50 MG TAB PO SCH (08:10)
[2019-02-01] MEDS: Folic Acid TAB* 1 MG PO SCH (08:10)
[2019-02-01] MEDS: amLODIPine TAB* 5 MG PO SCH ×2 (08:10→20:59)
[2019-02-01] MEDS: Acetaminophen TAB* 325 MG PO SCH ×4 (08:10→21:15)
[2019-02-01] MEDS: hydrALAZINE IV* 20 MG/ML VIAL IV SLOW PU PRN (08:11)
[2019-02-01] MEDS: Metoprolol Succinate XL TAB* 25 MG PO SCH (08:11)
[2019-02-01] MEDS: carBAMazepine TAB(*) 200 MG PO SCH (08:20)
[2019-02-01] MEDS: Morphine ORAL CONCENTRATE* 5 MG/0.25 ML ORAL.SYRIN SL PRN ×3 (10:18→20:57)
--- NOTE | 2019-02-01 10:20 | PN ---
Progress Note - Progress Note Date of Service: 02/01/19 SOAP: Subjective: [More agitated and appears uncomfortable this morning. She reports a worsening BECKFORD. Quite lethargic. It doesn't appear that the oral or IV morphine have been heavily utilized for symptom control. ] Objective: [ Vital Signs: Temp Pulse Resp BP Pulse Ox 98.3 F 102 18 171/95 94 02/01/19 03:50 02/01/19 03:50 02/01/19 08:00 02/01/19 03:50 01/31/19 23:35 Acetaminophen (Tylenol Tab*) 975 mg PO TID [facility] Last Admin: 02/01/19 08:10 Dose: 975 mg Amlodipine Besylate (Norvasc Tab*) 5 mg PO BID [facility] Last Admin: 02/01/19 08:10 Dose: 5 mg Atorvastatin Calcium (Lipitor*) 10 mg PO BEDTIME [facility] Last Admin: 01/31/19 21:22 Dose: 10 mg Enoxaparin Sodium (Lovenox(*)) 40 mg SUBCUT 2100 [facility] Last Admin: 01/31/19 21:31 Dose: Not Given Folic Acid (Folvite Tab*) 1 mg PO QAM [facility] Last Admin: 02/01/19 08:10 Dose: 1 mg Hydralazine HCl (Apresoline Iv*) 5 mg IV SLOW PU Q6H PRN PRN Reason: Systolic Bp Greater Than: 170 Last Admin: 02/01/19 08:11 Dose: 5 mg Sodium Chloride (Ns 0.9% 1000 Ml) 1,000 mls @ 125 mls/hr IV PER RATE [facility] Last Admin: 01/31/19 23:37 Dose: 125 mls/hr Ketorolac Tromethamine (Toradol Tab *) 10 mg PO Q6H PRN PRN Reason: PAIN - MILD Last Admin: 02/01/19 03:51 Dose: 10 mg Metoprolol Succinate (Toprol Xl Tab*) 25 mg PO QAM [facility] Last Admin: 02/01/19 08:11 Dose: 25 mg Morphine Sulfate (Morphine Inj (Syringe))*) 2 mg IV Q4H PRN PRN Reason: PAIN - SEVERE Last Admin: 01/30/19 23:06 Dose: 2 mg Morphine Sulfate (Morphine Oral Concentrate*) 5 mg SL Q2H PRN PRN Reason: PAIN - MODERATE Ondansetron HCl (Zofran Inj*) 4 mg IV Q4H PRN PRN Reason: NAUSEA/VOMITING Sertraline HCl (Zoloft*) 50 mg PO QAM [facility] Last Admin: 02/01/19 08:10 Dose: 50 mg Exam: Gen: frail and lethargic appearing, somewhat agitated (pulling on her IV line) and appears mildly uncomfortable HEENT: MMM CV: RRR, no m/r/g Resp: CTA, no w/c/r Abd: soft nonTTP Ext: no edema Assessment: 83 yo female with a 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 She now has evidence of additional disease below the diaphragm, though it is not clear if this is a separate process or not. She is not inclined, nor does she seem fit for chemotherapy. After discussion with multidisciplinary team as well as patient and family, the plan is to move forward with palliative RT to the sinus lesion in hopes of improving her pain. Plan: 1. Hypertensive urgency - resolved, likely being driven by pain 2. BECKFORD - secondary to malignancy - pain control looks worse today - will stop the trileptal and amitriptyline as I am unsure how much that is helping with pain but certainly can contribute to confusion and lethargy in an 83 yo - cont po toradol and encouraged nursing to be more aggressive with the prn morphine administration - anticipate this will improve with initiation of RT 3. Squamous cell carcinoma of the nasopharynx, possibly metastatic v second primary malignancy - plan palliative RT, sim yesterday and treatment over 5 fractions next week Dispo: plan for home hospice following XRT. Son and are motivated to try to care for her at home rather than SNF. Anticipate dc home when pain control appears adequate
[2019-02-01] MEDS: Atorvastatin* 10 MG TAB PO SCH (21:02)
[2019-02-01] MEDS: Enoxaparin(*) 40 MG/0.4 ML SYR SUBCUT SCH (21:15)
[2019-02-02] MEDS: Morphine ORAL CONCENTRATE* 5 MG/0.25 ML ORAL.SYRIN SL PRN ×4 (03:44→15:15)
[2019-02-02] MEDS: Ketorolac TAB * 10 MG TAB PO PRN ×3 (03:45→15:15)
[2019-02-02] MEDS: hydrALAZINE IV* 20 MG/ML VIAL IV SLOW PU PRN (08:59)
[2019-02-02] MEDS: Acetaminophen TAB* 325 MG PO SCH ×3 (09:00→21:11)
[2019-02-02] MEDS: Metoprolol Succinate XL TAB* 25 MG PO SCH (09:01)
[2019-02-02] MEDS: Folic Acid TAB* 1 MG PO SCH (09:02)
[2019-02-02] MEDS: amLODIPine TAB* 5 MG PO SCH ×2 (09:02→21:11)
[2019-02-02] MEDS: Sertraline* 50 MG TAB PO SCH (09:04)
[2019-02-02] MEDS: Atorvastatin* 10 MG TAB PO SCH (21:11)
[2019-02-02] MEDS: Enoxaparin(*) 40 MG/0.4 ML SYR SUBCUT SCH (21:16)
[2019-02-03] MEDS: Morphine INJ* 2 MG/ML 1 ML SYRINGE (TWO MG - NEW SYRINGE VERSION) IV PRN (04:49)
[2019-02-03] MEDS: Morphine ORAL CONCENTRATE* 5 MG/0.25 ML ORAL.SYRIN SL PRN ×4 (08:15→20:37)
[2019-02-03] MEDS: Ketorolac TAB * 10 MG TAB PO PRN ×2 (08:18→13:53)
[2019-02-03] MEDS: Metoprolol Succinate XL TAB* 25 MG PO SCH (08:18)
[2019-02-03] MEDS: Acetaminophen TAB* 325 MG PO SCH ×3 (08:18→20:36)
[2019-02-03] MEDS: amLODIPine TAB* 5 MG PO SCH ×2 (08:19→20:37)
[2019-02-03] MEDS: Folic Acid TAB* 1 MG PO SCH (08:19)
[2019-02-03] MEDS: Sertraline* 50 MG TAB PO SCH (08:19)
[2019-02-03] MEDS: hydrALAZINE IV* 20 MG/ML VIAL IV SLOW PU PRN (08:26)
[2019-02-03] MEDS: Ondansetron INJ* 2 MG/ML VIAL IV PRN (19:05)
[2019-02-03] MEDS: Atorvastatin* 10 MG TAB PO SCH (20:37)
[2019-02-03] MEDS: Enoxaparin(*) 40 MG/0.4 ML SYR SUBCUT SCH (20:37)
[2019-02-04] MEDS: Morphine INJ* 2 MG/ML 1 ML SYRINGE (TWO MG - NEW SYRINGE VERSION) IV PRN ×2 (08:34→13:08)
[2019-02-04] MEDS: Acetaminophen TAB* 325 MG PO SCH ×2 (08:37→13:08)
[2019-02-04] MEDS: Metoprolol Succinate XL TAB* 25 MG PO SCH (08:37)
[2019-02-04] MEDS: Folic Acid TAB* 1 MG PO SCH (08:37)
[2019-02-04] MEDS: amLODIPine TAB* 5 MG PO SCH (08:38)
[2019-02-04] MEDS: Sertraline* 50 MG TAB PO SCH (08:38)
[2019-02-04] MEDS: Morphine ORAL CONCENTRATE* 5 MG/0.25 ML ORAL.SYRIN SL PRN ×3 (10:34→17:02)
--- NOTE | 2019-02-04 16:27 | PN ---
Progress Note - Progress Note Date of Service: 02/04/19 SOAP: Subjective: []Pain up and down but feels like it has been a little better today. Still required IV rescue. [place] like her vision was "crossed" this AM but not now. Son and at bedside. Medications Acetaminophen (Tylenol Tab*) 975 mg PO TID [facility] Last Admin: 02/04/19 13:08 Dose: 975 mg Amlodipine Besylate (Norvasc Tab*) 5 mg PO BID [facility] Last Admin: 02/04/19 08:38 Dose: 5 mg Atorvastatin Calcium (Lipitor*) 10 mg PO BEDTIME [facility] Last Admin: 02/03/19 20:37 Dose: 10 mg Enoxaparin Sodium (Lovenox(*)) 40 mg SUBCUT 2100 [facility] Last Admin: 02/03/19 20:37 Dose: 40 mg Folic Acid (Folvite Tab*) 1 mg PO QAM [facility] Last Admin: 02/04/19 08:37 Dose: 1 mg Hydralazine HCl (Apresoline Iv*) 5 mg IV SLOW PU Q6H PRN PRN Reason: Systolic Bp Greater Than: 170 Last Admin: 02/03/19 08:26 Dose: 5 mg Ketorolac Tromethamine (Toradol Tab *) 10 mg PO Q6H PRN PRN Reason: PAIN - MILD Last Admin: 02/03/19 13:53 Dose: 10 mg Metoprolol Succinate (Toprol Xl Tab*) 25 mg PO QAM [facility] Last Admin: 02/04/19 08:37 Dose: 25 mg Morphine Sulfate (Morphine Inj (Syringe))*) 2 mg IV Q4H PRN PRN Reason: PAIN - SEVERE Last Admin: 02/04/19 13:08 Dose: 2 mg Morphine Sulfate (Morphine Oral Concentrate*) 5 mg SL Q2H PRN PRN Reason: PAIN - MODERATE Last Admin: 02/04/19 14:30 Dose: 5 mg Ondansetron HCl (Zofran Inj*) 4 mg IV Q4H PRN PRN Reason: NAUSEA/VOMITING Last Admin: 02/03/19 19:05 Dose: 4 mg Sertraline HCl (Zoloft*) 50 mg PO QAM [facility] Last Admin: 02/04/19 08:38 Dose: 50 mg Objective: [] Vital Signs Temp Pulse Resp BP Pulse Ox 98.1 F 87 16 146/80 94 02/04/19 11:40 02/04/19 11:40 02/04/19 14:30 02/04/19 11:40 02/04/19 11:40 Alert and oriented, communicating clearly and making needs known [facility] Assessment: []83 yo female with a 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 She now has evidence of additional disease below the diaphragm, though it is not clear if this is a separate process or not. She is not inclined, nor does she seem fit for chemotherapy. After discussion with multidisciplinary team as well as patient and family, the plan is to move forward with palliative RT to the sinus lesion in hopes of improving her pain which initiated today. Plan: []1. Hypertensive urgency now resolved - likely being driven by pain 2. BECKFORD - secondary to malignancy - pain control looks a little better today - cont current meds though may want to consider MS Contin 15 mg PO BID if still requiring IV pain meds over next 48 hrs - anticipate this will improve with initiation of RT 3. Squamous cell carcinoma of the nasopharynx, possibly metastatic v second primary malignancy - plan palliative RT, 1 of 5 fractions completed today Dispo: plan for home hospice following XRT
[2019-02-04] MEDS: Ketorolac TAB * 10 MG TAB PO PRN (18:11)
[2019-02-05] MEDS: Atorvastatin* 10 MG TAB PO SCH ×2 (00:17→21:11)
[2019-02-05] MEDS: amLODIPine TAB* 5 MG PO SCH ×3 (00:17→21:11)
[2019-02-05] MEDS: Acetaminophen TAB* 325 MG PO SCH ×4 (00:17→21:10)
[2019-02-05] MEDS: Enoxaparin(*) 40 MG/0.4 ML SYR SUBCUT SCH ×2 (00:18→21:12)
[2019-02-05] MEDS: Ketorolac TAB * 10 MG TAB PO PRN ×2 (05:26→19:56)
[2019-02-05] MEDS: Morphine ORAL CONCENTRATE* 5 MG/0.25 ML ORAL.SYRIN SL PRN ×3 (07:27→14:50)
[2019-02-05] MEDS: Folic Acid TAB* 1 MG PO SCH (07:28)
[2019-02-05] MEDS: Metoprolol Succinate XL TAB* 25 MG PO SCH (07:28)
[2019-02-05] MEDS: Sertraline* 50 MG TAB PO SCH (07:28)
[2019-02-05] MEDS ORDERED: Polyethylene Glycol 3350* 17 GM PACKET PO PRN (12:02)
[2019-02-05] MEDS: Ondansetron INJ* 2 MG/ML VIAL IV PRN (12:52)
[2019-02-05] MEDS: Senna TAB 8.6 mg* TAB PO SCH (21:11)
[2019-02-06 05:10] LABS: Hematocrit 29 % (35-47); Hemoglobin 9.9 g/dL (12.0-16.0); Mean Platelet Volume 8.9 fL (7.4-10.4); Platelet Count 183 10^3/uL (150-450)
[2019-02-06 05:24] LABS: EGFR African American 90.5 (>60); EGFR Non-African American 74.8 (>60)
[2019-02-06] MEDS: Sertraline* 50 MG TAB PO SCH (08:10)
[2019-02-06] MEDS: Folic Acid TAB* 1 MG PO SCH (08:10)
[2019-02-06] MEDS: Acetaminophen TAB* 325 MG PO SCH ×3 (08:11→19:55)
[2019-02-06] MEDS: amLODIPine TAB* 5 MG PO SCH ×2 (08:11→19:56)
[2019-02-06] MEDS: Metoprolol Succinate XL TAB* 50 MG PO SCH (08:12)
--- NOTE | 2019-02-06 11:16 | PN ---
Progress Note - Progress Note Date of Service: 02/06/19 SOAP: Subjective: []Pain today unchanged. Tolerating XRT. No new complaints. Acetaminophen (Tylenol Tab*) 975 mg PO TID [facility] Last Admin: 02/06/19 08:11 Dose: 975 mg Amlodipine Besylate (Norvasc Tab*) 5 mg PO BID [facility] Last Admin: 02/06/19 08:11 Dose: 5 mg Atorvastatin Calcium (Lipitor*) 10 mg PO BEDTIME [facility] Last Admin: 02/05/19 21:11 Dose: 10 mg Enoxaparin Sodium (Lovenox(*)) 40 mg SUBCUT 2100 [facility] Last Admin: 02/05/19 21:12 Dose: 40 mg Folic Acid (Folvite Tab*) [facility] [place] Last Admin: 02/06/19 08:10 Dose: 1 mg Hydralazine HCl (Apresoline Iv*) 5 mg IV SLOW PU Q6H PRN PRN Reason: Systolic Bp Greater Than: 170 Last Admin: 02/03/19 08:26 Dose: 5 mg Metoprolol Succinate (Toprol Xl Tab*) [facility] [place] Last Admin: 02/06/19 08:12 Dose: 50 mg Morphine Sulfate (Morphine Oral Concentrate*) 5 mg SL Q2H PRN PRN Reason: PAIN - MODERATE Last Admin: 02/05/19 14:50 Dose: 5 mg Ondansetron HCl (Zofran Inj*) 4 mg IV Q4H PRN PRN Reason: NAUSEA/VOMITING Last Admin: 02/05/19 12:52 Dose: 4 mg Polyethylene Glycol/Electrolytes (Miralax*) 17 gm PO DAILY PRN PRN Reason: CONSTIPATION Senna (Senokot 8.6 Mg Tab*) 2 tab PO BEDTIME [facility] Last Admin: 02/05/19 21:11 Dose: 2 tab Sertraline HCl (Zoloft*) 50 mg PO [facility] Last Admin: 02/06/19 08:10 Dose: 50 mg Objective: [] Vital Signs Temp Pulse Resp BP Pulse Ox 97.8 F 85 20 153/68 94 02/06/19 07:43 02/06/19 07:43 02/06/19 08:00 02/06/19 07:43 02/06/19 07:43 Alert and oriented, communicating clearly and making needs known Gen w/o distress HEENT: no mass or swelling, skin intact CTA RRR S1S +BS NT ND Ext Tr edema. Neuro: responsive and oriented to hospital. 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 Second finding of left abdominal mass, unclear if related. She is not inclined, nor does she seem fit for chemotherapy. Currently undergoing short course palliative XRT and planning discharge home with hospice. Plan: []1. HTN controlled, increased in am. Likely second to pain. 2. BECKFORD - secondary to malignancy - pain control better, on oral morphine - hope for improvement after XRT 3. Plan discharge on Monday to home with family, hospice on Monday. Will need to make sure she can manage over weekend w/o cna hospice.
[2019-02-06] MEDS: Morphine ORAL CONCENTRATE* 5 MG/0.25 ML ORAL.SYRIN SL PRN ×2 (13:31→19:54)
[2019-02-06] MEDS: Atorvastatin* 10 MG TAB PO SCH (19:56)
[2019-02-06] MEDS: Senna TAB 8.6 mg* TAB PO SCH (19:56)
[2019-02-06] MEDS: Enoxaparin(*) 40 MG/0.4 ML SYR SUBCUT SCH (21:36)
[2019-02-07] MEDS: hydrALAZINE IV* 20 MG/ML VIAL IV SLOW PU PRN (04:06)
[2019-02-07] MEDS: Sertraline* 50 MG TAB PO SCH (08:57)
[2019-02-07] MEDS: Metoprolol Succinate XL TAB* 50 MG PO SCH (08:57)
[2019-02-07] MEDS: Folic Acid TAB* 1 MG PO SCH (08:57)
[2019-02-07] MEDS: Acetaminophen TAB* 325 MG PO SCH ×3 (08:57→20:47)
[2019-02-07] MEDS: amLODIPine TAB* 5 MG PO SCH ×2 (08:57→20:47)
[2019-02-07] MEDS: Morphine ORAL CONCENTRATE* 5 MG/0.25 ML ORAL.SYRIN SL PRN (08:57)
--- NOTE | 2019-02-07 10:20 | PN ---
Progress Note - Progress Note Date of Service: 02/07/19 SOAP: Subjective: []Pain was still bad yesterday, today so far has been fine. Not eating much. Tolerating XRT. Excited about potentially going home. Acetaminophen (Tylenol Tab*) 975 mg PO TID [facility] Last Admin: 02/07/19 08:57 Dose: 975 mg Amlodipine Besylate (Norvasc Tab*) 5 mg PO BID [facility] Last Admin: 02/07/19 08:57 Dose: 5 mg Atorvastatin Calcium (Lipitor*) 10 mg PO BEDTIME [facility] Last Admin: 02/06/19 19:56 Dose: 10 mg Enoxaparin Sodium (Lovenox(*)) 40 mg SUBCUT 2100 [facility] Last Admin: 02/06/19 21:36 Dose: 40 mg Folic Acid (Folvite Tab*) 1 mg PO QAM [facility] Last Admin: 02/07/19 08:57 Dose: 1 mg Hydralazine HCl (Apresoline Iv*) 5 mg IV SLOW PU Q6H PRN PRN Reason: Systolic Bp Greater Than: 170 Last Admin: 02/07/19 04:06 Dose: 5 mg Metoprolol Succinate (Toprol Xl Tab*) 50 mg PO QAM [facility] Last Admin: 02/07/19 08:57 Dose: 50 mg Morphine Sulfate (Morphine Oral Concentrate*) 5 mg SL Q2H PRN PRN Reason: PAIN - MODERATE Last Admin: 02/07/19 08:57 Dose: 5 mg Ondansetron HCl (Zofran Inj*) 4 mg IV Q4H PRN PRN Reason: NAUSEA/VOMITING Last Admin: 02/05/19 12:52 Dose: 4 mg Polyethylene Glycol/Electrolytes (Miralax*) 17 gm PO DAILY PRN PRN Reason: CONSTIPATION Senna (Senokot 8.6 Mg Tab*) 2 tab PO BEDTIME [facility] Last Admin: 02/06/19 19:56 Dose: 2 tab Sertraline HCl (Zoloft*) [facility] [place] Last Admin: 02/07/19 08:57 Dose: 50 mg Objective: [] Vital Signs Temp Pulse Resp BP Pulse Ox 98.2 F 55 20 159/59 95 02/07/19 03:31 02/07/19 03:31 02/07/19 08:57 02/07/19 05:10 02/07/19 03:31 Alert and oriented, communicating clearly and making needs known Gen w/o distress HEENT: no mass or swelling, skin intact CTA RRR S1S +BS NT ND Ext Tr edema. Neuro: responsive and oriented to hospital. 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 Second finding of left abdominal mass, unclear if related. She is not inclined, nor does she seem fit for chemotherapy. Currently undergoing short course palliative XRT and planning discharge home with hospice. Plan: []1. HTN controlled, increased in am. Likely second to pain. - for discharge will start Norvasc 5 mg po dialy, give today 2. BECKFORD - secondary to malignancy - pain control better, on oral morphine - hope for improvement after XRT - re-challenge Gabapentin 300 mg po bid. 3. Plan discharge on Monday to home with family, hospice on Monday. Family agrees with plan.
[2019-02-07] MEDS: Morphine ORAL CONCENTRATE* 5 MG/0.25 ML ORAL.SYRIN PO PRN (15:51)
[2019-02-07] MEDS: Senna TAB 8.6 mg* TAB PO SCH (20:46)
[2019-02-07] MEDS: Gabapentin CAP(*) 300 MG PO SCH (20:47)
[2019-02-07] MEDS: Atorvastatin* 10 MG TAB PO SCH (20:47)
[2019-02-07] MEDS: Enoxaparin(*) 40 MG/0.4 ML SYR SUBCUT SCH (20:48)
[2019-02-08] MEDS: Folic Acid TAB* 1 MG PO SCH (08:12)
[2019-02-08] MEDS: Sertraline* 50 MG TAB PO SCH (08:12)
[2019-02-08] MEDS: amLODIPine TAB* 5 MG PO SCH (08:12)
[2019-02-08] MEDS: Acetaminophen TAB* 325 MG PO SCH ×2 (08:12→13:55)
[2019-02-08] MEDS: Gabapentin CAP(*) 300 MG PO SCH (08:12)
[2019-02-08] MEDS: Metoprolol Succinate XL TAB* 50 MG PO SCH (08:12)
[2019-02-08] MEDS: Morphine ORAL CONCENTRATE* 5 MG/0.25 ML ORAL.SYRIN PO PRN (08:13)
[2019-02-08 15:33] VITALS: BP 151/66
== END 2019-02-08 15:10 | disposition home or self-care (01) | DRG 148 ==
LOC: ED 14:28 → MED 18:43 → OBSVTOIN 01-30 11:00
PROVIDERS: ADMIT Internal Medicine Hematology & Oncology; ATTEND Internal Medicine Hematology & Oncology
PROC: DWY17ZZ Contact Radiation of Head and Neck (ICD-10-PCS; principal; 2019-02-05)
DX: C11.9 Malignant neoplasm of nasopharynx, unspecified (principal); C31.9 Malignant neoplasm of accessory sinus, unspecified; R51 Headache; I10 Essential (primary) hypertension; F03.90 Unspecified dementia, unspecified severity, without behavioral disturbance, psychotic disturbance, mood disturbance, and anxiety; I48.91 Unspecified atrial fibrillation; E78.5 Hyperlipidemia, unspecified; I16.0 Hypertensive urgency; R62.7 Adult failure to thrive; I25.10 Atherosclerotic heart disease of native coronary artery without angina pectoris; M19.90 Unspecified osteoarthritis, unspecified site; M06.9 Rheumatoid arthritis, unspecified; M81.0 Age-related osteoporosis without current pathological fracture; F41.9 Anxiety disorder, unspecified; F32.9 Major depressive disorder, single episode, unspecified; N28.1 Cyst of kidney, acquired; Z88.5 Allergy status to narcotic agent; Z88.1 Allergy status to other antibiotic agents; Z88.6 Allergy status to analgesic agent; Z88.8 Allergy status to other drugs, medicaments and biological substances; Z68.26 Body mass index [BMI] 26.0-26.9, adult; Z86.718 Personal history of other venous thrombosis and embolism; Z85.828 Personal history of other malignant neoplasm of skin
CPT/HCPCS: 36415; 71260; 74177; 77014; 80048; 80053; 81003; 81015; 82375; 82565; 84520; 85014; 85018; 85025; 85049; 85652; 87077; 87086; 96374; 96375; 99226; 99232; 99233; 99284; A9270-GY; G8978-GP-CJ; G8978-GP-CK; G8979-GP-CI; J0360; J1200; J1650; J1885; J2270; J2405; J2765; J3490; J7512; Q9967